=== PATIENT | female | born 1960 | race Caucasian/White ===

== ENCOUNTER → 2018-03-15 16:14 | Outpatient (CLI) | payer OTHER, SELFPAY ==
--- NOTE | 2018-03-15 16:17 | BI_ITS ---
MAMMOGRAPHY - BILATERAL SCREENING REASON FOR EXAM: Female, 57 years old. Routine annual screening examination. PERTINENT HISTORY: Sister with breast cancer. TECHNIQUE: Digital bilateral breast doyle (3D mammographic acquisition) in the CC and MLO projections. 2-D mediolateral oblique (MLO) and craniocaudad (CC) views of both breasts were obtained. CAD: Full Field Digital Mammography with Computer Added Detection was performed. COMPARISON: Comparison is made with prior examination of February 23, 2017 and February 20, 2016. FINDINGS: Breast Composition: There are scattered areas of fibroglandular density. There are no dominant masses or suspicious calcifications. Stable 8.5 mm well-defined nodule in the upper lateral aspect of the right breast. This most likely represents a small lymph node. No other significant abnormalities are identified. There has been no significant change since the prior study. BI/SCREENING MAMM (CAD), BILAT IMPRESSION: Stable bilateral screening mammogram. Yearly follow-up mammogram recommended. (A) ASSESSMENT CATEGORY: BIRADS Category 2: Benign. A letter regarding these results will be sent to the patient by the facility within 30 days. Approximately 10% of breast cancers are not detected by mammography. A normal mammogram should not delay biopsy of a clinically suspicious abnormality. [id number] Electronically Signed: Silver Huitron MD at 9:29 EST Tel [phone], Service support ,
== END ==
PROVIDERS: Family Provider Nurse Practitioner Family; PCP Nurse Practitioner Family; Referring Provider Nurse Practitioner Family; Visit Provider Nurse Practitioner Family
DX: Z12.31 Encounter for screening mammogram for malignant neoplasm of breast (principal)
CPT/HCPCS: 77063; 77067

== ENCOUNTER → 2019-03-16 15:12 | Outpatient (CLI) | payer OTHER, SELFPAY ==
--- NOTE | 2019-03-16 15:14 | BI_ITS ---
MAMMOGRAPHY - BILATERAL SCREENING REASON FOR EXAM: Female, 58 years old. Routine annual screening examination. PERTINENT HISTORY: Sister with breast cancer. TECHNIQUE: Digital bilateral breast sue (3D mammographic acquisition) in the CC and MLO projections. 2-D mediolateral oblique (MLO) and craniocaudad (CC) views of both breasts were obtained. CAD: Full Field Digital Mammography with Computer Added Detection was performed. COMPARISON: Comparison is made with prior study dated March 15, 2018 and February 23, 2017. FINDINGS: Breast Composition: There are scattered areas of fibroglandular density. There are no dominant masses or suspicious calcifications. Stable 8 mm well-defined nodule in the upper lateral aspect of the right breast this as the appearance of a benign lymph node. No other significant abnormalities are identified. There has been no significant change since the prior study. BI/SCREEN MAMM (CAD) W/SUE BILAT IMPRESSION: Stable bilateral screening mammogram. Yearly follow-up mammogram recommended. (A) ASSESSMENT CATEGORY: BIRADS Category 2: Benign. A letter regarding these results will be sent to the patient by the facility within 30 days. Approximately 10% of breast cancers are not detected by mammography. A normal mammogram should not delay biopsy of a clinically suspicious abnormality. [id number] Electronically Signed: Silver Huitron, at 9:26 EST , Service support ,
--- NOTE | 2019-03-16 15:28 | BD_ITS ---
STUDY: DUAL ENERGY X-RAY ABSORPTIOMETRY / DXA REASON FOR EXAM: Female, 58 years old. Early menopause. No loss of height. TECHNIQUE: Bone Mineral Density (BMD) measurements of lumbar spine and bilateral hips were obtained. COMPARISON: Comparison is made with prior study dated February 23, 2017. FINDINGS: Lumbar Spine (L1-L4): g/cm2 (0.947) / T-score (-1.8) / Z-score (-0.8) Findings are suggestive of osteopenia with a moderate fracture risk. Left Femur Total: g/cm2 (0.816) / T-score (-1.5) / Z-score (-0.8) Left Femoral Neck: g/cm2 (0.778) / T-score (-1.9) / Z-score (-0.8) Right Femur Total: g/cm2 (0.812) / T-score (-1.6) / Z-score (-0.8) Right Femoral Neck: g/cm2 (0.724) / T-score (-2.3) / Z-score (-1.2) The T-Scores on the most recent prior examination were: Lumbar Spine (L1-L4): There has been worsening of bone density since the previous examination. Left Femur Total: which represents a worsening of 5.7%. Right Femur Total: which represents an improvement of 0.1%. BD/Dexa Bone Density Study IMPRESSION: The patient is considered osteopenic as outlined below according to World Kole Organization (WHO) criteria with a high fracture risk. There has been worsening of bone density since the previous examination. Reference Information: The T-score is the number of standard deviations above or below the standard which is normal for young adults at their peak bone mineral density. The World Health Organization (WHO) interprets the T-scores as follows: Above -1 Normal bone density Between -1 and -2.5 Osteopenia Equal to / or below -2.5 Osteoporosis As a practical clinical guideline, osteopenia may be graded as follows: Mild -1 through -1.5 Moderate -1.6 through -2.0 Severe -2.1 through -2.4 The Z-score is the number of standard deviations above or below age-matched controls. A Z-score of less than -1.5 would be considered abnormal. References: 1. NIH Osteoporosis and Related Bone Diseases http://www.osteo.org 2. International Society for Clinical Densitometry http://www.iscd.org 3. National Osteoporosis Foundation http://www.nof.org Electronically Signed: Silver Huitron, at 15:37 EST , Service support ,
== END ==
PROVIDERS: Family Provider Nurse Practitioner Family; PCP Nurse Practitioner Family; Referring Provider Nurse Practitioner Family; Visit Provider Nurse Practitioner Family
DX: Z78.0 Asymptomatic menopausal state (principal); Z12.31 Encounter for screening mammogram for malignant neoplasm of breast; Z80.3 Family history of malignant neoplasm of breast
CPT/HCPCS: 77063; 77067; 77080

== ENCOUNTER → 2020-06-12 14:29 | Outpatient (CLI) | payer OTHER, SELFPAY ==
[2020-06-12 15:35] LABS: EXAGEN MAILED SPECIMEN
[2020-06-12 17:56] LABS: Absolute Lymphocyte Count 2.33 X10^3/uL (0.83-4.51); Absolute Neutrophil Count 5.2 X10^3/uL (2.0-7.7); Basophil# 0.06 X10^3/uL; Basophil% 0.7 % (0-1); Eosinophil# 0.16 X10^3/uL; Eosinophils% 1.9 % (0-5); Hematocrit 36.5 % (37-47); Hemoglobin 12.2 g/dL (12.0-15.0); Lymphocyte # 2.33 X10^3/ul (4.0); Lymphocyte % 27.2 % (19-41); Mean Corp Hgb Conc 33.4 g/dL (32-36); Mean Corpuscular Hgb 29.8 pg (27.0-32.0); Mean Corpuscular Volume 89.2 fL (81-99); Mean Platelet Vol. 9.2 fl (6.2-12.0); Monocyte# 0.83 X10^3/uL; Monocyte% 9.7 % (0-10); NRBC Flagged by Analyzer 0 % (0-5); Neutrophil # 5.16 X10^3/uL (2.7-7.7); Neutrophil % 60.3 % (47-70); Platelet Count 324 K/mm3 (150-450); RBC Distribution Width CV 12.3 % (11.6-14.6); RBC Distribution Width SD 40.2 fl (35.1-43.9); Red Blood Count 4.09 M/mm3 (4.2-5.4); White Blood Count 8.6 K/mm3 (4.4-11.0)
[2020-06-12 18:13] LABS: Prothrombin Time (Protime)PT. 12.4 SECONDS (11.7-14.9)
[2020-06-12 18:14] LABS: Partial Thromboplast Time 30.5 Seconds (24.1-36.2)
[2020-06-12 18:21] LABS: ALB/GLOB Ratio 1.1 RATIO (0.9-2.4); AST(SGOT) 17 U/L (15-37); Alanine Aminotransfer ALT/SGPT 31 U/L (13-56); Alkaline Phosphatase 75 U/L (45-117); Anion Gap 8 (5-15); BUN 13 mg/dL (7-18); Calcium,Total 9.2 mg/dL (8.5-10.1); Chloride 106 mmol/L (98-107); Creatinine, Serum 0.62 mg/dL (0.55-1.02); EST Glomerular Filtration Rate 105 mL/min (>60); Est Glom Filt Rate - Afr Amer 127 mL/min (>60); Globulin 3.8 g/dL (2.2-4.2); Glucose 89 mg/dL (74-106); Potassium 3.4 mmol/L (3.5-5.1); Protein, Total 7.8 g/dL (6.4-8.2); Sodium Level 141 mmol/L (136-145)
[2020-06-13 10:11] LABS: Hepatitis B Surface Antibody Non-Reactive; Hepatitis B Surface Antigen Non-Reactive (Nonreactive); Hepatitis C Antibody Non-Reactive (Nonreactive)
[2020-06-15 05:07] LABS: Dilute Prothrombin Time (dPT) 39.6 sec (0.0-55.0); Dilute Russell Viper Venom 41.3 sec (0.0-47.0); Hexagonal Phase Phospholipid 1 sec (0-11); PTT-LA 44.8 sec (0.0-51.9); Thrombin Time 17.2 sec (0.0-23.0)
[2020-06-15 08:59] LABS: Interpretation Comment: (.)
[2020-06-15 14:36] LABS: Thrombin Time 15.8 sec (0.0-23.0)
== END ==
PROVIDERS: PCP Nurse Practitioner Family; Referring Provider Internal Medicine Rheumatology; Visit Provider Internal Medicine Rheumatology
DX: M06.4 Inflammatory polyarthropathy (principal); R76.8 Other specified abnormal immunological findings in serum; M50.30 Other cervical disc degeneration, unspecified cervical region; M21.41 Flat foot [pes planus] (acquired), right foot; K21.9 Gastro-esophageal reflux disease without esophagitis; I49.8 Other specified cardiac arrhythmias; I11.9 Hypertensive heart disease without heart failure; F32.9 Major depressive disorder, single episode, unspecified; E78.5 Hyperlipidemia, unspecified; H40.9 Unspecified glaucoma; R51.9 Headache, unspecified
CPT/HCPCS: 36415; 80053; 85025; 85598; 85610; 85670; 85730; 86706; 86803; 87340

== ENCOUNTER → 2020-07-08 15:55 | Outpatient (CLI) | payer OTHER, SELFPAY ==
[2020-06-26 16:10] VITALS: BMI 33.4
[2020-07-08 17:03] LABS: EXAGEN MAILED SPECIMEN
== END ==
PROVIDERS: PCP Nurse Practitioner Family; Referring Provider Internal Medicine Rheumatology; Visit Provider Internal Medicine Rheumatology
DX: M06.4 Inflammatory polyarthropathy (principal); R76.8 Other specified abnormal immunological findings in serum; M50.30 Other cervical disc degeneration, unspecified cervical region; M21.41 Flat foot [pes planus] (acquired), right foot; K21.9 Gastro-esophageal reflux disease without esophagitis; I49.8 Other specified cardiac arrhythmias; I10 Essential (primary) hypertension; I51.9 Heart disease, unspecified; F32.9 Major depressive disorder, single episode, unspecified; E78.5 Hyperlipidemia, unspecified; H40.9 Unspecified glaucoma; R51.9 Headache, unspecified

== ENCOUNTER → 2020-08-21 16:01 | Outpatient (CLI) | payer OTHER, SELFPAY ==
[2020-06-26 16:10] VITALS: BMI 33.4
--- NOTE | 2020-08-21 16:03 | BI_ITS ---
MAMMOGRAPHY - BILATERAL SCREENING REASON FOR EXAM: Female, 59 years old. Routine annual screening examination. PERTINENT HISTORY: Sister with breast cancer. TECHNIQUE: Digital bilateral breast sue (3D mammographic acquisition) in the CC and MLO projections. 2-D mediolateral oblique (MLO) and craniocaudad (CC) views of both breasts were obtained. CAD: Full Field Digital Mammography with Computer Added Detection was performed. COMPARISON: Comparison is made with prior examination dated 03/16/2019 and 03/15/2018. FINDINGS: Breast Composition: There are scattered areas of fibroglandular density. There are no dominant masses or suspicious calcifications. Stable 8 mm well-defined nodule in the upper lateral aspect of the right breast. This is suggestive of a small benign-appearing lymph node. No other significant abnormalities are identified. There has been no significant change since the prior study. BI/SCRN MAMM (CAD)W/SUE BILAT IMPRESSION: Stable bilateral screening mammogram. Yearly follow-up mammogram recommended. (A) ASSESSMENT CATEGORY: BIRADS Category 2: Benign. A letter regarding these results will be sent to the patient by the facility within 30 days. Approximately 10% of breast cancers are not detected by mammography. A normal mammogram should not delay biopsy of a clinically suspicious abnormality. [id number] Electronically Signed: Silver Huitron MD at 8:09 EDT , Service support ,
== END ==
PROVIDERS: PCP Nurse Practitioner Family; Referring Provider Nurse Practitioner Family; Visit Provider Nurse Practitioner Family
DX: Z12.31 Encounter for screening mammogram for malignant neoplasm of breast (principal); Z80.3 Family history of malignant neoplasm of breast
CPT/HCPCS: 77063; 77067

== ENCOUNTER → 2020-10-17 16:08 | Outpatient (CLI) | payer OTHER, SELFPAY ==
[2020-06-26 16:10] VITALS: BMI 33.4
[2020-10-17 18:02] LABS: Absolute Lymphocyte Count 2.52 X10^3/uL (0.83-4.51); Absolute Neutrophil Count 3.6 X10^3/uL (2.0-7.7); Basophil# 0.05 X10^3/uL; Basophil% 0.7 % (0-1); Eosinophil# 0.19 X10^3/uL; Eosinophils% 2.7 % (0-5); Hematocrit 36.4 % (37-47); Hemoglobin 12.2 g/dL (12.0-15.0); Lymphocyte # 2.52 X10^3/ul (0.83-4.51); Lymphocyte % 35.2 % (19-41); Mean Corp Hgb Conc 33.5 g/dL (32-36); Mean Corpuscular Hgb 29.8 pg (27.0-32.0); Monocyte# 0.72 X10^3/uL; Monocyte% 10.1 % (0-10); NRBC Flagged by Analyzer 0 % (0-5); Neutrophil # 3.64 X10^3/uL (2.7-7.7); Neutrophil % 50.9 % (47-70); Platelet Count 299 K/mm3 (150-450); RBC Distribution Width CV 12.4 % (11.6-14.6); RBC Distribution Width SD 40.3 fl (35.1-43.9); Red Blood Count 4.09 M/mm3 (4.2-5.4); White Blood Count 7.2 K/mm3 (4.4-11.0)
[2020-10-17 18:06] LABS: ALB/GLOB Ratio 1.2 RATIO (0.9-2.4); AST(SGOT) 22 U/L (15-37); Alanine Aminotransfer ALT/SGPT 36 U/L (13-56); Albumin, Serum 4.1 g/dL (3.2-5.0); Alkaline Phosphatase 66 U/L (45-117); Anion Gap 7 (5-15); BUN 14 mg/dL (7-18); BUN/Creat Ratio 22.3 RATIO (10-20); Calcium,Total 9.2 mg/dL (8.5-10.1); Chloride 107 mmol/L (98-107); Creatinine, Serum 0.63 mg/dL (0.55-1.02); EST Glomerular Filtration Rate 103 mL/min (>60); Est Glom Filt Rate - Afr Amer 125 mL/min (>60); Globulin 3.5 g/dL (2.2-4.2); Glucose 85 mg/dL (74-106); Potassium 3.5 mmol/L (3.5-5.1); Protein, Total 7.6 g/dL (6.4-8.2); Sodium Level 141 mmol/L (136-145)
== END ==
PROVIDERS: PCP Nurse Practitioner Family; Referring Provider Internal Medicine Rheumatology; Visit Provider Internal Medicine Rheumatology
DX: M06.4 Inflammatory polyarthropathy (principal); R76.8 Other specified abnormal immunological findings in serum; M50.30 Other cervical disc degeneration, unspecified cervical region; M21.41 Flat foot [pes planus] (acquired), right foot; K21.9 Gastro-esophageal reflux disease without esophagitis; I49.8 Other specified cardiac arrhythmias; I11.9 Hypertensive heart disease without heart failure; F32.9 Major depressive disorder, single episode, unspecified; E78.5 Hyperlipidemia, unspecified; H40.9 Unspecified glaucoma; R51.9 Headache, unspecified
CPT/HCPCS: 36415; 80053; 85025

== ENCOUNTER → 2021-01-14 15:46 | Outpatient (CLI) | payer OTHER, SELFPAY ==
[2021-01-14 18:07] LABS: Absolute Lymphocyte Count 2.83 X10^3/uL (0.83-4.51); Absolute Neutrophil Count 5.9 X10^3/uL (2.0-7.7); Basophil# 0.07 X10^3/uL; Basophil% 0.7 % (0-1); Eosinophil# 0.05 X10^3/uL; Eosinophils% 0.5 % (0-5); Hematocrit 38.4 % (37-47); Hemoglobin 13.2 g/dL (12.0-15.0); Lymphocyte # 2.83 X10^3/ul (0.83-4.51); Mean Corp Hgb Conc 34.4 g/dL (32-36); Mean Corpuscular Hgb 30.8 pg (27.0-32.0); Mean Corpuscular Volume 89.5 fL (81-99); Mean Platelet Vol. 8.9 fl (6.2-12.0); Monocyte# 0.91 X10^3/uL; Monocyte% 9.3 % (0-10); NRBC Flagged by Analyzer 0 % (0-5); Neutrophil # 5.87 X10^3/uL (2.7-7.7); Neutrophil % 60.2 % (47-70); Platelet Count 359 K/mm3 (150-450); RBC Distribution Width CV 12.2 % (11.6-14.6); RBC Distribution Width SD 39.6 fl (35.1-43.9); Red Blood Count 4.29 M/mm3 (4.2-5.4); White Blood Count 9.8 K/mm3 (4.4-11.0)
[2021-01-14 18:25] LABS: ALB/GLOB Ratio 1.1 RATIO (0.9-2.4); AST(SGOT) 17 U/L (15-37); Alanine Aminotransfer ALT/SGPT 38 U/L (13-56); Albumin, Serum 4.1 g/dL (3.2-5.0); Alkaline Phosphatase 63 U/L (45-117); Anion Gap 6 (5-15); BUN 13 mg/dL (7-18); BUN/Creat Ratio 21.6 RATIO (10-20); Calcium,Total 9.2 mg/dL (8.5-10.1); Chloride 105 mmol/L (98-107); EST Glomerular Filtration Rate 108 mL/min (>60); Est Glom Filt Rate - Afr Amer 131 mL/min (>60); Globulin 3.7 g/dL (2.2-4.2); Glucose 112 mg/dL (74-106); Potassium 3.5 mmol/L (3.5-5.1); Protein, Total 7.8 g/dL (6.4-8.2); Sodium Level 139 mmol/L (136-145)
== END ==
PROVIDERS: PCP Nurse Practitioner Family; Referring Provider Internal Medicine Rheumatology; Visit Provider Internal Medicine Rheumatology
DX: M06.4 Inflammatory polyarthropathy (principal); M50.30 Other cervical disc degeneration, unspecified cervical region; M21.41 Flat foot [pes planus] (acquired), right foot; K21.9 Gastro-esophageal reflux disease without esophagitis; R76.8 Other specified abnormal immunological findings in serum; Z79.899 Other long term (current) drug therapy
CPT/HCPCS: 36415; 80053; 85025

== ENCOUNTER → 2021-04-01 15:48 | Outpatient (CLI) | payer OTHER, SELFPAY ==
[2021-04-01 17:57] LABS: Absolute Lymphocyte Count 2.59 X10^3/uL (0.83-4.51); Absolute Neutrophil Count 3.9 X10^3/uL (2.0-7.7); Basophil# 0.06 X10^3/uL; Basophil% 0.8 % (0-1); Eosinophil# 0.11 X10^3/uL; Eosinophils% 1.5 % (0-5); Hematocrit 37.4 % (37-47); Hemoglobin 12.7 g/dL (12.0-15.0); Lymphocyte # 2.59 X10^3/ul (0.83-4.51); Lymphocyte % 35.3 % (19-41); Mean Corpuscular Hgb 30.7 pg (27.0-32.0); Mean Corpuscular Volume 90.3 fL (81-99); Mean Platelet Vol. 8.7 fl (6.2-12.0); Monocyte# 0.62 X10^3/uL; Monocyte% 8.5 % (0-10); NRBC Flagged by Analyzer 0 % (0-5); Neutrophil # 3.93 X10^3/uL (2.7-7.7); Neutrophil % 53.6 % (47-70); Platelet Count 293 K/mm3 (150-450); RBC Distribution Width CV 12.7 % (11.6-14.6); RBC Distribution Width SD 41.5 fl (35.1-43.9); Red Blood Count 4.14 M/mm3 (4.2-5.4); White Blood Count 7.3 K/mm3 (4.4-11.0)
[2021-04-01 18:31] LABS: ALB/GLOB Ratio 1.2 RATIO (0.9-2.4); AST(SGOT) 18 U/L (15-37); Alanine Aminotransfer ALT/SGPT 46 U/L (13-56); Alkaline Phosphatase 51 U/L (45-117); Anion Gap 9 (5-15); BUN 13 mg/dL (7-18); BUN/Creat Ratio 19.8 RATIO (10-20); Calcium,Total 8.9 mg/dL (8.5-10.1); Chloride 107 mmol/L (98-107); Creatinine, Serum 0.66 mg/dL (0.55-1.02); EST Glomerular Filtration Rate 98 mL/min (>60); Est Glom Filt Rate - Afr Amer 118 mL/min (>60); Globulin 3.3 g/dL (2.2-4.2); Glucose 83 mg/dL (74-106); Potassium 3.7 mmol/L (3.5-5.1); Protein, Total 7.3 g/dL (6.4-8.2); Sodium Level 141 mmol/L (136-145)
== END ==
PROVIDERS: PCP Nurse Practitioner Family; Referring Provider Internal Medicine Rheumatology; Visit Provider Internal Medicine Rheumatology
DX: M06.4 Inflammatory polyarthropathy (principal); R76.8 Other specified abnormal immunological findings in serum; Z79.899 Other long term (current) drug therapy; M50.30 Other cervical disc degeneration, unspecified cervical region; M21.41 Flat foot [pes planus] (acquired), right foot; K21.9 Gastro-esophageal reflux disease without esophagitis; I49.8 Other specified cardiac arrhythmias; I10 Essential (primary) hypertension; I51.9 Heart disease, unspecified; F32.9 Major depressive disorder, single episode, unspecified; E78.5 Hyperlipidemia, unspecified; H40.9 Unspecified glaucoma; R51.9 Headache, unspecified
CPT/HCPCS: 36415; 80053; 85025

== ENCOUNTER → 2021-09-30 | Outpatient (CLI) | payer OTHER, SELFPAY ==
[2021-09-30 17:48] LABS: Absolute Lymphocyte Count 2.83 X10^3/uL (0.83-4.51); Absolute Neutrophil Count 3.2 X10^3/uL (2.0-7.7); Basophil# 0.08 X10^3/uL; Basophil% 1.2 % (0-1); Eosinophil# 0.17 X10^3/uL; Eosinophils% 2.5 % (0-5); Hematocrit 35.4 % (37-47); Hemoglobin 12.4 g/dL (12.0-15.0); Lymphocyte # 2.83 X10^3/ul (0.83-4.51); Lymphocyte % 41.1 % (19-41); Mean Corpuscular Hgb 31.1 pg (27.0-32.0); Mean Corpuscular Volume 88.7 fL (81-99); Mean Platelet Vol. 8.9 fl (6.2-12.0); Monocyte# 0.62 X10^3/uL; NRBC Flagged by Analyzer 0 % (0-5); Neutrophil # 3.17 X10^3/uL (2.7-7.7); Neutrophil % 46.1 % (47-70); POSITIVE MORPHOLOGY YES; Platelet Count 300 K/mm3 (150-450); RBC Distribution Width SD 39.3 fl (35.1-43.9); Red Blood Count 3.99 M/mm3 (4.2-5.4); White Blood Count 6.9 K/mm3 (4.4-11.0)
[2021-09-30 17:55] LABS: Differential Indicated SCAN CRITERIA MET
[2021-09-30 18:00] LABS: ALB/GLOB Ratio 1.2 RATIO (0.9-2.4); AST(SGOT) 22 U/L (15-37); Alanine Aminotransfer ALT/SGPT 48 U/L (13-56); Alkaline Phosphatase 45 U/L (45-117); Anion Gap 9 (5-15); BUN 17 mg/dL (7-18); BUN/Creat Ratio 22.6 RATIO (10-20); Calcium,Total 9.4 mg/dL (8.5-10.1); Chloride 102 mmol/L (98-107); Creatinine, Serum 0.75 mg/dL (0.55-1.02); EST Glomerular Filtration Rate 83 mL/min (>60); Est Glom Filt Rate - Afr Amer 101 mL/min (>60); Globulin 3.3 g/dL (2.2-4.2); Glucose 92 mg/dL (74-106); Potassium 3.3 mmol/L (3.5-5.1); Protein, Total 7.3 g/dL (6.4-8.2); Sodium Level 137 mmol/L (136-145)
[2021-09-30 18:24] LABS: Differential Comment SCANNED
== END | disposition home or self-care (01) ==
LOC: MTLAB 15:52
PROVIDERS: PCP Nurse Practitioner Family; Referring Provider Internal Medicine Rheumatology; Visit Provider Internal Medicine Rheumatology
DX: M06.4 Inflammatory polyarthropathy (principal); R76.0 Raised antibody titer; M50.30 Other cervical disc degeneration, unspecified cervical region; M21.41 Flat foot [pes planus] (acquired), right foot; M21.42 Flat foot [pes planus] (acquired), left foot; K21.9 Gastro-esophageal reflux disease without esophagitis; I49.8 Other specified cardiac arrhythmias; I10 Essential (primary) hypertension; Z79.899 Other long term (current) drug therapy
CPT/HCPCS: 36415; 80053; 85025

== ENCOUNTER → 2021-11-04 | Outpatient (CLI) | payer OTHER, SELFPAY ==
--- NOTE | 2021-11-04 15:49 | BI_ITS ---
MAMMOGRAPHY - BILATERAL SCREENING REASON FOR EXAM: Female, 60 years old. Routine annual screening examination. PERTINENT HISTORY: Sister with breast cancer. TECHNIQUE: Digital bilateral breast sue (3D mammographic acquisition) in the CC and MLO projections. 2-D mediolateral oblique (MLO) and craniocaudad (CC) views of both breasts were obtained. CAD: Full Field Digital Mammography with Computer Added Detection was performed. COMPARISON: Comparison is made with prior study dated 08/21/2020 and 03/16/2019. FINDINGS: Breast Composition: There are scattered areas of fibroglandular density. There are no dominant masses or suspicious calcifications. Stable 8 mm well-defined nodule with central fatty hilum in the deep upper lateral aspect of the right breast suggests a small lymph node. No other significant abnormalities are identified. There has been no significant change since the prior study. BI/SCRN MAMM (CAD)W/SUE BILAT IMPRESSION: Stable bilateral screening mammogram. Yearly follow-up mammogram recommended. (A) ASSESSMENT CATEGORY: BIRADS Category 2: Benign. A letter regarding these results will be sent to the patient by the facility within 30 days. Approximately 10% of breast cancers are not detected by mammography. A normal mammogram should not delay biopsy of a clinically suspicious abnormality. [id number] Electronically Signed: Silver Huitron MD at 8:29 EDT ,
== END | disposition home or self-care (01) ==
LOC: OPBI 15:48
PROVIDERS: PCP Nurse Practitioner Family; Visit Provider Nurse Practitioner Family
DX: Z12.31 Encounter for screening mammogram for malignant neoplasm of breast (principal); Z80.3 Family history of malignant neoplasm of breast
CPT/HCPCS: 77063; 77067

== ENCOUNTER → 2022-03-23 | Outpatient (CLI) | payer OTHER, SELFPAY ==
[2022-03-23 17:53] LABS: Absolute Lymphocyte Count 3.02 X10^3/uL (0.83-4.51); Basophil# 0.04 X10^3/uL; Basophil% 0.4 % (0-1); Eosinophil# 0.31 X10^3/uL; Eosinophils% 3.4 % (0-5); Hematocrit 38.4 % (37-47); Hemoglobin 13.3 g/dL (12.0-15.0); Lymphocyte # 3.02 X10^3/ul (0.83-4.51); Lymphocyte % 32.9 % (19-41); Mean Corp Hgb Conc 34.6 g/dL (32-36); Mean Corpuscular Hgb 31.1 pg (27.0-32.0); Mean Corpuscular Volume 89.7 fL (81-99); Mean Platelet Vol. 8.9 fl (6.2-12.0); Monocyte# 0.78 X10^3/uL; Monocyte% 8.5 % (0-10); NRBC Flagged by Analyzer 0 % (0-5); Neutrophil # 5.01 X10^3/uL (2.7-7.7); Neutrophil % 54.6 % (47-70); Platelet Count 280 K/mm3 (150-450); RBC Distribution Width CV 12.3 % (11.6-14.6); RBC Distribution Width SD 40.2 fl (35.1-43.9); Red Blood Count 4.28 M/mm3 (4.2-5.4); White Blood Count 9.2 K/mm3 (4.4-11.0)
[2022-03-23 18:04] LABS: ALB/GLOB Ratio 1.4 RATIO (0.9-2.4); AST(SGOT) 27 U/L (15-37); Alanine Aminotransfer ALT/SGPT 52 U/L (13-56); Alkaline Phosphatase 50 U/L (45-117); Anion Gap 8 (5-15); BUN 22 mg/dL (7-18); BUN/Creat Ratio 29.2 RATIO (10-20); Calcium,Total 9.1 mg/dL (8.5-10.1); Chloride 103 mmol/L (98-107); Creatinine, Serum 0.75 mg/dL (0.55-1.02); EST Glomerular Filtration Rate 83 mL/min (>60); Est Glom Filt Rate - Afr Amer 101 mL/min (>60); Globulin 2.8 g/dL (2.2-4.2); Glucose 88 mg/dL (74-106); Potassium 3.5 mmol/L (3.5-5.1); Protein, Total 6.8 g/dL (6.4-8.2); Sodium Level 139 mmol/L (136-145)
== END | disposition home or self-care (01) ==
PROVIDERS: PCP Nurse Practitioner Family; Referring Provider Internal Medicine Rheumatology; Visit Provider Internal Medicine Rheumatology
DX: M06.4 Inflammatory polyarthropathy (principal); I10 Essential (primary) hypertension; R76.8 Other specified abnormal immunological findings in serum; M50.30 Other cervical disc degeneration, unspecified cervical region; M21.41 Flat foot [pes planus] (acquired), right foot; K21.9 Gastro-esophageal reflux disease without esophagitis; F32.9 Major depressive disorder, single episode, unspecified; E78.5 Hyperlipidemia, unspecified; H40.9 Unspecified glaucoma; R51.9 Headache, unspecified; Z79.899 Other long term (current) drug therapy
CPT/HCPCS: 36415; 80053; 85025

== ENCOUNTER → 2022-07-30 | Outpatient (CLI) | payer OTHER, SELFPAY ==
--- NOTE | 2022-07-30 12:48 | CDU_ITS ---
Reason For Study: Lightheadedness Rt. Velocities/BP Lt. Velocities/BP Prox CCA 90/17.3 cm/sec. Prox CCA 91.6/17.9 cm/sec. Mid CCA 74.9/18.2 cm/sec. Mid CCA 71.8/19 cm/sec. Dist CCA 52.2/12.6 cm/sec. Dist CCA 67.4/16.8 cm/sec. Prox ICA 51.3/13.5 cm/sec. Prox ICA 63/16.8 cm/sec. Mid ICA 82.5/32.4 cm/sec. Mid ICA 109.7/37.2 cm/sec. Dist ICA 67.8/23.7 cm/sec. Dist ICA 98.8/33.5 cm/sec. Rt. ICA/CCA = 1.10. Lt. ICA/CCA = 1.53. Prox ECA 55.1/7.8 cm/sec. Prox ECA 76.2/8 cm/sec. Rt. Vert. 49.4/17.3 cm/sec. Lt. Vert. 53.2/12.6 cm/sec. Right Extracranial There is intimal thickening but no significant atherosclerotic plaque noted in the right common carotid artery. There is intimal thickening but no significant atherosclerotic plaque noted in the right internal carotid artery. There is intimal thickening but no significant atherosclerotic plaque noted in the right external carotid artery. Antegrade flow is noted in the right vertebral artery. Left Extracranial There is heterogeneous, smooth atherosclerotic plaque noted in the left common carotid artery. There is heterogeneous, irregular atherosclerotic plaque noted in the left internal carotid artery. There is intimal thickening but no significant atherosclerotic plaque noted in the left external carotid artery. Antegrade flow is noted in the left vertebral artery. Procedure Carotid Duplex [id number]. This is a Carotid Duplex examination using B-mode, color flow and specral Doppler. Exam performed in department. VL/Carotid Duplex Ultrasound Interpretation Summary Normal right extracranial internal carotid. Mild (<50%) stenosis left extracranial internal carotid. Patent and antegrade vertebrals bilaterally. Ordering Physician: Chris Morales Referring Physician: Ilan Chung Performed By: Nena Salas RVT
--- NOTE | 2022-07-30 13:25 | BD_ITS ---
STUDY: DUAL ENERGY X-RAY ABSORPTIOMETRY / DXA REASON FOR EXAM: Female, 61 years old. Z13.820 -- SCREENING TECHNIQUE: Bone Mineral Density (BMD) measurements of lumbar spine and bilateral hips were obtained. COMPARISON: Comparison is made with prior study March 16, 2019. FINDINGS: Lumbar Spine (L1-L4): g/cm2 (0.896) / T-score (-1.1) / Z-score (0.3) Findings are suggestive of osteopenia with a low fracture risk. Left Femur Total: g/cm2 (0.756) / T-score (-1.5) / Z-score (-0.5) Left Femoral Neck: g/cm2 (0.590) / T-score (-2.3) / Z-score (-1.0) Right Femur Total: g/cm2 (0.750) / T-score (-1.6) / Z-score (-0.6) Right Femoral Neck: g/cm2 (0.586) / T-score (-2.4) / Z-score (-1.1) The T-Scores on the most recent prior examination were: Lumbar Spine (L1-L4): There has been improvement of bone density since the previous examination. Left Femur Total: which represents an improvement of 0.1%. Right Femur Total: which represents a worsening of 0.1%. BD/Dexa Bone Density Study IMPRESSION: The patient is considered osteopenic as outlined below according to World Kole Organization (WHO) criteria with a high fracture risk. There has been improvement of bone density since the previous examination. Reference Information: The T-score is the number of standard deviations above or below the standard which is normal for young adults at their peak bone mineral density. The World Health Organization (WHO) interprets the T-scores as follows: Above -1 Normal bone density Between -1 and -2.5 Osteopenia Equal to / or below -2.5 Osteoporosis As a practical clinical guideline, osteopenia may be graded as follows: Mild -1 through -1.5 Moderate -1.6 through -2.0 Severe -2.1 through -2.4 The Z-score is the number of standard deviations above or below age-matched controls. A Z-score of less than -1.5 would be considered abnormal. References: 1. NIH Osteoporosis and Related Bone Diseases www osteo.org 2. International Society for Clinical Densitometry www iscd.org 3. National Osteoporosis Foundation www nof.org Electronically Signed: Silver Huitron MD at 12:59 EDT ,
== END | disposition home or self-care (01) ==
LOC: CVS 12:46
PROVIDERS: PCP Nurse Practitioner Family; Referring Provider Nurse Practitioner Primary Care; Visit Provider Nurse Practitioner Primary Care
DX: I65.22 Occlusion and stenosis of left carotid artery (principal); R42 Dizziness and giddiness; Z13.820 Encounter for screening for osteoporosis; Z78.0 Asymptomatic menopausal state; Z82.49 Family history of ischemic heart disease and other diseases of the circulatory system
CPT/HCPCS: 77080; 93880

== ENCOUNTER → 2022-09-17 | Outpatient (CLI) | payer OTHER, SELFPAY ==
[2022-09-17 17:43] LABS: Basophil# 0.05 X10^3/uL; Basophil% 0.8 % (0-1); Eosinophil# 0.13 X10^3/uL; Eosinophils% 2.2 % (0-5); Hematocrit 35.8 % (37-47); Hemoglobin 12.6 g/dL (12.0-15.0); Lymphocyte % 36.5 % (19-41); Mean Corp Hgb Conc 35.2 g/dL (32-36); Mean Corpuscular Hgb 31.3 pg (27.0-32.0); Mean Corpuscular Volume 88.8 fL (81-99); Mean Platelet Vol. 9.1 fl (6.2-12.0); Monocyte# 0.68 X10^3/uL; Monocyte% 11.3 % (0-10); NRBC Flagged by Analyzer 0 % (0-5); Neutrophil # 2.95 X10^3/uL (2.7-7.7); Platelet Count 286 K/mm3 (150-450); RBC Distribution Width SD 38.6 fl (35.1-43.9); Red Blood Count 4.03 M/mm3 (4.2-5.4)
[2022-09-17 18:25] LABS: ALB/GLOB Ratio 1.2 RATIO (0.9-2.4); AST(SGOT) 30 U/L (15-37); Alanine Aminotransfer ALT/SGPT 65 U/L (13-56); Alkaline Phosphatase 42 U/L (45-117); Anion Gap 7 (5-15); BUN 20 mg/dL (7-18); BUN/Creat Ratio 27.4 RATIO (10-20); Calcium,Total 8.9 mg/dL (8.5-10.1); Chloride 98 mmol/L (98-107); Creatinine, Serum 0.73 mg/dL (0.55-1.02); EST Glomerular Filtration Rate 86 mL/min (>60); Est Glom Filt Rate - Afr Amer 104 mL/min (>60); Globulin 3.2 g/dL (2.2-4.2); Glucose 90 mg/dL (74-106); Potassium 3.6 mmol/L (3.5-5.1); Protein, Total 7.2 g/dL (6.4-8.2); Sodium Level 133 mmol/L (136-145)
== END | disposition home or self-care (01) ==
LOC: MTLAB 16:04
PROVIDERS: PCP Nurse Practitioner Family; Referring Provider Internal Medicine Rheumatology; Visit Provider Internal Medicine Rheumatology
DX: M06.4 Inflammatory polyarthropathy (principal); Z79.899 Other long term (current) drug therapy; R76.8 Other specified abnormal immunological findings in serum
CPT/HCPCS: 36415; 80053; 85025

== ENCOUNTER → 2022-10-12 | Outpatient (CLI) | payer OTHER, SELFPAY ==
--- NOTE | 2022-10-12 07:22 | US_ITS ---
EXAM: US ABDOMEN LIMITED, RIGHT UPPER QUADRANT CLINICAL INDICATION: ELEVEVATED LIVER ENZYMES TECHNIQUE: Real-time ultrasound of the right upper quadrant with image documentation. COMPARISON: No relevant prior studies available. FINDINGS: LIVER: Unremarkable. 13.6 cm in length. There is normal echotexture. No focal hepatic lesion. No intrahepatic biliary ductal dilation. Patent main portal vein, normal direction of flow. Patent visualized hepatic veins. GALLBLADDER: Unremarkable. No shadowing gallstone. No gallbladder wall thickening is demonstrated. No pericholecystic fluid. Negative sonographic Mcmahon''s sign. COMMON BILE DUCT: Unremarkable as visualized. The proximal common bile duct is within normal limits for the patient''s age. 3.3 mm at the gus. PANCREAS: Unremarkable as visualized. Distal body and tail are not demonstrated. No focal abnormality is demonstrated in the pancreas. No pancreatic ductal dilatation. RIGHT KIDNEY: Unremarkable. 11.2 cm x 5.2 cm x 6 cm. There is no hydronephrosis. No shadowing calculus. No focal lesion or perinephric collection is demonstrated. US/Liver IMPRESSION: Normal right upper quadrant ultrasound. Incompletely visualized pancreas. Electronically Signed: Asha Roberts MD at 7:03 EDT ,
== END | disposition home or self-care (01) ==
LOC: US 07:20
PROVIDERS: PCP Nurse Practitioner Family; Referring Provider Internal Medicine Rheumatology; Visit Provider Internal Medicine Rheumatology
DX: R76.8 Other specified abnormal immunological findings in serum (principal); M06.4 Inflammatory polyarthropathy; Z79.899 Other long term (current) drug therapy
CPT/HCPCS: 76705

== ENCOUNTER → 2022-10-24 | Outpatient (CLI) | payer OTHER, SELFPAY ==
[2022-10-24 08:00] LABS: Hemoglobin 13.6 g/dL (12.0-15.0); Mean Corp Hgb Conc 34.9 g/dL (32-36); Mean Corpuscular Hgb 31.5 pg (27.0-32.0); Mean Corpuscular Volume 90.3 fL (81-99); Mean Platelet Vol. 8.9 fl (6.2-12.0); Platelet Count 281 K/mm3 (150-450); RBC Distribution Width CV 12.1 % (11.6-14.6); RBC Distribution Width SD 39.7 fl (35.1-43.9); Red Blood Count 4.32 M/mm3 (4.2-5.4); White Blood Count 5.5 K/mm3 (4.4-11.0)
[2022-10-24 08:06] LABS: ALB/GLOB Ratio 1.2 RATIO (0.9-2.4); AST(SGOT) 30 U/L (15-37); Alanine Aminotransfer ALT/SGPT 66 U/L (13-56); Albumin, Serum 4.2 g/dL (3.2-5.0); Alkaline Phosphatase 49 U/L (45-117); Anion Gap 6 (5-15); BUN 20 mg/dL (7-18); BUN/Creat Ratio 24.7 RATIO (10-20); Calcium,Total 9.2 mg/dL (8.5-10.1); Chloride 102 mmol/L (98-107); Cholesterol 126 mg/dL (200); Creatinine, Serum 0.81 mg/dL (0.55-1.02); EST Glomerular Filtration Rate 76 mL/min (>60); Est Glom Filt Rate - Afr Amer 93 mL/min (>60); Globulin 3.5 g/dL (2.2-4.2); Glucose 97 mg/dL (74-106); High Density Lipoprotein 56 mg/dL; Potassium 3.8 mmol/L (3.5-5.1); Protein, Total 7.7 g/dL (6.4-8.2); Sodium Level 135 mmol/L (136-145); Triglycerides 76 mg/dL; Very Low Density Lipoprotein 15 mg/dL (5-40)
[2022-10-26 09:24] LABS: Vitamin D,25 Hydroxy 113.1 ng/mL
== END | disposition home or self-care (01) ==
LOC: LAB 07:08
PROVIDERS: PCP Nurse Practitioner Family; Referring Provider Nurse Practitioner Family; Visit Provider Nurse Practitioner Family
DX: I10 Essential (primary) hypertension (principal); E55.9 Vitamin D deficiency, unspecified; E78.5 Hyperlipidemia, unspecified; K21.9 Gastro-esophageal reflux disease without esophagitis; F32.A Depression, unspecified; R73.01 Impaired fasting glucose
CPT/HCPCS: 36415; 80053; 80061; 82306; 85027

== ENCOUNTER → 2022-12-10 | Outpatient (CLI) | payer OTHER, SELFPAY ==
--- NOTE | 2022-12-10 16:05 | BI_ITS ---
MAMMOGRAPHY - BILATERAL SCREENING REASON FOR EXAM: Female, 62 years old. Routine annual screening examination. PERTINENT HISTORY: Sister with breast cancer. TECHNIQUE: Digital bilateral breast sue (3D mammographic acquisition) in the CC and MLO projections. 2-D mediolateral oblique (MLO) and craniocaudad (CC) views of both breasts were obtained. CAD: Full Field Digital Mammography with Computer Added Detection was performed. COMPARISON: Comparison is made with prior study dated November 04, 2021 and August 21, 2020. FINDINGS: Breast Composition: There are scattered areas of fibroglandular density. There are no dominant masses or suspicious calcifications. Stable 8 mm well-defined nodule with central fatty hilum in the upper lateral aspect of the right breast. This is suggestive of a small lymph node. No other significant abnormalities are identified. There has been no significant change since the prior study. BI/SCRN MAMM (CAD)W/SUE BILAT IMPRESSION: Stable bilateral screening mammogram. Yearly follow-up mammogram recommended. (A) ASSESSMENT CATEGORY: BIRADS Category 2: Benign. A letter regarding these results will be sent to the patient by the facility within 30 days. Approximately 10% of breast cancers are not detected by mammography. A normal mammogram should not delay biopsy of a clinically suspicious abnormality. [id number] Electronically Signed: Silver Huitron MD at 10:01 EDT ,
== END | disposition home or self-care (01) ==
PROVIDERS: PCP Nurse Practitioner Family; Referring Provider Nurse Practitioner Family; Visit Provider Nurse Practitioner Family
DX: Z12.31 Encounter for screening mammogram for malignant neoplasm of breast (principal); Z80.3 Family history of malignant neoplasm of breast
CPT/HCPCS: 77063; 77067

== ENCOUNTER → 2022-12-22 | Outpatient (CLI) | payer OTHER, SELFPAY ==
[2022-12-22 17:34] LABS: Absolute Lymphocyte Count 2.18 X10^3/uL (0.83-4.51); Absolute Neutrophil Count 3.1 X10^3/uL (2.0-7.7); Basophil# 0.06 X10^3/uL; Eosinophil# 0.13 X10^3/uL; Eosinophils% 2.1 % (0-5); Hematocrit 36.3 % (37-47); Hemoglobin 12.4 g/dL (12.0-15.0); Lymphocyte # 2.18 X10^3/ul (0.83-4.51); Lymphocyte % 35.8 % (19-41); Mean Corp Hgb Conc 34.2 g/dL (32-36); Mean Corpuscular Hgb 30.9 pg (27.0-32.0); Mean Corpuscular Volume 90.5 fL (81-99); Monocyte# 0.59 X10^3/uL; Monocyte% 9.7 % (0-10); NRBC Flagged by Analyzer 0 % (0-5); Neutrophil # 3.12 X10^3/uL (2.7-7.7); Neutrophil % 51.2 % (47-70); Platelet Count 274 K/mm3 (150-450); RBC Distribution Width CV 12.2 % (11.6-14.6); RBC Distribution Width SD 40.4 fl (35.1-43.9); Red Blood Count 4.01 M/mm3 (4.2-5.4); White Blood Count 6.1 K/mm3 (4.4-11.0)
[2022-12-22 17:49] LABS: ALB/GLOB Ratio 1.3 RATIO (0.9-2.4); AST(SGOT) 23 U/L (15-37); Alanine Aminotransfer ALT/SGPT 54 U/L (13-56); Albumin, Serum 3.9 g/dL (3.2-5.0); Alkaline Phosphatase 45 U/L (45-117); Anion Gap 6 (5-15); BUN 22 mg/dL (7-18); Calcium,Total 8.8 mg/dL (8.5-10.1); Chloride 102 mmol/L (98-107); Creatinine, Serum 0.67 mg/dL (0.55-1.02); EST Glomerular Filtration Rate 96 mL/min (>60); Est Glom Filt Rate - Afr Amer 116 mL/min (>60); Globulin 2.9 g/dL (2.2-4.2); Glucose 95 mg/dL (74-106); Potassium 3.5 mmol/L (3.5-5.1); Protein, Total 6.8 g/dL (6.4-8.2); Sodium Level 136 mmol/L (136-145)
== END | disposition home or self-care (01) ==
LOC: MTLAB 15:47
PROVIDERS: PCP Nurse Practitioner Family; Referring Provider Internal Medicine Rheumatology; Visit Provider Internal Medicine Rheumatology
DX: M06.4 Inflammatory polyarthropathy (principal); R76.8 Other specified abnormal immunological findings in serum; Z79.899 Other long term (current) drug therapy
CPT/HCPCS: 36415; 80053; 85025

== ENCOUNTER → 2023-05-01 | Outpatient (CLI) | payer OTHER, SELFPAY ==
--- OUTSIDE RECORDS SUMMARY | 2023-05-01 07:12 | XMS RPT_ITS | CCD ---
Author Name Unknown Address [address] [place] [address] Organization [facility] Care Team Providers Care Hand Alterations Tailor Name Role Phone AISHWARYA Lopez CNP, ZACHERY Garay [facility] Attending ZACHERY Thompson APRN, CNP Primary Care U navailable AISHWARYA YUAN - TANIA, ZACHERY Garay Attending U litoailklaus NEFF APRN - TANIA, ZACHERY Garay Primary Care U navailable AISHWARYARED YUAN - TANIA, ZACHERY Garay Attending U navailable AISHWARYA YUAN - TANIA, ZACHERY Garay Primary Care U navailable Medications Current Medications Medication Drug Class(es) Dates Sig (Normalized) Sig (Original) ascorbic acid 500 mg oral tablet (2 sources) Vitamin C Start: 09-13-2020 take 1 mg by mouth once daily Vitamin C 500 mg oral tablet mg = tab(s), Oral, qDay, 0 Refill(s) Start Date: 09/13/20 Status: Ordered 24 hr desvenlafaxine 100 mg extended release oral tablet (5 sources) Serotonin and Norepinephrine Reuptake Inhibitor Start: 04-28-2022 desvenlafaxine (as base) 100 mg oral tablet, extended release Dose : 100 mg = 1 tab(s), Oral, qDay, # 90 tab(s), 1 Refill(s), Pharmacy: [facility] ([place]), 152, cm, 04/28/22 16:14:00 EST, Height, kg, 04/28/22 16:14:00 EST, Dosing Weight Start Date: 04/28/22 Status: Ordered Completed/Discontinued Medications Medication Drug Class(es) Dates Sig (Normalized) Sig (Original) loratadine 10 mg oral tablet (5 sources) Start: 10-20-2021 End: 04-18-2022 Claritin 10 mg oral tablet Dose : 10 mg = 1 tab(s), Oral, qDay, # 90 tab(s), 1 Refill(s), Pharmacy: [facility] ([place]), 152, cm, 10/20/21 16:10:00 EDT, Height, kg, 10/20/21 16:10:00 EDT, Dosing Weight Start Date: 10/20/21 Stop Date: 04/18/22 Status: Ordered Problems Problem Classification Problem Date Documented Da te Episodic/Chronic Congestive heart failure; nonhypertensive (5 sources) Diastolic dysfunction 05-31-2020 Chronic Diabetes mellitus without complication (5 sources) Impaired fasting glycemia 01-20-2019 Episodic Disorders of lipid metabolism (5 sources) Hyperlipidemia 01-20-2019 Chronic Esophageal disorders (5 sources) Gastroesophageal reflux disease 03-07-2020 Chronic Essential hypertension (5 sources) Hypertensive disorder 01-20-2019 Chronic Headache; including migraine (5 sources) Migraine without aura 01-20-2019 Chronic Heart valve disorders (5 sources) Heart murmur 05-31-2020 Episodic Results Test Name Value Interpretation Reference Range Facil ity Encounters Encounter Date Encounter Type Care Provider Facility Start: 05-15-2022 End: 05-20-2022 ambulatory MEAGAN SOTO APRN-INBOUND SALES ADVISOR Facility:[facility] Start: 05-15-2022 End: 05-19-2022 Outreach Lab MEAGAN SOTO APRN-INBOUND SALES ADVISOR [facility] Start: 04-24-2022 End: 04-25-2022 ambulatory ZACHERY NEFF WIRE TRANSFER CLERK - INBOUND SALES ADVISOR Facility:[facility] Start: 04-24-2022 End: 04-24-2022 Patient encounter procedure ZACHERY NEFF APRN - INBOUND SALES ADVISOR [facility] Start: 10-11-2021 End: 10-12-2021 ambulatory ZACHERY NEFF WIRE TRANSFER CLERK - INBOUND SALES ADVISOR Facility:[facility] Start: 10-11-2021 End: 10-11-2021 Patient encounter procedure ZACHERY NFEF WIRE TRANSFER CLERK - INBOUND SALES ADVISOR [facility] Start: 04-12-2021 End: 04-12-2021 Patient encounter procedure ZACHERY NEFF WIRE TRANSFER CLERK - INBOUND SALES ADVISOR [facility] Start: 02-03-2021 End: 02-03-2021 Patient encounter procedure ZACHERY NEFF WIRE TRANSFER CLERK - INBOUND SALES ADVISOR [facility] Procedures Date Procedure Procedure Detail Performing Clinician Jaw region structure (body structure) ZACHERY NEFF WIRE TRANSFER CLERK - INBOUND SALES ADVISOR Payers Date Payer Category Payer Unknown [id number] 1960 Unknown [id number] 1960 Unknown [id number] 1960 Unknown [id number] Social History Date Type Detail Facility Tobacco Tobacco Use: E c ig. Type: Electronic Cigarettes. [facility] Sex Assigned At Female [facility] Tobacco smoking status No Smoking Status Entered [facility] Evaluation + Plan note LaboratoryRadiology Note Date & Type Note Facility Evaluation + Plan note Future Appointments Appointment Date:04/21/2021 04:00:00 PM Scheduled Provider:ZACHERY NEFF APRN, CNP Location:[facility] Appointment Type:PC OV Follow Up Future Scheduled TestsComplete Blood Count 11/28/20Lipid Profile 11/28/20Vitamin D Level 11/28/20Complete Metabolic Panel 11/28/20XR Shoulder Minimum 2 Views Left 01/31/21 [facility] Evaluation + Plan note LaboratoryRadiology Note Date & Type Note Facility Evaluation + Plan note Future Appointments Appointment Date:10/20/2021 04:00:00 PM Scheduled Provider:ZACHERY NEFF APRN - INBOUND SALES ADVISOR Location:[facility] Appointment Type:PC OV Follow Up Future Scheduled TestsThyroid Stimulating Hormone 10/20/21A1C Hemoglobin 10/20/21Complete Blood Count 10/20/21Lipid Profile 10/20/21Vitamin D Level 10/20/21Complete Metabolic Panel 10/20/21XR Shoulder Minimum 2 Views Left 01/31/21 [facility] Evaluation + Plan note LaboratoryRadiology Note Date & Type Note Facility Evaluation + Plan note Future Appointments Appointment Date:03/17/2021 04:00:00 PM Scheduled Provider:ZACHERY NEFF WIRE TRANSFER CLERK - INBOUND SALES ADVISOR Location:[facility] Appointment Type:PC OV Follow Up Future Scheduled TestsComplete Blood Count 11/28/20Complete Blood Count 03/16/21Lipid Profile 11/28/20Lipid Profile 03/16/21Vitamin D Level 11/28/20Vitamin D Level 03/16/21Complete Metabolic Panel 11/28/20Complete Metabolic Panel 03/16/21XR Shoulder Minimum 2 Views Left 01/31/21 [facility] Evaluation + Plan note Laboratory Note Date & Type Note Facility Evaluation + Plan note Future Appointments Appointment Date:04/28/2022 04:00:00 PM Scheduled Provider:ZACHERY NEFF WIRE TRANSFER CLERK - INBOUND SALES ADVISOR Location:[facility] Appointment Type:PC OV Follow Up Future Scheduled TestsThyroid Stimulating Hormone 10/20/21A1C Hemoglobin 10/20/21Complete Blood Count 10/20/21Lipid Profile 10/20/21Microalbumin Level Urine 04/21/22Vitamin D Level 10/20/21Complete Metabolic Panel 10/20/21 [facility] Evaluation + Plan note LaboratoryRadiology Note Date & Type Note Facility Evaluation + Plan note Future Appointments Appointment Date:11/02/2022 04:00:00 PM Scheduled Provider:ZACHERY NEFF APRN, CNP Location:[facility] Appointment Type:PC OV Follow Up Future Scheduled TestsPathology Forester Aide Request 05/15/22Thyroid Stimulating Hormone 10/20/21A1C Hemoglobin 10/20/21Complete Blood Count 10/20/21Complete Blood Count 10/26/22Lipid Profile 10/20/21Lipid Profile 10/26/22Microalbumin Level Urine 04/21/22Microalbumin Level Urine 10/26/22Vitamin D Level 10/20/21Vitamin D Level 10/26/22Complete Metabolic Panel 10/20/21Complete Metabolic Panel 10/26/22BD Bone Density DEXA Axial Skeleton 05/15/22 [facility] Hospital course Narrative Note Date & Type Note Facility Hospital course Narrative No data available for this section [facility] Hospital Discharge instructions Note Date & Type Note Facility Hospital Discharge instructions No data available for this section [facility] Progress note Note Date & Type Note Facility Progress note No data available for this section [facility] Summary Purpose Family History No Family History Records Found Advance Directives No Advanced Directives Records Found Additional Source Comments Care Team (unrecognized sect ion and content) Personnel Name: ZACHERY NEFF APRN, CNP Address: [address] [place] [address] Care Team (unrecognized sect ion and content) Care Team Personnel Name: ZACHERY NEFF APRN, CNP Position: P4 Advanced Practice Nurse Member Role: Primary Care Physician Address: Address: [address] [place] [address] Care Team Related Persons Name: TEDDY ANDERSEN Care Team Personnel Name: ZACHERY NEFF APRN, CNP Position: P4 Advanced Practice Nurse Member Role: Primary Care Physician Address: Address: [address] [place] [address] Care Team Related Persons Name: TEDDY ANDERSEN INFORMATION SOURCE (unrecogn ized section and content) FOR RECORDS PERTAINING TO PATIENTS WHO ARE OR HAVE BEEN ENROLLED IN A CHEMICAL DEPENDENCY/SUBSTANCEABUSE PROGRAM, SOME INFORMATION MAY BE OMITTED. This clinical summary was aggregated from multiple sources. Caution should be exercised in using it in the provision of clinical care. This summary normalizes information from multiple sources, and as a consequence, information in this document may materially change the coding, format and clinical context of patient data. In addition, data may be omitted in some cases. CLINICAL DECISIONS SHOULD BE BASED ON THE PRIMARY CLINICAL RECORDS. [facility] [employer] [facility]. provides no warranty or guarantee of the accuracy or completeness of information in this document.
[2023-05-01 08:48] LABS: Hemoglobin A1c 5.1 % (3.8-5.6)
[2023-05-01 08:55] LABS: ALB/GLOB Ratio 1.3 RATIO (0.9-2.4); AST(SGOT) 22 U/L (15-37); Alanine Aminotransfer ALT/SGPT 39 U/L (13-56); Albumin, Serum 3.9 g/dL (3.2-5.0); Alkaline Phosphatase 49 U/L (45-117); Anion Gap 6 (5-15); BUN 17 mg/dL (7-18); BUN/Creat Ratio 24.6 RATIO (10-20); Calcium,Total 9.1 mg/dL (8.5-10.1); Chloride 105 mmol/L (98-107); Cholesterol 166 mg/dL (200); Creatinine, Serum 0.69 mg/dL (0.55-1.02); EST Glomerular Filtration Rate 92 mL/min (>60); Est Glom Filt Rate - Afr Amer 111 mL/min (>60); Globulin 3.1 g/dL (2.2-4.2); Glucose 84 mg/dL (74-106); High Density Lipoprotein 66 mg/dL; Potassium 3.6 mmol/L (3.5-5.1); Sodium Level 139 mmol/L (136-145); Triglycerides 55 mg/dL; Very Low Density Lipoprotein 11 mg/dL (5-40)
[2023-05-01 10:18] LABS: Microalbumin,Random Urine 6.8 mg/L (NO RANGE EST.); Microalbumin:Creatinine Ratio 7.4 mg/g CRE (<30 mg/g CRE)
[2023-05-03 09:33] LABS: Vitamin D,25 Hydroxy 95.8 ng/mL
== END | disposition home or self-care (01) ==
LOC: LAB 07:10
PROVIDERS: PCP Nurse Practitioner Family; Referring Provider Nurse Practitioner Family; Visit Provider Nurse Practitioner Family
DX: I10 Essential (primary) hypertension (principal); E78.5 Hyperlipidemia, unspecified; E55.9 Vitamin D deficiency, unspecified; R73.01 Impaired fasting glucose
CPT/HCPCS: 36415; 80053; 80061; 82043; 82306; 82570; 83036

== ENCOUNTER → 2023-06-18 | Outpatient (CLI) | payer OTHER, SELFPAY ==
[2023-06-18 17:56] LABS: Absolute Lymphocyte Count 2.42 X10^3/uL (0.83-4.51); Absolute Neutrophil Count 2.3 X10^3/uL (2.0-7.7); Basophil# 0.05 X10^3/uL; Basophil% 0.9 % (0-1); Eosinophil# 0.14 X10^3/uL; Eosinophils% 2.6 % (0-5); Hematocrit 37.4 % (37-47); Hemoglobin 12.3 g/dL (12.0-15.0); Lymphocyte # 2.42 X10^3/ul (0.83-4.51); Lymphocyte % 44.2 % (19-41); Mean Corp Hgb Conc 32.9 g/dL (32-36); Mean Corpuscular Hgb 30.4 pg (27.0-32.0); Mean Corpuscular Volume 92.6 fL (81-99); Mean Platelet Vol. 8.9 fl (6.2-12.0); Monocyte# 0.56 X10^3/uL; Monocyte% 10.2 % (0-10); NRBC Flagged by Analyzer 0 % (0-5); Neutrophil % 41.9 % (47-70); Platelet Count 274 K/mm3 (150-450); RBC Distribution Width CV 12.5 % (11.6-14.6); RBC Distribution Width SD 42.7 fl (35.1-43.9); Red Blood Count 4.04 M/mm3 (4.2-5.4); White Blood Count 5.5 K/mm3 (4.4-11.0)
[2023-06-18 18:05] LABS: ALB/GLOB Ratio 1.3 RATIO (0.9-2.4); AST(SGOT) 21 U/L (15-37); Alanine Aminotransfer ALT/SGPT 43 U/L (13-56); Albumin, Serum 3.9 g/dL (3.2-5.0); Alkaline Phosphatase 47 U/L (45-117); Anion Gap 5 (5-15); BUN 21 mg/dL (7-18); BUN/Creat Ratio 33.7 RATIO (10-20); Calcium,Total 8.7 mg/dL (8.5-10.1); Chloride 106 mmol/L (98-107); Creatinine, Serum 0.62 mg/dL (0.55-1.02); EST Glomerular Filtration Rate 103 mL/min (>60); Est Glom Filt Rate - Afr Amer 125 mL/min (>60); Glucose 81 mg/dL (74-106); Potassium 3.6 mmol/L (3.5-5.1); Protein, Total 6.9 g/dL (6.4-8.2); Sodium Level 138 mmol/L (136-145)
--- OUTSIDE RECORDS SUMMARY | 2023-06-18 18:40 | XMS RPT_ITS | CCD ---
Author Name Unknown Address [address] [facility] [address] [place] [address] Organization [facility] Care Team Providers Care Dragline Mechanic Name Role Phone AISHWARYA Lopez CNP, ZACHERY Garay Primary Care Phys ician CHARLES YUAN-MEAGAN MARIN Attending Marisa NEFF APRN - TANIA, ZACHERY Garay Primary Care U navailable AISHWARYA GUILLENN - TANIA, ZACHERY Garay Attending U navailable AISHWARYA YUAN - TANIA, ZACHERY Garay Primary Care U navailable AISHWARYARED GUILLENN - FASHION MERCHANDISER, ZACHERY Garay Attending U navailable AISHWARYARED GUILLENN - FASHION MERCHANDISER, ZACHERY Garay Primary Care U navailable Medications [...] qDay, # 90 tab(s), 1 Refill(s), Pharmacy: [facility] ([place]), 152, cm, 04/28/22 16:14:00 EST, Height, kg, 04/28/22 16:14:00 EST, Dosing Weight Start Date: 04/28/22 Status: Ordered Completed/Discontinued Medications Medication Drug Class(es) Dates Sig (Normalized) Sig (Original) loratadine 10 mg oral tablet (5 sources) Start: 10-20-2021 End: 04-18-2022 Claritin 10 mg oral tablet Dose : 10 mg = 1 tab(s), Oral, qDay, # 90 tab(s), 1 Refill(s), Pharmacy: [facility] ([place]), 152, cm, 10/20/21 16:10:00 EDT, Height, kg, [...] Start: 05-15-2022 End: 05-20-2022 ambulatory MEAGAN SOTO AGRICULTURAL ECONOMICS TEACHER-FASHION MERCHANDISER Facility:[facility] Start: 05-15-2022 End: 05-19-2022 Outreach Lab MEAGAN SOTO APRN-FASHION MERCHANDISER [facility] Start: 04-24-2022 End: 04-25-2022 ambulatory ZACHERY NEFF AGRICULTURAL ECONOMICS TEACHER - FASHION MERCHANDISER Facility:[facility] Start: 04-24-2022 End: 04-24-2022 Patient encounter procedure ZACHERY NEFF APRN - FASHION MERCHANDISER [facility] Start: 10-11-2021 End: 10-12-2021 ambulatory ZACHERY NEFF AGRICULTURAL ECONOMICS TEACHER - FASHION MERCHANDISER Facility:[facility] Start: 10-11-2021 End: 06-18-2022 Patient encounter procedure ZACHERY NEFF APRN - FASHION MERCHANDISER [facility] Start: 04-12-2021 End: 04-12-2021 Patient encounter procedure ZACHERY NEFF AGRICULTURAL ECONOMICS TEACHER - FASHION MERCHANDISER [facility] Start: 02-03-2021 End: 02-03-2021 Patient encounter procedure ZACHERY NEFF AGRICULTURAL ECONOMICS TEACHER - FASHION MERCHANDISER [facility] Procedures Date Procedure Procedure Detail Performing Clinician Jaw region structure (body structure) ZACHERY NEFF AGRICULTURAL ECONOMICS TEACHER - FASHION MERCHANDISER Payers Date Payer Category Payer Unknown [id number] 1960 Unknown [id number] 1960 Unknown [id number] 1960 Unknown [id number] Social History Date Type Detail Facility Tobacco Tobacco Use: E c ig. Type: Electronic Cigarettes. [facility] Sex Assigned At Female [facility] Tobacco smoking status No Smoking Status Entered [facility] Evaluation + Plan note LaboratoryRadiology Note Date & Type Note Facility Evaluation + Plan note Future Appointments Appointment Date:04/21/2021 04:00:00 PM Scheduled Provider:ZACHERY NEFF APRN - TANIA Location:[facility] Appointment Type: OV Follow Up Future Scheduled TestsComplete Blood Count 11/28/20Lipid Profile 11/28/20Vitamin D Level 11/28/20Complete Metabolic Panel 11/28/20XR Shoulder Minimum 2 Views Left 01/31/21 [facility] Evaluation + Plan note LaboratoryRadiology Note Date & Type Note Facility Evaluation + Plan note Future Appointments Appointment Date:10/20/2021 04:00:00 PM Scheduled Provider:ZACHERY NEFF APRN, CNP Location:[facility] Appointment Type:PC OV Follow Up Future Scheduled TestsThyroid Stimulating Hormone 10/20/21A1C Hemoglobin 10/20/21Complete Blood Count 10/20/21Lipid Profile 10/20/21Vitamin D Level 10/20/21Complete Metabolic Panel 10/20/21XR Shoulder Minimum 2 Views Left 01/31/21 [facility] Evaluation + Plan note LaboratoryRadiology Note Date & Type Note Facility Evaluation + Plan note Future Appointments Appointment Date:03/17/2021 04:00:00 PM Scheduled Provider:ZACHERY NEFF APRN - TANIA Location:[facility] Appointment Type:PC OV Follow Up Future Scheduled TestsComplete Blood Count 11/28/20Complete Blood Count 03/16/21Lipid Profile 11/28/20Lipid Profile 03/16/21Vitamin D Level 11/28/20Vitamin D Level 03/16/21Complete Metabolic Panel 11/28/20Complete Metabolic Panel 03/16/21XR Shoulder Minimum 2 Views Left 01/31/21 [facility] Evaluation + Plan note Laboratory Note Date & Type Note Facility Evaluation + Plan note Future Appointments Appointment Date:04/28/2022 04:00:00 PM Scheduled Provider:ZACHERY NEFF APRN - TANIA Location:[facility] Appointment Type:PC OV Follow Up Future Scheduled TestsThyroid Stimulating Hormone 10/20/21A1C Hemoglobin 10/20/21Complete Blood Count 10/20/21Lipid Profile 10/20/21Microalbumin Level Urine 04/21/22Vitamin D Level 10/20/21Complete Metabolic Panel 10/20/21 [facility] Evaluation + Plan note LaboratoryRadiology Note Date & Type Note Facility Evaluation + Plan note Future Appointments Appointment Date:11/02/2022 04:00:00 PM Scheduled Provider:ZACHERY NEFF APRN, CNP Location:[facility] Appointment Type:PC OV Follow Up Future Scheduled TestsPathology Center Director Lead Teacher Request 05/15/22Thyroid Stimulating Hormone 10/20/21A1C Hemoglobin 10/20/21Complete Blood Count 10/20/21Complete Blood Count 10/26/22Lipid Profile 10/20/21Lipid Profile 10/26/22Microalbumin Level Urine 04/21/22Microalbumin Level Urine 10/26/22Vitamin D Level 10/20/21Vitamin D Level 10/26/22Complete Metabolic Panel 10/20/21Complete Metabolic Panel 10/26/22BD Bone Density DEXA Axial Skeleton 05/15/22 [facility] Hospital course Narrative Note Date & Type Note Facility Hospital course Narrative No data available for this section [facility] Hospital Discharge instructions Note Date & Type Note Facility Hospital Discharge instructions No data available for this section [facility] Progress note Note Date & Type Note Facility Progress note No data available for this section [facility] Summary Purpose Family History No Family History Records Found Advance Directives No Advanced Directives Records Found Additional Source Comments Care Team (unrecognized sect ion and content) Personnel Name: ZACHERY NEFF APRN - FASHION MERCHANDISER Address: [address] [place] [address] Care Team (unrecognized sect ion and content) Care Team Personnel Name: ZACHERY NEFF APRN FASHION MERCHANDISER Position: P4 Advanced Practice Nurse Member Role: Primary Care Physician Address: Address: [address] [place] [address] Care Team Related Persons Name: TEDDY ANDERSEN Care Team Personnel Name: ZACHERY NEFF APRN FASHION MERCHANDISER Position: P4 Advanced Practice Nurse Member Role: Primary Care Physician Address: Address: [address] [place] [address] Care Team Related Persons Name: TEDDY ANDERSEN [...] BE BASED ON THE PRIMARY CLINICAL RECORDS. [facility] [employer] [facility]. provides no warranty or guarantee of the accuracy or completeness of information in this document.
== END | disposition home or self-care (01) ==
LOC: MTLAB 15:47
PROVIDERS: PCP Nurse Practitioner Family; Referring Provider Internal Medicine Rheumatology; Visit Provider Internal Medicine Rheumatology
DX: M06.4 Inflammatory polyarthropathy (principal); R76.8 Other specified abnormal immunological findings in serum; Z79.899 Other long term (current) drug therapy
CPT/HCPCS: 36415; 80053; 85025

== ENCOUNTER → 2023-08-30 | Outpatient (CLI) | payer OTHER, SELFPAY ==
--- NOTE | 2023-08-30 14:51 | ECHOCS_ITS ---
Reason For Study: HTN, LVF Procedure This was a 2D Doppler, Color Flow transthoracic echocardiogram. Contrast injection was performed. Exam performed in department. Left Ventricle Normal LV size. Left ventricular systolic function is normal. The estimated ejection fraction is 65 %. Stage 1 diastolic dysfunction. No regional wall motion abnormalities noted. Right Ventricle Normal RV size. Normal systolic function. Atria Normal left atrium. Normal right atrium. Bubble contrast study negative for right to left interatrial shunt. Mitral Valve There is mild to moderate mitral annular calcification. Tricuspid Valve Normal tricuspid valve. Mild (1+) tricuspid valve insufficiency. Pulmonary artery systolic pressure is 28 mmHg. Aortic Valve Trisinus/trileaflet aortic valve. Mild focal aortic valve calcification. Pulmonic Valve Normal pulmonic valve. Great Vessels Normal aortic root. The pulmonary artery is normal size. Normal inferior vena cava. Pericardium/Pleural No pericardial effusion. Medication 22 gauge I.V. with prn adaptor inserted into right arm. Diluted definity 2.5ml given slow IV push to enhance endocardial definition. Performed a rapid injection of agitated mix of 9 cc saline and 1cc air to assess for atrial septal defect. MMode/2D Measurements & Calculations LVIDd: 4.6 cm IVSd: 0.83 cm Ao root diam: 2.5 cm LVIDs: 3.3 cm LVPWd: 0.85 cm LA dimension: 3.7 cm RVDd: 2.7 cm FS: 27.1 % LAV(MOD-bp): 42.2 ml LVAd ap4: 27.4 cm2 SV(MOD-sp4): 53.0 ml LAV(MOD-bp) Indexed: 28.1 ml/m2 LVLd ap4: 7.4 cm LAV(MOD-sp2): 47.6 ml EDV(MOD-sp4): 83.2 ml LAV(MOD-sp4): 37.3 ml EDV(sp4-el): 86.3 ml LVAs ap4: 14.2 cm2 LVLs ap4: 5.8 cm ESV(MOD-sp4): 30.2 ml ESV(sp4-el): 29.3 ml EF(MOD-sp4): 63.7 % EF(sp4-el): 66.0 % SV(sp4-el): 57.0 ml LA A4 area: 15.2 cm2 RA A4 area: 12.1 cm2 TAPSE: 2.0 cm Time Measurements MV dec time: 0.20 sec Doppler Measurements & Calculations MV E max torres: 78.9 cm/sec Lat Peak E' Torres: 8.9 cm/sec Med Peak E' Torres: 7.6 cm/sec MV A max torres: 88.7 cm/sec E/E' lat: 8.9 E/E' med: 10.3 MV E/A: 0.89 MV V2 max: 100.0 cm/sec MV P1/2t max torres: 92.8 cm/sec Ao V2 max: 157.8 cm/sec MV max P.0 mmHg MV P1/2t: 68.3 msec Ao max P.0 mmHg MV V2 mean: 51.8 cm/sec Ao V2 mean: 104.0 cm/sec MV mean P.3 mmHg MV dec slope: 397.9 cm/sec2 Ao mean P.0 mmHg MV V2 VTI: 29.7 cm MVA(P1/2t): 3.2 cm2 Ao V2 VTI: 33.3 cm AV (velocity ratio): 0.75 LV V1 max: 107.2 cm/sec PA V2 max: 89.6 cm/sec TR max torres: 246.4 cm/sec LV V1 max P.6 mmHg TR max P.3 mmHg LV V1 mean P.5 mmHg LV V1 mean: 74.2 cm/sec LV V1 VTI: 24.9 cm ECHO/Echo Complete W/ Contrast Interpretation Summary Normal LV size. Left ventricular systolic function is normal. The estimated ejection fraction is 65 %. Stage 1 diastolic dysfunction. There is mild to moderate mitral annular calcification. Contrast injection was performed. Ordering Physician: Chris Morales Referring Physician: Chris Morales Performed By: Geronimo Liang RCS
== END | disposition home or self-care (01) ==
LOC: CVS 14:50
PROVIDERS: PCP Nurse Practitioner Family; Referring Provider Nurse Practitioner Family; Visit Provider Nurse Practitioner Family
DX: I11.0 Hypertensive heart disease with heart failure (principal); I50.1 Left ventricular failure, unspecified
CPT/HCPCS: 93306; Q9957; A4216; C8929

== ENCOUNTER → 2023-11-20 | Outpatient (CLI) | payer OTHER, SELFPAY ==
[2023-11-20 07:53] LABS: Hematocrit 42.2 % (37-47); Mean Corp Hgb Conc 33.2 g/dL (32-36); Mean Corpuscular Hgb 30.4 pg (27.0-32.0); Mean Corpuscular Volume 91.7 fL (81-99); Mean Platelet Vol. 8.4 fl (6.2-12.0); Platelet Count 256 K/mm3 (150-450); RBC Distribution Width CV 12.2 % (11.6-14.6); RBC Distribution Width SD 41.1 fl (35.1-43.9); White Blood Count 4.9 K/mm3 (4.4-11.0)
[2023-11-20 08:03] LABS: ALB/GLOB Ratio 1.2 RATIO (0.9-2.4); AST(SGOT) 21 U/L (15-37); Alanine Aminotransfer ALT/SGPT 36 U/L (13-56); Alkaline Phosphatase 51 U/L (45-117); Anion Gap 3 (5-15); BUN 20 mg/dL (7-18); BUN/Creat Ratio 33.6 RATIO (10-20); Calcium,Total 8.8 mg/dL (8.5-10.1); Chloride 105 mmol/L (98-107); Cholesterol 158 mg/dL (200); EST Glomerular Filtration Rate 109 mL/min (>60); Est Glom Filt Rate - Afr Amer 132 mL/min (>60); Globulin 3.4 g/dL (2.2-4.2); Glucose 100 mg/dL (74-106); High Density Lipoprotein 69 mg/dL; Potassium 4.1 mmol/L (3.5-5.1); Protein, Total 7.4 g/dL (6.4-8.2); Sodium Level 138 mmol/L (136-145); Triglycerides 56 mg/dL; Very Low Density Lipoprotein 11 mg/dL (5-40)
[2023-11-20 10:25] LABS: Microalbumin,Random Urine 6.3 mg/L (NO RANGE EST.); Microalbumin:Creatinine Ratio 7.9 mg/g CRE (<30 mg/g CRE)
[2023-11-22 14:16] LABS: Vitamin D,25 Hydroxy 73.8 ng/mL
== END | disposition home or self-care (01) ==
LOC: LAB 07:04
PROVIDERS: PCP Nurse Practitioner Family; Referring Provider Nurse Practitioner Family; Visit Provider Nurse Practitioner Family
DX: I10 Essential (primary) hypertension (principal); E78.5 Hyperlipidemia, unspecified; R73.01 Impaired fasting glucose; E55.9 Vitamin D deficiency, unspecified; R63.8 Other symptoms and signs concerning food and fluid intake
CPT/HCPCS: 36415; 80053; 80061; 82043; 82306; 82570; 83036; 85027

== ENCOUNTER → 2023-12-08 | Outpatient (CLI) | payer OTHER, SELFPAY ==
[2023-12-08 17:40] LABS: Absolute Neutrophil Count 2.7 X10^3/uL (2.0-7.7); Basophil# 0.06 X10^3/uL; Eosinophil# 0.14 X10^3/uL; Eosinophils% 2.3 % (0-5); Hematocrit 38.4 % (37-47); Hemoglobin 12.9 g/dL (12.0-15.0); Lymphocyte % 41.1 % (19-41); Mean Corp Hgb Conc 33.6 g/dL (32-36); Mean Corpuscular Hgb 30.9 pg (27.0-32.0); Mean Corpuscular Volume 91.9 fL (81-99); Mean Platelet Vol. 8.6 fl (6.2-12.0); Monocyte# 0.63 X10^3/uL; Monocyte% 10.4 % (0-10); NRBC Flagged by Analyzer 0 % (0-5); Neutrophil # 2.74 X10^3/uL (2.7-7.7); Platelet Count 264 K/mm3 (150-450); RBC Distribution Width SD 40.7 fl (35.1-43.9); Red Blood Count 4.18 M/mm3 (4.2-5.4); White Blood Count 6.1 K/mm3 (4.4-11.0)
== END | disposition home or self-care (01) ==
LOC: MTLAB 15:48
PROVIDERS: PCP Nurse Practitioner Family; Referring Provider Internal Medicine Rheumatology; Visit Provider Internal Medicine Rheumatology
DX: M06.4 Inflammatory polyarthropathy (principal); R76.8 Other specified abnormal immunological findings in serum; Z79.899 Other long term (current) drug therapy; M50.30 Other cervical disc degeneration, unspecified cervical region; M48.02 Spinal stenosis, cervical region; K21.9 Gastro-esophageal reflux disease without esophagitis; I49.8 Other specified cardiac arrhythmias; I10 Essential (primary) hypertension; F32.9 Major depressive disorder, single episode, unspecified; E78.5 Hyperlipidemia, unspecified; H40.9 Unspecified glaucoma
CPT/HCPCS: 36415; 85025

== ENCOUNTER → 2023-12-14 | Outpatient (CLI) | payer OTHER, SELFPAY ==
--- NOTE | 2023-12-14 15:44 | BI_ITS ---
MAMMOGRAPHY - BILATERAL SCREENING REASON FOR EXAM: Female, 63 years old. Routine annual screening examination. PERTINENT HISTORY: Sister with breast cancer. TECHNIQUE: Digital bilateral breast sue (3D mammographic acquisition) in the CC and MLO projections. 2-D mediolateral oblique (MLO) and craniocaudad (CC) views of both breasts were obtained. CAD: Full Field Digital Mammography with Computer Added Detection was performed. COMPARISON: Comparison is made with prior study December 10, 2022 and November 04, 2021. FINDINGS: Breast Composition: There are scattered areas of fibroglandular density. There are no dominant masses or suspicious calcifications. Stable 8 mm well-defined nodule with a central fatty hilum in the upper lateral aspect of the right breast. This is suggestive of a small lymph node. No other significant abnormalities are identified. There has been no significant change since the prior study. BI/SCRN MAMM (CAD)W/SUE BILAT IMPRESSION: Stable bilateral screening mammogram. Yearly follow-up mammogram recommended. (A) ASSESSMENT CATEGORY: BIRADS Category 2: Benign. A letter regarding these results will be sent to the patient by the facility within 30 days. Approximately 10% of breast cancers are not detected by mammography. A normal mammogram should not delay biopsy of a clinically suspicious abnormality. [id number] Electronically Signed: Silver Huitron MD at 7:45 EDT ,
== END | disposition home or self-care (01) ==
LOC: OPBI 15:43
PROVIDERS: PCP Nurse Practitioner Family; Referring Provider Nurse Practitioner Family; Visit Provider Nurse Practitioner Family
DX: Z12.31 Encounter for screening mammogram for malignant neoplasm of breast (principal); Z80.3 Family history of malignant neoplasm of breast
CPT/HCPCS: 77063; 77067

== ENCOUNTER → 2024-05-27 | Outpatient (CLI) | payer OTHER, SELFPAY ==
[2024-05-27 08:23] LABS: ALB/GLOB Ratio 1.2 RATIO (0.9-2.4); AST(SGOT) 22 U/L (15-37); Alanine Aminotransfer ALT/SGPT 51 U/L (13-56); Albumin, Serum 3.8 g/dL (3.2-5.0); Alkaline Phosphatase 50 U/L (45-117); Anion Gap 5 (5-15); BUN 19 mg/dL (7-18); BUN/Creat Ratio 33.4 RATIO (10-20); Calcium,Total 8.4 mg/dL (8.5-10.1); Chloride 107 mmol/L (98-107); Cholesterol 137 mg/dL (200); Creatinine, Serum 0.57 mg/dL (0.55-1.02); EST Glomerular Filtration Rate 114 mL/min (>60); Est Glom Filt Rate - Afr Amer 138 mL/min (>60); Globulin 3.2 g/dL (2.2-4.2); Glucose 109 mg/dL (74-106); High Density Lipoprotein 64 mg/dL; Potassium 3.8 mmol/L (3.5-5.1); Sodium Level 139 mmol/L (136-145); Triglycerides 71 mg/dL; Very Low Density Lipoprotein 14 mg/dL (5-40)
[2024-05-27 08:32] LABS: Microalbumin,Random Urine 9.2 mg/L (NO RANGE EST.); Microalbumin:Creatinine Ratio 10.7 mg/g CRE (<30 mg/g CRE)
[2024-05-27 10:37] LABS: Vitamin D,25 Hydroxy 67.3 ng/mL
[2024-05-29 15:50] LABS: Hemoglobin A1c 4.1 % (3.8-5.6)
== END | disposition home or self-care (01) ==
PROVIDERS: PCP Nurse Practitioner Family; Referring Provider Nurse Practitioner Family; Visit Provider Nurse Practitioner Family
DX: I10 Essential (primary) hypertension (principal); E55.9 Vitamin D deficiency, unspecified; R73.01 Impaired fasting glucose; E78.5 Hyperlipidemia, unspecified
CPT/HCPCS: 36415; 80053; 80061; 82043; 82306; 82570; 83036

== ENCOUNTER → 2024-06-02 | Outpatient (CLI) | payer OTHER, SELFPAY ==
[2024-06-02 12:32] LABS: Absolute Lymphocyte Count 1.64 X10^3/uL (0.83-4.51); Absolute Neutrophil Count 6.5 X10^3/uL (2.0-7.7); Basophil# 0.06 X10^3/uL; Basophil% 0.7 % (0-1); Eosinophil# 0.07 X10^3/uL; Eosinophils% 0.8 % (0-5); Hematocrit 41.2 % (37-47); Hemoglobin 13.7 g/dL (12.0-15.0); Lymphocyte # 1.64 X10^3/ul (0.83-4.51); Lymphocyte % 18.5 % (19-41); Mean Corp Hgb Conc 33.3 g/dL (32-36); Mean Corpuscular Hgb 31.5 pg (27.0-32.0); Mean Corpuscular Volume 94.7 fL (81-99); Mean Platelet Vol. 8.8 fl (6.2-12.0); Monocyte# 0.56 X10^3/uL; Monocyte% 6.3 % (0-10); NRBC Flagged by Analyzer 0 % (0-5); Neutrophil % 73.4 % (47-70); Platelet Count 306 K/mm3 (150-450); RBC Distribution Width CV 12.4 % (11.6-14.6); RBC Distribution Width SD 43.2 fl (35.1-43.9); Red Blood Count 4.35 M/mm3 (4.2-5.4); White Blood Count 8.9 K/mm3 (4.4-11.0)
[2024-06-02 12:52] LABS: ALB/GLOB Ratio 1.4 RATIO (0.9-2.4); AST(SGOT) 20 U/L (15-37); Alanine Aminotransfer ALT/SGPT 41 U/L (13-56); Albumin, Serum 4.3 g/dL (3.2-5.0); Alkaline Phosphatase 54 U/L (45-117); Anion Gap 5 (5-15); BUN 17 mg/dL (7-18); BUN/Creat Ratio 29.1 RATIO (10-20); Calcium,Total 9.2 mg/dL (8.5-10.1); Chloride 104 mmol/L (98-107); Creatinine, Serum 0.58 mg/dL (0.55-1.02); EST Glomerular Filtration Rate 111 mL/min (>60); Est Glom Filt Rate - Afr Amer 134 mL/min (>60); Globulin 3.1 g/dL (2.2-4.2); Glucose 100 mg/dL (74-106); Potassium 4.1 mmol/L (3.5-5.1); Protein, Total 7.4 g/dL (6.4-8.2); Sodium Level 139 mmol/L (136-145)
== END | disposition home or self-care (01) ==
LOC: MTLAB 09:50
PROVIDERS: PCP Nurse Practitioner Family; Referring Provider Internal Medicine Rheumatology; Visit Provider Internal Medicine Rheumatology
DX: M06.4 Inflammatory polyarthropathy (principal); R76.8 Other specified abnormal immunological findings in serum; Z79.899 Other long term (current) drug therapy
CPT/HCPCS: 36415; 80053; 85025

== ENCOUNTER → 2024-06-17 | Outpatient (CLI) | payer OTHER, SELFPAY ==
--- NOTE | 2024-06-17 07:31 | MRI_ITS ---
PROCEDURE: SPINE CERVICAL (ROUTINE) REASON FOR EXAM: Pain TECHNIQUE: Cervical spine MRI without intravenous gadolinium-based contrast. COMPARISON: None. FINDINGS: Vertebrae: Cervical vertebral body heights are preserved. Bone marrow signal is unremarkable. Alignment: Normal. No spondylolisthesis. Spinal Cord: Cervical spinal cord is of normal size and signal intensities. No cervical spinal cord lesions are identified. C2-3: Unremarkable C3-4: Unremarkable C4-5: Moderate broad-based posterior disc-osteophyte complex indents the thecal sac. Mild central canal stenosis and mild left neural foraminal stenosis. C5-6: Severe broad-based posterior disc-osteophyte complex indents the thecal sac. Moderate central canal stenosis. Moderate left and mild right neural foraminal stenosis. C6-7: Moderate broad-based posterior disc-osteophyte complex indents the thecal sac. Mild significant central canal stenosis. Moderate left neural foraminal stenosis. C7-T1: Unremarkable MRI/Spine Cervical (Routine) IMPRESSION: Multilevel degenerative changes most severe at the C5/6 level in the cervical s pine. Reading Location: [facility]
== END | disposition home or self-care (01) ==
PROVIDERS: PCP Nurse Practitioner Family; Referring Provider Student in an Organized Health Care Education/Training Program; Visit Provider Student in an Organized Health Care Education/Training Program
DX: G95.9 Disease of spinal cord, unspecified (principal); M54.12 Radiculopathy, cervical region
CPT/HCPCS: 72141

== ENCOUNTER 2024-07-21 13:30 | Outpatient (RCR) | payer OTHER, SELFPAY ==
--- NOTE | 2024-06-15 16:48 | HP.PTEVAL_ITS ---
Patient's Visit Information Visit Information Visit Information: ANALY MAYO is a 63 year old F referred to Physical Therapy by YAAKOV Mcdaniels with a diagnosis of cervical radiculopathy. Date of Evaluation: 06/15/24 Physical Therapist: Aron Reyes, AYOT, OCS, CSCS Visit Plan Frequency: 2x /Week Duration: 4-6 Weeks Plan: 2x/week for 4-6 for 1. 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 use thoracic and cervical ext mobs to help with motion and manual traction, ICT if needed. MH to neck and STM to R UT appropriate.Progress to cervical and postural strength to HEP when improved and focus on posture and ergonomics with work. IE HEP cervical ret ext 10x every 2 hours and posture, monitor symptoms. Subjective Subjective: R shoulder blade pain starting a few weeks ago insidiously and mild but worst over the days and down R arm. it was intermittent worse but spasms. Better with lying down. Movement of body made it worse. N and tingling started this week in R pinky finger. L sided problems 3 yrs ago but not recently. Sleep is now OK, was hard for two weeks. Slowly improving pain now but numbness started two days aog. Numbness comes and goes. 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 Feels weak in R hand and dexterity off in R hand to tie shoes. MRI in two days and then back to [facility]. Not scheduled yet with Dr. Ram. Overall is 70% better over last two weeks Missed 3 days of pain early May due to this. Work makes it worse. Looks in microscope. No regular exercises. No neck exercises Basic ADLs are OK. Hobbies: computer and TV, now is comfortable. Pain R arm: Pain Intensity (Out of 10): 1 Pain Intensity Range: 0 and 8 Comment: am worse. 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 reflexes 2/3 bi and tri - alar ligament test, - VAT sensation dermatomes WNL B UE today. strength outside of hand intrinsics are 4/5 without other myotomal prob lems. scapular and UE AROM is WFL neck AROM is ext 48 adn pain R thoracic, rotation adn SB are symmetrical, flexion is good and painfree. Tender R UT to palpation and c/s paraspinals. + R c/s compression. repeated protrusion worse numbness, Produces numbness distal arm and pinky finger, weaker evp [employer] multimedia sales at 28# R repeated retraction: achiness in scap, B numbness, NE weakness, ROM slightly better. repeated ret ext : PDM centrally, Better numbness, 80 ext better ROM. Balance/Special Test Scores Oswestry Neck Score: 8 Goals Goal 1:: Full crvical AROM, 39# evp global multimedia sales strength R and no arm symptoms Goal Time Frame: 4-6 Weeks Goal 2:: Pt feel 90% better overall adn pain in scap only and 1/10 at worst Goal Time Frame: 4-6 Weeks Goal 3:: push button for car remote without weakness and tie shoe without awkward feeling Goal Time Frame: 4-6 Weeks Goal 4:: I appropriate HEP and posture/ergonomics to limit future problem Goal Time Frame: 4-6 Weeks Goal 5:: neck oswestry score of 4 or better Goal Time Frame: 4-6 Weeks Rehabilitation Potential Physical Therapy Diagnosis: weakness, limited ROM and pain in R UE with paraesthesia limiting comfortable function at home presenting like a disc derangement. Rehabilitation Potential: Fair Anticipated Interventions Patient/Client Instruction: Educate patient on: Condition and Plan of Care For the Purpose of:: To decrease pain, To increase ROM, To improve nutrient delivery to tissue, To improve muscle performance and motor function, To increase tolerance to activity/condition/position and To improve ability of physical actions for home/community/work/leisure Therapeutic Exercise to Include: Strength training, Postural training, Flexibilty training, Passive ROM and Active ROM For the Purpose of:: To decrease pain, To increase ROM, To improve nutrient delivery to tissue, To improve muscle performance and motor function, To improve ability to perform ADL's and To increase flexibility/ROM Manual Therapy Techniques to Include: Mobilization, Passive ROM and Soft tissue mobilization For the Purpose of:: To decrease pain, To increase ROM, To improve nutrient delivery to tissue, To improve muscle performance and motor function, To increase tolerance to activity/condition/position and To improve ability of physical actions for home/community/work/leisure Thermo therapy (hot pack): Yes Intermittent cervical traction: Yes For the Purpose of:: To decrease pain, To improve nutrient delivery to tissue, To improve muscle performance and motor function and To improve health of tissue Text: Thank you for the opportunity to evaluate your patient. For Medicare and Medicare HMO plans, please review the plan of care and approve it. It will need to be FAXED BACK to us at [phone] for Medicare purposes. For Medicare only, by signing this I certify the plan of care. Please let me know if there are questions or concerns regarding this plan of care. Physician Signature: Date:
--- NOTE | 2024-07-21 13:50 | HP.PTDCSUM ---
Discharge Summary D/C summary: It has been my pleasure to treat ANALY MAYO referred by YAAKOV Mcdaniels, with the diagnosis of cervical radiculopathy for a total of 8 visit(s). Discharge Date: 07/21/24 Please see the following information for a summary of their discharge status. Subjective Subjective: No numbness or tingling in over a week. Been doing exercises faithfully at home. No pain. doctor wanted to do surgery after seeing MRI but not now since she is improved. Movement is good. Life is pretty normal. Sleeping well. Injections possible in mid July. Work is close to normal. and feeling better working with small parts. Pain R arm: Pain Intensity (Out of 10): 0 FONTENOT: Pain Intensity (Out of 10): 4 Overall Improvement % Improvement: 100 Objective Objective/Function: 75 R rotation adn 72 L rotation, 80 ext. 42# R state comptroller strength and 60# L. UE strength otherwise 4/5 without pain. Goals Goal 1:: Full crvical AROM, 39# state comptroller strength R and no arm symptoms Goal Progress: Goal Met Goal 2:: Pt feel 90% better overall adn pain in scap only and 1/10 at worst Goal Progress: Goal Met Goal 3:: push button for car remote without weakness and tie shoe without awkward feeling Goal Progress: Goal Met Goal 4:: I appropriate HEP and posture/ergonomics to limit future problem Goal Progress: Goal Met Goal 5:: neck oswestry score of 4 or better Goal Progress: Goal Met Plan Plan: d/c to HEP D/C Information Discharge Comments: To continue via HEP. d/c sentence: If there are questions or concerns regarding this patient's physical therapy, please feel free to call me at [phone]. Thank you for the referral of this patient. Sincerely, Aron Reyes, DPT, OCS, CSCS Balance/Gait/Functional tests Balance/Special Test Scores Oswestry Neck Score: 4 Improvement % Improvement: 100
== END 2024-07-21 14:14 | disposition short-term general hospital (02) ==
LOC: PT 13:30
PROVIDERS: PCP Nurse Practitioner Family; Referring Provider Student in an Organized Health Care Education/Training Program; Visit Provider Student in an Organized Health Care Education/Training Program
DX: G95.9 Disease of spinal cord, unspecified (principal); M54.12 Radiculopathy, cervical region
CPT/HCPCS: 97110; 97140; 97161; 97164

== ENCOUNTER → 2024-09-07 | Outpatient (CLI) | payer OTHER, SELFPAY ==
[2024-09-07 18:15] LABS: Anion Gap 14 (5-15); BUN 21 mg/dL (4-19); BUN/Creat Ratio 33.5 RATIO (10-20); Calcium,Total 9.2 mg/dL (7.6-11.0); Carbon Dioxide 25.3 mmol/L (21.0-32.0); Chloride 95 mmol/L (98-108); Creatinine, Serum 0.63 mg/dL (0.70-1.20); EST Glomerular Filtration Rate 100 (>60); Glucose 112 mg/dL (70-99); Potassium 3.1 mmol/L (3.3-5.1); Sodium Level 135 mmol/L (133-145)
== END | disposition home or self-care (01) ==
LOC: MTLAB 15:50
PROVIDERS: PCP Nurse Practitioner Family; Referring Provider Nurse Practitioner Gerontology; Visit Provider Nurse Practitioner Gerontology
DX: I10 Essential (primary) hypertension (principal)
CPT/HCPCS: 36415; 80048

== ENCOUNTER → 2024-09-21 | Outpatient (CLI) | payer OTHER, SELFPAY ==
[2024-09-21 18:01] LABS: Anion Gap 14 (5-15); BUN 25 mg/dL (4-19); BUN/Creat Ratio 39.3 RATIO (10-20); Calcium,Total 9.3 mg/dL (7.6-11.0); Carbon Dioxide 22.4 mmol/L (21.0-32.0); Chloride 101 mmol/L (98-108); Creatinine, Serum 0.62 mg/dL (0.70-1.20); EST Glomerular Filtration Rate 100 (>60); Glucose 81 mg/dL (70-99); Potassium 3.8 mmol/L (3.3-5.1); Sodium Level 137 mmol/L (133-145)
== END | disposition home or self-care (01) ==
LOC: MTLAB 16:27
PROVIDERS: PCP Nurse Practitioner Family; Referring Provider Nurse Practitioner Gerontology; Visit Provider Nurse Practitioner Gerontology
DX: I10 Essential (primary) hypertension (principal)
CPT/HCPCS: 36415; 80048

== ENCOUNTER → 2024-11-17 | Outpatient (CLI) | payer OTHER, SELFPAY ==
--- OUTSIDE RECORDS SUMMARY | 2024-11-17 07:06 | XMS RPT_ITS | CCD ---
Author Organization [facility] Care Team Providers Care Neonatal Icu Coordinator Name Role Phone SHELDNO VESSEL SLAG WORKER - VENETIAN BLIND MECHANIC, ZACHERY Garay Primary Care Phys ician Sheldon BROADBAND TECHNICIAN, BROADBAND TECHNICIAN-Abelino Talbert Primary Care Pr ovider Sheldon BROADBAND TECHNICIAN, BROADBAND TECHNICIAN-Abelino Talbert Referring Provi alba Dr. Kenneth Ayala Attending Provider CHARLES YUAN-TANIA, MEAGAN Attending Unavai labdelmis SHELDON VESSEL SLAG WORKER - VENETIAN BLIND MECHANIC, ZACHERY Garay Primary Care U navailable SHELDON VESSEL SLAG WORKER - VENETIAN BLIND MECHANIC, ZACHERY Garay Attending U navailable SHELDON VESSEL SLAG WORKER - VENETIAN BLIND MECHANIC, ZACHERY D Primary Care U navailable SHELDON VESSEL SLAG WORKER - VENETIAN BLIND MECHANIC, ZACHERY Garay Attending U navailable SHELDON VESSEL SLAG WORKER - VENETIAN BLIND MECHANIC, ZACHERY D Primary Care U navailable Sheldon BROADBAND TECHNICIAN, BROADBAND TECHNICIAN-Abelino Talbert Primary Care Pr ovider Sheldon BROADBAND TECHNICIAN, BROADBAND TECHNICIAN-Abelino Talbert Referring Provi alba Andrew BROADBAND TECHNICIAN, BROADBAND TECHNICIAN-Abelino Carrion Attending Provider Dr. Aron Burr Attending Provider Charles GRECO, BROADBAND TECHNICIAN-Abelino Lucas Referring Provider [phone] Sheldon BROADBAND TECHNICIAN, BROADBAND TECHNICIAN-Abelino Talbert Primary Care Pr ovider Sheldon BROADBAND TECHNICIAN, BROADBAND TECHNICIAN-Abelino Talbert Referring Provi alba Andrew BROADBAND TECHNICIAN, FANNIE-Abelino Carrion Attending Provider Dr. Kenneth Ayala Attending Provider Sheldon GRECO-CZachery Primary Care Provi alba Izard BROADBAND TECHNICIAN-C, Zachery Talbert Attending Provider Sheldon BROADBAND TECHNICIAN-C, Zachery Talbert Referring Provider Marian Pacheco Attending Provider Jamie NAPIER, Dr. Cooper Attending Provider [phone] Leslee NAPIRE, Dr. Mena Attending Provider Leslee NAPIER, Dr. Mena Referring Provider Marian Pacheco Referring Provider Wesley BROADBAND TECHNICIAN-C, Brittany Attending Provider [phone] Wesley BROADBAND TECHNICIAN-C, Brittany Referring Provider Izard BROADBAND TECHNICIAN-C, Zachery Talbert Primary Care Provi alba Sheldon BROADBAND TECHNICIAN-C, Zachery Talbert Referring Provider Kenneth Ayala Attending Unavailable Sheldon BROADBAND TECHNICIAN, Zachery Talbert Primary Care Unav ailable Izard BROADBAND TECHNICIAN, Zachery Talbert Primary Care Unav ailable Izard BROADBAND TECHNICIAN, Zachery Talbert Attending Unav ailable Sheldon BROADBAND TECHNICIAN, Zachery Talbert Referring Unav ailable Izard BROADBAND TECHNICIAN, Zachery Talbert Primary Care Unav ailable Sheldon BROADBAND TECHNICIAN, Zachery Talbert Attending Unav ailable Sheldon BROADBAND TECHNICIAN, Zachery Talbert Referring Unav ailable Izard BROADBAND TECHNICIAN, Zachery Talbert Primary Care Unav ailable Trina Camilo Attending Unavailable Trina Camilo Referring Unavailable Izard BROADBAND TECHNICIAN, Zachery Talbert Primary Care Unav ailable Izard BROADBAND TECHNICIAN, Zachery Talbert Attending Unav ailable Izard BROADBAND TECHNICIAN, Zachery Talbert Referring Unav ailable Izard BROADBAND TECHNICIAN, Zachery Talbert Primary Care Unav ailable Marian Mariee Attending Unavailable Izard BROADBAND TECHNICIAN, Zachery Talbert Referring Unav ailable Izard BROADBAND TECHNICIAN, Zachery Talbert Primary Care Unav ailable Brittany Olson Referring Unavailable Brittany Olson Attending Unavailable Izard BROADBAND TECHNICIAN, Zachery Talbert Primary Care Unav ailable Brittany Olson Attending Unavailable Izard BROADBAND TECHNICIAN, Zachery Talbert Referring Unav ailable Sheldon BROADBAND TECHNICIAN, Zachery Talbert Primary Care Unav ailable Trina Camilo Attending Unavailable Trina Camilo Referring Unavailable Sheldon BROADBAND TECHNICIAN, Zachery Talbert Primary [facility] Unav ailable Marian Mariee Attending Unavailable Marian Mariee Referring Unavailable Sheldon BROADBAND TECHNICIAN, Zachery Talbert Primary Care Unav ailable Brittany Olson Attending Unavailable Brittany Olson Referring Unavailable Sheldon BROADBAND TECHNICIAN, Zachery Talbert [facility] Care Unav ailable Jaylene, Marian Attending Unavailable Marian Mariee Referring Unavailable Sheldon BROADBAND TECHNICIAN, Zachery Talbert Primary Care Unav ailable Marian Mariee Attending Unavailable Sheldon BROADBAND TECHNICIAN, Zachery Talbert Referring Unav ailable Medications Current Medications Medication Drug Class(es) Dates Sig (Normalized) Sig (Original) ascorbic acid 500 mg oral tablet (2 sources) Vitamin C Start: 09-13-2020 take 1 mg by mouth once daily Vitamin C 500 mg oral tablet mg = tab(s), Oral, qDay, 0 Refill(s) Start Date: 09/13/20 Status: Ordered 24 hr desvenlafaxine 100 mg extended release oral tablet (7 sources) Serotonin and Norepinephrine Reuptake Inhibitor Start: 08-29-2024 take 1 tablet by mouth once daily Desvenlafaxine 100 mg tablet extended release 24 hr Active 100 mg PO daily August 29, 2024 12:00am Start: 04-28-2022 desvenlafaxine (as base) 100 mg oral tablet, extended release Dose : 100 mg = 1 tab(s), Oral, qDay, # 90 tab(s), 1 Refill(s), Pharmacy: [facility] ([place]), 152, cm, 04/28/22 16:14:00 EST, Height, kg, 04/28/22 16:14:00 EST, Dosing Weight Start Date: 04/28/22 Status: Ordered Start: 04-02-2022 desvenlafaxine (as base) 100 mg oral tablet, extended release Dose : 100 mg = 1 tab(s), Oral, qDay, # 90 tab(s), 1 Refill(s), Pharmacy: [facility] ([place]), 152, cm, 10/20/21 16:10:00 EDT, Height, kg, 10/20/21 16:10:00 EDT, Dosing Weight Start Date: 04/02/22 Status: Ordered Start: 05-12-2021 desvenlafaxine (as base) 100 mg oral tablet, extended release Dose : 100 mg = 1 tab(s), Oral, qDay, # 90 tab(s), 2 Refill(s), Pharmacy: [facility] ([place]), 152, cm, 04/21/21 15:53:00 EST, Height, kg, 04/21/21 15:53:00 EST, Dosing Weight Start Date: 05/12/21 Status: Ordered Start: 10-08-2020 desvenlafaxine (as base) 100 mg oral tablet, extended release Dose : 100 mg = 1 tab(s), Oral, qDay, # 90 tab(s), 2 Refill(s), Pharmacy: [facility]/pharmacy #[id number], 152.4, cm, 09/13/20 15:31:00 EDT, Height, kg, 09/13/20 15:31:00 EDT, Dosing Weight Start Date: 10/08/20 Status: Ordered ergocalciferol 1.25 mg oral capsule (5 sources) Provitamin D2 Compound Start: 04-30-2022 End: 10-27-2022 ergocalciferol 50,000 intl units (1.25 mg) oral capsule Dose : 50,000 International_Unit = 1 cap(s), Oral, every other week, # 7 cap(s), 1 Refill(s), Vitamin D deficiency, 152, cm, 04/28/22 16:14:00 EST, Height, kg, 04/28/22 16:14:00 EST, Dosing Weight Start Date: 04/30/22 Stop Date: 10/27/22 Status: Ordered Start: 05-12-2021 End: 04-26-2022 ergocalciferol 50,000 intl u nits (1.25 mg) oral capsule Dose : 50,000 International_Unit = 1 cap(s), Oral, every other week, # 7 cap(s), 1 Refill(s), Pharmacy: [id number], Vitamin D deficiency, 152, cm, 10/20/21 16:10:00 EDT, Height, kg, 10/20/21 16:10:00 EDT, Dosing Weight Start Date: 10/28/21 Stop Date: 04/26/22 Status: Ordered Start: 09-13-2020 End: 06-10-2021 ergocalciferol 50,000 intl u nits (1.25 mg) oral capsule Dose : 50,000 International_Unit = 1 cap(s), Oral, every other week, # 7 cap(s), 2 Refill(s), Pharmacy: [facility]/pharmacy #[id number], Vitamin D deficiency, 152.4, cm, 09/13/20 15:31:00 EDT, Height, kg, 09/13/20 15:31:00 EDT, Dosing Weight Start Date: 09/13/20 Stop Date: 06/10/21 Status: Ordered ergocalciferol (vitamin D2) 50,000 unit tablet (18 sources) Start: 07-29-2023 take 1 tablet by mouth every month ergocalciferol (vitamin D2) 50,000 unit tablet Active 46959 UNIT PO EVERY MONTH July 29, 2023 4:00pm Start: 07-02-2022 End: 07-29-2023 take 1 tablet by mouth every other week ergocalciferol (vitamin D2) 50,000 unit tablet Discontinued UNIT PO July 02, 2022 4:57pm July 29, 2023 4:03pm every other week Start: 07-02-2022 take 1 tablet by martha th every other week ergocalciferol (vitamin D2) 50,000 unit tablet Active UNIT PO July 02, 2022 3:57pm every other week Start: 07-02-2022 take 1 tablet by martha th every other week ergocalciferol (vitamin D2) 50,000 unit tablet Active UNIT PO July 02, 2022 4:57pm every other week Start: 06-25-2020 ergocalciferol (vitamin D2) 50,000 unit tablet Active UNIT PO June 25, 2020 10:58pm Start: 06-25-2020 End: 07-02-2022 ergocalciferol (vitamin D2) 50,000 unit tablet Discontinued UNIT PO June 25, 2020 12:00am July 02, 2022 3:58pm Start: 06-25-2020 End: 07-02-2022 ergocalciferol (vitamin D2) 50,000 unit tablet Discontinued UNIT PO June 25, 2020 1:00am July 02, 2022 4:58pm Start: 06-25-2020 ergocalciferol (vitamin D2) 50,000 unit tablet Active UNIT PO June 25, 2020 12:00am Start: 06-25-2020 ergocalciferol (vitamin D2) 50,000 unit tablet Active UNIT PO June 25, 2020 1:00am Ergocalciferol (Vitamin D2) 50,000 unit tablet (9 sources) Start: 07-29-2023 Ergocalciferol (Vitamin D2) 50,000 unit tablet Active 69146 U PO EVERY MONTH July 29, 2023 4:00pm Start: 07-02-2022 End: 07-29-2023 Ergocalciferol (Vitamin D2) 50,000 unit tablet Discontinued U PO July 02, 2022 4:57pm July 29, 2023 4:03pm every other week Start: 06-25-2020 End: 07-02-2022 Ergocalciferol (Vitamin D2) 50,000 unit tablet Discontinued U PO June 25, 2020 1:00am July 02, 2022 4:58pm fluticasone propionate 0.05 mg/actuat metered dose nasal spray (14 sources) Corticosteroid Start: 05-12-2021 take 2 spray(s) nasal route once fluticasone 50 mcg/inh NASAL spray See Instructions, USE 2 (TWO) SPRAYS DAILY PER NOSTRIL, # 48 mL, 2 Refill(s), Pharmacy: [facility] ([place]), 152, cm, 04/21/21 15:53:00 EST, Height, kg, 04/21/21 15:53:00 EST, Dosing Weight Start Date: 05/12/21 Status: Ordered Start: 06-25-2020 End: 07-02-2022 Fluticasone Propionate 50 mc g/actuation spray,suspension Discontinued 2 NMA INTRANASAL DAILY June 25, 2020 1:00am July 02, 2022 4:56pm Start: 06-25-2020 End: 07-02-2022 Fluticasone Propionate Disco ntinued 2 SPRAY INTRANASAL DAILY June 25, 2020 1:00am July 02, 2022 4:56pm fluticasone 50 mcg/inh NASAL spray (2 sources) Start: 06-03-2020 take 2 spray(s) nasal route once fluticasone 50 mcg/inh NASAL spray See Instructions, USE 2 (TWO) SPRAYS DAILY PER NOSTRIL, # 48 mL, 2 Refill(s), Pharmacy: [facility]/pharmacy #[id number], 152.4, cm, 05/31/20 15:22:00 EST, Height, kg, 05/31/20 15:22:00 EST, Dosing Weight Start Date: 06/03/20 Status: Ordered Hydroxychloroquine (19 sources) Antimalarial, Antirheumatic Agent Start: 07-29-2023 take 1 tablet by mouth once daily Hydroxychloroquine 300 mg tablet Active 300 mg PO DAILY July 29, 2023 4:02pm Start: 07-29-2023 take 300 mg by mouth once daily Hydroxychloroquine Active 300 MG PO DAILY July 29, 2023 4:02pm Start: 07-02-2022 End: 07-29-2023 take 1 tablet by mouth twice daily Hydroxychloroquine 300 mg tablet Discontinued 300 mg PO TWICE A DAY July 02, 2022 1:00am July 29, 2023 4:03pm Start: 07-02-2022 End: 07-29-2023 take 300 mg by mouth twice daily Hydroxychloroquine Discontinued 300 MG PO TWICE A DAY July 02, 2022 1:00am July 29, 2023 4:03pm Start: 07-02-2022 take 300 mg by mouth twice daily Hydroxychloroquine Active 300 MG PO TWICE A DAY July 02, 2022 12:00am Start: 07-02-2022 take 300 mg by mouth twice daily Hydroxychloroquine Active 300 MG PO TWICE A DAY July 02, 2022 1:00am Start: 09-13-2020 hydroxychloroq uine 200 mg oral tablet Dose : 300 mg = 1.5 tab(s), Oral, qDay, 0 Refill(s) Start Date: 09/13/20 Status: Ordered latanoprost 0.05 mg/ml ophthalmic solution (18 sources) Prostaglandin Analog Start: 06-25-[address] 0.005 % drops Active 1 NMA OPHTHALMIC EVERY EVENING June 25, 2020 1:00am Start: 01-23-2019 take 1 dose into the eye(s) once daily at bedtime latanoprost 0.005% ophthalmic solution Dose = 1 drop(s), Eyes, both, qHS, # 2.5 mL, 0 Refill(s) Start Date: 01/23/19 Status: Ordered Start: 01-23-2019 take 1 dose into the eye(s) once daily at bedtime latanoprost 0.005% ophthalmic solution Dose = 1 drop(s), Eyes, both, qHS, # 2.5 mL, 0 Refill(s) Start Date: 01/23/19 Status: Ordered loratadine 10 mg oral tablet (18 sources) Start: 06-25-2020 End: 04-18-2022 take 1 tablet by mouth once daily Loratadine (Claritin) 10 mg tablet Active 10 mg PO DAILY June 25, 2020 1:00am Multivitamin preparation (15 sources) Start: 06-25-2020 take 1 tablet by mouth once daily Multivitamin Active 1 TABLET PO DAILY June 25, 2020 11:00pm Start: 06-25-2020 take 1 tablet by martha th once daily Multivitamin Active 1 TABLET PO DAILY June 25, 2020 12:00am Start: 06-25-2020 take 1 tablet by martha th once daily Multivitamin Active 1 TABLET PO DAILY June 25, 2020 1:00am Start: 03-07-2020 take 1 tablet by martha th once daily Multivitamin Dose = 1 tab(s), Oral, Daily, 0 Refill(s) Start Date: 03/07/20 Status: Ordered Multivitamin tablet (3 sources) Start: 06-25-2020 Multivitamin tablet Active 1 {tbl} PO DAILY June 25, 2020 1:00am naproxen 250 mg oral tablet (5 sources) Nonsteroidal Anti-inflammatory Drug Start: 01-20-2021 take 1 mg by mouth twice daily naproxen 250 mg oral tablet mg = tab(s), Oral, BID, 0 Refill(s) Start Date: 01/20/21 Status: Ordered omeprazole 40 mg delayed release oral capsule (18 sources) Proton Pump Inhibitor Start: 06-25-2020 End: 10-25-2022 take 1 capsule by mouth once daily Omeprazole 40 mg capsule,delayed release(DR/EC) Active 40 mg PO DAILY June 25, 2020 1:00am Probiotic (5 sources) Start: 09-13-2020 Probiotic 0 Refill(s) Start Date: 09/13/20 Status: Ordered psyllium 400 mg oral capsule (3 sources) Start: 08-29-2024 Psyllium Husk (Metamucil) 0.4 gram capsule Active 0.4 g PO ONCE as needed August 29, 2024 12:00am Start: 04-28-2022 Metamucil Oral , 0 Refill(s) Start Date: 04/28/22 Status: Ordered rosuvastatin calcium 10 mg oral tablet (4 sources) HMG-CoA Reductase Inhibitor Start: 07-29-2023 take 1 tablet by mouth once daily Rosuvastatin 10 mg tablet Active 10 mg PO DAILY July 29, 2023 12:00am spironolactone 25 mg oral tablet (2 sources) Aldosterone Antagonist Start: 09-08-2024 Spironolactone 25 mg tablet Active 12.5 mg PO daily September 08, 2024 12:00am tiZANidine 6 mg oral capsule (16 sources) Central alpha-2 Adrenergic Agonist Start: 06-02-2024 take 1 capsule by mouth three times daily as needed Tizanidine 6 mg capsule Active 6 mg PO THREE TIMES A DAY as needed June 02, 2024 1:00am Start: 07-01-2021 End: 07-29-2023 take 1 tablet by mouth twice daily as needed Tizanidine 4 mg tablet Discontinued 4 mg PO TWICE A DAY as needed July 01, 2021 1:00am July 29, 2023 4:02pm traMADol hydrochloride 50 mg oral tablet (14 sources) Opioid Agonist Start: 07-02-2022 take 1 tablet by mouth twice daily as needed Tramadol 50 mg tablet Active 50 mg PO TWICE A DAY as needed July 02, 2022 1:00am Start: 04-28-2022 traMADol 50 mg oral tablet Dose : 50 mg = 1 tab(s), Oral, q12h, PRN for pain, # 12 tab(s), 0 Refill(s), 78.5 Start Date: 04/28/22 Status: Ordered Start: 01-17-2021 traMADol 50 mg oral tablet Dose : 50 mg = 1 tab(s), Oral, q6h, PRN for pain, # 12 tab(s), 0 Refill(s), 77 Start Date: 01/17/21 Status: Ordered Vitamin C 500 mg oral tablet (3 sources) Start: 09-13-2020 take 1 mg by mouth once daily Vitamin C 500 mg oral tablet mg = tab(s), Oral, qDay, 0 Refill(s) Start Date: 09/13/20 Status: Ordered Zinc (18 sources) Start: 06-25-2020 take 50 mg by mouth once daily Zinc Active 50 MG PO DAILY June 25, 2020 11:01pm Start: 06-25-2020 End: 07-29-2023 take 1 tablet by mouth once daily Zinc 50 mg tablet Discontinued 50 mg PO DAILY June 25, 2020 1:00am July 29, 2023 4:01pm Start: 06-25-2020 End: 07-29-2023 take 50 mg by mouth once daily Zinc Discontinued 50 MG PO DAILY June 25, 2020 1:00am July 29, 2023 4:01pm Start: 06-25-2020 take 50 mg by mouth once daily Zinc Active 50 MG PO DAILY June 25, 2020 12:00am Start: 06-25-2020 take 50 mg by mouth once daily Zinc Active 50 MG PO DAILY June 25, 2020 1:00am Start: 04-15-2020 take 1 mg by mouth once daily Zinc mg =, Oral, qDay, 0 Refill(s) Start Date: 04/15/20 Status: Ordered Completed/Discontinued Medications Medication Drug Class(es) Dates Sig (Normalized) Sig (Original) 24 hr diclofenac sodium 100 mg extended release oral tablet (3 sources) Nonsteroidal Anti-inflammatory Drug Start: 06-02-2024 End: 06-29-2024 take 1 tablet by mouth once daily Diclofenac Sodium 100 mg tablet extended release 24 hr Discontinued 100 mg PO daily June 02, 2024 1:00am June 29, 2024 4:23pm DULoxetine 60 mg delayed release oral capsule (13 sources) Serotonin and Norepinephrine Reuptake Inhibitor Start: 06-25-2020 End: 06-02-2024 take 1 capsule by mouth once daily Duloxetine 60 mg capsule,delayed release(DR/EC) Discontinued 60 mg PO DAILY June 25, 2020 1:00am June 02, 2024 9:12am ferrous gluconate 240 mg oral tablet (18 sources) Start: 06-25-2020 End: 07-29-2023 take 1 tablet by mouth once daily Ferrous Gluconate 240 mg (27 mg iron) tablet Discontinued 240 mg PO DAILY June 25, 2020 1:00am July 29, 2023 4:00pm Start: 05-08-2020 take 1 tablet by martha th every other day ferrous gluconate 240 mg (27 mg elemental iron) oral tablet mg = tab(s), Oral, Every other day, 0 Refill(s) Start Date: 05/08/20 Status: Ordered hydroCHLOROthiazide 25 mg oral tablet (20 sources) Thiazide Diuretic Start: 08-29-2024 End: 09-08-2024 take 1 tablet by mouth once daily Hydrochlorothiazide 25 mg tablet Discontinued 25 mg PO DAILY August 29, 2024 12:00am September 08, 2024 11:28am Start: 07-01-2021 End: 07-02-2022 Hydrochlorothiazide 12.5 mg capsule Discontinued NMA PO July 01, 2021 1:00am July 02, 2022 5:11pm Start: 05-12-2021 End: 07-29-2023 take 1 capsule by mouth once daily Hydrochlorothiazide 12.5 mg capsule Discontinued 12.5 mg PO DAILY July 02, 2022 5:11pm July 29, 2023 4:01pm ibuprofen 600 mg oral tablet (20 sources) Nonsteroidal Anti-inflammatory Drug Start: 03-07-2020 End: 06-30-2022 take 1 tablet by mouth every twelve hours as needed Ibuprofen 600 mg tablet Discontinued 600 mg PO Q12H as needed July 01, 2021 5:12pm July 01, 2021 5:18pm meloxicam 15 mg oral tablet (13 sources) Nonsteroidal Anti-inflammatory Drug Start: 07-01-2021 End: 07-02-2022 take 1 tablet by mouth once daily Meloxicam 15 mg tablet Discontinued 15 mg PO DAILY July 01, 2021 1:00am July 02, 2022 4:57pm 24 hr metoprolol succinate 50 mg extended release oral tablet (20 sources) beta-Adrenergic Candi Start: 09-13-2020 metoprolol succinate 50 mg oral TABLET extended release Dose : 50 mg = 1 tab(s), Oral, qDay, Do not crush or chew (controlled release), # 30 tab(s), 0 Refill(s) Start Date: 09/13/20 Status: Ordered Start: 06-26-2020 End: 04-07-2024 take 1 tablet by mouth once daily Metoprolol Succinate (Toprol Xl) 50 mg tablet extended release 24 hr Discontinued 50 mg PO DAILY 90 May 31, 2023 10:21am April 07, 2024 12:00pm Tiotropium-Olodaterol (13 sources) Anticholinergic, beta2-Adrenergic Agonist Start: 06-25-2020 End: 07-01-2021 Tiotropium-Olodaterol (Stiolto Respimat) 2.5-2.5 mcg/actuation mist Discontinued 2 PUFF INHALATION Q24H June 25, 2020 11:01pm July 01, 2021 5:13pm Start: 06-25-2020 End: 07-01-2021 Tiotropium-Olodaterol (Stiol to Respimat) 2.5-2.5 mcg/actuation mist Discontinued 2 NMA INHALATION Q24H June 25, 2020 1:00am July 01, 2021 5:13pm Start: 06-25-2020 End: 07-01-2021 Tiotropium-Olodaterol (Stiol to Respimat) 2.5-2.5 mcg/actuation mist Discontinued 2 PUFF INHALATION Q24H June 25, 2020 12:00am July 01, 2021 4:13pm Start: 06-25-2020 End: 07-01-2021 Tiotropium-Olodaterol (Stiol to Respimat) 2.5-2.5 mcg/actuation mist Discontinued 2 PUFF INHALATION Q24H June 25, 2020 1:00am July 01, 2021 5:13pm ramipril 2.5 mg oral capsule (13 sources) Angiotensin Converting Enzyme Inhibitor Start: 06-25-2020 End: 06-26-2020 take 1 capsule by mouth once daily Ramipril 2.5 mg capsule Discontinued 2.5 mg PO DAILY June 25, 2020 1:00am June 26, 2020 5:30pm simvastatin 80 mg oral tablet (17 sources) HMG-CoA Reductase Inhibitor Start: 06-25-2020 End: 07-29-2023 take 1 tablet by mouth at bedtime Simvastatin 80 mg tablet Discontinued 80 mg PO AT BEDTIME June 25, 2020 1:00am July 29, 2023 4:01pm Triamcinolone Acetonide 55 mcg/actuation aerosol (3 sources) Start: 06-25-2020 End: 06-26-2020 Triamcinolone Acetonide 55 mcg/actuation aerosol Discontinued ug INTRANASAL June 25, 2020 1:00am June 26, 2020 5:13pm triamcinolone acetonide 55 mcg/actuation nasal spray,aerosol (10 sources) Start: 06-25-2020 End: 06-26-2020 triamcinolone acetonide 55 mcg/actuation nasal spray,aerosol Discontinued MCG INTRANASAL June 25, 2020 10:56pm June 26, 2020 5:13pm Start: 06-25-2020 End: 06-26-2020 triamcinolone acetonide 55 m cg/actuation nasal spray,aerosol Discontinued MCG INTRANASAL June 25, 2020 12:00am June 26, 2020 4:13pm Start: 06-25-2020 End: 06-26-2020 triamcinolone acetonide 55 m cg/actuation nasal spray,aerosol Discontinued MCG INTRANASAL June 25, 2020 1:00am June 26, 2020 5:13pm Problems Active Problems Problem Classification Problem Date Documented Da te Episodic/Chronic Cardiac dysrhythmias (19 sources) Postural orthostatic tachycardia syndrome ; Translations: [Other specified cardiac arrhythmias] Chronic Cardiac dysrhythmias (13 sources) Intermittent palpitations; Translations: [Palpitations] 06-25-2020 Episodic Conditions associated with dizziness or vertigo (13 sources) Lightheadedness; Translations: [Dizziness and giddiness] 07-02-2022 Episodic Congestive heart failure; nonhypertensive (5 sources) Diastolic dysfunction 05-31-2020 Chronic Diabetes mellitus without complication (5 sources) Impaired fasting glycemia 01-20-2019 Episodic Disorders of lipid metabolism (18 sources) Hyperlipidemia; Translations: [Hyperlipidemia, unspecified] 01-20-2019 Chronic Esophageal disorders (5 sources) Gastroesophageal reflux disease 03-07-2020 Chronic Essential hypertension (20 sources) Hypertensive disorder; Translations: [Essential hypertension] Onset: 01-20-2019 Chronic Headache; including migraine (5 sources) Migraine without aura 01-20-2019 Chronic Heart valve disorders (5 sources) Heart murmur 05-31-2020 Episodic Comment on above: 2/6 holosystolic mur mur previously identified Immunizations and screening for infectious disease (5 sources) Anti-nuclear factor positive 05-30-2020 Episodic Mood disorders (5 sources) Depressive disorder 09-13-2020 Chronic Nutritional deficiencies (5 sources) Vitamin D deficiency 01-20-2019 Chronic Other acquired deformities (3 sources) Spondylolisthesis; Translations: [Spondylolisthesis, cervical region] 06-02-2024 Episodic Other bone disease and musculoskeletal deformities (5 sources) Osteopenia 01-20-2019 Episodic Other circulatory disease (5 sources) Postural orthostatic tachycardia syndrome 05-17-2020 Episodic Other gastrointestinal disorders (5 sources) Chronic constipation 01-20-2019 Episodic Other nervous system disorders (6 sources) Cervical myelopathy; Translations: [Disease of spinal cord, unspecified] 06-02-2024 Chronic Other nervous system disorders (1 source) Disease of spinal cord, unspecified; Translations: [Disease of spinal cord, unspecified] Onset: Chronic Other nutritional; endocrine; and metabolic disorders (13 sources) Obesity; Translations: [Obesity, unspecified] 07-01-2021 Chronic Other upper respiratory disease (5 sources) Seasonal allergy 05-31-2020 Chronic Residual codes; unclassified (5 sources) Increased body mass index 08-25-2019 Episodic Residual codes; unclassified (5 sources) Postmenopausal state 01-23-2019 Episodic Rheumatoid arthritis and related disease (1 source) Inflammatory polyarthropathy; Translations: [Inflammatory polyarthropathy] Onset: Chronic Screening and history of mental health and substance abuse codes (2 sources) Tobacco use and exposure - finding 10-20-2021 Chronic Spondylosis; intervertebral disc disorders; other back problems (9 sources) Degeneration of cervical intervertebral disc; Translations: [Other cervical disc degeneration, unspecified cervical region] 06-02-2024 Chronic Unclassified (5 sources) History of SARS-CoV-2 05-30-2020 Unclassified (12 sources) Patient encounter status 01-23-2019 Unclassified (6 sources) G95.9 - Disease of spinal cord, unspecified,M54.12 - Radiculopathy, cervical region Past or Other Problems Problem Classification Problem Date Documented Da te Episodic/Chronic Other screening for suspected conditions (not mental disorders or infectious disease) (3 sources) Encounter for screening for malignant neoplasm of cervix; Translations: [Encounter for screening mammogram for malignant neoplasm of breast] Onset: 05-15-2022 Episodic Spondylosis; intervertebral disc disorders; other back problems (10 sources) Chronic neck pain; Translations: [Spinal stenosis in cervical region] Onset: 06-02-2024 01-23-2019 Episodic Viral infection (13 sources) COVID-19; Translations: [Severe acute respiratory syndrome coronavirus 2 (SARS-CoV-2) detected] Onset: 04-10-2020 07-01-2021 Episodic Results Test Name Value Interpretation Reference Range Facility Anion gap in Serum or Plasma Ordered By: Brittany Olson on 09-21-2024 Anion gap [Moles/Vol] 14 mmol/L 09-07 [facility] BUN/creatinine ratioOrdered By: Brittany Olson on 09-21-2024 Urea nitrogen/Creatinine [Mass ratio] 39.3 mg/mg High 02-12 [facility] Basic Metabolic Profile (BMP )on 09-21-2024 BUN/CRE 39.3 RATIO High 02-12 [facility] Comment on above: Performed By: #### L 500.2500 ####[facility] [address] [facility] [address] Calcium [Mass/Vol] 9.3 mg/dL Normal 7.6-11.0 [facility] Comment on above: Performed By: #### L 500.2500 ####[facility] [address] [facility] [address] Chloride [Moles/Vol] 101 mmol/L Normal 98-108 [facility] Comment on above: Performed By: #### L 500.2500 ####[facility] [address] [place], [address] CO2 [Moles/Vol] 22.4 mmol/L Normal 21.0-32.0 [facility] Comment on above: Performed By: #### L 500.2500 ####[facility] [address] [place], [address] Creatinine [Mass/Vol] 0.62 mg/dL Low 0.70-1.20 [facility] Comment on above: Performed By: #### L 500.2500 ####[facility] [address] [place], [address] GAP 14 Normal 5-15 [facility] Comment on above: Performed By: #### L 500.2500 ####[facility] [address] [place], [address] GFR/1.73 sq M.predicted among non-blacks MDRD (S/P/Bld) [Vol rate/Area] 100 mL/min/{1.73_m2} Normal >60 [facility] Comment on above: Result Comment: mL/m in/1.73m2 CKD-EPI Creatinine Equation (2020) Performed By: #### L 500.2500 ####[facility] [address] [place], [address] Glucose [Mass/Vol] 81 mg/dL Normal 70-99 [facility] Comment on above: Performed By: #### L 500.2500 ####[facility] [address] [place], [address] Potassium [Moles/Vol] 3.8 mmol/L Normal 3.3-5.1 [facility] Comment on above: Performed By: #### L 500.2500 ####[facility] [address] [place], [address] Sodium [Moles/Vol] 137 mmol/L Normal 133-145 [facility] Comment on above: Performed By: #### L 500.2500 ####[facility] [address] [place], [address] Urea nitrogen [Mass/Vol] 25 mg/dL High 4-19 [facility] Comment on above: Performed By: #### L 500.2500 ####[facility] [address] [place], [address] Carbon dioxide, total [Moles /volume] in Central venous bloodOrdered By: Brittany Olson on 09-21-2024 CO2 [Moles/Vol] 22.4 mmol/L 21.0-32.0 [facility] Chloride assayOrdered By: Johann Olson on 09-21-2024 Chloride [Moles/Vol] 101 mmol/L 98-108 [facility] Glomerular filtration rate ( GFR) estimation/1.73 sq m using serum, plasma, or whole bOrdered By: Brittany Olson on 09-21-2024 GFR/1.73 sq M.predicted among non-blacks MDRD (S/P/Bld) [Vol rate/Area] 100 mL/min/{1.73_m2} >60 [facility] Comment on above: mL/min/1.73m2 CKD-EP I Creatinine Equation (2020) Potassium measurement (mass/ volume)Ordered By: Brittany Olson on 09-21-2024 Potassium (Unsp spec) [Mass/Vol] 3.8 mmol/L 3.3-5.1 [facility] Serum creatinine measurement (mass/volume)Ordered By: Brittany Olson on 09-21-2024 Creatinine [Mass/Vol] 0.62 mg/dL Low 0.70-1.20 [facility] Serum glucose measurement (m ass/volume)Ordered By: Brittany Olson on 09-21-2024 Glucose [Mass/Vol] 81 mg/dL 70-99 [facility] Serum or plasma calcium david urement (mass/volume)Ordered By: Brittany Olson on 09-21-2024 Calcium [Mass/Vol] 9.3 mg/dL 7.6-11.0 [facility] Serum or plasma urea nitroge n measurement (mass/volume)Ordered By: Brittany Olson on 09-21-2024 Urea nitrogen [Mass/Vol] 25 mg/dL High 4-19 [facility] Sodium levelOrdered By: Benita Olson on 09-21-2024 Sodium [Moles/Vol] 137 mmol/L 133-145 [facility] Anion gap in Serum or Plasma Ordered By: Brittany Olson on 09-07-2024 Anion gap [Moles/Vol] 14 mmol/L 5-15 [facility] BUN/creatinine ratioOrdered By: Brittany Olson on 09-07-2024 Urea nitrogen/Creatinine [Mass ratio] 33.5 mg/mg High 10-20 [facility] Basic Metabolic Profile (BMP )on 09-07-2024 BUN/CRE 33.5 RATIO High 10-20 [facility] Comment on above: Performed By: #### L 500.2500 #### [facility] [address] [place], [address] Calcium [Mass/Vol] 9.2 mg/dL Normal 7.6-11.0 [facility] Comment on above: Performed By: #### L 500.2500 #### [facility] [address] [place], [address] Chloride [Moles/Vol] 95 mmol/L Low 98-108 [facility] Comment on above: Performed By: #### L 500.2500 #### [facility] [address] [place], [address] CO2 [Moles/Vol] 25.3 mmol/L Normal 21.0-32.0 [facility] Comment on above: Performed By: #### L 500.2500 #### [facility] [address] [place], [address] Creatinine [Mass/Vol] 0.63 mg/dL Low 0.70-1.20 [facility] Comment on above: Performed By: #### L 500.2500 #### [facility] [address] [place], [address] GAP 14 Normal 5-15 [facility] Comment on above: Performed By: #### L 500.2500 #### [facility] [address] [place], [address] GFR/1.73 sq M.predicted among non-blacks MDRD (S/P/Bld) [Vol rate/Area] 100 mL/min/{1.73_m2} Normal >60 [facility] Comment on above: Result Comment: mL/m in/1.73m2 CKD-EPI Creatinine Equation (2020) Performed By: #### L 500.2500 #### [facility] [address] [place], [address] Glucose [Mass/Vol] 112 mg/dL High 70-99 [facility] Comment on above: Performed By: #### L 500.2500 #### [facility] [address] [place], [address] Potassium [Moles/Vol] 3.1 mmol/L Low 3.3-5.1 [facility] Comment on above: Performed By: #### L 500.2500 #### [facility] [address] [place], [address] Sodium [Moles/Vol] 135 mmol/L Normal 133-145 [facility] Comment on above: Performed By: #### L 500.2500 #### [facility] [address] [place], [address] Urea nitrogen [Mass/Vol] 21 mg/dL High 4-19 [facility] Comment on above: Performed By: #### L 500.2500 #### [facility] [address] [place], [address] Carbon dioxide, total [Moles /volume] in Central venous bloodOrdered By: Brittany Olson on 09-07-2024 CO2 [Moles/Vol] 25.3 mmol/L 21.0-32.0 [facility] Chloride assayOrdered By: Johann Olson on 09-07-2024 Chloride [Moles/Vol] 95 mmol/L Low 98-108 [facility] Glomerular filtration rate ( GFR) estimation/1.73 sq m using serum, plasma, or whole bOrdered By: Brittany Olson on 09-07-2024 GFR/1.73 sq M.predicted among non-blacks MDRD (S/P/Bld) [Vol rate/Area] 100 mL/min/{1.73_m2} >60 [facility] Comment on above: mL/min/1.73m2 CKD-EP I Creatinine Equation (2020) Potassium measurement (mass/ volume)Ordered By: Brittany Olson on 09-07-2024 Potassium (Unsp spec) [Mass/Vol] 3.1 mmol/L Low 3.3-5.1 [facility] Serum creatinine measurement (mass/volume)Ordered By: Brittany Olson on 09-07-2024 Creatinine [Mass/Vol] 0.63 mg/dL Low 0.70-1.20 [facility] Serum glucose measurement (m ass/volume)Ordered By: Brittany Olson on 09-07-2024 Glucose [Mass/Vol] 112 mg/dL High 70-99 [facility] Serum or plasma calcium david urement (mass/volume)Ordered By: Brittany Olson on 09-07-2024 Calcium [Mass/Vol] 9.2 mg/dL 7.6-11.0 [facility] Serum or plasma urea nitroge n measurement (mass/volume)Ordered By: Brittany Olson on 09-07-2024 Urea nitrogen [Mass/Vol] 21 mg/dL High 4-19 [facility] Sodium levelOrdered By: Benita Olson on 09-07-2024 Sodium [Moles/Vol] 135 mmol/L 133-145 [facility] Cardiology Visit Reporton Cardiology Visit Report [facility] [address] [facility] [address] [place] [address] OFFICE VISIT Date of Service: 08/29/24 MR#: [id number] Acct: [id number] Name: ANALY MAYO Rep #: [id number] : 1960 Provider: FAMILIA Murrell rts Age/Sex: 63/F Location: [facility] Status: Signed HPI HPI History of Present Illness Details: This is a 63-year-old lady who presents today for a cardiovascular follow-up visit. She has a history of hypertension, palpitations, gastroesophageal reflux disease as well as a diagnosis of postural tachycardia syndrome. She apparently had been doing well until March of 2021 when she developed COVID. She has had periods of fatigue as well as lightheadedness particularly when standing for prolonged periods or when standing up quickly from a seated position. As part of her work-up she underwent an echocardiogram which demonstrated an ejection fraction of 65 to 70% with concentric ventricular hypertrophy and hyperdynamic gradient with Valsalva. She has been on medication which she has been taking. She has also had a history of hyperlipidemia. From a cardiac standpoint, the patient is doing well. She denies any palpitations, chest pain, pressure or heaviness. She denies SOB, Orthopnea, and PND. She does not have bleeding issues; no blood in urine, stool, or nosebleeds. She denies any decrease in energy level, myalgias, or claudication. She does not have edema, or sudden weight gain. She denies lightheadedness, dizziness, syncopal or near syncopal episodes, and headaches. She states that her blood pressures have been elevated at home averaging 140-150/80-90's. 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 Is patient in pain?: No Allergies No Known Allergies Allergy (Unverified 08/29/24 16:04) Medications ???Medication ???Instructions ???Recorded ???Confirmed ???Type latanoprost 0.005 % eye drops 1 drp ophthalmic (eye) QPM 1 08/29/24 History loratadine 10 mg tablet (Claritin) 10 mg PO DAILY 06/25/20 08/29/24 History multivitamin 1 tab PO DAILY 06/25/20 08/29/24 H istory omeprazole 40 mg capsule,delayed 40 mg PO DAILY 06/25/20 08/29/24 H istory release tramadol 50 mg tablet 50 mg PO BID PRN 07/02/22 08/29/24 History ergocalciferol (vitamin D2) 50,000 50,000 unit PO QMONTH 07/29/23 0 08/29/24 History unit tablet hydroxychloroquine 300 mg tablet 300 mg PO DAILY 07/29/23 08/29/24 History rosuvastatin 10 mg tablet 10 mg PO DAILY 07/29/23 08/29/24 H istory metoprolol succinate 50 mg 50 mg PO DAILY #90 tabs 04/07/24 0 08/29/24 Rx tablet,extended release 24 hr (Toprol XL) tizanidine 6 mg capsule 6 mg PO TID PRN 06/02/24 08/29/24 History desvenlafaxine 100 mg 100 mg PO QDAY 08/29/24 08/29/24 H istory tablet,extended release 24 hr hydrochlorothiazide 25 mg tablet 25 mg PO DAILY #30 tabs 08/29/24 0 08/29/24 Rx psyllium husk 0.4 gram capsule 0.4 g PO ONCE PRN 08/29/24 5 History (Metamucil) Ejection fraction %: 65 Have you fallen in the past year?: No PFSH Medical History Arthritis Cervical spinal stenosis Glaucoma Headache Hyperlipidemia Essential (primary) hypertension GERD (gastroesophageal reflux disease) Obesity POTS (postural orthostatic tachycardia syndrome) COVID-19 virus detected (04/10/20) Surgical History History of mandibular surgery Family History Mother Diabetes Heart disease Hypertension Kidney disease CAD (coronary artery disease), Onset Age: 72 CABG Father Alcohol abuse Uncle Myocardial infarction, Onset Age: 42 maternal Social History Smoking Status: Former smoker Electronic Cigarette Use: with nicotine how long ago did patient quit smoking: Quit smoking cigarettes 12 years ago. Still vapes alcohol intake: never substance use type: does not use well-balanced diet: other details: [employer] diet plan caffeine: Yes Type: coffee Number of servings: 3 ROS Const Const: Negative for fatigue, weakness, headache(s) or frequent falls Eyes Eyes: Negative for blurry vision ENT ENT: Negative for headache(s), dizziness or Nosebleed/epistaxis Cardio Chest Pain: No Palpitations: No Edema: None Muscle aches with walking: None Resp Respiratory: Negative for SOB with activity, SOB at rest or SOB orthopnea SOB lying (more content not included)... Normal [facility] PT D/C Summary (1)on 025 PT D/C Summary (1) [facility] [address] [place] [address] / REHABILITATION SERVICES DISCHARGE SUMMARY MR#: [id number] Acct: [id number] Name: ANALY MAYO Rep #: [id number] : 1960 63 From: Aron Reyes DPT, OCS, CSCS Referring Dr.: YAAKOV Mcdaniels Status: REG RCR Insurance: [facility] SELF PAY INSURANCE Discharge Summary D/C summary: It has been my pleasure to treat ANALY MAYO referred by YAAKOV Mcdaniels, with the diagnosis of cervical radiculopathy for a total of 8 visit(s). Discharge Date: 07/21/24 Please see the following information for a summary of their discharge status. Subjective Subjective: No numbness or tingling in over a week. Been doing exercises faithfully at home. No pain. doctor wanted to do surgery after seeing MRI but not now since she is improved. Movement is good. Life is pretty normal. Sleeping well. Injections possible in mid July. Work is close to normal. and feeling better working with small parts. Pain R arm: Pain Intensity (Out of 10): 0 FONTENOT: Pain Intensity (Out of 10): 4 Overall Improvement % Improvement: 100 Objective Objective/Function: 75 R rotation adn 72 L rotation, 80 ext. 42# R deicer inspector pneumatic strength and 60# L. UE strength otherwise 4/5 without pain. Goals Goal 1:: Full crvical AROM, 39# deicer inspector pneumatic strength R and no arm symptoms Goal Progress: Goal Met Goal 2:: Pt feel 90% better overall adn pain in scap only and 1/10 at worst Goal Progress: Goal Met Goal 3:: push button for car remote without weakness and tie shoe without awkward feeling Goal Progress: Goal Met Goal 4:: I appropriate HEP and posture/ergonomics to limit future problem Goal Progress: Goal Met Goal 5:: neck oswestry score of 4 or better Goal Progress: Goal Met Plan Plan: d/c to HEP D/C Information Discharge Comments: To continue via HEP. d/c sentence: If there are questions or concerns regarding this patient's physical therapy, please feel free to call me at [phone]. Thank you for the referral of this patient. Sincerely, Aron Reyes, DPT, OCS, CSCS Balance/Gait/Functi onal tests Balance/Special Test Scores Oswestry Neck Score: 4 Improvement % Improvement: 100 07/21/24 1350 CC: FAMILIA Chung; YAAKOV Mcdaniels EBG Signed Normal [facility] Orthopedic Visit Reporton Orthopedic Visit Report [facility] [address] [place] [address] [address] [place] [address] OFFICE VISIT Date of Service: 06/29/24 MR#: [id number] Acct: [id number] Name: ANALY MAYO Rep #: [id number] : 1960 Provider: YAAKOV Mcdaniels Age/Sex: 63/F Location: [facility] Status: Signed Intake Vital Signs 06/02/24 08:08 Height 5 ft 0.5 in Intake Visit Reasons: CERVICAL SPINE Allergies No Known Allergies Allergy (Unverified 06/29/24 15:22) Medications ???Medication ???Instructions ???Recorded ???Confirmed ???Type latanoprost 0.005 % eye drops 1 drp ophthalmic (eye) QPM 2 1 06/29/24 History loratadine 10 mg tablet (Claritin) 10 mg PO DAILY 06/25/20 06/29/24 History multivitamin 1 tab PO DAILY 06/25/20 06/29/24 H istory omeprazole 40 mg capsule,delayed 40 mg PO DAILY 06/25/20 06/29/24 H istory release tramadol 50 mg tablet 50 mg PO BID PRN 07/02/22 06/29/24 History ergocalciferol (vitamin D2) 50,000 50,000 unit PO QMONTH 07/29/23 0 06/29/24 History unit tablet hydroxychloroquine 300 mg tablet 300 mg PO DAILY 07/29/23 06/29/24 History rosuvastatin 10 mg tablet 10 mg PO DAILY 07/29/23 06/29/24 H istory metoprolol succinate 50 mg 50 mg PO DAILY #90 tabs 04/07/24 0 06/29/24 Rx tablet,extended release 24 hr (Toprol XL) tizanidine 6 mg capsule 6 mg PO TID PRN 06/02/24 06/29/24 History PFSH Medical History Arthritis Cervical spinal stenosis Glaucoma Headache Hyperlipidemia Essential (primary) hypertension GERD (gastroesophageal reflux disease) Obesity POTS (postural orthostatic tachycardia syndrome) COVID-19 virus detected (04/10/20) Surgical History History of mandibular surgery Family History Mother Diabetes Heart disease Hypertension Kidney disease CAD (coronary artery disease), Onset Age: 72 CABG Father Alcohol abuse Uncle Myocardial infarction, Onset Age: 42 maternal Social History Smoking Status: Former smoker Electronic Cigarette Use: with nicotine how long ago did patient quit smoking: Quit smoking cigarettes 12 years ago. Still vapes alcohol intake: never substance use type: does not use well-balanced diet: other details: [employer] diet plan caffeine: Yes Type: coffee Number of servings: 3 HPI CERVICAL SPINE Details: This documentation accurately reflects the service provided and the decisions made by me, YAAKOV Mcdaniels 06/29/24 1521. Part of today???s visit was documented by Courtney HERNANDEZ, acting as scribe. ANALY MAYO is a 63 year old F here today for MRI review of her cervical spine. She states that her pain has gotten better but she is still having the numbness. She is taking Ibuprofen for pain. Patient says that she feels like the dexterity in her right hand has also improved since the last time she was seen. Patient continues to deny any balance issues. She has been seeing physical therapy who has been working to increase strength and stretching which she thinks has been beneficial. Patient denies the pain that she was having the last time that she was here says that she will occasionally get some numbness in her right pinky and ring finger however this pain is not consistent and is something that she says she is able to live with. HPI from 06/02/24: ANALY MAYO is a 63 year old F here today for cervical spine issues. She advises she has been experiencing constant neck stiffness for 3 years. She was seen at [facility] for left shoulder pain where they did an MRI and CT of her neck and shoulder. She did do PT for her neck and shoulder 3 years ago when she had her pain. 3 years ago all of her symptoms were left- sided and extended from her left shoulder down to her elbow. She did not have any symptoms that extended beyond her elbow. Dr. li recommended a fusion but pt. denied and was sent her to Dr. Ram for a cervical injection. She states this has been effective for her left shoulder pain. She states she began to have right shoulder pain last and has worsened this past Wednesday. She states the pain in her right shoulder a constant deep dull ache that extends down the back of her arm to her elbow. She denies any symptoms that extend into her right hand or fingers. She states it comes in waves like spasms at times. She does have some occasional numbness, tingling and weakness in her right arm and hand. 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 Says that she has noticed some slight dexterity issues since her symptoms began and feel like her deicer inspector pneumatic s (more content not included)... Normal [facility] Spine Cervical (Routine)on 0 06-17-2024 Spine Cervical (Routine) [facility] [address] [place], [place] [address] Spine Cervical (Routine) MR#: [id number] Acct: [id number] Name: ANALY MAYO Rep #: [id number] : 1960 F 63 From: Dheeraj Howard MD PCP: Zachery Chung, [employer]BAND TECHNICIAN-C Status: REG CLI Study: Spine Cervical (Routine) Date of Exam: Exam# [id number] Ordering Dr: Marian Mariee PROCEDURE: SPINE CERVICAL (ROUTINE) REASON FOR EXAM: Pain TECHNIQUE: Cervical spine MRI without intravenous gadolinium-based contrast. COMPARISON: None. FINDINGS: Vertebrae: Cervical vertebral body heights are preserved. Bone marrow signal is unremarkable. Alignment: Normal. No spondylolisthesis. Spinal Cord: Cervical spinal cord is of normal size and signal intensities. No cervical spinal cord lesions are identified. C2-3: Unremarkable C3-4: Unremarkable C4-5: Moderate broad-based posterior disc-osteophyte complex indents the thecal sac. Mild central canal stenosis and mild left neural foraminal stenosis. C5-6: Severe broad-based posterior disc-osteophyte complex indents the thecal sac. Moderate central canal stenosis. Moderate left and mild right neural foraminal stenosis. C6-7: Moderate broad-based posterior disc-osteophyte complex indents the thecal sac. Mild significant central canal stenosis. Moderate left neural foraminal stenosis. C7-T1: Unremarkable MRI/Spine Cervical (Routine) IMPRESSION: Multilevel degenerative changes most severe at the C5/6 level in the cervical spine. Reading Location: [facility] CC: FAMILIA Chung; YAAKOV Mcdaniels Sales Account Specialist: Signed Normal [facility] Inital Evaluation (1) - PTon 06-15-2024 Inital Evaluation (1) - PT [facility] [address] [place] [address] [address] [place] [address] / REHABILITATION SERVICES INITIAL EVALUATION MR#: [id number] Acct: [id number] Name: ANALY MAYO Rep #: [id number] : 1960 63 From: Aron Reyes DPT, ASHWIN, BLAISE Referring Dr.: YAAKOV Mcdaniels Status: REG RCR Insurance: [facility] SELF PAY INSURANCE Patient's Visit Information Visit Information Visit Information: ANALY MAYO is a 63 year old F referred to Physical Therapy by YAAKOV Mcdaniels with a diagnosis of cervical radiculopathy. Date of Evaluation: 06/15/24 Physical Therapist: Aron Reyes DPT, ASHWIN, CSCS Visit Plan Frequency: 2x /Week Duration: 4-6 Weeks Plan: 2x/week for 4-6 for 1. check HEP c/s retraction ext and effects on deicer inspector pneumatic strength(goal 39# R), cervical extension (to 80) and arm symptoms(to be abolished). use thoracic and cervical ext mobs to help with motion and manual traction, ICT if needed. MH to neck and STM to R UT appropriate.Progres s to cervical and postural strength to HEP when improved and focus on posture and ergonomics with work. IE HEP cervical ret ext 10x every 2 hours and posture, monitor symptoms. Subjective Subjective: R shoulder blade pain starting a few weeks ago insidiously and mild but worst over the days and down R arm. it was intermittent worse but spasms. Better with lying down. Movement of body made it worse. N and tingling started this week in R pinky finger. L sided problems 3 yrs ago but not recently. Sleep is now OK, was hard for two weeks. Slowly improving pain now but numbness started two days aog. Numbness comes and goes. 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 Feels weak in R hand and dexterity off in R hand to tie shoes. MRI in two days and then back to [place]. Not scheduled yet with Dr. Ram. Overall is 70% better over last two weeks Missed 3 days of pain early May due to this. Work makes it worse. Looks in microscope. No regular exercises. No neck exercises Basic ADLs are OK. Hobbies: computer and TV, now is comfortable. Pain R arm: Pain Intensity (Out of 10): 1 Pain Intensity Range: 0 and 8 Comment: am worse. Objective Objective: 52# L and 30# R deicer inspector pneumatic, weakness noted in hand intrinsics R. reflexes 2/3 bi and tri - alar ligament test, - VAT sensation dermatomes WNL B UE today. strength outside of hand intrinsics are 4/5 without other myotomal prob lems. scapular and UE AROM is WFL neck AROM is ext 48 adn pain R thoracic, rotation adn SB are symmetrical, flexion is good and painfree. Tender R UT to palpation and c/s paraspinals. + R c/s compression. repeated protrusion worse numbness, Produces numbness distal arm and pinky finger, weaker deicer inspector pneumatic at 28# R repeated retraction: achiness in scap, B numbness, NE weakness, ROM slightly better. repeated ret ext : PDM centrally, Better numbness, 80 ext better ROM. Balance/Special Test Scores Oswestry Neck Score: 8 Goals Goal 1:: Full crvical AROM, 39# deicer inspector pneumatic strength R and no arm symptoms Goal Time Frame: 4-6 Weeks Goal 2:: Pt feel 90% better overall adn pain in scap only and 1/10 at worst Goal Time Frame: 4-6 Weeks Goal 3:: push button for car remote without weakness and tie shoe without awkward feeling Goal Time Frame: 4-6 Weeks Goal 4:: I appropriate HEP and posture/ergonomics to limit future problem Goal Time Frame: 4-6 Weeks Goal 5:: neck oswestry score of 4 or better Goal Time Frame: 4-6 Weeks Rehabilitation Potential Physical Therapy Diagnosis: weakness, limited ROM and pain in R UE with paraesthesia limiting comfortable function at home presenting like a disc derangement. Rehabilitation Potential: Fair Anticipated Interventions Patient/Client Instruction: Educate patient on: Condition and Plan of Care For the Purpose of:: To decrease pain, To increase ROM, To improve nutrient delivery to tissue, To improve muscle performance and motor function, To increase tolerance to activity/condition/ position and To improve ability of physical actions for home/community/work /leisure Therapeutic Exercise to Include: Strength training, Postural training, Flexibilty training, Passive ROM and Active ROM For the Purpose of:: To decrease pain, To increase ROM, To improve nutrient delivery to tissue, To improve muscle performance and motor function, To improve ability to perform ADL's and To increase flexibility/ROM Manual Therapy Techniques to Include: Mobilization, Passive ROM and Soft tissue mobilization For the Purpose of:: To decrease pain, To increase ROM, To improve nutrient delivery to tissue, To improve muscle performance and motor function, To increase tolerance to activity/condition/ position and To improve ability of physical actions for home/community/work /leisure Thermo therapy (hot pack): Yes Intermittent cervical traction: (more content not included)... Normal [facility] Absolute lymphocyte countOrd ered By: Trina Camilo on 06-02-2024 Lymphocytes Auto (Unsp spec) [#/Vol] 1.64 10*3/uL 0.83-4.51 [facility] Absolute neutrophil countOrd ered By: Trina Camilo on 06-02-2024 Neutrophils (Bld) [#/Vol] 6.5 10*3/uL 2.0-7.7 [facility] Albumin to globulin ratioOrd ered By: Trinabasim Camilo on 06-02-2024 Albumin/Globulin [Mass ratio] 1.4 {ratio} 0.9-2.4 [facility] Automated lymphocyte count a s percentage of total leukocytesOrdered By: Trina Camilo on 06-02-2024 Lymphocytes/100 WBC Auto (Unsp spec) 18.5 % Low 19-41 [facility] Basophil percentageOrdered B y: Trina Camilo on 06-02-2024 Basophils/100 WBC (Bld) 0.7 % 0-1 [facility] Bilirubin, totalOrdered By: Trinabasim Camilo on 06-02-2024 Bilirubin [Mass/Vol] 0.30 mg/dL 0.20-1.00 [facility] Comment on above: For patients on eltr ombopag therapy, use of [place] TBIL is not recommended. Blood urea nitrogen (BUN)/cr eatinine ratioOrdered By: Trina Camilo on 06-02-2024 Urea nitrogen/Creatinine [Mass ratio] 29.1 mg/mg High 10-20 [facility] CBC W/Diff, Automatedon 02- Absolute Lymph 1.64 X10 3/uL Normal 0.83-4.51 [facility] Comment on above: Performed By: #### L 100.0100, L500.4050 ####[facility] [address] [place], [address] Absolute Neut 6.5 X10 3/uL Normal 2.0-7.7 [facility] Comment on above: Performed By: #### L 100.0100, L500.4050 ####[facility] [address] [place], [address] Basophils/100 WBC (Bld) 0.7 % Normal 0-1 [facility] Comment on above: Performed By: #### L 100.0100, L500.4050 ####[facility] [address] [place], [address] Eosinophils/100 WBC (Bld) 0.8 % Normal 0-5 [facility] Comment on above: Performed By: #### L 100.0100, L500.4050 ####[facility] [address] [place], [address] Erythrocyte distribution width (RBC) [Ratio] 12.4 % Normal 11.6-14.6 [facility] Comment on above: Performed By: #### L 100.0100, L500.4050 ####[facility] [address] [place], [address] Hematocrit (Bld) [Volume fraction] 41.2 % Normal 37-47 [facility] Comment on above: Performed By: #### L 100.0100, L500.4050 ####[facility] [address] [place], [address] Hemoglobin (Bld) [Mass/Vol] 13.7 g/dL Normal 12.0-15.0 [facility] Comment on above: Performed By: #### L 100.0100, L500.4050 ####[facility] [address] [place], [address] IG% 0.300 Normal 0.0-0.9 [facility] Comment on above: Result Comment: IG% - Immature Granulocytes (promyelocytes, myelocytes and metamyelocytes) > 1% indicates that a LEFT SHIFT is Present. Performed By: #### L 100.0100, L500.4050 ####[facility] [address] [place], [address] Lymphocytes/100 WBC (Bld) 18.5 % Low 19-41 [facility] Comment on above: Performed By: #### L 100.0100, L500.4050 ####[facility] [address] [place], [address] MCH (RBC) [Entitic mass] 31.5 pg Normal 27.0-32.0 [facility] Comment on above: Performed By: #### L 100.0100, L500.4050 ####[facility] [address] [place], [address] MCHC (RBC) [Mass/Vol] 33.3 g/dL Normal 32-36 [facility] Comment on above: Performed By: #### L 100.0100, L500.4050 ####[facility] [address] [place], [address] MCV (RBC) [Entitic vol] 94.7 fL Normal 81-99 [facility] Comment on above: Performed By: #### L 100.0100, L500.4050 ####[facility] [address] [place], [address] Monocytes/100 WBC (Bld) 6.3 % Normal 0-10 [facility] Comment on above: Performed By: #### L 100.0100, L500.4050 ####[facility] [address] [place], [address] Neutrophils/100 WBC (Bld) 73.4 % High 47-70 [facility] Comment on above: Performed By: #### L 100.0100, L500.4050 ####[facility] [address] [place], [address] Nucleated RBC (Bld) [#/Vol] 0 10*3/uL Normal 0-5 [facility] Comment on above: Performed By: #### L 100.0100, L500.4050 ####[facility] [address] [place], [address] Platelet mean volume (Bld) [Entitic vol] 8.8 fL Normal 6.2-12.0 [facility] Comment on above: Performed By: #### L 100.0100, L500.4050 ####[facility] [address] [place], [address] Platelets (Bld) [#/Vol] 306 10*3/uL Normal 150-450 [facility] Comment on above: Performed By: #### L 100.0100, L500.4050 ####[facility] [address] [place], [address] RBC (Bld) [#/Vol] 4.35 10*6/uL Normal 4.2-5.4 [facility] Comment on above: Performed By: #### L 100.0100, L500.4050 ####[facility] [address] [place], [address] RDW SD 43.2 fl Normal 35.1-43.9 [facility] Comment on above: Performed By: #### L 100.0100, L500.4050 ####[facility] [address] [place], [address] WBC (Bld) [#/Vol] 8.9 10*3/uL Normal 4.4-11.0 [facility] Comment on above: Performed By: #### L 100.0100, L500.4050 ####[facility] [address] [place], [address] Carbon dioxide measurementOr dered By: Trina Camilo on 06-02-2024 CO2 [Moles/Vol] 30.0 mmol/L 21.0-32.0 [facility] Cerv Spine 4 or 5 Viewson Cerv Spine 4 or 5 Views [facility] Imaging Services [address] [place] [address] Cerv Spine 4 or 5 Views MR#: [id number] Acct: [id number] Name: ANALY MAYO Rep #: [id number] : 1960 F 63 From: Kai Cedillo MD PCP: Zachery Chung, [employer] TECHNICIAN-C Status: DEP AMB Study: Cerv Spine 4 or 5 Views Date of Exam: 06/02/24 Exam# [id number] Ordering Dr: Marian Mariee EXAM: XR Cervical Spine Flexion/Extension Only, 2 or 3 Views CLINICAL INDICATION: TECHNIQUE: Lateral flexion/extension views of the cervical spine. COMPARISON: No relevant prior studies available. FINDINGS: VERTEBRAE: Degenerative facet arthropathy throughout the cervical spine. Normal alignment. No acute fracture. DISC SPACES: Degenerative disc disease throughout the cervical spine. SOFT TISSUES: Unremarkable. RAD/Cerv Spine 4 or 5 Views IMPRESSION: 1. No acute fracture. 2. Degenerative changes of the cervical spine as described. Reading Location: [facility] CC: FAMILIA Chung; YAAKOV Mcdaniels Sales Account Specialist: Signed Normal [facility] Chloride measurementOrdered By: Trina Camilo on 06-02-2024 Chloride [Moles/Vol] 104 mmol/L 98-107 [facility] Comprehensive Metabolic Prof ilon 06-02-2024 Albumin [Mass/Vol] 4.3 g/dL Normal 3.2-5.0 [facility] Comment on above: Performed By: #### L 100.0100, L500.4050 ####[facility] [address] [place], [address] Albumin/Globulin [Mass ratio] 1.4 {ratio} Normal 0.9-2.4 [facility] Comment on above: Performed By: #### L 100.0100, L500.4050 ####[facility] [address] [place] [place], [address] ALK P 54 U/L Normal 45-117 [facility] Comment on above: Performed By: #### L 100.0100, L500.4050 ####[facility] [address] [place], [address] ALT [Catalytic activity/Vol] 41 U/L Normal 13-56 [facility] Comment on above: Performed By: #### L 100.0100, L500.4050 ####[facility] [address] [place], [address] AST [Catalytic activity/Vol] 20 U/L Normal 15-37 [facility] Comment on above: Performed By: #### L 100.0100, L500.4050 ####[facility] [address] [place], [address] Bilirubin [Mass/Vol] 0.30 mg/dL Normal 0.20-1.00 [facility] Comment on above: Result Comment: For patients on eltrombopag therapy, use of [place] TBIL is not recommended. Performed By: #### L 100.0100, L500.4050 ####[facility] [address] [place], [address] BUN/CRE 29.1 RATIO High 10-20 [facility] Comment on above: Performed By: #### L 100.0100, L500.4050 ####[facility] [address] [place], [address] CA,Total 9.2 mg/dL Normal 8.5-10.1 [facility] Comment on above: Performed By: #### L 100.0100, L500.4050 ####[facility] [address] [place], [address] Chloride [Moles/Vol] 104 mmol/L Normal 98-107 [facility] Comment on above: Performed By: #### L 100.0100, L500.4050 ####[facility] [address] [place], [address] CO2 [Moles/Vol] 30.0 mmol/L Normal 21.0-32.0 [facility] Comment on above: Performed By: #### L 100.0100, L500.4050 ####[facility] [address] [place], [address] Creatinine [Mass/Vol] 0.58 mg/dL Normal 0.55-1.02 [facility] Comment on above: Result Comment: The validity of the calculated GFR GFRAA in patients over 70 years has not been determined. Clinical correlation is essential. Performed By: #### L 100.0100, L500.4050 ####[facility] [address] [place], [address] EST GFR - AA 134 mL/min Normal >60 [facility] Comment on above: Result Comment: Afri can Austrian GFR Calc Performed By: #### L 100.0100, L500.4050 ####[facility] [address] [place], [address] GAP 5 Normal 5-15 [facility] Comment on above: Performed By: #### L 100.0100, L500.4050 ####[facility] [address] [place], [address] GFR/1.73 sq M.predicted among non-blacks MDRD (S/P/Bld) [Vol rate/Area] 111 mL/min/{1.73_m2} Normal >60 [facility] Comment on above: Result Comment: Non- GFR Calc Performed By: #### L 100.0100, L500.4050 ####[facility] [address] [place], [address] Globulin (S) [Mass/Vol] 3.1 g/dL Normal 2.2-4.2 [facility] Comment on above: Performed By: #### L 100.0100, L500.4050 ####[facility] [address] [place], [address] Glucose [Mass/Vol] 100 mg/dL Normal 74-106 [facility] Comment on above: Result Comment: Fast ing Glucose result from 100 to 125 mg/dL suggests IMPAIRED HOMEOSTASIS per A.D.A. criteria. Performed By: #### L 100.0100, L500.4050 ####[facility] [address] [place], [address] Potassium [Moles/Vol] 4.1 mmol/L Normal 3.5-5.1 [facility] Comment on above: Performed By: #### L 100.0100, L500.4050 ####[facility] [address] [place], [address] Sodium [Moles/Vol] 139 mmol/L Normal 136-145 [facility] Comment on above: Performed By: #### L 100.0100, L500.4050 ####[facility] [address] [place], [address] T PROT 7.4 g/dL Normal 6.4-8.2 [facility] Comment on above: Performed By: #### L 100.0100, L500.4050 ####[facility] [address] [place], [address] Urea nitrogen [Mass/Vol] 17 mg/dL Normal 7-18 [facility] Comment on above: Performed By: #### L 100.0100, L500.4050 ####[facility] [address] [place], [address] Eosinophil percentageOrdered By: Trina Camilo on 06-02-2024 Eosinophils/100 WBC (Bld) 0.8 % 0-5 [facility] Erythrocyte distribution wid th ratioOrdered By: Trina Camilo on 06-02-2024 Erythrocyte distribution width (RBC) [Ratio] 12.4 % 11.6-14.6 [facility] Erythrocyte distribution wid th standard deviationOrdered By: Trina Camilo on 06-02-2024 Erythrocyte distribution width (RBC) [Entitic vol] 43.2 fL 35.1-43.9 [facility] Erythrocyte distribution width (RBC) [Ratio] 43.2 fl 35.1-43.9 [facility] Estimated glomerular filtrat ion rate (GFR) AmericanOrdered By: Trina Camilo on 06-02-2024 Estimated GFR (MDRD) Amer 134 mL/min >60 [facility] Comment on above: GFR Calc Glomerular filtration rate ( GFR) estimationOrdered By: Trina Camilo on 06-02-2024 Estimated GFR (MDRD) Non-Af Amer 111 mL/min >60 [facility] Comment on above: Non- GFR Calc GFR/1.73 sq M.predicted among non-blacks MDRD (S/P/Bld) [Vol rate/Area] 111 mL/min/{1.73_m2} >60 [facility] Comment on above: Non- GFR Calc Glucose measurementOrdered B y: Trina Camilo on 06-02-2024 Glucose [Mass/Vol] 100 mg/dL 74-106 [facility] Comment on above: Fasting Glucose resu lt from 100 to 125 mg/dL suggests IMPAIRED HOMEOSTASIS per A.D.A. criteria. Hematocrit Auto (Bld) [Volum e fraction]Ordered By: Trina Camilo on 06-02-2024 Hematocrit (Bld) [Volume fraction] 41.2 % 37-47 [facility] Hemoglobin measurementOrdere d By: Trina Camilo on 06-02-2024 Hemoglobin (Bld) [Mass/Vol] 13.7 g/dL 12.0-15.0 [facility] Immature granulocytes/100 WB C Auto (Bld)Ordered By: Trina Camilo on 06-02-2024 Immature granulocytes/100 WBC (Bld) 0.300 % 0.0-0.9 [facility] Comment on above: IG% - Immature Granu locytes (promyelocytes, myelocytes and metamyelocytes) > 1% indicates that a LEFT SHIFT is Present. Laboratory - Chemistry and C hemistry - challengeOrdered By: Trina Camilo on 06-02-2024 AST [Catalytic activity/Vol] 20 U/L 15-37 [facility] Lymphocytes Auto (Unsp spec) [#/Vol]Ordered By: Trina Camilo on 06-02-2024 Lymphocytes (Bld) [#/Vol] 1.64 10*3/uL 0.83-4.5 1 [facility] Lymphocytes/100 WBC Auto (Un sp spec)Ordered By: Trina Camilo on 06-02-2024 Lymphocytes/100 WBC (Bld) 18.5 % Low 19-41 [facility] MCV (mean corpuscular volume ) determinationOrdered By: Trina Camilo on 06-02-2024 MCV (RBC) [Entitic vol] 94.7 fL 81-99 [facility] Mean corpuscular hemoglobin (MCH) determinationOrdered By: Trina Camilo on 06-02-2024 MCH (RBC) [Entitic mass] 31.5 pg 27.0-32.0 [facility] Mean corpuscular hemoglobin concentration (MCHC) determinationOrdered By: Trinabasim Camilo on 06-02-2024 MCHC (RBC) [Mass/Vol] 33.3 g/dL 32-36 [facility] Mean platelet volume determi nationOrdered By: Trina Camilo on 06-02-2024 Platelet mean volume (Bld) [Entitic vol] 8.8 fL 6.2-12.0 [facility] Monocyte percentageOrdered B y: Trina Camilo on 06-02-2024 Monocytes/100 WBC (Bld) 6.3 % 0-10 [facility] Neutrophil percentageOrdered By: [facility] Leslee on 06-02-2024 Neutrophils/100 WBC (Bld) 73.4 % High 47-70 [facility] Nucleated red blood cell per centageOrdered By: Trinabasim Camilo on 06-02-2024 Nucleated RBC/100 WBC (Bld) [Ratio] 0 % 0-5 [facility] Orthopedic Visit Reporton Orthopedic Visit Report [facility] [address] [place] [address] OFFICE VISIT Date of Service: 06/02/24 MR#: [id number] Acct: [id number] Name: TEENASHANNONANALYKATALINA SWAIN Rep #: [id number] : 1960 Provider: YAAKOV Mcdaniels Age/Sex: 63/F Location: [facility] Status: Signed Intake Vital Signs 07/29/23 15:54 06/02/24 08:08 Height 5 ft 0.5 in 5 ft 0.5 in Weight: 129 lb BMI 24.7 Intake Visit Reasons: CERVICAL SPINE Is patient in pain?: Yes (right shoulder pain) Pain scale (1-10): 4 Allergies No Known Allergies Allergy (Unverified 06/02/24 08:12) Medications ???Medication ???Instructions ???Recorded ???Confirmed ???Type latanoprost 0.005 % eye drops 1 drp ophthalmic (eye) QPM 06/25/2 1 06/02/24 History loratadine 10 mg tablet (Claritin) 10 mg PO DAILY 06/25/20 06/02/24 History multivitamin 1 tab PO DAILY 06/25/20 06/02/24 H istory omeprazole 40 mg capsule,delayed 40 mg PO DAILY 06/25/20 06/02/24 H istory release tramadol 50 mg tablet 50 mg PO BID PRN 07/02/22 06/02/24 History ergocalciferol (vitamin D2) 50,000 50,000 unit PO QMONTH 07/29/23 0 06/02/24 History unit tablet hydroxychloroquine 300 mg tablet 300 mg PO DAILY 07/29/23 06/02/24 History rosuvastatin 10 mg tablet 10 mg PO DAILY 07/29/23 06/02/24 H istory metoprolol succinate 50 mg 50 mg PO DAILY #90 tabs 04/07/24 0 06/02/24 Rx tablet,extended release 24 hr (Toprol XL) diclofenac sodium 100 mg 100 mg PO QDAY 06/02/24 06/02/24 H istory tablet,extended release 24 hr tizanidine 6 mg capsule 6 mg PO TID PRN 06/02/24 06/02/24 History PFSH Medical History Arthritis Cervical spinal stenosis Glaucoma Headache Hyperlipidemia Essential (primary) hypertension GERD (gastroesophageal reflux disease) Obesity POTS (postural orthostatic tachycardia syndrome) COVID-19 virus detected (04/10/20) Surgical History History of mandibular surgery Family History Mother Diabetes Heart disease Hypertension Kidney disease CAD (coronary artery disease), Onset Age: 72 CABG Father Alcohol abuse Uncle Myocardial infarction, Onset Age: 42 maternal Social History Smoking Status: Former smoker Electronic Cigarette Use: with nicotine how long ago did patient quit smoking: Quit smoking cigarettes 12 years ago. Still vapes alcohol intake: never substance use type: does not use well-balanced diet: other details: [employer] diet plan caffeine: Yes Type: coffee Number of servings: 3 HPI CERVICAL SPINE Chief Complaint: cervical spine Details: This documentation accurately reflects the service provided and the decisions made by me, YAAKOV Mcdaniels 06/02/24 0808. Part of today???s visit was documented by [ ], acting as scribe. ANALY MAYO is a 63 year old F here today for cervical spine issues. She advises she has been experiencing constant neck stiffness for 3 years. She was seen at [facility] for left shoulder pain where they did an MRI and CT of her neck and shoulder. She did do PT for her neck and shoulder 3 years ago when she had her pain. 3 years ago all of her symptoms were left-sided and extended from her left shoulder down to her elbow. She did not have any symptoms that extended beyond her elbow. Dr. li recommended a fusion but pt. denied and was sent her to Dr. Ram for a cervical injection. She states this has been effective for her left shoulder pain. She states she began to have right shoulder pain last and has worsened this past Wednesday. She states the pain in her right shoulder a constant deep dull ache that extends down the back of her arm to her elbow. She denies any symptoms that extend into her right hand or fingers. She states it comes in waves like spasms at times. She does have some occasional numbness, tingling and weakness in her right arm and hand. 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 She denies any balance changes. She is left-hand dominant. She has not had any recent imaging. She treats pain with ice, heat, Ibuprofen, Tylenol. She was seen by her PCP yesterday who prescribed Tizanidine and Diclofenac. Ortho Exam General General: Yes no acute distress Neurologic: Yes alert and Yes oriented x3 Spine SPINE TESTING CERVICAL THORACIC LUMBAR Musculoskeletal Strength 0=absent - 5=normal Details: Neurological exam of the upper extremities sh (more content not included)... Normal [facility] Platelet countOrdered By: Yaakov Camilo on 06-02-2024 Platelets (Bld) [#/Vol] 306 10*3/uL 150-450 [facility] Potassium measurementOrdered By: Trina Camilo on 06-02-2024 Potassium [Moles/Vol] 4.1 mmol/L 3.5-5.1 [facility] RBC Auto (Bld) [#/Vol]Ordere d By: Trina Camilo on 06-02-2024 RBC (Bld) [#/Vol] 4.35 10*6/uL 4.2-5.4 [facility] Serum anion gap measurementO rdered By: Trina Camilo on 06-02-2024 Anion gap [Moles/Vol] 5 mmol/L 5-15 [facility] Serum globulin measurementOr dered By: Trina Camilo on 06-02-2024 Globulin (S) [Mass/Vol] 3.1 g/dL 2.2-4.2 [facility] Serum or plasma alanine avila otransferase (ALT) measurementOrdered By: Trina Camilo on 06-02-2024 ALT [Catalytic activity/Vol] 41 U/L 13-56 [facility] Serum or plasma albumin david urement (mass/volume)Ordered By: Trina Camilo on 06-02-2024 Albumin [Mass/Vol] 4.3 g/dL 3.2-5.0 [facility] Serum or plasma alkaline dmitry sphatase measurementOrdered By: Trina Camilo on 06-02-2024 ALP [Catalytic activity/Vol] 54 U/L 45-117 [facility] [place] Serum or plasma calcium david urement (mass/volume)Ordered By: Trina Camilo on 06-02-2024 Calcium [Mass/Vol] 9.2 mg/dL 8.5-10.1 [facility] Serum or plasma creatinine m easurement (mass/volume)Ordered By: Trina Camilo on 06-02-2024 Creatinine [Mass/Vol] 0.58 mg/dL 0.55-1.02 [facility] Comment on above: The validity of the calculated GFR & GFRAA in patients over 70 years has not been determined. Clinical correlation is essential. Serum or plasma urea nitroge n measurement (mass/volume)Ordered By: Trina Camilo on 06-02-2024 Urea nitrogen [Mass/Vol] 17 mg/dL 7-18 [facility] [place] Sodium levelOrdered By: Ayla Camilo on 06-02-2024 Sodium [Moles/Vol] 139 mmol/L 136-145 [facility] Total proteinOrdered By: Emily Camilo on 06-02-2024 Protein [Mass/Vol] 7.4 g/dL 6.4-8.2 [facility] White blood cell (WBC) count Ordered By: Trina Camilo on 06-02-2024 WBC (Bld) [#/Vol] 8.9 10*3/uL 4.4-11.0 [facility] Hemoglobin A1con 05-29-2024 HbA1c (Bld) [Mass fraction] 4.1 % Normal 3.8-5.6 [facility] [place] Comment on above: Result Comment: Norm al < 5.7 % Prediabetic 5.7 - 6.4 % Diabetic >or= 6.5 % Please note range changes. Performed By: #### L 500.4050, L501.9985, L502.0250, L500.4100, L506.1000 ####[facility] [place] [address] [place], [place], [id number] DOrdered By: Lauren Chung on 05-27-2024 Vitamin D 25-Hydroxy 67.3 ng/mL [facility] Comment on above: Vitamin D 25(OH) Sta tus Range Deficiency <20 ng/mL (50nmol/L) Insufficiency 20 - 30 ng/mL (50 - 75 nmol/L) Sufficiency 30 - 100 ng/mL (75 - 250 nmol/L) Toxicity >100 ng/mL (>250 nmol/L) Albumin to globulin ratioOrd ered By: Zachery Chung on 05-27-2024 Albumin/Globulin [Mass ratio] 1.2 {ratio} 0.9-2.4 [facility] [place] Bilirubin, totalOrdered By: Zachery Chung on 05-27-2024 Bilirubin [Mass/Vol] 0.20 mg/dL 0.20-1.00 [facility] Comment on above: For patients on eltr ombopag therapy, use of Dimension [place] TBIL is not recommended. Blood urea nitrogen (BUN)/cr eatinine ratioOrdered By: Zachery Chung on 05-27-2024 Urea nitrogen/Creatinine [Mass ratio] 33.4 mg/mg High 10-20 [facility] [place] Carbon dioxide measurementOr dered By: Zachery Chung on 05-27-2024 CO2 [Moles/Vol] 27.0 mmol/L 21.0-32.0 [facility] [place] Chloride measurementOrdered By: Zachery Chung on 05-27-2024 Chloride [Moles/Vol] 107 mmol/L 98-107 [facility] Comprehensive Metabolic Prof ilon 05-27-2024 Albumin [Mass/Vol] 3.8 g/dL Normal 3.2-5.0 [facility] Comment on above: Performed By: #### L 500.4050, L501.9985, L502.0250, L500.4100, L506.1000 ####[facility] [place] [address] [place], [address] Albumin/Globulin [Mass ratio] 1.2 {ratio} Normal 0.9-2.4 [facility] [place] Comment on above: Performed By: #### L 500.4050, L501.9985, L502.0250, L500.4100, L506.1000 ####[facility] [place] [address] [place], [address] ALK P 50 U/L Normal 45-117 [facility] [place] Comment on above: Performed By: #### L 500.4050, L501.9985, L502.0250, L500.4100, L506.1000 ####[facility] [place] [address] [place], [address] ALT [Catalytic activity/Vol] 51 U/L Normal 13-56 [facility] [place] Comment on above: Performed By: #### L 500.4050, L501.9985, L502.0250, L500.4100, L506.1000 ####[facility] [place] [address] [place], [address] AST [Catalytic activity/Vol] 22 U/L Normal 15-37 [facility] [place] Comment on above: Performed By: #### L 500.4050, L501.9985, L502.0250, L500.4100, L506.1000 ####[facility] [place] [address] [place], [address] Bilirubin [Mass/Vol] 0.20 mg/dL Normal 0.20-1.00 [facility] Comment on above: Result Comment: For patients on eltrombopag therapy, use of [place] TBIL is not recommended. Performed By: #### L 500.4050, L501.9985, L502.0250, L500.4100, L506.1000 ####[facility] [place] [address] [place], [address] BUN/CRE 33.4 RATIO High 10-20 [facility] [place] Comment on above: Performed By: #### L 500.4050, L501.9985, L502.0250, L500.4100, L506.1000 ####[facility] [place] [address] [place], [address] CA,Total 8.4 mg/dL Low 8.5-10.1 [facility] [place] Comment on above: Performed By: #### L 500.4050, L501.9985, L502.0250, L500.4100, L506.1000 ####[facility] [place] [address] [place], [address] Chloride [Moles/Vol] 107 mmol/L Normal 98-107 [facility] Comment on above: Performed By: #### L 500.4050, L501.9985, L502.0250, L500.4100, L506.1000 ####[facility] [place] [address] [place], [address] CO2 [Moles/Vol] 27.0 mmol/L Normal 21.0-32.0 [facility] [place] Comment on above: Performed By: #### L 500.4050, L501.9985, L502.0250, L500.4100, L506.1000 ####[facility] [place] [address] [place], [address] Creatinine [Mass/Vol] 0.57 mg/dL Normal 0.55-1.02 [facility] Comment on above: Result Comment: The validity of the calculated GFR GFRAA in patients over 70 years has not been determined. Clinical correlation is essential. Performed By: #### L 500.4050, L501.9985, L502.0250, L500.4100, L506.1000 ####[facility] [place] [address] [place], [address] EST GFR - AA 138 mL/min Normal >60 [facility] [place] Comment on above: Result Comment: Afri can [place] GFR Calc Performed By: #### L 500.4050, L501.9985, L502.0250, L500.4100, L506.1000 ####[facility] [place] [address] [place], [address] GAP 5 Normal 5-15 [facility] [place] Comment on above: Performed By: #### L 500.4050, L501.9985, L502.0250, L500.4100, L506.1000 ####[facility] [place] [address] [place], [address] GFR/1.73 sq M.predicted among non-blacks MDRD (S/P/Bld) [Vol rate/Area] 114 mL/min/{1.73_m2} Normal >60 [facility] [place] Comment on above: Result Comment: Non- GFR Calc Performed By: #### L 500.4050, L501.9985, L502.0250, L500.4100, L506.1000 ####[facility] [place] [address] [place], [address] Globulin (S) [Mass/Vol] 3.2 g/dL Normal 2.2-4.2 [facility] Comment on above: Performed By: #### L 500.4050, L501.9985, L502.0250, L500.4100, L506.1000 ####[facility] [place] [address] [place], [address] Glucose [Mass/Vol] 109 mg/dL High 74-106 [facility] Comment on above: Result Comment: Fast ing Glucose result from 100 to 125 mg/dL suggests IMPAIRED HOMEOSTASIS per A.D.A. criteria. Performed By: #### L 500.4050, L501.9985, L502.0250, L500.4100, L506.1000 ####[facility] [place] [address] [place], [address] Potassium [Moles/Vol] 3.8 mmol/L Normal 3.5-5.1 [facility] Comment on above: Performed By: #### L 500.4050, L501.9985, L502.0250, L500.4100, L506.1000 ####[facility] [place] [address] [place], [address] Sodium [Moles/Vol] 139 mmol/L Normal 136-145 [facility] Comment on above: Performed By: #### L 500.4050, L501.9985, L502.0250, L500.4100, L506.1000 ####[facility] [place] [address] [place], [address] T PROT 7.0 g/dL Normal 6.4-8.2 [facility] [place] Comment on above: Performed By: #### L 500.4050, L501.9985, L502.0250, L500.4100, L506.1000 ####[facility] [place] [address] [place], [address] Urea nitrogen [Mass/Vol] 19 mg/dL High 7-18 [facility] [place] Comment on above: Performed By: #### L 500.4050, L501.9985, L502.0250, L500.4100, L506.1000 ####[facility] [place] [address] [place], [address] Estimated glomerular filtrat ion rate (GFR) AmericanOrdered By: Zachery Chung on 05-27-2024 Estimated GFR (MDRD) Amer 138 mL/min >60 [facility] [place] Comment on above: GFR Calc Glomerular filtration rate ( GFR) estimationOrdered By: Zachery Chung on 05-27-2024 Estimated GFR (MDRD) Non-Af Amer 114 mL/min >60 [facility] [place] Comment on above: Non- GFR Calc GFR/1.73 sq M.predicted among non-blacks MDRD (S/P/Bld) [Vol rate/Area] 114 mL/min/{1.73_m2} >60 [facility] [place] Comment on above: Non- GFR Calc Glucose measurementOrdered B y: Zachery Chung on 05-27-2024 Glucose [Mass/Vol] 109 mg/dL High 74-106 [facility] Comment on above: Fasting Glucose resu lt from 100 to 125 mg/dL suggests IMPAIRED HOMEOSTASIS per A.D.A. criteria. Hemoglobin A1c percentageOrd ered By: Zachery Chung on 05-27-2024 HbA1c (Bld) [Mass fraction] 4.1 % 3.8-5.6 [facility] [place] Comment on above: Normal < 5.7 % Predi abetic 5.7 - 6.4 % Diabetic >or= 6.5 % Please note range changes. High density lipoprotein (HD L) measurementOrdered By: Zachery Chung on 05-27-2024 Cholesterol in HDL [Mass/Vol] 64 mg/dL >40 [facility] [place] Comment on above: The drugs N-Acetylcy steine and Metamizole may falsely depress this assay. Reference Range HDL <40 mg/dL Low HDL Cholesterol HDL >or= 60 mg/dL High HDL Cholesterol Laboratory - Chemistry and C hemistry - challengeOrdered By: Zachery Chung on 05-27-2024 AST [Catalytic activity/Vol] 22 U/L 15-37 [facility] [place] Lipid Profileon 05-27-2024 Cholesterol [Mass/Vol] 137 mg/dL Normal 200 [facility] Comment on above: Result Comment: <200 mg/dL Desirable 200-240 mg/dL Borderline >240 mg/dL High Risk Performed By: #### L 500.4050, L501.9985, L502.0250, L500.4100, L506.1000 ####[facility] [place] [address] [place], [address] Cholesterol in HDL [Mass/Vol] 64 mg/dL Normal [facility] [place] Comment on above: Result Comment: The drugs N-Acetylcysteine and Metamizole may falsely depress this assay. Reference Range HDL <40 mg/dL Low HDL Cholesterol HDL >or= 60 mg/dL High HDL Cholesterol Performed By: #### L 500.4050, L501.9985, L502.0250, L500.4100, L506.1000 ####[facility] [place] [address] [place] [place], [address] Cholesterol in LDL [Mass/Vol] 59 mg/dL Normal 0-130 [facility] [place] Comment on above: Performed By: #### L 500.4050, L501.9985, L502.0250, L500.4100, L506.1000 ####[facility] [place] [address] [place], [address] Cholesterol in VLDL [Mass/Vol] 14 mg/dL Normal 5-40 [facility] [place] Comment on above: Performed By: #### L 500.4050, L501.9985, L502.0250, L500.4100, L506.1000 ####[facility] [place] [address] [place], [address] Triglyceride [Mass/Vol] 71 mg/dL Normal [facility] Comment on above: Result Comment: The drugs N-Acetylcysteine and Metamizole may falsely depress this assay. Serum Triglycerides Reference Interval Normal <150 mg/dL Borderline high 150 - 199 mg/dL High 200 - 499 mg/dL Very High > or = 500 mg/dL Performed By: #### L 500.4050, L501.9985, L502.0250, L500.4100, L506.1000 ####[facility] [place] [address] [place], [address] Low density lipoprotein (LDL ) cholesterol measurementOrdered By: Zachery Chung on 05-27-2024 Cholesterol in LDL [Mass/Vol] 59 mg/dL 0-130 [facility] [place] Microalb:Creat Ratio,Random URon 05-27-2024 Creatinine [Mass/Vol] 86.00 mg/dL Normal NO RAN GE EST. [facility] [place] Comment on above: Performed By: #### L 500.4050, L501.9985, L502.0250, L500.4100, L506.1000 ####[facility] [place] [address] [place], [address] MALB:CRE 10.7 mg/g CRE Normal <30 mg/g CRE [facility] [place] Comment on above: Performed By: #### L 500.4050, L501.9985, L502.0250, L500.4100, L506.1000 ####[facility] [place] [address] [place], [address] MICROALBUMIN,UR 9.2 mg/L Normal NO RANGE EST. [facility] [place] Comment on above: Performed By: #### L 500.4050, L501.9985, L502.0250, L500.4100, L506.1000 ####[facility] [place] [address] [place], [address] Potassium measurementOrdered By: Zachery Chung on 05-27-2024 Potassium [Moles/Vol] 3.8 mmol/L 3.5-5.1 [facility] Random urine microalbumin me asurementOrdered By: Zachery Chung on 05-27-2024 Urine Random Microalbumin 9.2 mg/L NO RANGE EST. [facility] [place] Serum anion gap measurementO rdered By: Zachery Chung on 05-27-2024 Anion gap [Moles/Vol] 5 mmol/L 5-15 [facility] Serum globulin measurementOr dered By: Zachery Chung on 05-27-2024 Globulin (S) [Mass/Vol] 3.2 g/dL 2.2-4.2 [facility] Serum or plasma alanine avila otransferase (ALT) measurementOrdered By: Zachery Chung on 05-27-2024 ALT [Catalytic activity/Vol] 51 U/L 13-56 [facility] [place] Serum or plasma albumin david urement (mass/volume)Ordered By: Zachery Chung on 05-27-2024 Albumin [Mass/Vol] 3.8 g/dL 3.2-5.0 [facility] Serum or plasma alkaline dmitry sphatase measurementOrdered By: Zachery Chung on 05-27-2024 ALP [Catalytic activity/Vol] 50 U/L 45-117 [facility] [place] Serum or plasma calcium david urement (mass/volume)Ordered By: Zachery Chung on 05-27-2024 Calcium [Mass/Vol] 8.4 mg/dL Low 8.5-10.1 [facility] Serum or plasma cholesterol measurement (mass/volume)Ordered By: Zachery Chung on 05-27-2024 Cholesterol [Mass/Vol] 137 mg/dL <200 [facility] Comment on above: <200 mg/dL Desirable 200-240 mg/dL Borderline >240 mg/dL High Risk Serum or plasma creatinine m easurement (mass/volume)Ordered By: Zachery Chung on 05-27-2024 Creatinine [Mass/Vol] 0.57 mg/dL 0.55-1.02 [facility] Comment on above: The validity of the calculated GFR & GFRAA in patients over 70 years has not been determined. Clinical correlation is essential. Serum or plasma urea nitroge n measurement (mass/volume)Ordered By: Zachery Chung on 05-27-2024 Urea nitrogen [Mass/Vol] 19 mg/dL High 7-18 [facility] [place] Sodium levelOrdered By: Galileo Chung on 05-27-2024 Sodium [Moles/Vol] 139 mmol/L 136-145 [facility] Total proteinOrdered By: Madhu Chung on 05-27-2024 Protein [Mass/Vol] 7.0 g/dL 6.4-8.2 [facility] Triglycerides measurementOrd ered By: Zachery Chung on 05-27-2024 Triglyceride [Mass/Vol] 71 mg/dL <199 [facility] Comment on above: The drugs N-Acetylcy steine and Metamizole may falsely depress this assay.Serum Triglycerides Reference Interval Normal <150 mg/dL Borderline high 150 - 199 mg/dL High 200 - 499 mg/dL Very High > or = 500 mg/dL Urine albumin/creatinine rat io for detection of microalbuminuriaOrdered By: Zachery Chung on 05-27-2024 Urine Microalbumin/Creatinine Ratio 10.7 mg/g CRE <30 [facility] [place] Urine creatinine measurement (mass/volume)Ordered By: Zachery Chung on 05-27-2024 Creatinine (U) [Mass/Vol] 86.00 mg/dL NO RANGE EST. [facility] [place] Very low density lipoprotein (VLDL) cholesterol measurementOrdered By: Zachery Chung on 05-27-2024 Very low density lipoprotein (VLDL) cholesterol measurement 14 mg/dL 5-40 [facility] [place] VLDL Cholesterol 14 mg/dL 5-40 [facility] [place] Vitamin D,25 Hydroxyon 05-27 Vitamin D 25-OH 67.3 ng/mL Normal [facility] [place] Comment on above: Result Comment: [place] min D 25(OH) Status Range Deficiency <20 ng/mL (50nmol/L) Insufficiency 20 - 30 ng/mL (50 - 75 nmol/L) Sufficiency 30 - 100 ng/mL (75 - 250 nmol/L) Toxicity >100 ng/mL (>250 nmol/L) Performed By: #### L 500.4050, L501.9985, L502.0250, L500.4100, L506.1000 ####[facility] [place] [address] [place], [address] SCRN MAMM (CAD)W/SUE BILATo n 12-14-2023 SCRN MAMM (CAD)W/SUE BILAT [facility] Imaging Services [address] [place] [address] SCRN MAMM (CAD)W/SUE BILAT MR#: [id number] Acct: [id number] Name: ANALY MAYO Rep #: [id number] : 1960 F 63 From: Silver scott MD PCP: FAMILIA Walker Status: [facility] Study: SCRN MAMM (CAD)W/SUE BILAT Date of Exam: 11/25 Exam# [id number] Ordering Dr: Zachery Chung NP [employer] TECHNICIAN-C -[id number] MAMMOGRAPHY - BILATERAL SCREENING REASON FOR EXAM: Female, 63 years old. Routine annual screening examination. PERTINENT HISTORY: Sister with breast cancer. TECHNIQUE: Digital bilateral breast sue (3D mammographic acquisition) in the CC and MLO projections. 2-D mediolateral oblique (MLO) and craniocaudad (CC) views of both breasts were obtained. CAD: Full Field Digital Mammography with Computer Added Detection was performed. COMPARISON: Comparison is made with prior study December 10, 2022 and November 04, 2021. FINDINGS: Breast Composition: There are scattered areas of fibroglandular density. There are no dominant masses or suspicious calcifications. Stable 8 mm well-defined nodule with a central fatty hilum in the upper lateral aspect of the right breast. This is suggestive of a small lymph node. No other significant abnormalities are identified. There has been no significant change since the prior study. BI/SCRN MAMM (CAD)W/SUE BILAT IMPRESSION: Stable bilateral screening mammogram. Yearly follow-up mammogram recommended. (A) ASSESSMENT CATEGORY: BIRADS Category 2: Benign. A letter regarding these results will be sent to the patient by the facility within 30 days. Approximately 10% of breast cancers are not detected by mammography. A normal mammogram should not delay biopsy of a clinically suspicious abnormality. [id number] Electronically Signed: Silver Huitron MD at 7:45 EDT , CC: FAMILIA Chung Sales Account Specialist: Signed Normal [facility] [place] CBC W/Diff, Automatedon 11-24 Absolute Lymph 2.50 X10 3/uL Normal 0.83-4.51 [facility] [place] Comment on above: Performed By: #### L 100.0100 ####[facility] [place] [address] [place], [address] Absolute Neut 2.7 X10 3/uL Normal 2.0-7.7 [facility] [place] Comment on above: Performed By: #### L 100.0100 ####[facility] [place] [address] [place], [address] Basophils/100 WBC (Bld) 1.0 % Normal 0-1 [facility] Comment on above: Performed By: #### L 100.0100 ####[facility] [place] [address] [place], [address] Eosinophils/100 WBC (Bld) 2.3 % Normal 0-5 [facility] [place] Comment on above: Performed By: #### L 100.0100 ####[facility] [place] [address] [place], [address] Erythrocyte distribution width (RBC) [Ratio] 12.0 % Normal 11.6-14.6 [facility] [place] Comment on above: Performed By: #### L 100.0100 ####[facility] [place] [address] [place], [address] Hematocrit (Bld) [Volume fraction] 38.4 % Normal 37-47 [facility] [place] Comment on above: Performed By: #### L 100.0100 ####[facility] [place] [address] [place], [address] Hemoglobin (Bld) [Mass/Vol] 12.9 g/dL Normal 12.0-15.0 [facility] [place] Comment on above: Performed By: #### L 100.0100 ####[facility] [place] [address] [place], [address] IG% 0.200 Normal 0.0-0.9 [facility] [place] Comment on above: Result Comment: IG% - Immature Granulocytes (promyelocytes, myelocytes and metamyelocytes) > 1% indicates that a LEFT SHIFT is Present. Performed By: #### L 100.0100 ####[facility] [place] [address] [place], [address] Lymphocytes/100 WBC (Bld) 41.1 % High 19-41 [facility] [place] Comment on above: Performed By: #### L 100.0100 ####[facility] [place] [address] [place], [address] MCH (RBC) [Entitic mass] 30.9 pg Normal 27.0-32.0 [facility] [place] Comment on above: Performed By: #### L 100.0100 ####[facility] [place] [address] [place], [address] MCHC (RBC) [Mass/Vol] 33.6 g/dL Normal 32-36 [facility] Comment on above: Performed By: #### L 100.0100 ####[facility] [place] [address] [place], [address] MCV (RBC) [Entitic vol] 91.9 fL Normal 81-99 [facility] Comment on above: Performed By: #### L 100.0100 ####[facility] [place] [address] [place], [address] Monocytes/100 WBC (Bld) 10.4 % High 0-10 [facility] Comment on above: Performed By: #### L 100.0100 ####[facility] [place] [address] [place], [address] Neutrophils/100 WBC (Bld) 45.0 % Low 47-70 [facility] [place] Comment on above: Performed By: #### L 100.0100 ####[facility] [place] [address] [place], [address] Nucleated RBC (Bld) [#/Vol] 0 10*3/uL Normal 0-5 [facility] [place] Comment on above: Performed By: #### L 100.0100 ####[facility] [place] [address] [place], [address] Platelet mean volume (Bld) [Entitic vol] 8.6 fL Normal 6.2-12.0 [facility] [place] Comment on above: Performed By: #### L 100.0100 ####[facility] [place] [address] [place], [address] Platelets (Bld) [#/Vol] 264 10*3/uL Normal 150-450 [facility] [place] Comment on above: Performed By: #### L 100.0100 ####[facility] [place] [address] [place], [address] RBC (Bld) [#/Vol] 4.18 10*6/uL Low 4.2-5.4 [facility] Comment on above: Performed By: #### L 100.0100 ####[facility] [place] [address] [place], [address] RDW SD 40.7 fl Normal 35.1-43.9 [facility] [place] Comment on above: Performed By: #### L 100.0100 ####[facility] [place] [address] [place], [address] WBC (Bld) [#/Vol] 6.1 10*3/uL Normal 4.4-11.0 [facility] Comment on above: Performed By: #### L 100.0100 ####[facility] [place] [address] [place], [address] Vitamin D,25 Hydroxyon 11-21 Vitamin D 25-OH 73.8 ng/mL Normal [facility] [place] Comment on above: Result Comment: [place] min D 25(OH) Status Range Deficiency <20 ng/mL (50nmol/L) Insufficiency 20 - 30 ng/mL (50 - 75 nmol/L) Sufficiency 30 - 100 ng/mL (75 - 250 nmol/L) Toxicity >100 ng/mL (>250 nmol/L) Performed By: #### L 501.9985, L502.0250, L500.4050, L506.1000, L100.0500, L500.4100 #### [facility] [place] [address] [place], [address] CBC-Complete Blood Cnt No Di ffon 11-20-2023 Erythrocyte distribution width (RBC) [Ratio] 12.2 % Normal 11.6-14.6 [facility] [place] Comment on above: Performed By: #### L 501.9985, L502.0250, L500.4050, L506.1000, L100.0500, L500.4100 #### [facility] [place] [address] [place], [address] Hematocrit (Bld) [Volume fraction] 42.2 % Normal 37-47 [facility] [place] Comment on above: Performed By: #### L 501.9985, L502.0250, L500.4050, L506.1000, L100.0500, L500.4100 #### [facility] [place] [address] [place], [address] Hemoglobin (Bld) [Mass/Vol] 14.0 g/dL Normal 12.0-15.0 [facility] [place] Comment on above: Performed By: #### L 501.9985, L502.0250, L500.4050, L506.1000, L100.0500, L500.4100 #### [facility] [place] [address] [place], [address] MCH (RBC) [Entitic mass] 30.4 pg Normal 27.0-32.0 [facility] [place] Comment on above: Performed By: #### L 501.9985, L502.0250, L500.4050, L506.1000, L100.0500, L500.4100 #### [facility] [place] [address] [place], [address] MCHC (RBC) [Mass/Vol] 33.2 g/dL Normal 32-36 [facility] Comment on above: Performed By: #### L 501.9985, L502.0250, L500.4050, L506.1000, L100.0500, L500.4100 #### [facility] [place] [address] [place], [address] MCV (RBC) [Entitic vol] 91.7 fL Normal 81-99 [facility] Comment on above: Performed By: #### L 501.9985, L502.0250, L500.4050, L506.1000, L100.0500, L500.4100 #### [facility] [place] [address] [place], [address] Platelet mean volume (Bld) [Entitic vol] 8.4 fL Normal 6.2-12.0 [facility] Comment on above: Performed By: #### L [id number], [id number], L500.4050, L506.1000, L100.0500, L500.4100 #### [facility] [address] [place], [address] Platelets (Bld) [#/Vol] 256 10*3/uL Normal 150-450 [facility] Comment on above: Performed By: #### L [id number], [id number], L500.4050, L506.1000, L100.0500, L500.4100 #### [facility] [address] [place], [address] RBC (Bld) [#/Vol] 4.60 10*6/uL Normal 4.2-5.4 [facility] Comment on above: Performed By: #### L [id number], [id number], L500.4050, L506.1000, L100.0500, L500.4100 #### [facility] [address] [place], [address] RDW SD 41.1 fl Normal 35.1-43.9 [facility] Comment on above: Performed By: #### L [id number], [id number], L500.4050, L506.1000, L100.0500, L500.4100 #### [facility] [address] [place], [address] WBC (Bld) [#/Vol] 4.9 10*3/uL Normal 4.4-11.0 [facility] Comment on above: Performed By: #### L [id number], [id number], L500.4050, L506.1000, L100.0500, L500.4100 #### [facility] [address] [place], [address] Comprehensive Metabolic Prof [facility] [place] 11-20-2023 Albumin [Mass/Vol] 4.0 g/dL Normal 3.2-5.0 [facility] Comment on above: Performed By: #### L [id number], [id number], L500.4050, L506.1000, L100.0500, L500.4100 #### [facility] [address] [place], [address] Albumin/Globulin [Mass ratio] 1.2 {ratio} Normal 0.9-2.4 [facility] Comment on above: Performed By: #### L [id number], [id number], L500.4050, L506.1000, L100.0500, L500.4100 #### [facility] [address] [place], [address] ALK P 51 U/L Normal 45-117 [facility] Comment on above: Performed By: #### L [id number], [id number], L500.4050, L506.1000, L100.0500, L500.4100 #### [facility] [address] [place], [address] ALT [Catalytic activity/Vol] 36 U/L Normal 13-56 [facility] Comment on above: Performed By: #### L [id number], [id number], L500.4050, L506.1000, L100.0500, L500.4100 #### [facility] [address] [place], [address] AST [Catalytic activity/Vol] 21 U/L Normal 15-37 [facility] Comment on above: Performed By: #### L [id number], [id number], L500.4050, L506.1000, L100.0500, L500.4100 #### [facility] [address] [place], [address] Bilirubin [Mass/Vol] 0.40 mg/dL Normal 0.20-1.00 [facility] Comment on above: Result Comment: For patients on eltrombopag therapy, use of Dimension [place] TBIL is not recommended. Performed By: #### L [id number], [id number], L500.4050, L506.1000, L100.0500, L500.4100 #### [facility] [address] [place], [address] BUN/CRE 33.6 RATIO High 10-20 [facility] Comment on above: Performed By: #### L [id number], [id number], L500.4050, L506.1000, L100.0500, L500.4100 #### [facility] [address] [place], [address] CA,Total 8.8 mg/dL Normal 8.5-10.1 [facility] Comment on above: Performed By: #### L [id number], [id number], L500.4050, L506.1000, L100.0500, L500.4100 #### [facility] [address] [place], [address] Chloride [Moles/Vol] 105 mmol/L Normal 98-107 [facility] Comment on above: Performed By: #### L [id number], [id number], L500.4050, L506.1000, L100.0500, L500.4100 #### [facility] [address] [place], [address] CO2 [Moles/Vol] 30.0 mmol/L Normal 21.0-32.0 [facility] Comment on above: Performed By: #### L [id number], L502.0250, L500.4050, L506.1000, L100.0500, L500.4100 #### [facility] [address] [place], [address] Creatinine [Mass/Vol] 0.60 mg/dL Normal 0.55-1.02 [facility] Comment on above: Result Comment: The validity of the calculated GFR GFRAA in patients over 70 years has not been determined. Clinical correlation is essential. Performed By: #### L [id number], L502.0250, L500.4050, L506.1000, L100.0500, L500.4100 #### [facility] [address] [place], [address] EST GFR - AA 132 mL/min Normal >60 [facility] Comment on above: Result Comment: Afri can [place] GFR Calc Performed By: #### L [id number], L502.0250, L500.4050, L506.1000, L100.0500, L500.4100 #### [facility] [address] [place], [address] GAP 3 Low 5-15 [facility] Comment on above: Performed By: #### L [id number], L502.0250, L500.4050, L506.1000, L100.0500, L500.4100 #### [facility] [address] [place], [address] GFR/1.73 sq M.predicted among non-blacks MDRD (S/P/Bld) [Vol rate/Area] 109 mL/min/{1.73_m2} Normal >60 [facility] Comment on above: Result Comment: Non- GFR Calc Performed By: #### L [id number], L502.0250, L500.4050, L506.1000, L100.0500, L500.4100 #### [facility] [address] [place], [address] Globulin (S) [Mass/Vol] 3.4 g/dL Normal 2.2-4.2 [facility] Comment on above: Performed By: #### L [id number], L502.0250, L500.4050, L506.1000, L100.0500, L500.4100 #### [facility] [address] [place], [address] Glucose [Mass/Vol] 100 mg/dL Normal 74-106 [facility] Comment on above: Result Comment: Fast ing Glucose result from 100 to 125 mg/dL suggests IMPAIRED HOMEOSTASIS per A.D.A. criteria. Performed By: #### L [id number], L502.0250, L500.4050, L506.1000, L100.0500, L500.4100 #### [facility] [address] [place], [address] Potassium [Moles/Vol] 4.1 mmol/L Normal 3.5-5.1 [facility] Comment on above: Performed By: #### L [id number], L502.0250, L500.4050, L506.1000, L100.0500, L500.4100 #### [facility] [address] [place], [address] Sodium [Moles/Vol] 138 mmol/L Normal 136-145 [facility] Comment on above: Performed By: #### L [id number], L502.0250, L500.4050, L506.1000, L100.0500, L500.4100 #### [facility] [address] [place], [address] T PROT 7.4 g/dL Normal 6.4-8.2 [facility] Comment on above: Performed By: #### L [id number], L502.0250, L500.4050, L506.1000, L100.0500, L500.4100 #### [facility] [address] [place], [address] Urea nitrogen [Mass/Vol] 20 mg/dL High 7-18 [facility] Comment on above: Performed By: #### L [id number], L502.0250, L500.4050, L506.1000, L100.0500, L500.4100 #### [facility] [address] [place], [address] Hemoglobin A1con 11-20-2023 HbA1c (Bld) [Mass fraction] 5.0 % Normal 3.8-5.6 [facility] Comment on above: Result Comment: Norm al < 5.7 % Prediabetic 5.7 - 6.4 % Diabetic >or= 6.5 % Please note range changes. Performed By: #### L [id number], L502.0250, L500.4050, L506.1000, L100.0500, L500.4100 #### [facility] [address] [place], [place], [id number] Lipid Profileon 11-20-2023 Cholesterol [Mass/Vol] 158 mg/dL Normal 200 [facility] Comment on above: Result Comment: <200 mg/dL Desirable 200-240 mg/dL Borderline >240 mg/dL High Risk Performed By: #### L [id number], L502.0250, L500.4050, L506.1000, L100.0500, L500.4100 #### [facility] [address] [place], [place], [address] Cholesterol in HDL [Mass/Vol] 69 mg/dL Normal [facility] Comment on above: Result Comment: The drugs N-Acetylcysteine and Metamizole may falsely depress this assay. Reference Range HDL <40 mg/dL Low HDL Cholesterol HDL >or= 60 mg/dL High HDL Cholesterol Performed By: #### L [id number], L502.0250, L500.4050, L506.1000, L100.0500, L500.4100 #### [facility] [address] [place], [address] Cholesterol in LDL [Mass/Vol] 78 mg/dL Normal 0-130 [facility] Comment on above: Performed By: #### L [id number], L502.0250, L500.4050, L506.1000, L100.0500, L500.4100 #### [facility] [address] [place], [address] Cholesterol in VLDL [Mass/Vol] 11 mg/dL Normal 5-40 [facility] Comment on above: Performed By: #### L [id number], L502.0250, L500.4050, L506.1000, L100.0500, L500.4100 #### [facility] [address] [place], [address] Triglyceride [Mass/Vol] 56 mg/dL Normal [facility] Comment on above: Result Comment: The drugs N-Acetylcysteine and Metamizole may falsely depress this assay. Serum Triglycerides Reference Interval Normal <150 mg/dL Borderline high 150 - 199 mg/dL High 200 - 499 mg/dL Very High > or = 500 mg/dL Performed By: #### L [id number], L502.0250, L500.4050, L506.1000, L100.0500, L500.4100 #### [facility] [address] [place], [address] Microalb:Creat Ratio,Random URon 11-20-2023 Creatinine [Mass/Vol] 78.90 mg/dL Normal NO RAN GE EST. [facility] Comment on above: Performed By: #### L [id number], L502.0250, L500.4050, L506.1000, L100.0500, L500.4100 #### [facility] [address] [place], [address] MALB:CRE 7.9 mg/g CRE Normal <30 mg/g CRE [facility] Comment on above: Performed By: #### L [id number], L502.0250, L500.4050, L506.1000, L100.0500, L500.4100 #### [facility] [address] [place], [address] MICROALBUMIN,UR 6.3 mg/L Normal NO RANGE EST. [facility] Comment on above: Performed By: #### L [id number], L502.0250, L500.4050, L506.1000, L100.0500, L500.4100 #### [facility] [address] [place], [address] Absolute lymphocyte countOrd ered By: Trina Camilo on 06-18-2023 Lymphocytes Auto (Unsp spec) [#/Vol] 2.42 10*3/uL 0.83-4.51 [facility] Automated lymphocyte count a s percentage of total leukocytesOrdered By: Trinabasim Camilo on 06-18-2023 Lymphocytes/100 WBC Auto (Unsp spec) 44.2 % 19-41 [facility] Basophil percentageOrdered B y: Trina Camilo on 06-18-2023 Basophils/100 WBC (Bld) 0.9 % 0-1 [facility] Bilirubin [Mass/Vol] 0.40 mg/dL 0.20-1.00 [facility] Comment on above: For patients on eltr ombopag therapy, use of Dimension [place] TBIL is not recommended. Chloride [Moles/Vol] 106 mmol/L 98-107 [facility] Eosinophils/100 WBC (Bld) 2.6 % 0-5 [facility] Glucose [Mass/Vol] 81 mg/dL 74-106 [facility] Hemoglobin (Bld) [Mass/Vol] 12.3 g/dL 12.0-15.0 [facility] Monocytes/100 WBC (Bld) 10.2 % 0-10 [facility] Neutrophils (Bld) [#/Vol] 2.3 10*3/uL 2.0-7.7 [facility] Neutrophils/100 WBC (Bld) 41.9 % 47-70 [facility] Potassium [Moles/Vol] 3.6 mmol/L 3.5-5.1 [facility] Protein [Mass/Vol] 6.9 g/dL 6.4-8.2 [facility] Sodium [Moles/Vol] 138 mmol/L 136-145 [facility] WBC (Bld) [#/Vol] 5.5 10*3/uL 4.4-11.0 [facility] Determination of erythrocyte mean corpuscular volume (MCV)Ordered By: Trina Camilo on 06-18-2023 MCV (RBC) [Entitic vol] 92.6 fL 81-99 [facility] Erythrocyte distribution wid th ratioOrdered By: Trina Camilo on 06-18-2023 Erythrocyte distribution width (RBC) [Ratio] 12.5 % 11.6-14.6 [facility] Erythrocyte distribution wid th standard deviationOrdered By: Trina Camilo on 06-18-2023 Erythrocyte distribution width (RBC) [Entitic vol] 42.7 fL 35.1-43.9 [facility] Hematocrit Auto (Bld) [Volum e fraction]Ordered By: Trina Camilo on 06-18-2023 Hematocrit (Bld) [Volume fraction] 37.4 % 37-47 [facility] Immature granulocytes/100 WB C Auto (Bld)Ordered By: Trina Camilo on 06-18-2023 Immature granulocytes/100 WBC (Bld) 0.200 % 0.0-0.9 [facility] Comment on above: IG% - Immature Granu locytes (promyelocytes, myelocytes and metamyelocytes) > 1% indicates that a LEFT SHIFT is Present. Laboratory - Chemistry and C hemistry - challengeOrdered By: Trina Camilo on 06-18-2023 Albumin/Globulin [Mass ratio] 1.3 {ratio} 0.9-2.4 [facility] ALP [Catalytic activity/Vol] 47 U/L 45-117 [facility] ALT [Catalytic activity/Vol] 43 U/L 13-56 [facility] CO2 [Moles/Vol] 27.0 mmol/L 21.0-32.0 [facility] Globulin (S) [Mass/Vol] 3.0 g/dL 2.2-4.2 [facility] Urea nitrogen/Creatinine [Mass ratio] 33.7 mg/mg 10-20 [facility] - Hematology and Cell countsOrdered By: Trina Camilo on 06-18-2023 MCH (RBC) [Entitic mass] 30.4 pg 27.0-32.0 [facility] MCHC (RBC) [Mass/Vol] 32.9 g/dL 32-36 [facility] Nucleated RBC/100 WBC (Bld) [Ratio] 0 % 0-5 [facility] Platelet mean volume (Bld) [Entitic vol] 8.9 fL 6.2-12.0 [facility] Platelets (Bld) [#/Vol] 274 10*3/uL 150-450 [facility] No Panel InformationOrdered By: Trina Camilo on 06-18-2023 Estimated GFR (MDRD) Amer 125 mL/min >60 [facility] Comment on above: GFR Calc Estimated GFR (MDRD) Non-Af Amer 103 mL/min >60 [facility] Comment on above: Non- GFR Calc RBC Auto (Bld) [#/Vol]Ordere d By: Trina Camilo on 06-18-2023 RBC (Bld) [#/Vol] 4.04 10*6/uL 4.2-5.4 [facility] Serum or plasma calcium david urement (mass/volume)Ordered By: Trina Camilo on 06-18-2023 Calcium [Mass/Vol] 8.7 mg/dL 8.5-10.1 [facility] Serum or plasma creatinine m easurement (mass/volume)Ordered By: Trina Camilo on 06-18-2023 Creatinine [Mass/Vol] 0.62 mg/dL 0.55-1.02 [facility] Comment on above: The validity of the calculated GFR & GFRAA in patients over 70 years has not been determined. Clinical correlation is essential. Serum or plasma urea nitroge n measurement (mass/volume)Ordered By: Trina Camilo on 06-18-2023 Urea nitrogen [Mass/Vol] 21 mg/dL 7-18 [facility] Thin prep Papanicolaou smear with manual screeningOrdered By: Trina Camilo on 06-18-2023 Thin prep Papanicolaou smear with manual screening 3.9 g/dL 3.2-5.0 [facility] Thin prep Papanicolaou smear with manual screening 21 U/L 15-37 [facility] Thin prep Papanicolaou smear with manual screening 5 5-15 [facility] Basophil percentageOrdered B y: Zachery Chung on 05-01-2023 Bilirubin [Mass/Vol] 0.50 mg/dL 0.20-1.00 [facility] Comment on above: For patients on eltr ombopag therapy, use of [place] TBIL is not recommended. Chloride [Moles/Vol] 105 mmol/L 98-107 [facility] Cholesterol [Mass/Vol] 166 mg/dL <200 [facility] Comment on above: <200 mg/dL Desirable 200-240 mg/dL Borderline >240 mg/dL High Risk Glucose [Mass/Vol] 84 mg/dL 74-106 [facility] Potassium [Moles/Vol] 3.6 mmol/L 3.5-5.1 [facility] Protein [Mass/Vol] 7.0 g/dL 6.4-8.2 [facility] Sodium [Moles/Vol] 139 mmol/L 136-145 [facility] Triglyceride [Mass/Vol] 55 mg/dL <199 [facility] Comment on above: The drugs N-Acetylcy steine and Metamizole may falsely depress this assay.Serum Triglycerides Reference Interval Normal <150 mg/dL Borderline high 150 - 199 mg/dL High 200 - 499 mg/dL Very High > or = 500 mg/dL Laboratory - Chemistry and C hemistry - challengeOrdered By: Zachery Chung on 05-01-2023 ALP [Catalytic activity/Vol] 49 U/L 45-117 [facility] ALT [Catalytic activity/Vol] 39 U/L 13-56 [facility] CO2 [Moles/Vol] 28.0 mmol/L 21.0-32.0 [facility] Globulin (S) [Mass/Vol] 3.1 g/dL 2.2-4.2 [facility] Urea nitrogen/Creatinine [Mass ratio] 24.6 mg/mg 10-20 [facility] No Panel InformationOrdered By: Zachery Chung on 05-01-2023 Estimated GFR (MDRD) Amer 111 mL/min >60 [facility] Comment on above: GFR Calc Estimated GFR (MDRD) Non-Af Amer 92 mL/min >60 [facility] Comment on above: Non- GFR Calc Urine Microalbumin/Creatinine Ratio 7.4 mg/g CRE <30 [facility] Vitamin D 25-Hydroxy 95.8 ng/mL [facility] Comment on above: Vitamin D 25(OH) Sta tus Range Deficiency <20 ng/mL (50nmol/L) Insufficiency 20 - 30 ng/mL (50 - 75 nmol/L) Sufficiency 30 - 100 ng/mL (75 - 250 nmol/L) Toxicity >100 ng/mL (>250 nmol/L) Serum or plasma albumin david urement (mass/volume)Ordered By: Zachery Chung on 05-01-2023 Albumin [Mass/Vol] 3.9 g/dL 3.2-5.0 [facility] Serum or plasma albumin/glob ulin mass ratioOrdered By: Zachery Chung on 05-01-2023 Albumin/Globulin [Mass ratio] 1.3 {ratio} 0.9-2.4 [facility] Serum or plasma calcium david urement (mass/volume)Ordered By: Zachery Chung on 05-01-2023 Calcium [Mass/Vol] 9.1 mg/dL 8.5-10.1 [facility] Serum or plasma cholesterol in HDL measurement (mass/volume)Ordered By: Zachery Chung on 05-01-2023 Cholesterol in HDL [Mass/Vol] 66 mg/dL >40 [facility] Comment on above: The drugs N-Acetylcy steine and Metamizole may falsely depress this assay. Reference Range HDL <40 mg/dL Low HDL Cholesterol HDL >or= 60 mg/dL High HDL Cholesterol Serum or plasma cholesterol in VLDL measurement (mass/volume)Ordered By: Zachery Chung on 05-01-2023 Cholesterol in VLDL [Mass/Vol] 11 mg/dL 5-40 [facility] Serum or plasma creatinine m easurement (mass/volume)Ordered By: Zachery Chung on 05-01-2023 Creatinine [Mass/Vol] 0.69 mg/dL 0.55-1.02 [facility] Comment on above: The validity of the calculated GFR & GFRAA in patients over 70 years has not been determined. Clinical correlation is essential. Serum or plasma low density lipoprotein (LDL) cholesterol measurement (mass/volume)Ordered By: Zachery Chung on 05-01-2023 Cholesterol in LDL [Mass/Vol] 89 mg/dL 0-130 [facility] Serum or plasma urea nitroge n measurement (mass/volume)Ordered By: Zachery Chung on 05-01-2023 Urea nitrogen [Mass/Vol] 17 mg/dL 7-18 [facility] Thin prep Papanicolaou smear with manual screeningOrdered By: Zachery Chung on 05-01-2023 Thin prep Papanicolaou smear with manual screening 22 U/L 15-37 [facility] Thin prep Papanicolaou smear with manual screening 6 5-15 [facility] Thin prep Papanicolaou smear with manual screening 6.8 mg/L NO RANGE EST. [facility] Urine creatinine measurement (mass/volume)Ordered By: Zachery Chung on 05-01-2023 Creatinine (U) [Mass/Vol] 92.00 mg/dL NO RANGE EST. [facility] Whole blood hemoglobin A1c/t otal hemoglobin ratio (mass fraction)Ordered By: Zachery Chung on 05-01-2023 HbA1c (Bld) [Mass fraction] 5.1 % 3.8-5.6 [facility] Comment on above: Normal < 5.7 % Predi abetic 5.7 - 6.4 % Diabetic >or= 6.5 % Please note range changes. Absolute lymphocyte countOrd ered By: Trina Camilo on 12-22-2022 Lymphocytes Auto (Unsp spec) [#/Vol] 2.18 10*3/uL 0.83-4.51 [facility] Basophil percentageOrdered B y: Trina Camilo on 12-22-2022 Basophils/100 WBC (Bld) 1.0 % 0-1 [facility] Bilirubin [Mass/Vol] 0.40 mg/dL 0.20-1.00 [facility] Comment on above: For patients on eltr ombopag therapy, use of Dimension [place] TBIL is not recommended. Chloride [Moles/Vol] 102 mmol/L 98-107 [facility] Eosinophils/100 WBC (Bld) 2.1 % 0-5 [facility] Glucose [Mass/Vol] 95 mg/dL 74-106 [facility] Neutrophils (Bld) [#/Vol] 3.1 10*3/uL 2.0-7.7 [facility] Neutrophils/100 WBC (Bld) 51.2 % 47-70 [facility] Potassium [Moles/Vol] 3.5 mmol/L 3.5-5.1 [facility] Protein [Mass/Vol] 6.8 g/dL 6.4-8.2 [facility] Sodium [Moles/Vol] 136 mmol/L 136-145 [facility] WBC (Bld) [#/Vol] 6.1 10*3/uL 4.4-11.0 [facility] Blood erythrocytes count (nu mber/volume)Ordered By: Trina Camilo on 12-22-2022 RBC (Bld) [#/Vol] 4.01 10*6/uL 4.2-5.4 [facility] Blood hemoglobin measurement (mass/volume)Ordered By: Trina Camilo on 12-22-2022 Hemoglobin (Bld) [Mass/Vol] 12.4 g/dL 12.0-15.0 [facility] Blood lymphocytes/100 leukoc ytesOrdered By: Trina Camilo on 12-22-2022 Lymphocytes/100 WBC (Bld) 35.8 % 19-41 [facility] Blood monocytes/100 leukocyt esOrdered By: Trina Camilo on 12-22-2022 Monocytes/100 WBC (Bld) 9.7 % 0-10 [facility] Blood platelet mean volumeOr dered By: Trina Camilo on 12-22-2022 Platelet mean volume (Bld) [Entitic vol] 9.0 fL 6.2-12.0 [facility] Determination of erythrocyte mean corpuscular volume (MCV)Ordered By: Trina Camilo on 12-22-2022 MCV (RBC) [Entitic vol] 90.5 fL 81-99 [facility] Hematocrit Auto (Bld) [Volum e fraction]Ordered By: Trina Camilo on 12-22-2022 Hematocrit (Bld) [Volume fraction] 36.3 % 37-47 [facility] Laboratory - Chemistry and C hemistry - challengeOrdered By: Trina Camilo on 12-22-2022 ALP [Catalytic activity/Vol] 45 U/L 45-117 [facility] ALT [Catalytic activity/Vol] 54 U/L 13-56 [facility] CO2 [Moles/Vol] 28.0 mmol/L 21.0-32.0 [facility] Globulin (S) [Mass/Vol] 2.9 g/dL 2.2-4.2 [facility] Urea nitrogen/Creatinine [Mass ratio] 33.0 mg/mg 10-20 [facility] - Hematology and Cell countsOrdered By: Trina Camilo on 12-22-2022 Erythrocyte distribution width (RBC) [Entitic vol] 40.4 fL 35.1-43.9 [facility] Erythrocyte distribution width (RBC) [Ratio] 12.2 % 11.6-14.6 [facility] Immature granulocytes/100 WBC (Bld) 0.200 % 0.0-0.9 [facility] Comment on above: IG% - Immature Granu locytes (promyelocytes, myelocytes and metamyelocytes) > 1% indicates that a LEFT SHIFT is Present. MCH (RBC) [Entitic mass] 30.9 pg 27.0-32.0 [facility] Nucleated RBC/100 WBC (Bld) [Ratio] 0 % 0-5 [facility] MCHC Auto (RBC) [Mass/Vol]Or dered By: Trina Camilo on 12-22-2022 MCHC (RBC) [Mass/Vol] 34.2 g/dL 32-36 [facility] No Panel InformationOrdered By: Trina Camilo on 12-22-2022 Estimated GFR (MDRD) Amer 116 mL/min >60 [facility] Comment on above: GFR Calc Estimated GFR (MDRD) Non-Af Amer 96 mL/min >60 [facility] Comment on above: Non- GFR Calc Platelets bldOrdered By: Emily Camilo on 12-22-2022 Platelets (Bld) [#/Vol] 274 10*3/uL 150-450 [facility] Serum or plasma albumin david urement (mass/volume)Ordered By: Trina Camilo on 12-22-2022 Albumin [Mass/Vol] 3.9 g/dL 3.2-5.0 [facility] Serum or plasma albumin/glob ulin mass ratioOrdered By: Trina Camilo on 12-22-2022 Albumin/Globulin [Mass ratio] 1.3 {ratio} 0.9-2.4 [facility] Serum or plasma calcium david urement (mass/volume)Ordered By: Trina Camilo on 12-22-2022 Calcium [Mass/Vol] 8.8 mg/dL 8.5-10.1 [facility] Serum or plasma creatinine m easurement (mass/volume)Ordered By: Trina Camilo on 12-22-2022 Creatinine [Mass/Vol] 0.67 mg/dL 0.55-1.02 [facility] Comment on above: The validity of the calculated GFR & GFRAA in patients over 70 years has not been determined. Clinical correlation is essential. Serum or plasma urea nitroge n measurement (mass/volume)Ordered By: Trina Camilo on 12-22-2022 Urea nitrogen [Mass/Vol] 22 mg/dL 7-18 [facility] Thin prep Papanicolaou smear with manual screeningOrdered By: Trina Camilo on 12-22-2022 Thin prep Papanicolaou smear with manual screening 23 U/L 15-37 [facility] Thin prep Papanicolaou smear with manual screening 6 5-15 [facility] Basophil percentageOrdered B y: Zachery Sheldon on 10-24-2022 Bilirubin [Mass/Vol] 0.40 mg/dL 0.20-1.00 [facility] Comment on above: For patients on eltr ombopag therapy, use of [place] TBIL is not recommended. Chloride [Moles/Vol] 102 mmol/L 98-107 [facility] Cholesterol [Mass/Vol] 126 mg/dL <200 [facility] Comment on above: <200 mg/dL Desirable 200-240 mg/dL Borderline >240 mg/dL High Risk Glucose [Mass/Vol] 97 mg/dL 74-106 [facility] Potassium [Moles/Vol] 3.8 mmol/L 3.5-5.1 [facility] Protein [Mass/Vol] 7.7 g/dL 6.4-8.2 [facility] Sodium [Moles/Vol] 135 mmol/L 136-145 [facility] Triglyceride [Mass/Vol] 76 mg/dL <199 [facility] Comment on above: The drugs N-Acetylcy steine and Metamizole may falsely depress this assay.Serum Triglycerides Reference Interval Normal <150 mg/dL Borderline high 150 - 199 mg/dL High 200 - 499 mg/dL Very High > or = 500 mg/dL WBC (Bld) [#/Vol] 5.5 10*3/uL 4.4-11.0 [facility] Blood erythrocytes count (nu mber/volume)Ordered By: Zachery Chung on 10-24-2022 RBC (Bld) [#/Vol] 4.32 10*6/uL 4.2-5.4 [facility] Blood hemoglobin measurement (mass/volume)Ordered By: Zachery Chung on 10-24-2022 Hemoglobin (Bld) [Mass/Vol] 13.6 g/dL 12.0-15.0 [facility] Blood platelet mean volumeOr dered By: Zachery Chung on 10-24-2022 Platelet mean volume (Bld) [Entitic vol] 8.9 fL 6.2-12.0 [facility] Determination of erythrocyte mean corpuscular volume (MCV)Ordered By: Zachery Chung on 10-24-2022 MCV (RBC) [Entitic vol] 90.3 fL 81-99 [facility] Hematocrit Auto (Bld) [Volum e fraction]Ordered By: Zachery Chung on 10-24-2022 Hematocrit (Bld) [Volume fraction] 39.0 % 37-47 [facility] Laboratory - Chemistry and C hemistry - challengeOrdered By: Zachery Chung on 10-24-2022 ALP [Catalytic activity/Vol] 49 U/L 45-117 [facility] ALT [Catalytic activity/Vol] 66 U/L 13-56 [facility] CO2 [Moles/Vol] 27.0 mmol/L 21.0-32.0 [facility] Globulin (S) [Mass/Vol] 3.5 g/dL 2.2-4.2 [facility] Urea nitrogen/Creatinine [Mass ratio] 24.7 mg/mg 10-20 [facility] Laboratory - Hematology and Cell countsOrdered By: Zachery Chung on 10-24-2022 Erythrocyte distribution width (RBC) [Entitic vol] 39.7 fL 35.1-43.9 [facility] Erythrocyte distribution width (RBC) [Ratio] 12.1 % 11.6-14.6 [facility] MCH (RBC) [Entitic mass] 31.5 pg 27.0-32.0 [facility] MCHC Auto (RBC) [Mass/Vol]Or dered By: Zachery Chung on 10-24-2022 MCHC (RBC) [Mass/Vol] 34.9 g/dL 32-36 [facility] No Panel InformationOrdered By: Zachery Chung on 10-24-2022 Estimated GFR (MDRD) Amer 93 mL/min >60 [facility] Comment on above: GFR Calc Estimated GFR (MDRD) Non-Af Amer 76 mL/min >60 [facility] Comment on above: Non- GFR Calc Vitamin D 25-Hydroxy 113.1 ng/mL [facility] Comment on above: Vitamin D 25(OH) Sta tus Range Deficiency <20 ng/mL (50nmol/L) Insufficiency 20 - 30 ng/mL (50 - 75 nmol/L) Sufficiency 30 - 100 ng/mL (75 - 250 nmol/L) Toxicity >100 ng/mL (>250 nmol/L)Evidence suggests that patients undergoing fluorescein dye angiography can retain small amounts of fluorescein in the body for up to 48 to 72 hours post-treatment. In the cases of patients with renal insufficiency, retention could be much longer. Samples containing fluorescein can produce falsely elevated values when tested with the [employer] Centaur Vitamin D assay. With fluorescein interference, observed Vitamin D values can be as high as >150 ng/mL (>375 nmol/L). Samples should be resubmitted post fluorescein clearance to ensure there is no interference with Vitamin D test results. Platelets bldOrdered By: Madhu Chung on 10-24-2022 Platelets (Bld) [#/Vol] 281 10*3/uL 150-450 [facility] Serum or plasma albumin david urement (mass/volume)Ordered By: Zachery Chung on 10-24-2022 Albumin [Mass/Vol] 4.2 g/dL 3.2-5.0 [facility] Serum or plasma albumin/glob ulin mass ratioOrdered By: Zachery Chung on 10-24-2022 Albumin/Globulin [Mass ratio] 1.2 {ratio} 0.9-2.4 [facility] Serum or plasma calcium david urement (mass/volume)Ordered By: Zachery Chung on 10-24-2022 Calcium [Mass/Vol] 9.2 mg/dL 8.5-10.1 [facility] Serum or plasma cholesterol in HDL measurement (mass/volume)Ordered By: Zachery Chung on 10-24-2022 Cholesterol in HDL [Mass/Vol] 56 mg/dL >40 [facility] Comment on above: The drugs N-Acetylcy steine and Metamizole may falsely depress this assay. Reference Range HDL <40 mg/dL Low HDL Cholesterol HDL >or= 60 mg/dL High HDL Cholesterol Serum or plasma cholesterol in VLDL measurement (mass/volume)Ordered By: Zachery Chung on 10-24-2022 Cholesterol in VLDL [Mass/Vol] 15 mg/dL 5-40 [facility] Serum or plasma creatinine m easurement (mass/volume)Ordered By: Zachery Chung on 10-24-2022 Creatinine [Mass/Vol] 0.81 mg/dL 0.55-1.02 [facility] Comment on above: The validity of the calculated GFR & GFRAA in patients over 70 years has not been determined. Clinical correlation is essential. Serum or plasma low density lipoprotein (LDL) cholesterol measurement (mass/volume)Ordered By: Zachery Cuhng on 10-24-2022 Cholesterol in LDL [Mass/Vol] 55 mg/dL 0-130 [facility] Serum or plasma urea nitroge n measurement (mass/volume)Ordered By: Zachery Chung on 10-24-2022 Urea nitrogen [Mass/Vol] 20 mg/dL 7-18 [facility] Thin prep Papanicolaou smear with manual screeningOrdered By: Zachery Chung on 10-24-2022 Thin prep Papanicolaou smear with manual screening 30 U/L 15-37 [facility] Thin prep Papanicolaou smear with manual screening 6 5-15 [facility] Absolute lymphocyte countOrd ered By: Dr. Camilo on 09-17-2022 Lymphocytes Auto (Unsp spec) [#/Vol] 2.20 10*3/uL 0.83-4.51 [facility] Basophil percentageOrdered B y: Dr. Camilo on 09-17-2022 Basophils/100 WBC (Bld) 0.8 % 0-1 [facility] Bilirubin [Mass/Vol] 0.40 mg/dL 0.20-1.00 [facility] Comment on above: For patients on eltr ombopag therapy, use of [place] TBIL is not recommended. Chloride [Moles/Vol] 98 mmol/L 98-107 [facility] Eosinophils/100 WBC (Bld) 2.2 % 0-5 [facility] Glucose [Mass/Vol] 90 mg/dL 74-106 [facility] Neutrophils (Bld) [#/Vol] 3.0 10*3/uL 2.0-7.7 [facility] Neutrophils/100 WBC (Bld) 49.0 % 47-70 [facility] Potassium [Moles/Vol] 3.6 mmol/L 3.5-5.1 [facility] Protein [Mass/Vol] 7.2 g/dL 6.4-8.2 [facility] Sodium [Moles/Vol] 133 mmol/L 136-145 [facility] WBC (Bld) [#/Vol] 6.0 10*3/uL 4.4-11.0 [facility] Blood erythrocytes count (nu mber/volume)Ordered By: Dr. Camilo on 09-17-2022 RBC (Bld) [#/Vol] 4.03 10*6/uL 4.2-5.4 [facility] Blood hemoglobin measurement (mass/volume)Ordered By: Dr. Camilo on 09-17-2022 Hemoglobin (Bld) [Mass/Vol] 12.6 g/dL 12.0-15.0 [facility] Blood lymphocytes/100 leukoc ytesOrdered By: Dr. Camilo on 09-17-2022 Lymphocytes/100 WBC (Bld) 36.5 % 19-41 [facility] Blood monocytes/100 leukocyt esOrdered By: Dr. Camilo on 09-17-2022 Monocytes/100 WBC (Bld) 11.3 % 0-10 [facility] Blood platelet mean volumeOr dered By: Dr. Camilo on 09-17-2022 Platelet mean volume (Bld) [Entitic vol] 9.1 fL 6.2-12.0 [facility] Determination of erythrocyte mean corpuscular volume (MCV)Ordered By: Dr. Camilo on 09-17-2022 MCV (RBC) [Entitic vol] 88.8 fL 81-99 [facility] Hematocrit Auto (Bld) [Volum e fraction]Ordered By: Dr. Camilo on 09-17-2022 Hematocrit (Bld) [Volume fraction] 35.8 % 37-47 [facility] Laboratory - Chemistry and C hemistry - challengeOrdered By: Dr. Camilo on 09-17-2022 ALP [Catalytic activity/Vol] 42 U/L 45-117 [facility] ALT [Catalytic activity/Vol] 65 U/L 13-56 [facility] CO2 [Moles/Vol] 28.0 mmol/L 21.0-32.0 [facility] Globulin (S) [Mass/Vol] 3.2 g/dL 2.2-4.2 [facility] Urea nitrogen/Creatinine [Mass ratio] 27.4 mg/mg 10-20 [facility] Laboratory - Hematology and Cell countsOrdered By: Dr. Camilo on 09-17-2022 Erythrocyte distribution width (RBC) [Entitic vol] 38.6 fL 35.1-43.9 [facility] Erythrocyte distribution width (RBC) [Ratio] 12.0 % 11.6-14.6 [facility] Immature granulocytes/100 WBC (Bld) 0.200 % 0.0-0.9 [facility] Comment on above: IG% - Immature Granu locytes (promyelocytes, myelocytes and metamyelocytes) > 1% indicates that a LEFT SHIFT is Present. MCH (RBC) [Entitic mass] 31.3 pg 27.0-32.0 [facility] Nucleated RBC/100 WBC (Bld) [Ratio] 0 % 0-5 [facility] MCHC Auto (RBC) [Mass/Vol]Or dered By: Dr. Camilo on 09-17-2022 MCHC (RBC) [Mass/Vol] 35.2 g/dL 32-36 [facility] No Panel InformationOrdered By: Dr. Camilo on 09-17-2022 Estimated GFR (MDRD) Amer 104 mL/min >60 [facility] Comment on above: GFR Calc Estimated GFR (MDRD) Non-Af Amer 86 mL/min >60 [facility] Comment on above: Non- GFR Calc Platelets bldOrdered By: Dr. Camilo on 09-17-2022 Platelets (Bld) [#/Vol] 286 10*3/uL 150-450 [facility] Serum or plasma albumin david urement (mass/volume)Ordered By: Dr. Camilo on 09-17-2022 Albumin [Mass/Vol] 4.0 g/dL 3.2-5.0 [facility] Serum or plasma albumin/glob ulin mass ratioOrdered By: Dr. Camilo on 09-17-2022 Albumin/Globulin [Mass ratio] 1.2 {ratio} 0.9-2.4 [facility] Serum or plasma calcium david urement (mass/volume)Ordered By: Dr. Camilo on 09-17-2022 Calcium [Mass/Vol] 8.9 mg/dL 8.5-10.1 [facility] Serum or plasma creatinine m easurement (mass/volume)Ordered By: Dr. Camilo on 09-17-2022 Creatinine [Mass/Vol] 0.73 mg/dL 0.55-1.02 [facility] Comment on above: The validity of the calculated GFR & GFRAA in patients over 70 years has not been determined. Clinical correlation is essential. Serum or plasma urea nitroge n measurement (mass/volume)Ordered By: Dr. Camilo on 09-17-2022 Urea nitrogen [Mass/Vol] 20 mg/dL 7-18 [facility] Thin prep Papanicolaou smear with manual screeningOrdered By: Dr. Camilo on 09-17-2022 Thin prep Papanicolaou smear with manual screening 30 U/L 15-37 [facility] Thin prep Papanicolaou smear with manual screening 7 5-15 [facility] Meter Inspector Cytology Reporton 2022 Meter Inspector Cytology Report . Pathology Reports Accession: Collected Date/Time: Received Date/Time: Pathologist: [id number] 05/15/2022 09:23 EST 05/15/2022 18:00 EST Meter Inspector Cytology Report SPECIMEN: Specimen Description: Liquid Prep w/ HPV Specimen: Cervical Screening or Diagnostic: Screening RELEVANT HISTORY: LMP: age 39 [id number] SPECIMEN ADEQUACY: SATISFACTORY FOR EVALUATION Endocervical/Transf ormational zone component presence can not be determined due to marked atrophy INTERPRETATION/RESU LTS: NEGATIVE FOR INTRAEPITHELIAL LESION OR MALIGNANCY HIGH RISK HPV TESTING: Event Code Result HPV Interp See Interp HPVN HPV Interp Text: High Risk HPV Typing: NEGATIVE HPV types 16, 18, 31, 33, 35, 39, 45, 51, 52, 56, 58, 59, 66 and 68 DNA were undetectable or below the pre-set threshold. The aldo High-Risk HPV DNA Test is not intended for use as a screening device for Pap normal women under age 30 and is not intended to substitute for regular Pap screening. The aldo High-Risk HPV DNA Test is designed to augment existing methods for the detection of cervical disease and should be used in conjunction with clinical information derived from other diagnostic and screening tests, physical examinations and full medical history in accordance with appropriate patient management procedures. NOTE: A negative result does not preclude the presence of HPV infection because results depend on adequate specimen collection, absence of inhibitors and sufficient DNA to be detected. As of: 05/26/22 13:14 EST COMMENT: This Pap Test was successfully processed and evaluated with the assistance of the [employer] Test Imaging System. Pathology Reports Accession: Collected Date/Time: Received Date/Time: Pathologist: [id number] 05/15/2022 09:23 EST 05/15/2022 18:00 EST Electronically Signed by Pathology report verified by [facility] Screened by: DW Electronically signed by Rosario Ackerman Sign-Out Date: 05/26/2022 13:15 Performing Lab: [facility], [address] [place] [address] Pathology Dept Disclaimer The Pap test is a screening test for cervical cancer. As evidenced by published data, it is subject to both inherent false negative and false positive results. Your patient's results should be interpreted in context with pertinent clinical history including gynecological examination. Normal [facility] ([place]) HPVon 05-26-2022 HPV Interp Normal See Interp HPVN [facility] ([place]) Comment on above: Order Comment: Order placed by AP_HPV_ORDER rule from [id number] Result Comment: High Risk HPV Typing: NEGATIVE HPV types 16, 18, 31, 33, 35, 39, 45, 51, 52, 56, 58, 59, 66 and 68 DNA were undetectable or below the pre-set threshold. The aldo High-Risk HPV DNA Test is not intended for use as a screening device for Pap normal women under age 30 and is not intended to substitute for regular Pap screening. The aldo High-Risk HPV DNA Test is designed to augment existing methods for the detection of cervical disease and should be used in conjunction with clinical information derived from other diagnostic and screening tests, physical examinations and full medical history in accordance with appropriate patient management procedures. NOTE: A negative result does not preclude the presence of HPV infection because results depend on adequate specimen collection, absence of inhibitors and sufficient DNA to be detected. See Inter HPVN Performed By: #### GLENN ESTRADA, LIPID, CMP #### [place] [id number] HPV Source Cervix Normal [facility] ([place]) Comment on above: Order Comment: Order placed by AP_HPV_ORDER rule from [id number] Performed By: #### Verito AMES VIDEBBIE, LIPID, CMP #### [place] [id number] .Auto Diffon 04-24-2022 Basophil, Absolute 0.1 10 3/mcL Normal 0.0-0.2 [facility] ([place]) Comment on above: Performed By: #### Verito AMES, CMP, VIDH, LIPID #### [place] [address] Basophils/100 WBC (Bld) 1.5 % Normal 0.0-2.5 A [facility] ([place]) Comment on above: Performed By: #### Verito AMES, CMP, VIDH, LIPID #### [place] [address] Eosinophil, Absolute 0.2 10 3/mcL Normal 0.0-0.4 [facility] ([place]) Comment on above: Performed By: #### Verito AMES, CMP, VIDH, LIPID #### [address] [address] Eosinophils/100 WBC (Bld) 5.2 % Normal 0.0-7.0 [facility] ([place]) Comment on above: Performed By: #### G FR, CMP, VIDH, LIPID #### [address] [address] Lymphocyte, Absolute 1.8 10 3/mcL Normal 0.8-3.9 [facility] ([place]) Comment on above: Performed By: #### G FR, CMP, VIDH, LIPID #### [address] [address] Lymphocytes/100 WBC (Bld) 37.5 % Normal 10.0-50.0 [facility] ([place]) Comment on above: Performed By: #### G FR, CMP, VIDH, LIPID #### [address] [address] Monocyte, Absolute 0.5 10 3/mcL Normal 0.2-1.0 [facility] ([place]) Comment on above: Performed By: #### G FR, CMP, VIDH, LIPID #### [address] [address] Monocytes/100 WBC (Bld) 10.2 % Normal 1.7-13.0 [facility] ([place]) Comment on above: Performed By: #### G FR, CMP, VIDH, LIPID #### [address] [address] Neutrophils/100 WBC (Bld) 45.6 % Normal 37.0-80.0 [facility] ([place]) Comment on above: Performed By: #### G FR, CMP, VIDH, LIPID #### [address] [address] .GFRon 04-24-2022 GFR 102 ml/min/1.73sqm Normal [facility] ([place]) Comment on above: Result Comment: GFR Population mean for , Non- Americans Ages 20-29 = 116 mL/min/1.73 sq.m. Ages 30-39 = 107 mL/min/1.73 sq.m. Ages 40-49 = 99 mL/min/1.73 sq.m. Ages 50-59 = 93 mL/min/1.73 sq.m. Ages 60-69 = 85 mL/min/1.73 sq.m. Ages 70+ = 75 mL/min/1.73 sq.m. Chronic Kidney Disease: Less than 60 mL/min/1.73 square meters End Stage Renal Disease: Less than 15 mL/min/1.73 square meters Performed By: #### G FR, VIDH, LIPID, CMP #### [address] [address] GFR Non- 84 ml/min/1.73sqm Normal [facility] ([place]) Comment on above: Result Comment: GFR Population mean for , Non- Americans Ages 20-29 = 116 mL/min/1.73 sq.m. Ages 30-39 = 107 mL/min/1.73 sq.m. Ages 40-49 = 99 mL/min/1.73 sq.m. Ages 50-59 = 93 mL/min/1.73 sq.m. Ages 60-69 = 85 mL/min/1.73 sq.m. Ages 70+ = 75 mL/min/1.73 sq.m. Chronic Kidney Disease: Less than 60 mL/min/1.73 square meters End Stage Renal Disease: Less than 15 mL/min/1.73 square meters Performed By: #### G FR, VIDH, LIPID, CMP #### [address] [address] .NEUABSon 04-24-2022 Neutrophil, Absolute 2.2 10 3/mcL Low 2.9-6.2 [facility] ([place]) Comment on above: Performed By: #### G FR, VIDH, LIPID, CMP #### [address] [address] CBCon 04-24-2022 Erythrocyte distribution width (RBC) [Ratio] 13.0 % Normal 11.5-14.5 [facility] ([place]) Comment on above: Performed By: #### Verito FR, CMP, VIDH, LIPID #### [address] [address] Hematocrit (Bld) [Volume fraction] 37.4 % Normal 37.0-47.0 [facility] ([place]) Comment on above: Performed By: #### G FR, CMP, VIDH, LIPID #### [address] [address] Hgb 12.9 G/dL Normal 12.0-16.0 [facility] ([place]) Comment on above: Performed By: #### G FR, CMP, VIDH, LIPID #### [address] [address] MCH (RBC) [Entitic mass] 30.8 pg Normal 27.0-31.2 [facility] ([place]) Comment on above: Performed By: #### G FR, CMP, VIDH, LIPID #### [place] [address] MCHC 34.6 G/dL Normal 33.0-37.0 [facility] ([place] Comment on above: Performed By: #### G FR, CMP, VIDH, LIPID #### [address] [address] MCV (RBC) [Entitic vol] 88.9 fL Normal 80.0-94.0 A [facility] ([place]) Comment on above: Performed By: #### G FR, CMP, VIDH, LIPID #### [address] [address] Platelet 286 10 3/mcL Normal 130-400 [facility] ([place]) Comment on above: Performed By: #### G FR, CMP, VIDH, LIPID #### [address] [address] Platelet mean volume (Bld) [Entitic vol] 6.5 fL Low 7.4-10.4 [facility] ([place]) Comment on above: Performed By: #### G FR, CMP, VIDH, LIPID #### [place] [id number] RBC 4.20 10 6/mcL Normal 4.20-5.40 [facility] ([place]) Comment on above: Performed By: #### G FR, CMP, VIDH, LIPID #### [address] [address] WBC 4.7 10 3/mcL Normal 4.6-10.8 [facility] ([place] Comment on above: Performed By: #### G FR, CMP, VIDH, LIPID #### [address] [address] CMPon 04-24-2022 Albumin Level 4.0 G/dL Normal 3.4-4.8 [facility] ([place] Comment on above: Performed By: #### G FR, VIDH, LIPID, CMP #### [address] [address] Albumin/Globulin [Mass ratio] 1.4 {ratio} Normal 1.1-2.5 [facility] ([place]) Comment on above: Performed By: #### Verito FR, VIDH, LIPID, CMP #### [address] [address] ALP [Catalytic activity/Vol] 54 U/L Normal 40-135 [facility] ([place]) Comment on above: Performed By: #### G FR, VIDH, LIPID, CMP #### [address] [address] ALT [Catalytic activity/Vol] 60 U/L High 14-59 [facility] ([place] Comment on above: Performed By: #### G FR, VIDH, LIPID, CMP #### [address] [address] AST [Catalytic activity/Vol] 23 U/L Normal 10-40 [facility] ([place] Comment on above: Performed By: #### G FR, VIDH, LIPID, CMP #### [address] [address] Bili Total 0.4 mg/dL Normal 0.2-1.0 [facility] ([place]) Comment on above: Result Comment: Use of this assay is not recommended for patients undergoing treatment with eltrombopag due to the potential for falsely elevated results. Performed By: #### G FR, VIDH, LIPID, CMP #### [address] [address] BUN/Creatinine Ratio 20 ratio Normal 7-27 [facility] ([place]) Comment on above: Performed By: #### G FR, VIDH, LIPID, CMP #### [address] [address] Calcium [Mass/Vol] 9.0 mg/dL Normal 8.4-10.2 [facility] ([place]) Comment on above: Performed By: #### G FR, VIDH, LIPID, CMP #### [place] [phone] Chloride [Moles/Vol] 103 mmol/L Normal 98-107 [facility] ([place]) Comment on above: Performed By: #### G FR, VIDH, LIPID, CMP #### [place] [phone] CO2 [Moles/Vol] 31 mmol/L Normal 23-31 [facility] ([place] Comment on above: Performed By: #### G FR, VIDH, LIPID, CMP #### [place] [phone] Creatinine [Mass/Vol] 0.71 mg/dL Normal 0.55-1.02 [facility] ([place]) Comment on above: Performed By: #### G FR, VIDH, LIPID, CMP #### [address] [address] Electrolyte Balance 9.0 mEq/L Normal 4.0-15.0 [facility] ([place]) Comment on above: Performed By: #### G FR, VIDH, LIPID, CMP #### [address] [address] Globulin 2.9 G/dL Normal [facility] ([place] Comment on above: Performed By: #### G FR, VIDH, LIPID, CMP #### [place] [phone] Glucose [Mass/Vol] 100 mg/dL Normal 80-115 [facility] ([place]) Comment on above: Performed By: #### G FR, VIDH, LIPID, CMP #### [address] [address] Potassium [Moles/Vol] 3.8 mmol/L Normal 3.5-5.1 [facility] ([place] Comment on above: Performed By: #### G FR, VIDH, LIPID, CMP #### [address] [address] Sodium [Moles/Vol] 143 mmol/L Normal 136-145 [facility] ([place]) Comment on above: Performed By: #### Verito FR, VIDH, LIPID, CMP #### [address] [address] Total Protein 6.9 G/dL Normal 6.4-8.2 [facility] ([place]) Comment on above: Performed By: #### Verito FR, VIDEBBIE, LIPID, CMP #### [address] [address] Urea nitrogen [Mass/Vol] 14 mg/dL Normal 7-18 [facility] ([place] Comment on above: Performed By: #### Verito FR, VIDH, LIPID, CMP #### [address] [address] LABORATORYOrdered By: SYSTEM SYSTEM on 04-24-2022 Albumin BCP dye [Mass/Vol] 4.0 G/dL Inval id Interpretation Code 3.4 - 4.8 G/dL AO ADM SS Albumin/Globulin [Mass ratio] 1.4 {ratio} Invalid Interpretation Code 1.1 - 2.5 ratio AO ADM SS ALP [Catalytic activity/Vol] 54 U/L Invalid Interpretation Code 40 - 135 U/L AO ADM SS ALT With P-5'-P [Catalytic activity/Vol] 60 U/L Invalid Interpretation Code 14 - 59 U/L AO ADM SS AST With P-5'-P [Catalytic activity/Vol] 23 U/L Invalid Interpretation Code 10 - 40 U/L AO ADM SS Bilirubin [Mass/Vol] 0.4 mg/dL Invalid Interpretation Code 0.2 - 1.0 mg/dL AO ADM SS Calcium [Mass/Vol] 9.0 mg/dL Invalid Interpretation Code 8.4 - 10.2 mg/dL AO ADM SS Chloride [Moles/Vol] 103 mmol/L Invalid Interpretation Code 98 - 107 mmol/L AO ADM SS CO2 [Moles/Vol] 31 mmol/L Invalid Interpretation Code 23 - 31 mmol/L AO ADM SS Creatinine [Mass/Vol] 0.71 mg/dL Invalid Interpretation Code 0.55 - 1.02 mg/dL AO ADM SS Electrolyte Balance 9.0 mEq/L Invalid Interpretation Code 4.0 - 15.0 mEq/L AO ADM SS GFR 102 ml/min/1.73sqm Invalid Interpretation Code AO Chemistry S GFR Non- 84 ml/min/1.73sqm Inval id Interpretation Code AO Chemistry S Globulin 2.9 G/dL Invalid Interpretation Code AO ADM SS Glucose [Mass/Vol] 100 mg/dL Invalid Interpretation Code 80 - 115 mg/dL AO ADM SS Potassium [Moles/Vol] 3.8 mmol/L Invalid Interpretation Code 3.5 - 5.1 mmol/L AO ADM SS Protein [Mass/Vol] 6.9 G/dL Invalid Interpretation Code 6.4 - 8.2 G/dL AO ADM SS Sodium [Moles/Vol] 143 mmol/L Invalid Interpretation Code 136 - 145 mmol/L AO ADM SS Urea nitrogen [Mass/Vol] 14 mg/dL Invalid Interpretation Code 7 - 18 mg/dL AO ADM SS Urea nitrogen/Creatinine [Mass ratio] 20 ratio Invalid Interpretation Code 7 - 27 ratio AO ADM SS Vit. D 25-Hydroxy 42.3 ng/mL Invalid Interpretation Code AO ADM SS LABORATORYOrdered By: Pam Bull on 04-24-2022 Basophil, Absolute 0.1 103/mcL Invalid Interpretation Code 0.0 - 0.2 10^3/mcL AO Workflow SS Basophils/100 WBC (Bld) 1.5 % Invalid Interpretation Code 0.0 - 2.5 % AO Workflow SS Cholesterol [Mass/Vol] 151 mg/dL Invalid Interpretation Code 0 - 200 mg/dL AO ADM SS Cholesterol in HDL [Mass/Vol] 62 mg/dL Invalid Interpretation Code 40 - 60 mg/dL AO ADM SS Cholesterol in LDL [Mass/Vol] 76 mg/dL Invalid Interpretation Code 0 - 130 mg/dL AO ADM SS Eosinophil, Absolute 0.2 103/mcL Invalid Interpretation Code 0.0 - 0.4 10^3/mcL AO Workflow SS Eosinophils/100 WBC (Bld) 5.2 % Invali d Interpretation Code 0.0 - 7.0 % AO Workflow SS Erythrocyte distribution width (RBC) [Ratio] 13.0 % Invalid Interpretation Code 11.5 - 14.5 % AO Workflow SS Hematocrit (Bld) [Volume fraction] 37.4 % Invalid Interpretation Code 37.0 - 47.0 % AO Workflow SS Hemoglobin (Bld) [Mass/Vol] 12.9 G/dL Invalid Interpretation Code 12.0 - 16.0 G/dL AO Workflow SS Lymphocyte, Absolute 1.8 103/mcL Invalid Interpretation Code 0.8 - 3.9 10^3/mcL AO Workflow SS Lymphocytes/100 WBC (Bld) 37.5 % Invali d Interpretation Code 10.0 - 50.0 % AO Workflow SS MCH (RBC) [Entitic mass] 30.8 pg Invalid Interpretation Code 27.0 - 31.2 pg AO Workflow SS MCHC 34.6 G/dL Invalid Interpretation Code 33.0 - 37.0 G/dL AO Workflow SS MCV (RBC) [Entitic vol] 88.9 fL Invalid Interpretation Code 80.0 - 94.0 fL AO Workflow SS Monocyte, Absolute 0.5 103/mcL Invalid Interpretation Code 0.2 - 1.0 10^3/mcL AO Workflow SS Monocytes/100 WBC (Bld) 10.2 % Invalid Interpretation Code 1.7 - 13.0 % AO Workflow SS Neutrophil, Absolute 2.2 103/mcL Invalid Interpretation Code 2.9 - 6.2 10^3/mcL AO Workflow SS Neutrophils/100 WBC (Bld) 45.6 % Invali d Interpretation Code 37.0 - 80.0 % AO Workflow SS Platelet mean volume (Bld) [Entitic vol] 6.5 fL Invalid Interpretation Code 7.4 - 10.4 fL AO Workflow SS Platelets (Bld) [#/Vol] 286 103/mcL Invalid Interpretation Code 130 - 400 10^3/mcL AO Workflow SS RBC (Bld) [#/Vol] 4.20 106/mcL Invalid Interpretation Code 4.20 - 5.40 10^6/mcL AO Workflow SS Triglyceride [Mass/Vol] 64 mg/dL Invalid Interpretation Code 0 - 150 mg/dL AO ADM SS WBC (Bld) [#/Vol] 4.7 103/mcL Invalid Interpretation Code 4.6 - 10.8 10^3/mcL AO Workflow SS LIPIDon 04-24-2022 Cholesterol [Mass/Vol] 151 mg/dL Normal 0-200 [facility] ([place]) Comment on above: Result Comment: Chol esterol Reference Interval: Less than 200 Desirable 200-239 Borderline high risk 240 and above High risk Performed By: #### G FR, VIDH, LIPID, CMP #### [address] [address] Cholesterol in HDL [Mass/Vol] 62 mg/dL High 40-60 [facility] ([place]) Comment on above: Performed By: #### G FR, VIDH, LIPID, CMP #### [address] [address] Cholesterol in LDL [Mass/Vol] 76 mg/dL Normal 0-130 [facility] ([place]) Comment on above: Performed By: #### G FR, VIDH, LIPID, CMP #### [address] [address] Triglyceride [Mass/Vol] 64 mg/dL Normal 0-150 A [facility] ([place]) Comment on above: Result Comment: Trig lyceride Reference Interval: Less than 150 Normal 150-199 Borderline high risk 200-499 High risk 500 or higher Very high risk Performed By: #### G FR, VIDH, LIPID, CMP #### [address] [address] VIDHon 04-24-2022 Vit. D 25-Hydroxy 42.3 ng/mL Normal [facility] ([place]) Comment on above: Result Comment: Inte rpretive Values Based on Total 25(OH) Vitamin D: Deficient <20 ng/mL Insufficient 20 - <30 ng/mL Sufficient 30-100 ng/mL Performed By: #### G FR, VIDH, LIPID, CMP #### [address] [address] Absolute lymphocyte counton 03-23-2022 Lymphocytes Auto (Unsp spec) [#/Vol] 3.02 10*3/uL 0.83-4.51 [facility] Work Phone: Basophil percentageon 2021 Basophils/100 WBC (Bld) 0.4 % 0-1 [facility] Work Phone: Bilirubin [Mass/Vol] 0.30 mg/dL 0.20-1.00 [facility] Work Phone: Comment on above: For patients on eltr ombopag therapy, use of [place] TBIL is not recommended. Chloride [Moles/Vol] 103 mmol/L 98-107 [facility] Work Phone: Eosinophils/100 WBC (Bld) 3.4 % 0-5 [facility] Work Phone: Glucose [Mass/Vol] 88 mg/dL 74-106 [facility] Work Phone: Neutrophils (Bld) [#/Vol] 5.0 10*3/uL 2.0-7.7 [facility] Work Phone: Neutrophils/100 WBC (Bld) 54.6 % 47-70 [facility] Work Phone: Potassium [Moles/Vol] 3.5 mmol/L 3.5-5.1 [facility] Work Phone: Protein [Mass/Vol] 6.8 g/dL 6.4-8.2 [facility] Work Phone: Sodium [Moles/Vol] 139 mmol/L 136-145 [facility] Work Phone: WBC (Bld) [#/Vol] 9.2 10*3/uL 4.4-11.0 [facility] Work Phone: Blood erythrocytes count (nu mber/volume)on 03-23-2022 RBC (Bld) [#/Vol] 4.28 10*6/uL 4.2-5.4 [facility] Work Phone: Blood hemoglobin measurement (mass/volume)on 03-23-2022 Hemoglobin (Bld) [Mass/Vol] 13.3 g/dL 12.0-15.0 [facility] Work Phone: Blood lymphocytes/100 leukoc yteson 03-23-2022 Lymphocytes/100 WBC (Bld) 32.9 % 19-41 [facility] Work Phone: Blood monocytes/100 leukocyt eson 03-23-2022 Monocytes/100 WBC (Bld) 8.5 % 0-10 [facility] Work Phone: Blood platelet mean volumeon 03-23-2022 Platelet mean volume (Bld) [Entitic vol] 8.9 fL 6.2-12.0 [facility] Work Phone: Determination of erythrocyte mean corpuscular volume (MCV)on 03-23-2022 MCV (RBC) [Entitic vol] 89.7 fL 81-99 [facility] Work Phone: Hematocrit Auto (Bld) [Volum e fraction]on 03-23-2022 Hematocrit (Bld) [Volume fraction] 38.4 % 37-47 [facility] Work Phone: Laboratory - Chemistry and C hemistry - challengeon 03-23-2022 ALP [Catalytic activity/Vol] 50 U/L 45-117 [facility] Work Phone: ALT [Catalytic activity/Vol] 52 U/L 13-56 [facility] Work Phone: [phone] CO2 [Moles/Vol] 28.0 mmol/L 21.0-32.0 [facility] Work Phone: Globulin (S) [Mass/Vol] 2.8 g/dL 2.2-4.2 [facility] Work Phone: [phone] Urea nitrogen/Creatinine [Mass ratio] 29.2 mg/mg 10-20 [facility] Work Phone: Laboratory - Hematology and Cell countson 03-23-2022 Erythrocyte distribution width (RBC) [Entitic vol] 40.2 fL 35.1-43.9 [facility]: Erythrocyte distribution width (RBC) [Ratio] 12.3 % 11.6-14.6 [facility] Work Phone: Immature granulocytes/100 WBC (Bld) 0.200 % 0.0-0.9 [facility] Work Phone: [phone] Comment on above: IG% - Immature Granu locytes (promyelocytes, myelocytes and metamyelocytes) > 1% indicates that a LEFT SHIFT is Present. MCH (RBC) [Entitic mass] 31.1 pg 27.0-32.0 [facility] Work Phone: Nucleated RBC/100 WBC (Bld) [Ratio] 0 % 0-5 [facility] Work Phone: [phone] MCHC Auto (RBC) [Mass/Vol]on 03-23-2022 MCHC (RBC) [Mass/Vol] 34.6 g/dL 32-36 [facility] Work Phone: No Panel Informationon 03-23 Estimated GFR (MDRD) Amer 101 mL/min >60 [facility] Work Phone: Comment on above: GFR Calc Estimated GFR (MDRD) Non-Af Amer 83 mL/min >60 [facility] Work Phone: Comment on above: Non- GFR Calc Platelets bldon 03-23-2022 Platelets (Bld) [#/Vol] 280 10*3/uL 150-450 [facility] Work Phone: [phone] Serum or plasma albumin david urement (mass/volume)on 03-23-2022 Albumin [Mass/Vol] 4.0 g/dL 3.2-5.0 [facility] Work Phone: [phone] Serum or plasma albumin/glob ulin mass ratioon 03-23-2022 Albumin/Globulin [Mass ratio] 1.4 {ratio} 0.9-2.4 [facility] Work Phone: [phone] Serum or plasma calcium david urement (mass/volume)on 03-23-2022 Calcium [Mass/Vol] 9.1 mg/dL 8.5-10.1 [facility] Work Phone: Serum or plasma creatinine m easurement (mass/volume)on 03-23-2022 Creatinine [Mass/Vol] 0.75 mg/dL 0.55-1.02 [facility] Work Phone: Comment on above: The validity of the calculated GFR & GFRAA in patients over 70 years has not been determined. Clinical correlation is essential. Serum or plasma urea nitroge n measurement (mass/volume)on 03-23-2022 Urea nitrogen [Mass/Vol] 22 mg/dL 7-18 [facility] Work Phone: Thin prep Papanicolaou smear with manual screeningon 03-23-2022 Thin prep Papanicolaou smear with manual screening 27 U/L 15-37 [facility] Work Phone: Thin prep Papanicolaou smear with manual screening 8 5-15 [facility] Work Phone: .Auto Diffon 10-11-2021 Basophil, Absolute 0.0 10 3/mcL Normal 0.0-0.2 [facility] ([place]) Comment on above: Performed By: #### G FR, VIDH, LIPID, CMP #### [address] [address] Basophils/100 WBC (Bld) 1.0 % Normal 0.0-2.5 A [facility] ([place]) Comment on above: Performed By: #### G FR, VIDH, LIPID, CMP #### [address] [address] Eosinophil, Absolute 0.2 10 3/mcL Normal 0.0-0.4 [facility] ([place]) Comment on above: Performed By: #### G FR, VIDH, LIPID, CMP #### [address] [address] Eosinophils/100 WBC (Bld) 3.5 % Normal 0.0-7.0 [facility] ([place]) Comment on above: Performed By: #### G FR, VIDH, LIPID, CMP #### [address] [address] Lymphocyte, Absolute 1.6 10 3/mcL Normal 0.8-3.9 [facility] ([place]) Comment on above: Performed By: #### G FR, VIDH, LIPID, CMP #### [address] [address] Lymphocytes/100 WBC (Bld) 34.2 % Normal 10.0-50.0 [facility] ([place]) Comment on above: Performed By: #### G FR, VIDH, LIPID, CMP #### [address] [address] Monocyte, Absolute 0.5 10 3/mcL Normal 0.2-1.0 [facility] ([place]) Comment on above: Performed By: #### G FR, VIDH, LIPID, CMP #### [address] [address] Monocytes/100 WBC (Bld) 10.4 % Normal 1.7-13.0 [facility] ([place]) Comment on above: Performed By: #### G FR, VIDH, LIPID, CMP #### [address] [address] Neutrophils/100 WBC (Bld) 50.9 % Normal 37.0-80.0 [facility] ([place]) Comment on above: Performed By: #### G FR, VIDH, LIPID, CMP #### [address] [address] .GFRon 10-11-2021 GFR 89 ml/min/1.73sqm Normal [facility] ([place]) Comment on above: Result Comment: GFR Population mean for , Non- Americans Ages 20-29 = 116 mL/min/1.73 sq.m. Ages 30-39 = 107 mL/min/1.73 sq.m. Ages 40-49 = 99 mL/min/1.73 sq.m. Ages 50-59 = 93 mL/min/1.73 sq.m. Ages 60-69 = 85 mL/min/1.73 sq.m. Ages 70+ = 75 mL/min/1.73 sq.m. Chronic Kidney Disease: Less than 60 mL/min/1.73 square meters End Stage Renal Disease: Less than 15 mL/min/1.73 square meters Performed By: #### G FR, VIDH, LIPID, CMP #### [address] [address] GFR Non- 73 ml/min/1.73sqm Normal [facility] ([place]) Comment on above: Result Comment: GFR Population mean for , Non- Americans Ages 20-29 = 116 mL/min/1.73 sq.m. Ages 30-39 = 107 mL/min/1.73 sq.m. Ages 40-49 = 99 mL/min/1.73 sq.m. Ages 50-59 = 93 mL/min/1.73 sq.m. Ages 60-69 = 85 mL/min/1.73 sq.m. Ages 70+ = 75 mL/min/1.73 sq.m. Chronic Kidney Disease: Less than 60 mL/min/1.73 square meters End Stage Renal Disease: Less than 15 mL/min/1.73 square meters Performed By: #### G FR, VIDH, LIPID, CMP #### [address] [address] .MDWon 10-11-2021 Monocyte Distribution Width Not performed Normal 0.00-20.00 [facility] ([place]) Comment on above: Result Comment: MDW testing performed only on adult ER patients between the ages of 18-89 years. Performed By: #### G FR, VIDH, LIPID, CMP #### [address] [address] .NEUABSon 10-11-2021 Neutrophil, Absolute 2.4 10 3/mcL Low 2.9-6.2 [facility] ([place]) Comment on above: Performed By: #### G FR, VIDH, LIPID, CMP #### [address] [address] CBCon 10-11-2021 Erythrocyte distribution width (RBC) [Ratio] 13.0 % Normal 11.5-14.5 [facility] ([place]) Comment on above: Performed By: #### G FR, VIDH, LIPID, CMP #### [address] [address] Hematocrit (Bld) [Volume fraction] 36.4 % Low 37.0-47.0 [facility] ([place]) Comment on above: Performed By: #### G FR, VIDH, LIPID, CMP #### [address] [address] Hgb 12.7 G/dL Normal 12.0-16.0 [facility] ([place]) Comment on above: Performed By: #### G FR, VIDH, LIPID, CMP #### [address] [address] MCH (RBC) [Entitic mass] 31.0 pg Normal 27.0-31.2 [facility] ([place]) Comment on above: Performed By: #### G FR, VIDH, LIPID, CMP #### [place] [address] MCHC 35.0 G/dL Normal 33.0-37.0 [facility] ([place]) Comment on above: Performed By: #### G FR, VIDH, LIPID, CMP #### [address] [address] MCV (RBC) [Entitic vol] 88.8 fL Normal 80.0-94.0 A [facility] ([place] Comment on above: Performed By: #### G FR, VIDH, LIPID, CMP #### [address] [address] Platelet 268 10 3/mcL Normal 130-400 [facility] ([place]) Comment on above: Performed By: #### G FR, VIDH, LIPID, CMP #### [address] [address] Platelet mean volume (Bld) [Entitic vol] 6.7 fL Low 7.4-10.4 [facility] ([place]) Comment on above: Performed By: #### G FR, VIDH, LIPID, CMP #### [place] [id number] RBC 4.10 10 6/mcL Low 4.20-5.40 [facility] ([place]) Comment on above: Performed By: #### G FR, VIDH, LIPID, CMP #### [address] [address] WBC 4.7 10 3/mcL Normal 4.6-10.8 [facility] ([place]) Comment on above: Performed By: #### Verito FR, VIDH, LIPID, CMP #### [address] [address] CMPon 10-11-2021 Albumin Level 4.2 G/dL Normal 3.5-5.0 [facility] ([place]) Comment on above: Performed By: #### Verito FR, VIDH, LIPID, CMP #### [address] [address] Albumin/Globulin [Mass ratio] 1.6 {ratio} Normal 1.1-2.5 [facility] ([place]) Comment on above: Performed By: #### Verito FR, VIDH, LIPID, CMP #### [address] [address] ALP [Catalytic activity/Vol] 46 U/L Normal 40-135 [facility] ([place]) Comment on above: Performed By: #### Verito FR, VIDH, LIPID, CMP #### [address] [address] ALT [Catalytic activity/Vol] 54 U/L Normal 14-59 [facility] ([place]) Comment on above: Performed By: #### G FR, VIDH, LIPID, CMP #### [address] [address] AST [Catalytic activity/Vol] 25 U/L Normal 10-40 [facility] ([place]) Comment on above: Performed By: #### G FR, VIDH, LIPID, CMP #### [address] [address] Bili Total 0.3 mg/dL Normal 0.2-1.0 [facility] ([place]) Comment on above: Result Comment: Use of this assay is not recommended for patients undergoing treatment with eltrombopag due to the potential for falsely elevated results. Performed By: #### G FR, VIDH, LIPID, CMP #### [address] [address] BUN/Creatinine Ratio 15 ratio Normal 7-27 [facility] ([place]) Comment on above: Performed By: #### G FR, VIDH, LIPID, CMP #### [place] [phone] Calcium [Mass/Vol] 8.8 mg/dL Normal 8.4-10.2 [facility] ([place]) Comment on above: Performed By: #### G FR, VIDH, LIPID, CMP #### [place] [phone] Chloride [Moles/Vol] 105 mmol/L Normal 98-107 [facility] ([place]) Comment on above: Performed By: #### Verito FR, VIDH, LIPID, CMP #### [place] [phone] CO2 [Moles/Vol] 30 mmol/L High 22-29 [facility] ([place]) Comment on above: Performed By: #### Verito FR, VIDH, LIPID, CMP #### [address] [address] Creatinine [Mass/Vol] 0.80 mg/dL Normal 0.55-1.02 [facility] ([place]) Comment on above: Performed By: #### G FR, VIDH, LIPID, CMP #### [address] [address] Electrolyte Balance 9.0 mEq/L Normal 4.0-15.0 [facility] ([place]) Comment on above: Performed By: #### G FR, VIDH, LIPID, CMP #### [address] [address] Globulin 2.6 G/dL Normal [facility] ([place]) Comment on above: Performed By: #### G FR, VIDH, LIPID, CMP #### [address] [address] Glucose [Mass/Vol] 107 mg/dL High 70-105 [facility] ([place]) Comment on above: Performed By: #### G FR, VIDH, LIPID, CMP #### [address] [address] Potassium [Moles/Vol] 3.7 mmol/L Normal 3.5-5.1 [facility] ([place]) Comment on above: Performed By: #### G FR, VIDH, LIPID, CMP #### [address] [address] Sodium [Moles/Vol] 144 mmol/L Normal 136-145 [facility] ([place]) Comment on above: Performed By: #### G FR, VIDH, LIPID, CMP #### [address] [address] Total Protein 6.8 G/dL Normal 6.4-8.2 [facility] ([place]) Comment on above: Performed By: #### G FR, VIDH, LIPID, CMP #### [address] [address] Urea nitrogen [Mass/Vol] 12 mg/dL Normal 7-18 [facility] ([place]) Comment on above: Performed By: #### G FR, VIDH, LIPID, CMP #### [address] [address] LABORATORYOrdered By: Timmy Yu on 10-11-2021 Albumin BCP dye [Mass/Vol] 4.2 G/dL Inval id Interpretation Code 3.5 - 5.0 G/dL AO ADM SS Albumin/Globulin [Mass ratio] 1.6 {ratio} Invalid Interpretation Code 1.1 - 2.5 ratio AO ADM SS ALP [Catalytic activity/Vol] 46 U/L Invalid Interpretation Code 40 - 135 U/L AO ADM SS ALT With P-5'-P [Catalytic activity/Vol] 54 U/L Invalid Interpretation Code 14 - 59 U/L AO ADM SS AST With P-5'-P [Catalytic activity/Vol] 25 U/L Invalid Interpretation Code 10 - 40 U/L AO ADM SS Basophil, Absolute 0.0 103/mcL Invalid Interpretation Code 0.0 - 0.2 10^3/mcL AO Workflow SS Basophils/100 WBC (Bld) 1.0 % Invalid Interpretation Code 0.0 - 2.5 % AO Workflow SS Bilirubin [Mass/Vol] 0.3 mg/dL Invalid Interpretation Code 0.2 - 1.0 mg/dL AO ADM SS Calcium [Mass/Vol] 8.8 mg/dL Invalid Interpretation Code 8.4 - 10.2 mg/dL AO ADM SS Chloride [Moles/Vol] 105 mmol/L Invalid Interpretation Code 98 - 107 mmol/L AO ADM SS Cholesterol [Mass/Vol] 147 mg/dL Invalid Interpretation Code 0 - 200 mg/dL AO ADM SS Cholesterol in HDL [Mass/Vol] 55 mg/dL Invalid Interpretation Code 40 - 60 mg/dL AO ADM SS Cholesterol in LDL [Mass/Vol] 76 mg/dL Invalid Interpretation Code 0 - 130 mg/dL AO ADM SS CO2 [Moles/Vol] 30 mmol/L Invalid Interpretation Code 22 - 29 mmol/L AO ADM SS Creatinine [Mass/Vol] 0.80 mg/dL Invalid Interpretation Code 0.55 - 1.02 mg/dL AO ADM SS Electrolyte Balance 9.0 mEq/L Invalid Interpretation Code 4.0 - 15.0 mEq/L AO ADM SS Eosinophil, Absolute 0.2 103/mcL Invalid Interpretation Code 0.0 - 0.4 10^3/mcL AO Workflow SS Eosinophils/100 WBC (Bld) 3.5 % Invali d Interpretation Code 0.0 - 7.0 % AO Workflow SS Erythrocyte distribution width (RBC) [Ratio] 13.0 % Invalid Interpretation Code 11.5 - 14.5 % AO Workflow SS Globulin 2.6 G/dL Invalid Interpretation Code AO ADM SS Glucose [Mass/Vol] 107 mg/dL Invalid Interpretation Code 70 - 105 mg/dL AO ADM SS Hematocrit (Bld) [Volume fraction] 36.4 % Invalid Interpretation Code 37.0 - 47.0 % AO Workflow SS Hemoglobin (Bld) [Mass/Vol] 12.7 G/dL Invalid Interpretation Code 12.0 - 16.0 G/dL AO Workflow SS Lymphocyte, Absolute 1.6 103/mcL Invalid Interpretation Code 0.8 - 3.9 10^3/mcL AO Workflow SS Lymphocytes/100 WBC (Bld) 34.2 % Invali d Interpretation Code 10.0 - 50.0 % AO Workflow SS MCH (RBC) [Entitic mass] 31.0 pg Invalid Interpretation Code 27.0 - 31.2 pg AO Workflow SS MCHC 35.0 G/dL Invalid Interpretation Code 33.0 - 37.0 G/dL AO Workflow SS MCV (RBC) [Entitic vol] 88.8 fL Invalid Interpretation Code 80.0 - 94.0 fL AO Workflow SS Monocyte, Absolute 0.5 103/mcL Invalid Interpretation Code 0.2 - 1.0 10^3/mcL AO Workflow SS Monocytes/100 WBC (Bld) 10.4 % Invalid Interpretation Code 1.7 - 13.0 % AO Workflow SS Neutrophil, Absolute 2.4 103/mcL Invalid Interpretation Code 2.9 - 6.2 10^3/mcL AO Workflow SS Neutrophils/100 WBC (Bld) 50.9 % Invali d Interpretation Code 37.0 - 80.0 % AO Workflow SS Platelet mean volume (Bld) [Entitic vol] 6.7 fL Invalid Interpretation Code 7.4 - 10.4 fL AO Workflow SS Platelets (Bld) [#/Vol] 268 103/mcL Invalid Interpretation Code 130 - 400 10^3/mcL AO Workflow SS Potassium [Moles/Vol] 3.7 mmol/L Invalid Interpretation Code 3.5 - 5.1 mmol/L AO ADM SS Protein [Mass/Vol] 6.8 G/dL Invalid Interpretation Code 6.4 - 8.2 G/dL AO ADM SS RBC (Bld) [#/Vol] 4.10 106/mcL Invalid Interpretation Code 4.20 - 5.40 10^6/mcL AO Workflow SS Sodium [Moles/Vol] 144 mmol/L Invalid Interpretation Code 136 - 145 mmol/L AO ADM SS Triglyceride [Mass/Vol] 81 mg/dL Invalid Interpretation Code 0 - 150 mg/dL AO ADM SS Urea nitrogen [Mass/Vol] 12 mg/dL Invalid Interpretation Code 7 - 18 mg/dL AO ADM SS Urea nitrogen/Creatinine [Mass ratio] 15 ratio Invalid Interpretation Code 7 - 27 ratio AO ADM SS Vit. D 25-Hydroxy 42.3 ng/mL Invalid Interpretation Code AO ADM SS WBC 4.7 103/mcL Invalid Interpretation Code 4.6 - 10.8 10^3/mcL AO Workflow SS LABORATORYOrdered By: SYSTEM SYSTEM on 10-11-2021 GFR 89 ml/min/1.73sqm Invalid Interpretation Code AO Chemistry S GFR Non- 73 ml/min/1.73sqm Inval id Interpretation Code AO Chemistry S Monocyte distribution width Auto (Bld) [Entitic vol] Not Performed 1 *NA* (10/11/21 7:37 AM) Invalid Interpretation Code 0.00 - 20.00 AO Hematology S Comment on above: Result Comment: MDW testing performed only on adult ER patients between the ages of 18-89 years. LIPIDon 10-11-2021 Cholesterol [Mass/Vol] 147 mg/dL Normal 0-200 [facility] ([place] Comment on above: Result Comment: Chol esterol Reference Interval: Less than 200 Desirable 200-239 Borderline high risk 240 and above High risk Performed By: #### G FR, VIDH, LIPID, CMP #### [address] [address] Cholesterol in HDL [Mass/Vol] 55 mg/dL Normal 40-60 [facility] ([place]) Comment on above: Performed By: #### G FR, VIDH, LIPID, CMP #### [address] [address] Cholesterol in LDL [Mass/Vol] 76 mg/dL Normal 0-130 [facility] ([place]) Comment on above: Performed By: #### G FR, VIDH, LIPID, CMP #### [address] [address] Triglyceride [Mass/Vol] 81 mg/dL Normal 0-150 A [facility] ([place]) Comment on above: Result Comment: Trig lyceride Reference Interval: Less than 150 Normal 150-199 Borderline high risk 200-499 High risk 500 or higher Very high risk Performed By: #### G FR, VIDH, LIPID, CMP #### [address] [address] VIDHon 10-11-2021 Vit. D 25-Hydroxy 42.3 ng/mL Normal [facility] ([place]) Comment on above: Result Comment: Inte rpretive Values Based on Total 25(OH) Vitamin D: Deficient <20 ng/mL Insufficient 20 - <30 ng/mL Sufficient 30-100 ng/mL Performed By: #### G FR, VIDH, LIPID, CMP #### [place] [id number] [place], [place] [address] Absolute lymphocyte counton 09-30-2021 Lymphocytes Auto (Unsp spec) [#/Vol] 2.83 10*3/uL 0.83-4.51 [facility] Work Phone: Basophil percentageon 2021 Basophils/100 WBC (Bld) 1.2 % 0-1 [facility] Work Phone: Bilirubin [Mass/Vol] 0.30 mg/dL 0.20-1.00 [facility] Work Phone: Comment on above: For patients on eltr ombopag therapy, use of [place] TBIL is not recommended. Chloride [Moles/Vol] 102 mmol/L 98-107 [facility] Work Phone: Eosinophils/100 WBC (Bld) 2.5 % 0-5 [facility] Work Phone: Glucose [Mass/Vol] 92 mg/dL 74-106 [facility] Work Phone: Neutrophils (Bld) [#/Vol] 3.2 10*3/uL 2.0-7.7 [facility] Work Phone: Neutrophils/100 WBC (Bld) 46.1 % 47-70 [facility] Work Phone: Potassium [Moles/Vol] 3.3 mmol/L 3.5-5.1 [facility] Work Phone: Protein [Mass/Vol] 7.3 g/dL 6.4-8.2 [facility] Work Phone: Sodium [Moles/Vol] 137 mmol/L 136-145 [facility] Work Phone: WBC (Bld) [#/Vol] 6.9 10*3/uL 4.4-11.0 [facility] Work Phone: Blood erythrocytes count (nu mber/volume)on 09-30-2021 RBC (Bld) [#/Vol] 3.99 10*6/uL 4.2-5.4 [facility] Work Phone: Blood hemoglobin measurement (mass/volume)on 09-30-2021 Hemoglobin (Bld) [Mass/Vol] 12.4 g/dL 12.0-15.0 [facility] Work Phone: [phone] Blood lymphocytes/100 leukoc yteson 09-30-2021 Lymphocytes/100 WBC (Bld) 41.1 % 19-41 [facility] Work Phone: Blood manual differential co mment interpretation (narrative result)on 09-30-2021 Manual differential comment Salo (Bld) [Interp] SCANNED [facility] Work Phone: Blood monocytes/100 leukocyt eson 09-30-2021 Monocytes/100 WBC (Bld) 9.0 % 0-10 [facility] Work Phone: Blood platelet mean volumeon 09-30-2021 Platelet mean volume (Bld) [Entitic vol] 8.9 fL 6.2-12.0 [facility] Work Phone: Determination of erythrocyte mean corpuscular volume (MCV)on 09-30-2021 MCV (RBC) [Entitic vol] 88.7 fL 81-99 [facility] Work Phone: Hematocrit Auto (Bld) [Volum e fraction]on 09-30-2021 Hematocrit (Bld) [Volume fraction] 35.4 % 37-47 [facility] Work Phone: [phone] Laboratory - Chemistry and C hemistry - challengeon 09-30-2021 ALP [Catalytic activity/Vol] 45 U/L 45-117 [facility] Work Phone: ALT [Catalytic activity/Vol] 48 U/L 13-56 [facility] Work Phone: [phone] CO2 [Moles/Vol] 26.0 mmol/L 21.0-32.0 [facility] Work Phone: Globulin (S) [Mass/Vol] 3.3 g/dL 2.2-4.2 [facility] Work Phone: [phone] Urea nitrogen/Creatinine [Mass ratio] 22.6 mg/mg 10-20 [facility] Work Phone: [phone] Laboratory - Hematology and Cell countson 09-30-2021 Erythrocyte distribution width (RBC) [Entitic vol] 39.3 fL 35.1-43.9 [facility] Work Phone: [phone] Erythrocyte distribution width (RBC) [Ratio] 12.0 % 11.6-14.6 [facility] Work Phone: [phone] Immature granulocytes/100 WBC (Bld) 0.100 % 0.0-0.9 [facility] Work Phone: [phone] Comment on above: IG% - Immature Granu locytes (promyelocytes, myelocytes and metamyelocytes) > 1% indicates that a LEFT SHIFT is Present. MCH (RBC) [Entitic mass] 31.1 pg 27.0-32.0 [facility] Work Phone: [phone] Nucleated RBC/100 WBC (Bld) [Ratio] 0 % 0-5 [facility] Work Phone: [phone] MCHC Auto (RBC) [Mass/Vol]on 09-30-2021 MCHC (RBC) [Mass/Vol] 35.0 g/dL 32-36 [facility] Work Phone: No Panel Informationon 09-30 Estimated GFR (MDRD) Amer 101 mL/min >60 [facility] Work Phone: [phone] Comment on above: GFR Calc Estimated GFR (MDRD) Non-Af Amer 83 mL/min >60 [facility] Work Phone: [phone] Comment on above: Non- GFR Calc Platelets bldon 09-30-2021 Platelets (Bld) [#/Vol] 300 10*3/uL 150-450 [facility] Work Phone: [phone] Serum or plasma albumin david urement (mass/volume)on 09-30-2021 Albumin [Mass/Vol] 4.0 g/dL 3.2-5.0 [facility] Work Phone: Serum or plasma albumin/glob ulin mass ratioon 09-30-2021 Albumin/Globulin [Mass ratio] 1.2 {ratio} 0.9-2.4 [facility] Work Phone: Serum or plasma calcium david urement (mass/volume)on 09-30-2021 Calcium [Mass/Vol] 9.4 mg/dL 8.5-10.1 [facility] Work Phone: Serum or plasma creatinine m easurement (mass/volume)on 09-30-2021 Creatinine [Mass/Vol] 0.75 mg/dL 0.55-1.02 [facility] Work Phone: Comment on above: The validity of the calculated GFR & GFRAA in patients over 70 years has not been determined. Clinical correlation is essential. Serum or plasma urea nitroge n measurement (mass/volume)on 09-30-2021 Urea nitrogen [Mass/Vol] 17 mg/dL 11-10 [facility] Work Phone: Thin prep Papanicolaou smear with manual screeningon 09-30-2021 Thin prep Papanicolaou smear with manual screening 22 U/L 15-37 [facility] Work Phone: Thin prep Papanicolaou smear with manual screening 9 5-15 [facility] Work Phone: LABORATORYOrdered By: Pamela Valencia on 04-12-2021 Albumin BCP dye [Mass/Vol] 4.0 G/dL Inval id Interpretation Code 3.5 - 5.0 G/dL AO ADM SS Albumin/Globulin [Mass ratio] 1.3 {ratio} Invalid Interpretation Code 1.1 - 2.5 ratio AO ADM SS ALP [Catalytic activity/Vol] 51 U/L Invalid Interpretation Code 40 - 135 U/L AO ADM SS AST With P-5'-P [Catalytic activity/Vol] 22 U/L Invalid Interpretation Code 10 - 40 U/L AO ADM SS Basophil, Absolute 0.10 103/mcL Invalid Interpretation Code 0.00 - 0.19 10^3/mcL AO Auto Heme SS Basophils/100 WBC (Bld) 1.0 % Invalid Interpretation Code 0.0 - 2.5 % AO Auto Heme SS Bilirubin [Mass/Vol] 0.3 mg/dL Invalid Interpretation Code 0.2 - 1.0 mg/dL AO ADM SS Calcium [Mass/Vol] 8.8 mg/dL Invalid Interpretation Code 8.4 - 10.2 mg/dL AO ADM SS Chloride [Moles/Vol] 103 mmol/L Invalid Interpretation Code 98 - 107 mmol/L AO ADM SS Cholesterol [Mass/Vol] 158 mg/dL Invalid Interpretation Code 0 - 200 mg/dL AO ADM SS Cholesterol in HDL [Mass/Vol] 68 mg/dL Invalid Interpretation Code 40 - 60 mg/dL AO ADM SS Cholesterol in LDL [Mass/Vol] 81 mg/dL Invalid Interpretation Code 0 - 130 mg/dL AO ADM SS CO2 [Moles/Vol] 27 mmol/L Invalid Interpretation Code 22 - 29 mmol/L AO ADM SS Creatinine [Mass/Vol] 0.63 mg/dL Invalid Interpretation Code 0.55 - 1.02 mg/dL AO ADM SS Electrolyte Balance 12.0 mEq/L Invalid Interpretation Code AO ADM SS Eosinophil, Absolute 0.10 103/mcL Invalid Interpretation Code 0.00 - 0.40 10^3/mcL AO Auto Heme SS Eosinophils/100 WBC (Bld) 1.6 % Invali d Interpretation Code 0.0 - 7.0 % AO Auto Heme SS Erythrocyte distribution width (RBC) [Ratio] 13.6 % Invalid Interpretation Code 11.5 - 14.5 % AO Auto Heme SS Globulin 3.0 G/dL Invalid Interpretation Code AO ADM SS Glucose [Mass/Vol] 101 mg/dL Invalid Interpretation Code 70 - 105 mg/dL AO ADM SS Hematocrit (Bld) [Volume fraction] 38.9 % Invalid Interpretation Code 37.0 - 47.0 % AO Auto Heme SS Hemoglobin (Bld) [Mass/Vol] 13.1 G/dL Invalid Interpretation Code 12.0 - 16.0 G/dL AO Auto Heme SS Lymphocyte, Absolute 2.10 103/mcL Invalid Interpretation Code 0.77 - 3.85 10^3/mcL AO Auto Heme SS Lymphocytes/100 WBC (Bld) 39.6 % Invali d Interpretation Code 10.0 - 50.0 % AO Auto Heme SS MCH (RBC) [Entitic mass] 30.3 pg Invalid Interpretation Code 27.0 - 31.2 pg AO Auto Heme SS MCHC (RBC) [Mass/Vol] 33.8 G/dL Invalid Interpretation Code 33.0 - 37.0 G/dL AO Auto Heme SS MCV (RBC) [Entitic vol] 89.6 fL Invalid Interpretation Code 80.0 - 94.0 fL AO Auto Heme SS Monocyte, Absolute 0.40 103/mcL Invalid Interpretation Code 0.15 - 1.00 10^3/mcL AO Auto Heme SS Monocytes/100 WBC (Bld) 7.7 % Invalid Interpretation Code 1.7 - 13.0 % AO Auto Heme SS Neutrophil, Absolute 2.60 103/mcL Invalid Interpretation Code 2.85 - 6.16 10^3/mcL AO Auto Heme SS Neutrophils/100 WBC (Bld) 50.1 % Invali d Interpretation Code 37.0 - 80.0 % AO Auto Heme SS Platelet mean volume (Bld) [Entitic vol] 6.6 fL Invalid Interpretation Code 7.4 - 10.4 fL AO Auto Heme SS Platelets (Bld) [#/Vol] 315 103/mcL Invalid Interpretation Code 130 - 400 10^3/mcL AO Auto Heme SS Potassium [Moles/Vol] 4.0 mmol/L Invalid Interpretation Code 3.5 - 5.1 mmol/L AO ADM SS Protein [Mass/Vol] 7.0 G/dL Invalid Interpretation Code 6.4 - 8.2 G/dL AO ADM SS RBC (Bld) [#/Vol] 4.34 106/mcL Invalid Interpretation Code 4.20 - 5.40 10^6/mcL AO Auto Heme SS Sodium [Moles/Vol] 142 mmol/L Invalid Interpretation Code 136 - 145 mmol/L AO ADM SS Triglyceride [Mass/Vol] 46 mg/dL Invalid Interpretation Code 0 - 150 mg/dL AO ADM SS Urea nitrogen [Mass/Vol] 11 mg/dL Invalid Interpretation Code 7 - 18 mg/dL AO ADM SS Urea nitrogen/Creatinine [Mass ratio] 17 ratio Invalid Interpretation Code 7 - 27 ratio AO ADM SS Vit. D 25-Hydroxy 43.9 ng/mL Invalid Interpretation Code AO ADM SS WBC (Bld) [#/Vol] 5.30 103/mcL Invalid Interpretation Code 4.60 - 10.80 10^3/mcL AO Auto Heme SS LABORATORYOrdered By: SYSTEM SYSTEM on 04-12-2021 ALT No additional P-5'-P [Catalytic activity/Vol] 35 U/L Invalid Interpretation Code 10 - 49 U/L AH ADM SS GFR 117 ml/min/1.73sqm Invalid Interpretation Code AO Chemistry S GFR Non- 97 ml/min/1.73sqm Inval id Interpretation Code AO Chemistry S Vital Signs Date Time Vital Sign Value Performing Clinician Viky eaton 08-29-2024 11:32-0400 Body height 153.67 cm Zachery Sheldon BROADBAND TECHNICIAN-C Work Phone: [facility] 08-29-2024 11:32-0400 Body mass index (BMI) [Ratio] 24 kg/m2 Zachery Nortonpkins BROADBAND TECHNICIAN-C Work Phone: [facility] 08-29-2024 11:32-0400 Body weight 56.69 kg Zachery Izard BROADBAND TECHNICIAN-C Work Phone: [facility] 08-29-2024 11:32-0400 Diastolic blood pressure 83 mm[Hg] Zachery Izard BROADBAND TECHNICIAN-C Work Phone: [facility] 08-29-2024 11:32-0400 Heart rate 74 /min Zachery Nortonpkins BROADBAND TECHNICIAN-C Work Phone: [facility] 08-29-2024 11:32-0400 Respiratory rate 18 /min Zachery Chung BROADBAND TECHNICIAN-C Work Phone: [facility] 08-29-2024 11:32-0400 SaO2% (BldA) [Mass fraction] 95 % Zachery Nortonpkins BROADBAND TECHNICIAN-C Work Phone: [facility] 08-29-2024 11:32-0400 Systolic blood pressure 151 mm[Hg] Zachery Izard BROADBAND TECHNICIAN-C Work Phone: [facility] 06-02-2024 08:08-0500 Body height 153.67 cm Zachery Nortonpkins BROADBAND TECHNICIAN-C Work Phone: [facility] 06-02-2024 08:08-0500 Body mass index (BMI) [Ratio] 24.7 kg/m2 Zachery Sheldon BROADBAND TECHNICIAN-C Work Phone: [facility] 06-02-2024 08:08-0500 Body weight 58.51 kg Zachery Chung BROADBAND TECHNICIAN-C Work Phone: [facility] 07-29-2023 15:54-0400 Body height 153.67 cm BROADBAND TECHNICIAN-C Zachery Chung BROADBAND TECHNICIAN Work Phone: [facility] 07-29-2023 15:54-0400 Body mass index (BMI) [Ratio] 23.6 kg/m2 BROADBAND TECHNICIAN-C Zachery Chung BROADBAND TECHNICIAN Work Phone: [facility] 07-29-2023 15:54-0400 Body weight 55.79 kg BROADBAND TECHNICIAN-C Zachery Chung BROADBAND TECHNICIAN Work Phone: [facility] 07-29-2023 15:54-0400 Diastolic blood pressure 77 mm[Hg] BROADBAND TECHNICIAN-C Zachery Chung BROADBAND TECHNICIAN Work Phone: [facility] 07-29-2023 15:54-0400 Heart rate 65 /min BROADBAND TECHNICIAN-C Zachery Chung BROADBAND TECHNICIAN Work Phone: [facility] 07-29-2023 15:54-0400 Respiratory rate 16 /min BROADBAND TECHNICIAN-C Zachery Chung BROADBAND TECHNICIAN Work Phone: [facility] 07-29-2023 15:54-0400 Systolic blood pressure 122 mm[Hg] BROADBAND TECHNICIAN-C Zachery Chung BROADBAND TECHNICIAN Work Phone: [facility] 07-02-2022 15:53-0500 Body height 153.67 cm BROADBAND TECHNICIAN-C Zachery Chung BROADBAND TECHNICIAN Work Phone: [facility] 07-02-2022 15:53-0500 Body mass index (BMI) [Ratio] 32.8 kg/m2 BROADBAND TECHNICIAN-C Zachery Chung BROADBAND TECHNICIAN Work Phone: [facility] 07-02-2022 15:53-0500 Body weight 77.56 kg BROADBAND TECHNICIAN-C Zachery Chung BROADBAND TECHNICIAN Work Phone: [facility] 07-02-2022 15:53-0500 Diastolic blood pressure 84 mm[Hg] BROADBAND TECHNICIAN-C Zachery Chung BROADBAND TECHNICIAN Work Phone: [facility] 07-02-2022 15:53-0500 Heart rate 70 /min BROADBAND TECHNICIAN-C Zachery Sheldon BROADBAND TECHNICIAN Work Phone: [facility] 07-02-2022 15:53-0500 Respiratory rate 18 /min BROADBAND TECHNICIAN-C Zachery Beaverkins BROADBAND TECHNICIAN Work Phone: [facility] 07-02-2022 15:53-0500 SaO2% (BldA) [Mass fraction] 98 % BROADBAND TECHNICIAN-C Zachery Chung BROADBAND TECHNICIAN Work Phone: [facility] 07-02-2022 15:53-0500 Systolic blood pressure 129 mm[Hg] BROADBAND TECHNICIAN-C Zachery Beaverkins BROADBAND TECHNICIAN Work Phone: [facility] 07-01-2021 11:43-0500 Body height 153.67 cm BROADBAND TECHNICIAN-C Zachery Chung BROADBAND TECHNICIAN Work Phone: [facility] Work Phone: 07-01-2021 11:43-0500 Body weight 78.92 kg BROADBAND TECHNICIAN-C Zachery Chung BROADBAND TECHNICIAN Work Phone: [facility] Work Phone: 07-01-2021 11:43-0500 Diastolic blood pressure 75 mm[Hg] BROADBAND TECHNICIAN-C Zachery Chung BROADBAND TECHNICIAN Work Phone: [facility] Work Phone: 07-01-2021 11:43-0500 Heart rate 68 /min BROADBAND TECHNICIAN-C Zachery Chung BROADBAND TECHNICIAN Work Phone: [facility] Work Phone: 07-01-2021 11:43-0500 Respiratory rate 16 /min BROADBAND TECHNICIAN-C Zachery Beaverkins BROADBAND TECHNICIAN Work Phone: [facility] Work Phone: 07-01-2021 11:43-0500 SaO2% (BldA) [Mass fraction] 96 % BROADBAND TECHNICIAN-C Zachery Izard BROADBAND TECHNICIAN Work Phone: [facility] Work Phone: 07-01-2021 11:43-0500 Systolic blood pressure 128 mm[Hg] BROADBAND TECHNICIAN-C Zachery Chung BROADBAND TECHNICIAN Work Phone: [facility] Work Phone: 06-26-2020 15:10-0500 Body mass index (BMI) [Ratio] 33.4 kg/m2 BROADBAND TECHNICIAN-C Zachery Chung BROADBAND TECHNICIAN Work Phone: [facility] Work Phone: Encounters Encounter Date Encounter Type Care Provider Facility Start: 09-21-2024 End: 09-21-2024 ambulatory Zachery Chung BROADBAND TECHNICIAN-C Work Phone: [facility] Work Phone: Start: 09-21-2024 End: 09-21-2024 Patient encounter procedure Brittany Olson BROADBAND TECHNICIAN-C -[facility] Work Phone: Start: 09-21-2024 End: 09-21-2024 ambulatory Zachery Chung BROADBAND TECHNICIAN Facility:[facility] Start: 09-07-2024 End: 09-07-2024 ambulatory Zachery Chung BROADBAND TECHNICIAN-C Work Phone: [facility] Work Phone: Start: 09-07-2024 End: 09-07-2024 Patient encounter procedure Brittany Olson BROADBAND TECHNICIAN-C -[facility] Work Phone: Start: 09-07-2024 End: 09-07-2024 ambulatory Zachery Chung BROADBAND TECHNICIAN Facility:[facility] Start: 08-29-2024 End: 08-29-2024 Patient encounter procedure Brittany Olson BROADBAND TECHNICIAN-C -[place] [facility] Work Phone: Start: 08-29-2024 End: 08-29-2024 ambulatory Zachery Chung BROADBAND TECHNICIAN Facility:[facility] Start: 07-21-2024 End: 07-21-2024 ambulatory Zachery Chung BROADBAND TECHNICIAN-C Work Phone: [facility] Work Phone: Start: 07-21-2024 End: 07-21-2024 Discharged Recurring Marian NUNO -Physical Therapy Work Phone: Start: 06-29-2024 End: 06-29-2024 Patient encounter procedure Marian NUNO -[facility] Work Phone: Start: 06-29-2024 End: 06-29-2024 ambulatory Zachery Chung BROADBAND TECHNICIAN Facility:[facility] Start: 06-17-2024 End: 06-17-2024 Patient encounter procedure Marian NUNO -MRI - [facility] Work Phone: Start: 06-17-2024 End: 06-17-2024 ambulatory Zachery Chung BROADBAND TECHNICIAN Facility:[facility] Start: 06-02-2024 End: 06-02-[address] Trina Camilo MD -Laboratory, [place] Work Phone: Start: 06-02-2024 End: 06-02-2024 Patient encounter procedure Marian NUNO -[facility] Work Phone: Start: 06-02-2024 End: 06-02-2024 ambulatory Zachery Chung BROADBAND TECHNICIAN Facility:[facility] Start: 06-02-2024 End: 06-02-2024 ambulatory Zachery Chung BROADBAND TECHNICIAN Facility:[facility] Start: 05-27-2024 End: 05-27-2024 Patient encounter procedure Zachery Chung BROADBAND TECHNICIAN-C -Laboratory Work Phone: Start: 05-27-2024 End: 05-27-2024 ambulatory Zachery Chung BROADBAND TECHNICIAN Facility:[facility] Start: 12-14-2023 End: 12-14-2023 ambulatory Zachery Chung BROADBAND TECHNICIAN Facility:[facility] Start: 12-08-2023 End: 12-08-2023 ambulatory Zachery Chung BROADBAND TECHNICIAN Facility:[facility] Start: 11-20-2023 End: 11-20-2023 ambulatory Zachery Chung BROADBAND TECHNICIAN Facility:[facility] Start: 08-30-2023 Non-patient / Non-visit BROADBAND TECHNICIAN-C Lauren Chung BROADBAND TECHNICIAN Work Phone: [facility] Start: 08-30-2023 End: 08-30-2023 ambulatory BROADBAND TECHNICIAN-C Zachery Chung BROADBAND TECHNICIAN Work Phone: [facility] Work Phone: Start: 08-30-2023 End: 08-30-2023 Patient encounter procedure BROADBAND TECHNICIAN-C Zachrey Chung BROADBAND TECHNICIAN Work Phone: [facility]-Cardiovascular Services Work Phone: Start: 07-29-2023 End: 07-29-2023 Patient encounter procedure BROADBAND TECHNICIAN-C Zachery Chung BROADBAND TECHNICIAN Work Phone: [facility] Work Phone: Start: 06-18-2023 End: 06-18-2023 ambulatory [facility] Work Phone: Start: 06-18-2023 End: 06-18-2023 [facility] Start: 05-01-2023 End: 05-01-2023 ambulatory [facility] Work Phone: Start: 05-01-2023 End: 05-01-2023 Patient encounter procedure [facility]-Laboratory Work Phone: Start: 12-22-2022 End: 12-22-2022 ambulatory [facility] Work Phone: Start: 12-22-2022 End: 12-22-2022 Patient encounter procedure [facility]-Laboratory, [place] Work Phone: Start: 12-10-2022 End: 12-10-2022 ambulatory [facility] Work Phone: Start: 12-10-2022 End: 12-10-2022 Patient encounter procedure [facility]-Outpatient Breast Imaging Work Phone: Start: 10-24-2022 End: 10-24-2022 Patient encounter procedure [facility]-Laboratory Work Phone: Start: 10-12-2022 End: 10-12-2022 ambulatory BROADBAND TECHNICIAN-C Zachery Chung BROADBAND TECHNICIAN Work Phone: [facility] Work Phone: Start: 10-12-2022 End: 10-12-2022 Patient encounter procedure BROADBAND TECHNICIAN-C Zachery Chung BROADBAND TECHNICIAN Work Phone: [facility] Start: 09-17-2022 End: 09-17-2022 Patient encounter procedure BROADBAND TECHNICIAN-C Zachery Chung BROADBAND TECHNICIAN Work Phone: [facility]-Laboratory, [place] Start: 07-30-2022 Non-patient / Non-visit BROADBAND TECHNICIAN-C Lauren Chung BROADBAND TECHNICIAN Work Phone: [facility] Start: 07-30-2022 Non-patient / Non-visit BROADBAND TECHNICIAN-C Lauren Chung BROADBAND TECHNICIAN Work Phone: [facility] Start: 07-30-2022 End: 07-30-2022 ambulatory BROADBAND TECHNICIAN-C Zachery Chung BROADBAND TECHNICIAN Work Phone: [facility] Work Phone: Start: 07-30-2022 End: 07-30-2022 Patient encounter procedure BROADBAND TECHNICIAN-C Zachery Chung BROADBAND TECHNICIAN Work Phone: [facility]-Cardiovascular Services Start: 07-02-2022 End: 07-02-2022 Patient encounter procedure BROADBAND TECHNICIAN-C Zachery Chung BROADBAND TECHNICIAN Work Phone: [facility] Start: 05-15-2022 End: 05-20-2022 ambulatory MEAGAN SOTO VESSEL SLAG WORKER-[employer] BLIND MECHANIC Facility:[facility] Start: 05-15-2022 End: 05-19-2022 Outreach Lab MEAGAN SOTO VESSEL SLAG WORKER-VENETIAN BLIND MECHANIC [facility] Start: 04-24-2022 End: 04-25-2022 ambulatory ZACHERY CHUNG VESSEL SLAG WORKER - [employer]CH[employer] Facility:[facility] Start: 04-24-2022 End: 04-24-2022 Patient encounter procedure ZACHERY CHUNG VESSEL SLAG WORKER - [employer] [facility] Start: 03-23-2022 End: 03-23-2022 ambulatory [facility] Work Phone: Start: 03-23-2022 End: 03-23-2022 Patient encounter procedure [facility] Start: 11-04-2021 End: 11-04-2021 Patient encounter procedure [facility]-Outpatient Breast Imaging Start: 10-11-2021 End: 10-12-2021 ambulatory ZACHERY CHUNG VESSEL SLAG WORKER - [employer] MECHANIC Facility:[facility] Start: 10-11-2021 End: 10-11-2021 Patient encounter procedure ZACHERY CHUNG VESSEL SLAG WORKER - [employer] [facility] Start: 09-30-2021 End: 09-30-2021 Patient encounter procedure BROADBAND TECHNICIAN-Abelino Chung BROADBAND TECHNICIAN Work Phone: [facility] Start: 07-01-2021 End: 07-01-2021 Patient encounter procedure BROADBAND TECHNICIAN-Abelino Chung BROADBAND TECHNICIAN Work Phone: [facility] Start: 04-12-2021 End: 04-12-2021 Patient encounter procedure ZACHERY CHUNG VESSEL SLAG WORKER - [employer] [facility] Start: 02-03-2021 End: 02-03-2021 Patient encounter procedure ZACHERY CHUNG VESSEL SLAG WORKER - [employer]EN[employer] BLIND MECHANIC [facility] Procedures Date Procedure Procedure Detail Performing Clinician Start: 06-17-2024 MRI of cervical spine R claire Chung BROADBAND TECHNICIAN-C Work Phone: Start: 06-02-2024 Measurement of renal function Zachery Chung BROADBAND TECHNICIAN-C Work Phone: Comment on above: GFR Calc Start: 06-02-2024 X-ray of cervical spine Zachery Cuhng BROADBAND TECHNICIAN-C Work Phone: Start: 05-27-2024 Measurement of renal function Zachery Chung BROADBAND TECHNICIAN-C Work Phone: Comment on above: GFR Calc Start: 05-27-2024 Microalbuminuria measurement Zachery Chung BROADBAND TECHNICIAN-C Work Phone: Start: 05-27-2024 Urine microalbumin/creatinine ratio measurement Zachery Chung BROADBAND TECHNICIAN-C Work Phone: Start: 05-27-2024 Vitamin D, 25-hydrox y measurement Zachery Chung BROADBAND TECHNICIAN-C Work Phone: Comment on above: Vitamin D 25(OH) Sta tus Range Deficiency <20 ng/mL (50nmol/L) Insufficiency 20 - 30 ng/mL (50 - 75 nmol/L) Sufficiency 30 - 100 ng/mL (75 - 250 nmol/L) Toxicity >100 ng/mL (>250 nmol/L) Start: 12-10-2022 Screening mammography Start: 10-12-2022 Ultrasonography of abdomen BROADBAND TECHNICIAN-C Zachery Chung BROADBAND TECHNICIAN Work Phone: Start: 07-30-2022 Dual energy X-ray absorptiometry BROADBAND TECHNICIAN-C Zachery Chung BROADBAND TECHNICIAN Work Phone: Start: 11-04-2021 Screening mammography Jaw region structure (body structure) ZACHERY CHUNG VESSEL SLAG WORKER - [employer] MECHANIC Plan of Treatment Date Care Activity Detail Author Start: 06-02-2024 Patient referral [facility] Work Phone: Patient referral [facility] Work Phone: Payers Date Payer Category Payer Unknown [id number] 2023 [facility] [id number] 2021 Unknown [id number] 1960 Unknown [id number] 2.16.8 [id number] 1960 Unknown [id number] 2.16.8 [id number] 1960 Unknown [id number] 2.16.8 [id number] Unknown [id number] 2.16.8 [id number] Unknown [id number] 2.16.8 [id number] Unknown [id number] 2.16.8 [id number] Unknown [id number] 2.16.8 [id number] Unknown [id number] 2.16.8 [id number] Unknown [id number] 2.16.8 [id number] Unknown [id number] 2.16.8 [id number] Unknown [id number] 2.16.8 [id number] Unknown [id number] 2.16.8 [id number] Unknown [id number] 2.16.8 [id number] Unknown [id number] 2.16.8 [id number] Unknown [id number] 2.16.8 [id number] Unknown [id number] 2.16.8 [id number] Social History Date Type Detail Facility Tobacco Tobacco Use: E c ig. Type: Electronic Cigarettes. [facility] Start: 1960 Sex Assigned At Female A [facility] Start: 06-26-2020 End: 07-29-2023 Tobacco smoking status NHIS Unknown if ever smoked [facility] Tobacco smoking status No Smokin g Status Entered [facility] Start: 07-29-2023 Tobacco smoking stat us RIIS Ex-smoker (finding) [facility] Start: 07-21-2024 Sex Female (finding) [facility] Clinical Notes 06-02-2024 to 07-21-2024 Note Date & Type Note Facility 07-21-2024 Discharge summary [facility] 06-02-2024 Evaluation note Diagnosis Onset Date Resolution Cervical myelopathy with cervical radiculopathy acute June 02, 2024 7:54am Degenerative disc disease, cervical acute June 02 7:54am Spondylolisthesis of cervical region noneactive June 02 7:54am Degenerative disc disease, cervical acute June 29, 2024 3:20pm Cervical stenosis of spinal canal noneactive June 29, 2024 3:20pm [facility] Work Phone: [phone]) 830-352902-07-2025 Evaluation note* Diagnosis Onset Date Resolution Status Admit Date Cervical myelopathy with cervical radiculopathy acute June 02, 2024 7:54am Degenerative disc disease, cervical acute June 02 7:54am Spondylolisthesis of cervica l region noneactive June 02 7:54am Degenerative disc disease, cervical acute June 29, 2024 3:20pm Cervical stenosis of spinal canal noneactive June 29, 2024 3:20pm Essential (primary) hypertension chronic August 29, 2024 3: 18pm POTS (postural orthostatic tachycardia syndrome) chronic August 29, 2 025 3:18pm [facility] Work Phone: Dischar summary Author Aron Reyes [facility] Note Date/Time July 21, 2024 2:1 4pm [facility] [address] [place] [address] / REHABILITATION SERVICES DISCHARGE SUMMARY MR#: [id number] Acct: [id number] Name: ANALY MAYO Rep #: [id number] : 1960 63 From: Aron Reyes DPT, OCS, CSCS Referring Dr.: YAAKOV Mcdaniels Status: REG RCR Insurance: [facility] SELF PAY INSURANCE Discharge Summary D/C summary: It has been my pleasure to treat ANALY MAYO referred by YAAKOV Mcdaniels, with the diagnosis of cervical radiculopathy for a total of 8 visit(s). Discharge Date: 07/21/24 Please see the following information for a summary of their discharge status. Subjective Subjective: No numbness or tingling in over a week. Been doing exercises faithfully at home. No pain. doctor wanted to do surgery after seeing MRI but not now since she is improved. Movement is good. Life is pretty normal. Sleeping well. Injections possible in mid July. Work is close to normal. and feeling better working with small parts. Pain R arm: Pain Intensity (Out of 10): 0 FONTENOT: Pain Intensity (Out of 10): 4 Overall Improvement % Improvement: 100 Objective Objective/Function: 75 R rotation adn 72 L rotation, 80 ext. 42# R deicer inspector pneumatic strength and 60# L. UE strength otherwise 4/5 without pain. Goals Goal 1:: Full crvical AROM, 39# deicer inspector pneumatic strength R and no arm symptoms Goal Progress: Goal Met Goal 2:: Pt feel 90% better overall adn pain in scap only and 1/10 at worst Goal Progress: Goal Met Goal 3:: push button for car remote without weakness and tie shoe without awkward feeling Goal Progress: Goal Met Goal 4:: I appropriate HEP and posture/ergonomics to limit future problem Goal Progress: Goal Met Goal 5:: neck oswestry score of 4 or better Goal Progress: Goal Met Plan Plan: d/c to HEP D/C Information Discharge Comments: To continue via HEP. d/c sentence: If there are questions or concerns regarding this patient's physical therapy, please feel free to call me at [phone]. Thank you for the referral of thispatient. Sincerely, Aron Reyes, DPT, OCS, CSCS Balance/Gait/Functional tests Balance/Special Test Scores Oswestry Neck Score: 4 Improvement % Improvement: 100 <Electronically signed by Aron ROLLINST, OCS, CSCS> 07/21/24 1350 CC: BROADBAND TECHNICIANJustus Chung; YAAKOV Mcdaniels ~ EBG Signed [facility] Work Phone: Evaluation + Plan note Future Appointments Appointment Date:04/21/2021 04:00:00 PM Scheduled Provider:ZACHERY CHUNG APRN - VENETIAN BLIND MECHANIC Location:[facility] Appointment Type:PC OV Follow Up Future Scheduled Tests Laboratory* Complete Blood Count 11/28/20 * Lipid Profile 11/28/20 * Vitamin D Level 11/28/20 * Complete Metabolic Panel 11/28/20 Radiology* XR Shoulder Minimum 2 Views Left 01/31/21 [facility] Evaluation + Plan note Future Appointments Appointment Date:10/20/2021 04:00:00 PM Scheduled Provider:ZACHERY CHUNG APRN - VENETIAN BLIND MECHANIC Location:[facility] Appointment Type:PC OV Follow Up Future Scheduled Tests Laboratory* Thyroid Stimulating Hormone 10/20/21 * A1C Hemoglobin 10/20/21 * Complete Blood Count 10/20/21 * Lipid Profile 10/20/21 * Vitamin D Level 10/20/21 * Complete Metabolic Panel 10/20/21 Radiology* XR Shoulder Minimum 2 Views Left 01/31/21 [facility] Evaluation + Plan note Future Appointments Appointment Date:03/17/2021 04:00:00 PM Scheduled Provider:ZACHERY CHUNG APRN - VENETIAN BLIND MECHANIC Location:[facility] Appointment Type:PC OV Follow Up Future Scheduled Tests Laboratory* Complete Blood Count 11/28/20 * Complete Blood Count 03/16/21 * Lipid Profile 11/28/20 * Lipid Profile 03/16/21 * Vitamin D Level 11/28/20 * Vitamin D Level 03/16/21 * Complete Metabolic Panel 11/28/20 * Complete Metabolic Panel 03/16/21 Radiology* XR Shoulder Minimum 2 Views Left 01/31/21 [facility] Evaluation + Plan note Future Appointments Appointment Date:04/28/2022 04:00:00 PM Scheduled Provider:ZACHERY CHUNG APRN, CNP Location:[facility] Appointment Type:PC OV Follow Up Future Scheduled Tests Laboratory* Thyroid Stimulating Hormone 10/20/21 * A1C Hemoglobin 10/20/21 * Complete Blood Count 10/20/21 * Lipid Profile 10/20/21 * Microalbumin Level Urine 04/21/22 * Vitamin D Level 10/20/21 * Complete Metabolic Panel 10/20/21 [facility] Evaluation + Plan note Future Appointments Appointment Date:11/02/2022 04:00:00 PM Scheduled Provider:ZACHERY CHUNG APRN, CNP Location:[facility] Appointment Type: OV Follow Up Future Scheduled Tests Laboratory* Pathology Meter Inspector Request 05/15/22 * Thyroid Stimulating Hormone 10/20/21 * A1C Hemoglobin 10/20/21 * Complete Blood Count 10/20/21 * Complete Blood Count 10/26/22 * Lipid Profile 10/20/21 * Lipid Profile 10/26/22 * Microalbumin Level Urine 04/21/22 * Microalbumin Level Urine 10/26/22 * Vitamin D Level 10/20/21 * Vitamin D Level 10/26/22 * Complete Metabolic Panel 10/20/21 * Complete Metabolic Panel 10/26/22 Radiology* BD Bone Density DEXA Axial Skeleton 05/15/22 [facility] Evaluation note* Diagnosis Onset Date Resolution Status Essential (primary) hypertension chronic POTS (postural orthostatic tachycardia syndrome) chronic [facility] Work Phone: evaluation noteNo assessment information available [facility] Work Phone: Evaluation note* Diagnosis Onset Date Resolution Status Lightheadedness acute Essential (primary) hypertension chronic POTS (postural orthostatic tachycardia syndrome) [facility] Work Phone: Hospital course Narrative No data available for this section [facility] Hospital Discharge instructions No data available for this section [facility] Progress note No data available for this section [facility] Chief Complaint and Reason for Visit Chief Complaint 1 Y FU PAIN- COPY PCP Reason for Visit Essential (primary) hypertension POTS (postural orthostatic tachycardia syndrome) Chief Complaint PAIN- COPY PCP SCREENING Chief Complaint 1 Y FU LIGHT HEADEDNESS, OSTEO SCREENING Amb Documentation Reason for Visit Lightheadedness Essential (primary) hypertension POTS (postural orthostatic tachycardia syndrome) Chief Complaint 1 Y FU LIGHT HEADEDNESS, OSTEO SCREENING Amb Documentation PAIN- COPY PCP ELEVATED LIVER ENZYMES Reason for Visit Lightheadedness Essential (primary) hypertension POTS (postural orthostatic tachycardia syndrome) Chief Complaint PAIN- COPY PCP ELEVATED LIVER ENZYMES Hyperlipidemia, unspecified SCREENING Chief Complaint PAIN- COPY PCP ELEVATED LIVER ENZYMES Hyperlipidemia, unspecified SCREENING PAIN- COPY PCP Chief Complaint PAIN- COPY PCP Chief Complaint PAIN- COPY PCP 1 Y FU *needs 4pm Essential (primary) hypertension Reason for Visit Lightheadedness Essential (primary) hypertension POTS (postural orthostatic tachycardia syndrome) Chief Complaint Admit Date CERVICAL SPINE June 02, 2024 7 :54am xray room 8 June 02, 2024 8 :28am PAIN- COPY PCP June 02, 2024 9 :49am CERVICAL MYELOPATHY June 17, 2024 7:12am CERVICAL SPINE June 29, 2024 3:20 pm CERVICAL RX HERE July 21, 2024 1:3 0pm Reason for Visit Admit Date Cervical myelopathy with cervical radicu lopathy June 02, 2024 7:54am Degenerative disc disease, cervical Febr uary 2024 7:54am Spondylolisthesis of cervical region Feb ruary 2024 7:54am Degenerative disc disease, cervical [place] h 2024 3:20pm Cervical stenosis of spinal canal June 29, 2024 3:20pm Chief Complaint Admit Date CERVICAL SPINE June 02, 2024 7 :54am xray room 8 June 02, 2024 8 :28am PAIN- COPY PCP June 02, 2024 9 :49am CERVICAL MYELOPATHY June 17, 2024 7:12am CERVICAL SPINE June 29, 2024 3:20 pm CERVICAL RX HERE July 21, 2024 1:3 0pm 1 Y FU August 29, 2024 3:18pm E-ORDER September 07, 2024 3:50p m Reason for Visit Admit Date Cervical myelopathy with cervical radicu lopathy June 02, 2024 7:54am Degenerative disc disease, cervical Febr uary 2024 7:54am Spondylolisthesis of cervical region Feb ruary 2024 7:54am Degenerative disc disease, cervical [place] h 2024 3:20pm Cervical stenosis of spinal canal June 29, 2024 3:20pm Essential (primary) hypertension August 3:18pm POTS (postural orthostatic tachycardia s yndrome) August 29, 2024 3:18pm Chief Complaint Admit Date CERVICAL SPINE June 02, 2024 7 :54am xray room 8 June 02, 2024 8 :28am PAIN- COPY PCP June 02, 2024 9 :49am CERVICAL MYELOPATHY June 17, 2024 7:12am CERVICAL SPINE June 29, 2024 3:20 pm CERVICAL RX HERE July 21, 2024 1:3 0pm 1 Y FU August 29, 2024 3:18pm E-ORDER September 07, 2024 3:50p m E-ORDER September 21, 2024 4:26p m Family History No Family History Records Found Relationship Condition Age at Onset Recorded Date/T esther mother Diabetes mellitus Unknown Cardiac disease Unknown Hypertension Unknown Kidney disorder Unknown Coronary artery disease 72 father Alcohol abuse Unknown uncle Myocardial infarction 42 Summary Purpose Advance Directives No Advanced Directives Records FoundNo Advanced Directives Records Found Additional Source Comments Goals (unrecognized section and content) Goals may be documented in a n alternate section Care Team (unrecognized sect ion and content) Team Status: Active Member Role Status Dates Zachery Chung BROADBAND TECHNICIAN, BROADBAND TECHNICIAN-C Family Provider Activ e Zachery Chung BROADBAND TECHNICIAN, BROADBAND TECHNICIAN-C Primary Care Provider Active Team Status: Inactive Member Role Status Dates Zachery Chung BROADBAND TECHNICIAN, BROADBAND TECHNICIAN-C Primary Care Provider, Referring Provider Active Chris Morales BROADBAND TECHNICIAN, BROADBAND TECHNICIAN-C Attending Provider Active Team Status: Active Member Role Status Dates Zachery Cuhng BROADBAND TECHNICIAN, BROADBAND TECHNICIAN-C Primary Care Provider Active Dr. Aron Burr MD Attending Provider Active Team Status: Active Member Role Status Dates Zachery Chung BROADBAND TECHNICIAN, BROADBAND TECHNICIAN-C Primary Care Provider Active Chris Morales BROADBAND TECHNICIAN, BROADBAND TECHNICIAN-C Attending Provider Active Team Status: Inactive Member Role Status Dates Zachery Chung BROADBAND TECHNICIAN, BROADBAND TECHNICIAN-C Primary Care Provider Active Meagan Soto BROADBAND TECHNICIAN, BROADBAND TECHNICIAN-C Attending Provider, Referring Provider Active Chris Morales BROADBAND TECHNICIAN, BROADBAND TECHNICIAN-C Other Provider Active Team Status: Active Member Role Status Dates Zachery Chung BROADBAND TECHNICIAN, BROADBAND TECHNICIAN-C Primary Care Provider Active Dr. Aron Burr MD Attending Provider Active Meagan Soto BROADBAND TECHNICIAN, BROADBAND TECHNICIAN-C Referring Provider Active Team Status: Active Member Role Status Dates Zachery Chung BROADBAND TECHNICIAN, BROADBAND TECHNICIAN-C Primary Care Provider Active Dr. Trina Camilo MD Attending Provider, Referring Provider Active Team Status: Inactive Member Role Status Dates Zachery Chung BROADBAND TECHNICIAN, BROADBAND TECHNICIAN-C Primary Care Provider Active Dr. Trina Camilo MD Attending Provider, Referring Provider Active Team Status: Inactive Member Role Status Dates Zachery Chung BROADBAND TECHNICIAN, BROADBAND TECHNICIAN-C Primary Care Provider, Attending Provider, Referring Provider Active Team Status: Active Member Role Status Dates Zachery Chung BROADBAND TECHNICIAN, BROADBAND TECHNICIAN-C Primary Care Provider Active Dr. Kenneth Ayala MD Attending Provider Active Team Status: Inactive Member Role Status Dates Zachery Chung BROADBAND TECHNICIAN, BROADBAND TECHNICIAN-C Primary Care Provider Active Chris Morales BROADBAND TECHNICIAN, BROADBAND TECHNICIAN-C Attending Provider, Referring Pro vider Active Team Status: Active Member Role Status Dates Zachery Chung BROADBAND TECHNICIAN, BROADBAND TECHNICIAN-C Primary Care Provider Active Team Status: Inactive Member Role Status Dates aZchery Chung BROADBAND TECHNICIAN, BROADBAND TECHNICIAN-C Primary Care Provider Active Start: May End: May 27, 2024 Zachery Chung BROADBAND TECHNICIAN, BROADBAND TECHNICIAN-C Attending Provider Active Start: May 27, 2024 End: May 27, 2024 Zachery Chung BROADBAND TECHNICIAN, BROADBAND TECHNICIAN-C Referring Provider Active Start: May 27, 2024 End: May 27, 2024 Team Status: Inactive Member Role Status Dates Zachery Chung BROADBAND TECHNICIAN, BROADBAND TECHNICIAN-C Primary Care Provider Active Start: May End: June 02, 2024 Zachery Chung BROADBAND TECHNICIAN, BROADBAND TECHNICIAN-C Referring Provider Active Start: June 02, 2024 End: June 02, 2024 YAAKOV Mcdaniels Attending Provider Active Star t: June 02, 2024 End: June 02, 2024 Team Status: Inactive Member Role Status Dates Zachery Chung BROADBAND TECHNICIAN, BROADBAND TECHNICIAN-C Primary Care Provider Active Start: May End: June 02, 2024 Dr. Kenneth Ayala MD Attending Provider Active S tart: June 02, 2024 End: June 02, 2024 Team Status: Inactive Member Role Status Dates Zachery Chung BROADBAND TECHNICIAN, BROADBAND TECHNICIAN-C Primary Care Provider Active Start: May End: June 02, 2024 Dr. Trina Camilo MD Attending Provider Active Start: June 02, 2024 End: June 02, 2024 Dr. Trina Camilo MD Referring Provider Active Start: June 02, 2024 End: June 02, 2024 Team Status: Inactive Member Role Status Dates Zachery Chung BROADBAND TECHNICIAN, BROADBAND TECHNICIAN-C Primary Care Provider Active Start: June 172024 End: June 17, 2024 YAAKOV Mcdaniels Attending Provider Active Star t: June 17, 2024 End: June 17, 2024 YAAKOV Mcdaniels Referring Provider Active Star t: June 17, 2024 End: June 17, 2024 Team Status: Inactive Member Role Status Dates Zachery Chung BROADBAND TECHNICIAN, BROADBAND TECHNICIAN-C Primary Care Provider Active Start: June 29, 2024 End: June 29, 2024 Zachery Chung BROADBAND TECHNICIAN, BROADBAND TECHNICIAN-C Referring Provider Ac tive Start: June 29, 2024 End: June 29, 2024 YAAKOV Mcdaniels Attending Provider Active Star t: June 29, 2024 End: June 29, 2024 Team Status: Inactive Member Role Status Dates Zachery Chung BROADBAND TECHNICIAN, BROADBAND TECHNICIAN-C Primary Care Provider Active Start: July 21, 2024 End: July 21, 2024 YAAKOV Mcdaniels Attending Provider Active Star t: July 21, 2024 End: July 21, 2024 YAAKOV Mcdaniels Referring Provider Active Star t: July 21, 2024 End: July 21, 2024 Team Status: Inactive Member Role Status Dates Zachery Chung BROADBAND TECHNICIAN, BROADBAND TECHNICIAN-C Primary Care Provider Active Start: August 29, 2024 End: August 29, 2024 Zachery Chung BROADBAND TECHNICIAN, BROADBAND TECHNICIAN-C Referring Provider Ac tive Start: August 29, 2024 End: August 29, 2024 Brittany Olson BROADBAND TECHNICIAN, BROADBAND TECHNICIAN-C Attending Provider Active Start: August 29, 2024 End: August 29, 2024 Team Status: Inactive Member Role Status Dates Zachery Chung BROADBAND TECHNICIAN, BROADBAND TECHNICIAN-C Primary Care Provider Active Start: September 07, 2024 End: September 07, 2024 Brittany Olson BROADBAND TECHNICIAN, BROADBAND TECHNICIAN-C Attending Provider Active Start: September 07, 2024 End: September 07, 2024 Brittany Olson BROADBAND TECHNICIAN, BROADBAND TECHNICIAN-C Referring Provider Active Start: September 07, 2024 End: September 07, 2024 Team Status: Inactive Member Role Status Dates Zachery Chung BROADBAND TECHNICIAN, BROADBAND TECHNICIAN-C Primary Care Provider Active Start: September 21, 2024 End: September 21, 2024 Brittany Olson BROADBAND TECHNICIAN, BROADBAND TECHNICIAN-C Attending Provider Active Start: September 21, 2024 End: September 21, 2024 Brittany Olson BROADBAND TECHNICIAN, BROADBAND TECHNICIAN-C Referring Provider Active Start: September 21, 2024 End: September 21, 2024 Care Team (unrecognized sect ion and content) Care Team Personnel Name: ZACHERY CHUNG APRN - VENETIAN BLIND MECHANIC Position: P4 Advanced Practice Nurse Member Role: Primary Care Physician Address: Address: [address] [place] [address] Care Team Related Persons Name: TEDDY ANDERSEN Care Team Personnel Name: ZACHERY CHUNG VESSEL SLAG WORKER - VENETIAN BLIND MECHANIC Position: P4 Advanced Practice Nurse Member Role: Primary Care Physician Address: Address: [address] [place] [address] Care Team Related Persons Name: TEDDY ANDERSEN INFORMATION SOURCE (unrecogn ized section and content) DATE CREATED AUTHOR 06/22/2022 [facility] ([place]) DATE CREATED AUTHOR AUTHOR'Julio Cesar PLATA ATAMANDA 09/27/2024 [facility] FOR RECORDS PERTAINING TO PATIENTS WHO ARE [...] BE BASED ON THE PRIMARY CLINICAL RECORDS. [facility]. provides no warranty or guarantee of the accuracy or completeness of information in this document.
[2024-11-17 10:50] LABS: Creatinine, Urine (random) 86.80 mg/dL (28.00-217.00); Microalbumin,Random Urine < 12.0 mg/L (<20 mg/L)
[2024-11-17 10:54] LABS: AST(SGOT) 27 U/L (<=31); Alanine Aminotransfer ALT/SGPT 38 U/L (<=34); Albumin, Serum 4.5 g/dL (3.4-4.8); Alkaline Phosphatase 47 U/L (35-104); Anion Gap 12 (5-15); BUN 19 mg/dL (4-19); BUN/Creat Ratio 28.4 RATIO (10-20); Calcium,Total 9.4 mg/dL (7.6-11.0); Carbon Dioxide 24.4 mmol/L (21.0-32.0); Chloride 103 mmol/L (98-108); Cholesterol 159 mg/dL (<=200); Globulin 2.6 g/dL (2.2-4.2); Glucose 85 mg/dL (70-99); Low Density Lipoprotein Calc. 86 mg/dL; Potassium 4.2 mmol/L (3.3-5.1); Triglycerides 65 mg/dL; Very Low Density Lipoprotein 13 mg/dL (5-40); Vitamin D,25 Hydroxy 61.0 ng/mL (30-100); cholesterol:hdl ratio screen 2.65
== END | disposition home or self-care (01) ==
LOC: MTLAB 07:03
PROVIDERS: PCP Nurse Practitioner Family; Referring Provider Nurse Practitioner Family; Visit Provider Nurse Practitioner Family
DX: I10 Essential (primary) hypertension (principal); E78.5 Hyperlipidemia, unspecified; R73.01 Impaired fasting glucose; E55.9 Vitamin D deficiency, unspecified
CPT/HCPCS: 36415; 80053; 80061; 82043; 82306; 82570; 83036

== ENCOUNTER → 2024-11-27 | Outpatient (CLI) | payer OTHER, SELFPAY ==
[2024-11-27 17:43] LABS: Hematocrit 36.8 % (37-47); Hemoglobin 12.7 g/dL (12.0-15.0); Immature Granulocytes Count 0.010 X10^3/uL (0.0-0.0); Mean Corp Hgb Conc 34.5 g/dL (32-36); Mean Corpuscular Volume 92.2 fL (81-99); Mean Platelet Vol. 8.6 fl (6.2-12.0); NRBC Flagged by Analyzer 0 % (0-5); Platelet Count 260 K/mm3 (150-450); RBC Distribution Width CV 12.2 % (11.6-14.6); RBC Distribution Width SD 41.4 fl (35.1-43.9); Red Blood Count 3.99 M/mm3 (4.2-5.4); White Blood Count 6.4 K/mm3 (4.4-11.0)
[2024-11-27 18:04] LABS: AST(SGOT) 24 U/L (<=31); Alanine Aminotransfer ALT/SGPT 30 U/L (<=34); Albumin, Serum 4.6 g/dL (3.4-4.8); Alkaline Phosphatase 45 U/L (35-104); Anion Gap 12 (5-15); BUN 25 mg/dL (4-19); BUN/Creat Ratio 41.5 RATIO (10-20); Calcium,Total 9.3 mg/dL (7.6-11.0); Carbon Dioxide 23.3 mmol/L (21.0-32.0); Chloride 102 mmol/L (98-108); Globulin 2.3 g/dL (2.2-4.2); Glucose 89 mg/dL (70-99); Potassium 4.2 mmol/L (3.3-5.1)
== END | disposition home or self-care (01) ==
LOC: MTLAB 15:50
PROVIDERS: PCP Nurse Practitioner Family; Referring Provider Internal Medicine Rheumatology; Visit Provider Internal Medicine Rheumatology
DX: M06.4 Inflammatory polyarthropathy (principal); R76.8 Other specified abnormal immunological findings in serum; Z79.899 Other long term (current) drug therapy
CPT/HCPCS: 36415; 80053; 85025

== ENCOUNTER → 2024-12-22 | Outpatient (CLI) | payer OTHER, SELFPAY ==
--- NOTE | 2024-12-21 16:43 | BI_ITS ---
EXAM: SCRN MAMM (CAD)W/SUE BILAT DATE: 12/21/2024 CLINICAL HISTORY: F, Age 64 y/o , SCREENING Sister with breast cancer. TECHNIQUE: SCRN MAMM (CAD)W/SUE BILAT COMPARISON: Prior exam(s) dated December 14, 2023.. FINDINGS: TISSUE DENSITY: There are scattered areas of fibroglandular density. Bilateral Breast Mammographic Findings: No significant masses, calcifications or other abnormalities are identified. Stable 8 mm well-defined nodule with central fatty hilum in the upper-outer quadrant of the right breast suggestive of a small intramammary lymph node. No suspicious masses, areas of developing architectural distortion, or suspicious calcifications. There has been no significant interval change. BI/SCRN MAMM (CAD)W/SUE BILAT IMPRESSION: Stable bilateral screening mammogram. OVERALL FINAL ASSESSMENT BI-RADS 2: BENIGN RECOMMENDATION: Routine annual follow-up in 1 Year A letter with findings and recommendations will be mailed to the patient. Reading Location: [facility]
--- OUTSIDE RECORDS SUMMARY | 2024-12-22 07:01 | XMS RPT_ITS | CCD ---
Author Organization [facility] Inform ion Partnership [facility] Care Team Providers Care Barrel Tester And Drainer Name Role Phone [employer] - [employer] MAINTENANCE SUPERVISOR, ILAN Garay Primary Care Phys ician Sheldon WARP KNITTER, WARP KNITTER-Abelino Talbert Primary Care Pr ovider Sheldon WARP KNITTER, WARP KNITTER-C Ilan Talbert Referring Provi alba Dr. Kenneth Ayala Attending Provider [phone] CHARLES YUAN-TANIA, MEAGAN Attending Marisa springer [employer] - [employer]ILL[employer] MAINTENANCE SUPERVISOR, ILAN Garay Primary Care U navailable [employer] - [employer] MAINTENANCE SUPERVISOR, ILAN Garay Attending U navailable [employer] - [employer]ILL[employer] MAINTENANCE SUPERVISOR, ILAN D Primary Care U navailable [employer] - [employer]ILL[employer] MAINTENANCE SUPERVISOR, ILAN Garay Attending U navailable [employer] - [employer]ILL[employer] MAINTENANCE SUPERVISOR, ILAN D Primary Care U navailable Sheldon WARP KNITTER, WARP KNITTER-C Ilan Talbert Primary Care Pr ovider Sheldon WARP KNITTER, WARP KNITTER-Abelino Talbert Referring Provi alba Andrew WARP KNITTER, FANNIE-Abelino Carrion Attending Provider Dr. Aron Burr Attending Provider [phone] Charles GRECO NP-Abelino Lucas Referring Provider [phone] Sheldon WARP KNITTER, WARP KNITTER-Abelino Talbert Primary Care Pr ovider Sheldon WARP KNITTER, WARP KNITTER-Abelino Talbert Referring Provi alba Andrew WARP KNITTER, FANNIE-Abelino Carrion Attending Provider Dr. Kenneth Ayala Attending Provider Sheldon WARP KNITTER-C, Ilan Talbert Primary Care Provi alba Sheldon WARP KNITTER-C, Ilan Talbert Attending Provider Denver WARP KNITTER-C, Ilan Talbert Referring Provider Marian Pacheco Attending Provider [phone])[phone] Jamie NAPIER, Dr. Cooper Attending Provider Leslee NAPIER, Dr. Mena Attending Provider Leslee NAPIER, Dr. Mena Referring Provider Marian Pacheco Referring Provider [phone]([facility])[phone] Wesley WARP KNITTER-C, Brittany Attending Provider Olson WARP KNITTER-C, Brittany Referring Provider 1([facility])[phone] [place] WARP KNITTER-C, Ilan Talbert Primary Care Provi alba Sheldon WARP KNITTER-C, Ilan Talbert Referring Provider [place] WARP KNITTER-C, Ilan Talbert Primary Care Provi alba [place] WARP KNITTER-C, Ilan Talbert Referring Provider Sheldon WARP KNITTER-C, Ilan Talbert Attending Provider Leslee NAPIER, Dr. Mena Attending Provider Leslee NAPIER, Dr. Mena Referring Provider [place] WARP KNITTER, Ilan Talbert Primary Care Unav ailable Marian Mariee Attending Unavailable [place] WARP KNITTER, Ilan Talbert Referring Unav ailable [place] WARP KNITTER, Ilan Talbert Primary Care Unav ailable Trina Camilo Attending Unavailable Trina Camilo Referring Unavailable Sheldon WARP KNITTER, Ilan Talbert Primary Care Unav ailable [place] WARP KNITTER, Ilan Talbert Attending Unav ailable [place] WARP KNITTER, Ilan Talbert Referring Unav ailable [place] WARP KNITTER, Ilan Talbert Primary Care Unav ailable [place] WARP KNITTER, Ilan Talbert Attending Unav ailable [place] WARP KNITTER, Ilan Talbert Referring Unav ailable [place] WARP KNITTER, Ilan Talbert Primary Care Unav ailable [place] WARP KNITTER, Ilan Talbert Attending Unav ailable Sheldon WARP KNITTER, Ilan Talbert Referring Unav ailable Kenneth Ayala Attending Unavailable [place] WARP KNITTER, Ilan Talbert Primary Care Unav ailable Wesley WARP KNITTER, Brittany Referring Unavailable Sheldon WARP KNITTER, Ilan Talbert Primary Care Unav ailable Wesley WARP KNITTER, Brittany Attending Unavailable Sheldon WARP KNITTER, Ilan aTlbert Primary Care Unav ailable Marian Mariee Attending Unavailable [place] WARP KNITTER, Ilan Talbert Referring Unav ailable Wesley WARP KNITTER, Brittany Attending Unavailable Olson WARP KNITTER, Brittany Referring Unavailable [place] WARP KNITTER, Ilna Talbert Primary Care Unav ailable Sheldon WARP KNITTER, Ilan Talbert Primary Care Unav ailable Marian Mariee Attending Unavailable Marian Mariee Referring Unavailable [place] WARP KNITTER, Ilan Talbert Primary Care Unav ailable Trina Camilo Attending Unavailable Leslee, Trina Referring Unavailable [place] WARP KNITTER, Ilan Talbert Primary Care Unav ailable Marian Mariee Attending Unavailable Marian Mariee Referring Unavailable Wesley WARP KNITTER, Brittany Attending Unavailable Sheldon WARP KNITTER, Ilan Talbert Primary Care Unav ailable [place] WARP KNITTER, Ilan Talbert Referring Unav ailable Medications Current Medications Medication Drug Class(es) Dates Sig (Normalized) Sig (Original) ascorbic acid 500 mg oral tablet (2 sources) Vitamin C Start: 09-13-2020 take 1 mg by mouth once daily Vitamin C 500 mg oral tablet mg = tab(s), Oral, qDay, 0 Refill(s) Start Date: 09/13/20 Status: Ordered 24 hr desvenlafaxine 100 mg extended release oral tablet (9 sources) Serotonin and Norepinephrine Reuptake Inhibitor Start: 08-29-2024 take 1 tablet by mouth once daily Desvenlafaxine 100 mg tablet extended release 24 hr Active 100 mg PO daily August 29, 2024 12:00am Start: 04-28-2022 desvenlafaxine (as base) 100 mg oral tablet, extended release Dose : 100 mg = 1 tab(s), Oral, qDay, # 90 tab(s), 1 Refill(s), Pharmacy: [facility] ([place]), 152, cm, 04/28/22 16:14:00 EST, Height, kg, 04/28/22 16:14:00 EST, Dosing Weight Start Date: 04/28/22 Status: Ordered Start: 04-02-2022 desvenlafaxine (as base) 100 mg oral tablet, extended release Dose : 100 mg = 1 tab(s), Oral, qDay, # 90 tab(s), 1 Refill(s), Pharmacy: [facility]), 152, cm, 10/20/21 16:10:00 EDT, Height, kg, 10/20/21 16:10:00 EDT, Dosing Weight Start Date: 04/02/22 Status: Ordered Start: 05-12-2021 desvenlafaxine (as base) 100 mg oral tablet, extended release Dose : 100 mg = 1 tab(s), Oral, qDay, # 90 tab(s), 2 Refill(s), Pharmacy: [facility]), 152, cm, 04/21/21 15:53:00 EST, Height, kg, 04/21/21 15:53:00 EST, Dosing Weight Start Date: 05/12/21 Status: Ordered Start: 10-08-2020 desvenlafaxine (as base) 100 mg oral tablet, extended release Dose : 100 mg = 1 tab(s), Oral, qDay, # 90 tab(s), 2 Refill(s), Pharmacy: [facility]/pharmacy #[id number], 152.4, cm, 09/13/20 15:31:00 EDT, [...] # 7 cap(s), 1 Refill(s), Pharmacy: [facility] [address], Vitamin D deficiency, 152, cm, 10/20/21 16:10:00 EDT, Height, kg, 10/20/21 16:10:00 EDT, Dosing Weight Start Date: 10/28/21 Stop Date: 04/26/22 Status: Ordered Start: 09-13-2020 End: 06-10-2021 ergocalciferol 50,000 intl u nits (1.25 mg) oral capsule Dose : 50,000 International_Unit = 1 cap(s), Oral, every other week, # 7 cap(s), 2 Refill(s), Pharmacy: [facility]/pharmacy #[id number], Vitamin D deficiency, 152.4, cm, 09/13/20 15:31:00 EDT, Height, kg, 09/13/20 15:31:00 EDT, Dosing Weight Start Date: 09/13/20 Stop Date: 06/10/21 Status: Ordered ergocalciferol (vitamin D2) 50,000 unit tablet (18 sources) Start: 07-29-2023 take 1 tablet by mouth every month ergocalciferol (vitamin D2) 50,000 unit tablet Active 12171 UNIT PO EVERY MONTH July 29, 2023 [...] 1:00am Ergocalciferol (Vitamin D2) 50,000 unit tablet (15 sources) Start: 07-29-2023 Ergocalciferol (Vitamin D2) 50,000 unit tablet Active 38964 U PO EVERY MONTH July 29, 2023 4:00pm Start: 07-02-2022 End: 07-29-2023 Ergocalciferol (Vitamin D2) 50,000 unit tablet Discontinued U PO July 02, 2022 4:57pm July 29, 2023 4:03pm every other week Start: 06-25-2020 End: 07-02-2022 Ergocalciferol (Vitamin D2) 50,000 unit tablet Discontinued U PO June 25, 2020 1:00am July 02, 2022 4:58pm fluticasone propionate 0.05 mg/actuat metered dose nasal spray (16 sources) Corticosteroid Start: 05-12-2021 take 2 spray(s) nasal route once fluticasone 50 mcg/inh NASAL spray See Instructions, USE 2 (TWO) SPRAYS DAILY PER NOSTRIL, # 48 mL, 2 Refill(s), Pharmacy: [facility] ([place]), 152, cm, 04/21/21 15:53:00 EST, Height, kg, [...] NOSTRIL, # 48 mL, 2 Refill(s), Pharmacy: [facility]/pharmacy #[id number], 152.4, cm, 05/31/20 15:22:00 EST, Height, kg, 05/31/20 15:22:00 EST, Dosing Weight Start Date: 06/03/20 Status: Ordered Hydroxychloroquine (20 sources) Antimalarial, Antirheumatic Agent Start: 07-29-2023 take [...] Status: Ordered latanoprost 0.05 mg/ml ophthalmic solution (20 sources) Prostaglandin Analog Start: 06-25-[address] [...] Status: Ordered loratadine 10 mg oral tablet (20 sources) Start: 06-25-2020 End: 04-18-2022 take 1 [...] Start Date: 03/07/20 Status: Ordered Multivitamin tablet (5 sources) Start: 06-25-2020 Multivitamin tablet Active 1 {tbl} PO DAILY June 25, 2020 1:00am naproxen 250 mg oral tablet (5 sources) Nonsteroidal Anti-inflammatory Drug Start: 01-20-2021 take 1 mg by mouth twice daily naproxen 250 mg oral tablet mg = tab(s), Oral, BID, 0 Refill(s) Start Date: 01/20/21 Status: Ordered omeprazole 40 mg delayed release oral capsule (20 sources) Proton Pump Inhibitor Start: 06-25-2020 End: 10-25-2022 take 1 capsule by mouth once daily Omeprazole 40 mg capsule,delayed release(DR/EC) Active 40 mg PO DAILY June 25, 2020 1:00am Probiotic (5 sources) Start: 09-13-2020 Probiotic 0 Refill(s) Start Date: 09/13/20 Status: Ordered psyllium 400 mg oral capsule (5 sources) Start: 08-29-2024 Psyllium Husk (Metamucil) 0.4 gram capsule Active 0.4 g PO ONCE as needed August 29, 2024 12:00am Start: 04-28-2022 Metamucil Oral , 0 Refill(s) Start Date: 04/28/22 Status: Ordered rosuvastatin calcium 10 mg oral tablet (6 sources) HMG-CoA Reductase Inhibitor Start: 07-29-2023 take 1 tablet by mouth once daily Rosuvastatin 10 mg tablet Active 10 mg PO DAILY July 29, 2023 12:00am spironolactone 25 mg oral tablet (4 sources) Aldosterone Antagonist Start: 09-08-2024 Spironolactone 25 mg tablet Active 12.5 mg PO daily 10 03September 08, 2024 12:00am tiZANidine 6 mg oral capsule (20 sources) Central alpha-2 Adrenergic Agonist Start: 06-02-2024 [...] 4:02pm traMADol hydrochloride 50 mg oral tablet (16 sources) Opioid Agonist Start: 07-02-2022 take 1 [...] Refill(s) Start Date: 09/13/20 Status: Ordered Zinc (20 sources) Start: 06-25-2020 take 50 mg by [...] sodium 100 mg extended release oral tablet (5 sources) Nonsteroidal Anti-inflammatory Drug Start: 06-02-2024 End: 06-29-2024 take 1 tablet by mouth once daily Diclofenac Sodium 100 mg tablet extended release 24 hr Discontinued 100 mg PO daily June 02, 2024 1:00am June 29, 2024 4:23pm DULoxetine 60 mg delayed release oral capsule (15 sources) Serotonin and Norepinephrine Reuptake Inhibitor Start: 06-25-2020 End: 06-02-2024 take 1 capsule by mouth once daily Duloxetine 60 mg capsule,delayed release(DR/EC) Discontinued 60 mg PO DAILY June 25, 2020 1:00am June 02, 2024 9:12am ferrous gluconate 240 mg oral tablet (20 sources) Start: 06-25-2020 End: 07-29-2023 take 1 [...] mg tablet Discontinued 25 mg PO DAILY 25 03August 29, 2024 12:00am September 08, 2024 11:28am [...] 2021 5:18pm meloxicam 15 mg oral tablet (15 sources) Nonsteroidal Anti-inflammatory Drug Start: 07-01-2021 End: [...] 2023 10:21am April 07, 2024 12:00pm Tiotropium-Olodaterol (15 sources) Anticholinergic, beta2-Adrenergic Agonist Start: 06-25-2020 End: [...] 2021 5:13pm ramipril 2.5 mg oral capsule (15 sources) Angiotensin Converting Enzyme Inhibitor Start: 06-25-2020 End: 06-26-2020 take 1 capsule by mouth once daily Ramipril 2.5 mg capsule Discontinued 2.5 mg PO DAILY June 25, 2020 1:00am June 26, 2020 5:30pm simvastatin 80 mg oral tablet (19 sources) HMG-CoA Reductase Inhibitor Start: 06-25-2020 End: 07-29-2023 take 1 tablet by mouth at bedtime Simvastatin 80 mg tablet Discontinued 80 mg PO AT BEDTIME June 25, 2020 1:00am July 29, 2023 4:01pm Triamcinolone Acetonide 55 mcg/actuation aerosol (5 sources) Start: 06-25-2020 End: 06-26-2020 Triamcinolone Acetonide [...] Date Documented Da te Episodic/Chronic Cardiac dysrhythmias (20 sources) Postural orthostatic tachycardia syndrome ; Translations: [Other specified cardiac arrhythmias] Chronic Cardiac dysrhythmias (15 sources) Intermittent palpitations; Translations: [Palpitations] 06-25-2020 Episodic Conditions associated with dizziness or vertigo (15 sources) Lightheadedness; Translations: [Dizziness and giddiness] 07-02-2022 Episodic Congestive heart failure; nonhypertensive (5 sources) Diastolic dysfunction 05-31-2020 Chronic Diabetes mellitus without complication (5 sources) Impaired fasting glycemia 01-20-2019 Episodic Disorders of lipid metabolism (20 sources) Hyperlipidemia; Translations: [Hyperlipidemia, unspecified] 01-20-2019 Chronic Esophageal disorders (5 sources) Gastroesophageal reflux disease 03-07-2020 Chronic Essential hypertension (20 sources) Hypertensive disorder; Translations: [Essential hypertension] Onset: 5 01-20-2019 Chronic Headache; including migraine (5 sources) [...] constipation 01-20-2019 Episodic Other nervous system disorders (8 sources) Cervical myelopathy; Translations: [Disease of spinal cord, unspecified] 06-02-2024 Chronic Other nervous system disorders (1 source) Disease of spinal cord, unspecified; Translations: [Disease of spinal cord, unspecified] Onset: 5 Chronic Other nutritional; endocrine; and metabolic disorders (15 sources) Obesity; Translations: [Obesity, unspecified] 07-01-2021 Chronic Other screening for suspected conditions (not mental disorders or infectious disease) (3 sources) Encounter for screening for malignant neoplasm of cervix; Translations: [Encounter for screening mammogram for malignant neoplasm of breast] Onset: 3 Episodic Other upper respiratory disease (5 sources) Seasonal allergy 05-31-2020 Chronic Residual codes; unclassified (5 sources) Increased body mass index 08-25-2019 Episodic Residual codes; unclassified (5 sources) Postmenopausal state 01-23-2019 Episodic Rheumatoid arthritis and related disease (1 source) Inflammatory polyarthropathy; Translations: [Inflammatory polyarthropathy] Onset: 5 Chronic Screening and history of mental health and substance abuse codes (2 sources) Tobacco use and exposure - finding 10-20-2021 Chronic Spondylosis; intervertebral disc disorders; other back problems (11 sources) Degeneration of cervical intervertebral disc; Translations: [Other cervical disc degeneration, unspecified cervical region] 06-02-2024 Chronic Unclassified (5 sources) History of SARS-CoV-2 05-30-2020 Unclassified (12 sources) Patient encounter status 01-23-2019 Unclassified (6 sources) G95.9 - Disease of spinal cord, unspecified,M54.12 - Radiculopathy, cervical region Past or Other Problems Problem Classification Problem Date Documented Da te Episodic/Chronic Spondylosis; intervertebral disc disorders; other back problems (10 sources) Chronic neck pain; Translations: [Spinal stenosis in cervical region] Onset: 06-02-2024 01-23-2019 Episodic Viral infection (15 sources) COVID-19; Translations: [Severe acute respiratory syndrome coronavirus 2 (SARS-CoV-2) detected] Onset: 04-10-2020 07-01-2021 Episodic Results Test Name Value Interpretation Reference Range Facility Absolute lymphocyte countOrd ered By: Trina Camilo on 2024 Lymphocytes Auto (Unsp spec) [#/Vol] 2.50 10*3/uL 0.83-4.51 [facility] Absolute neutrophil countOrd ered By: Trina Camilo on 2024 Neutrophils (Bld) [#/Vol] 2.8 10*3/uL 2.0-7.7 [facility] Anion gap in Serum or Plasma Ordered By: Trina Camilo on 2024 Anion gap [Moles/Vol] 12 mmol/L 5-15 [facility] Automated lymphocyte count a s percentage of total leukocytesOrdered By: Trina Camilo on 2024 Lymphocytes/100 WBC Auto (Unsp spec) 39.4 % 19-41 [facility] BUN/creatinine ratioOrdered By: Trina Camilo on 2024 Urea nitrogen/Creatinine [Mass ratio] 41.5 mg/mg High 10-20 [facility] Basophil percentageOrdered B y: Trina Camilo on 2024 Basophils/100 WBC (Bld) 1.3 % High 0-1 [facility] Bilirubin, totalOrdered By: Trina Camilo on 2024 Bilirubin [Mass/Vol] 0.26 mg/dL 0.00-1.30 [facility] CBC W/Diff, Automatedon Absolute Lymph 2.50 X10 3/uL Normal 0.83-4.51 [facility] Comment on above: Performed By: #### L 500.4050, L100.0100 #### [facility] [address] [place], [address] Absolute Neut 2.8 X10 3/uL Normal 2.0-7.7 [facility] Comment on above: Performed By: #### L [id number], L100.0100 #### [facility] [address] [place], [address] Basophils/100 WBC (Bld) 1.3 % High 0-1 [facility] Comment on above: Performed By: #### L [id number], L100.0100 #### [facility] [address] [place], [address] Eosinophils/100 WBC (Bld) 5.8 % High 0-5 [facility] Comment on above: Performed By: #### L [id number], L100.0100 #### [facility] [address] [place], [address] Erythrocyte distribution width (RBC) [Ratio] 12.2 % Normal 11.6-14.6 [facility] Comment on above: Performed By: #### L 500.4050, L100.0100 #### [facility] [address] [place], [address] Hematocrit (Bld) [Volume fraction] 36.8 % Low 37-47 [facility] Comment on above: Performed By: #### L 500.4050, L100.0100 #### [facility] [address] [place], [address] Hemoglobin (Bld) [Mass/Vol] 12.7 g/dL Normal 12.0-15.0 [facility] Comment on above: Performed By: #### L 500.4050, L100.0100 #### [facility] [address] [place], [address] IG% 0.200 Normal 0.0-0.9 [facility] Comment on above: Result Comment: IG% - Immature Granulocytes (promyelocytes, myelocytes and metamyelocytes) > 1% indicates that a LEFT SHIFT is Present. Performed By: #### L 500.4050, L100.0100 #### [facility] [address] [place], [address] Lymphocytes/100 WBC (Bld) 39.4 % Normal 19-41 [facility] Comment on above: Performed By: #### L [id number], L100.0100 #### [facility] [address] [place], [address] MCH (RBC) [Entitic mass] 31.8 pg Normal 27.0-32.0 [facility] Comment on above: Performed By: #### L [id number], L100.0100 #### [facility] [address] [place], [address] MCHC (RBC) [Mass/Vol] 34.5 g/dL Normal 32-36 [facility] Comment on above: Performed By: #### L [id number], L100.0100 #### [facility] [address] [place], [address] MCV (RBC) [Entitic vol] 92.2 fL Normal 81-99 [facility] Comment on above: Performed By: #### L [id number], L100.0100 #### [facility] [address] [place], [address] Monocytes/100 WBC (Bld) 9.1 % Normal 0-10 [facility] Comment on above: Performed By: #### L [id number], L100.0100 #### [facility] [address] [place], [address] Neutrophils/100 WBC (Bld) 44.2 % Low 47-70 [facility] Comment on above: Performed By: #### L 500.4050, L100.0100 #### [facility] [address] [place], [address] Nucleated RBC (Bld) [#/Vol] 0 10*3/uL Normal 0-5 [facility] Comment on above: Performed By: #### L 500.4050, L100.0100 #### [facility] [address] [place], [address] Platelet mean volume (Bld) [Entitic vol] 8.6 fL Normal 6.2-12.0 [facility] Comment on above: Performed By: #### L 500.4050, L100.0100 #### [facility] [address] [place], [address] Platelets (Bld) [#/Vol] 260 10*3/uL Normal 150-450 [facility] Comment on above: Performed By: #### L 500.4050, L100.0100 #### [facility] [address] [place], [address] RBC (Bld) [#/Vol] 3.99 10*6/uL Low 4.2-5.4 [facility] Comment on above: Performed By: #### L [id number], L100.0100 #### [facility] [address] [place], [address] RDW SD 41.4 fl Normal 35.1-43.9 [facility] Comment on above: Performed By: #### L 500.4050, L100.0100 #### [facility] [address] [place], [address] WBC (Bld) [#/Vol] 6.4 10*3/uL Normal 4.4-11.0 [facility] Comment on above: Performed By: #### L 500.4050, L100.0100 #### [facility] [address] [place], [address] Carbon dioxide, total [Moles /volume] in Central venous bloodOrdered By: Trina Camilo on 2024 CO2 [Moles/Vol] 23.3 mmol/L 21.0-32.0 [facility] Chloride assayOrdered By: Elio Camilo on 2024 Chloride [Moles/Vol] 102 mmol/L 98-108 [facility] Comprehensive Metabolic Prof ilon 2024 Albumin [Mass/Vol] 4.6 g/dL Normal 3.4-4.8 [facility] Comment on above: Performed By: #### L 500.4050, L100.0100 ####[facility] [address] [place], [address] Albumin/Globulin [Mass ratio] 2.0 {ratio} Normal 0.9-2.4 [facility] Comment on above: Performed By: #### L 500.4050, L100.0100 ####[facility] [address] [place], [address] ALK PHOS 45 U/L Normal 35-104 [facility] Comment on above: Performed By: #### L 500.4050, L100.0100 ####[facility] [address] [place], [address] ALT [Catalytic activity/Vol] 30 U/L Normal <=34 [facility] Comment on above: Performed By: #### L 500.4050, L100.0100 ####[facility] [address] [place], [address] AST [Catalytic activity/Vol] 24 U/L Normal <=31 [facility] Comment on above: Performed By: #### L 500.4050, L100.0100 ####[facility] [address] [place], [address] Bilirubin [Mass/Vol] 0.26 mg/dL Normal 0.00-1.30 [facility] Comment on above: Performed By: #### L 500.4050, L100.0100 ####[facility] [address] [place], [address] BUN/CRE 41.5 RATIO High 10-20 [facility] Comment on above: Performed By: #### L 500.4050, L100.0100 ####[facility] [address] [place], [address] Calcium [Mass/Vol] 9.3 mg/dL Normal 7.6-11.0 [facility] Comment on above: Performed By: #### L 500.4050, L100.0100 ####[facility] [address] [place], [address] Chloride [Moles/Vol] 102 mmol/L Normal 98-108 [facility] Comment on above: Performed By: #### L 500.4050, L100.0100 ####[facility] [address] [place], [address] CO2 [Moles/Vol] 23.3 mmol/L Normal 21.0-32.0 [facility] Comment on above: Performed By: #### L 500.4050, L100.0100 ####[facility] [address] [place], [address] Creatinine [Mass/Vol] 0.61 mg/dL Low 0.70-1.20 [facility] Comment on above: Performed By: #### L 500.4050, L100.0100 ####[facility] [address] [place], [address] GAP 12 Normal 5-15 [facility] Comment on above: Performed By: #### L 500.4050, L100.0100 ####[facility] [address] [place], [address] GFR/1.73 sq M.predicted among non-blacks MDRD (S/P/Bld) [Vol rate/Area] 100 mL/min/{1.73_m2} Normal >60 [facility] Comment on above: Result Comment: mL/m in/1.73m2 CKD-EPI Creatinine Equation (2020) Performed By: #### L 500.4050, L100.0100 ####[facility] [address] [place], [address] Globulin (S) [Mass/Vol] 2.3 g/dL Normal 2.2-4.2 [facility] Comment on above: Performed By: #### L 500.4050, L100.0100 ####[facility] [address] [place], [address] Glucose [Mass/Vol] 89 mg/dL Normal 70-99 [facility] Comment on above: Performed By: #### L 500.4050, L100.0100 ####[facility] [address] [place], [address] Potassium [Moles/Vol] 4.2 mmol/L Normal 3.3-5.1 [facility] Comment on above: Performed By: #### L 500.4050, L100.0100 ####[facility] [address] [place], [address] Sodium [Moles/Vol] 138 mmol/L Normal 133-145 [facility] Comment on above: Performed By: #### L 500.4050, L100.0100 ####[facility] [address] [place], [address] T PROT 6.9 g/dL Normal 5.9-8.4 [facility] Comment on above: Performed By: #### L 500.4050, L100.0100 ####[facility] [address] [place], [address] Urea nitrogen [Mass/Vol] 25 mg/dL High 4-19 [facility] Comment on above: Performed By: #### L 500.4050, L100.0100 ####[facility] [address] [place], [address] Eosinophil percentageOrdered By: Trina Camilo on 2024 Eosinophils/100 WBC (Bld) 5.8 % High 0-5 [facility] Erythrocyte distribution wid th ratioOrdered By: Trina Caimlo on 2024 Erythrocyte distribution width (RBC) [Ratio] 12.2 % 11.6-14.6 [facility] Erythrocyte distribution wid th standard deviationOrdered By: Trina Camilo on 2024 Erythrocyte distribution width (RBC) [Ratio] 41.4 fl 35.1-43.9 [facility] Glomerular filtration rate ( GFR) estimation/1.73 sq m using serum, plasma, or whole bOrdered By: Trina Camilo on 2024 GFR/1.73 sq M.predicted among non-blacks MDRD (S/P/Bld) [Vol rate/Area] 100 mL/min/{1.73_m2} >60 [facility] Comment on above: mL/min/1.73m2 CKD-EP I Creatinine Equation (2020) Hematocrit Auto (Bld) [Volum e fraction]Ordered By: Trina Camilo on 2024 Hematocrit (Bld) [Volume fraction] 36.8 % Low 37-47 [facility] Hemoglobin measurementOrdere d By: Trina Camilo on 2024 Hemoglobin (Bld) [Mass/Vol] 12.7 g/dL 12.0-15.0 [facility] Immature granulocytes/100 WB C Auto (Bld)Ordered By: Trina Camilo on 2024 Immature granulocytes/100 WBC (Bld) 0.200 % 0.0-0.9 [facility] Comment on above: IG% - Immature Granu locytes (promyelocytes, myelocytes and metamyelocytes) > 1% indicates that a LEFT SHIFT is Present. Laboratory - Chemistry and C hemistry - challengeOrdered By: Trina Camilo on 2024 AST [Catalytic activity/Vol] 24 U/L <32 [facility] MCV (mean corpuscular volume ) determinationOrdered By: Trina Camilo on 2024 MCV (RBC) [Entitic vol] 92.2 fL 81-99 [facility] Mean corpuscular hemoglobin (MCH) determinationOrdered By: Trina Camilo on 2024 MCH (RBC) [Entitic mass] 31.8 pg 27.0-32.0 [facility] Mean corpuscular hemoglobin concentration (MCHC) determinationOrdered By: Trina Camilo on 2024 MCHC (RBC) [Mass/Vol] 34.5 g/dL 32-36 [facility] Mean platelet volume determi nationOrdered By: Trina Camilo on 2024 Platelet mean volume (Bld) [Entitic vol] 8.6 fL 6.2-12.0 [facility] Monocyte percentageOrdered B y: Trina Camilo on 2024 Monocytes/100 WBC (Bld) 9.1 % 0-10 [facility] Neutrophil percentageOrdered By: Trina Camilo on 2024 Neutrophils/100 WBC (Bld) 44.2 % Low 47-70 [facility] Nucleated red blood cell per centageOrdered By: Trina Camilo on 2024 Nucleated RBC/100 WBC (Bld) [Ratio] 0 % 0-5 [facility] Platelet countOrdered By: Elio Camilo on 2024 Platelets (Bld) [#/Vol] 260 10*3/uL 150-450 [facility] Potassium measurement (mass/ volume)Ordered By: Trina Camilo on 2024 Potassium (Unsp spec) [Mass/Vol] 4.2 mmol/L 3.3-5.1 [facility] RBC Auto (Bld) [#/Vol]Ordere d By: Trina Camilo on 2024 RBC (Bld) [#/Vol] 3.99 10*6/uL Low 4.2-5.4 [facility] Serum creatinine measurement (mass/volume)Ordered By: Trina Camilo on 2024 Creatinine [Mass/Vol] 0.61 mg/dL Low 0.70-1.20 [facility] Serum globulin measurementOr dered By: Trina Camilo on 2024 Globulin (S) [Mass/Vol] 2.3 g/dL 2.2-4.2 [facility] Serum glucose measurement (m ass/volume)Ordered By: Trina Camilo on 2024 Glucose [Mass/Vol] 89 mg/dL 70-99 [facility] Serum or plasma alanine avila otransferase (ALT) measurementOrdered By: Trina Camilo on 2024 ALT [Catalytic activity/Vol] 30 U/L <35 [facility] Serum or plasma albumin david urement (mass/volume)Ordered By: Trina Camilo on 2024 Albumin [Mass/Vol] 4.6 g/dL 3.4-4.8 [facility] Serum or plasma albumin/glob ulin mass ratioOrdered By: Trina Camilo 2024 Albumin/Globulin [Mass ratio] 2.0 {ratio} 0.9-2.4 [facility] Serum or plasma alkaline dmitry sphatase measurementOrdered By: Trina Camilo 2024 ALP [Catalytic activity/Vol] 45 U/L 35-104 [facility] Serum or plasma calcium david urement (mass/volume)Ordered By: Trina Camilo on 2024 Calcium [Mass/Vol] 9.3 mg/dL 7.6-11.0 [facility] Serum or plasma urea nitroge n measurement (mass/volume)Ordered By: Trina Camilo on 2024 Urea nitrogen [Mass/Vol] 25 mg/dL High 4-19 [facility] Sodium levelOrdered By: Ayla Camilo on 2024 Sodium [Moles/Vol] 138 mmol/L 133-145 [facility] Total proteinOrdered By: Emily Camilo on 2024 Protein [Mass/Vol] 6.9 g/dL 5.9-8.4 [facility] White blood cell (WBC) count Ordered By: Trina Camilo on 2024 WBC (Bld) [#/Vol] 6.4 10*3/uL 4.4-11.0 [facility] Anion gap in Serum or Plasma Ordered By: Ilan Chung on 11-17-2024 Anion gap [Moles/Vol] 12 mmol/L 5-15 [facility] BUN/creatinine ratioOrdered By: Ilan Chung on 11-17-2024 Urea nitrogen/Creatinine [Mass ratio] 28.4 mg/mg High 10-20 [facility] Bilirubin, totalOrdered By: Ilan Chung on 11-17-2024 Bilirubin [Mass/Vol] 0.35 mg/dL 0.00-1.30 [facility] Calculated very low density lipoprotein (VLDL) cholesterol measurementOrdered By: Ilan Chung on 11-17-2024 Calculated very low density lipoprotein (VLDL) cholesterol measurement 13 mg/dL 5-40 [facility] Carbon dioxide, total [Moles /volume] in Central venous bloodOrdered By: Ilan Chung on 11-17-2024 CO2 [Moles/Vol] 24.4 mmol/L 21.0-32.0 [facility] Chloride assayOrdered By: Kassy Chung on 11-17-2024 Chloride [Moles/Vol] 103 mmol/L 98-108 [facility] Comprehensive Metabolic Prof ilon 11-17-2024 Albumin [Mass/Vol] 4.5 g/dL Normal 3.4-4.8 [facility] Comment on above: Order Comment: FAX R ESULTS TO [phone] Performed By: #### L 501.0469, L506.1001, L500.4100, L502.0250, L500.4050 #### [facility] [address] [place], [address] Albumin/Globulin [Mass ratio] 1.7 {ratio} Normal 0.9-2.4 [facility] Comment on above: Order Comment: FAX R ESULTS TO [phone] Performed By: #### L 501.9985, L506.1001, L500.4100, L502.0250, L500.4050 #### [facility] [address] [place], [address] ALK PHOS 47 U/L Normal 35-104 [facility] Comment on above: Order Comment: FAX R ESULTS TO [phone] Performed By: #### L 501.9985, L506.1001, L500.4100, L502.0250, L500.4050 #### [facility] [address] [place], [address] ALT [Catalytic activity/Vol] 38 U/L High <=34 [facility] Comment on above: Order Comment: FAX R ESULTS TO [phone] Performed By: #### L 501.9985, L506.1001, L500.4100, L502.0250, L500.4050 #### [facility] [address] [place], [address] AST [Catalytic activity/Vol] 27 U/L Normal <=31 [facility] Comment on above: Order Comment: FAX R ESULTS TO [phone] Performed By: #### L 501.9985, L506.1001, L500.4100, L502.0250, L500.4050 #### [facility] [address] [place], [address] Bilirubin [Mass/Vol] 0.35 mg/dL Normal 0.00-1.30 [facility] Comment on above: Order Comment: FAX R ESULTS TO [phone] Performed By: #### L 501.9985, L506.1001, L500.4100, L502.0250, L500.4050 #### [facility] [address] [place], [address] BUN/CRE 28.4 RATIO High 10-20 [facility] Comment on above: Order Comment: FAX R ESULTS TO [phone] Performed By: #### L 501.9985, L506.1001, L500.4100, L502.0250, L500.4050 #### [facility] [address] [place], [address] Calcium [Mass/Vol] 9.4 mg/dL Normal 7.6-11.0 [facility] Comment on above: Order Comment: FAX R ESULTS TO [phone] Performed By: #### L 501.9985, L506.1001, L500.4100, L502.0250, L500.4050 #### [facility] [address] [place], [address] Chloride [Moles/Vol] 103 mmol/L Normal 98-108 [facility] Comment on above: Order Comment: FAX R ESULTS TO [phone] Performed By: #### L 501.9985, L506.1001, L500.4100, L502.0250, L500.4050 #### [facility] [address] [place], [address] CO2 [Moles/Vol] 24.4 mmol/L Normal 21.0-32.0 [facility] Comment on above: Order Comment: FAX R ESULTS TO [phone] Performed By: #### L 501.9985, L506.1001, L500.4100, L502.0250, L500.4050 #### [facility] [address] [place], [address] Creatinine [Mass/Vol] 0.68 mg/dL Low 0.70-1.20 [facility] Comment on above: Order Comment: FAX R ESULTS TO [phone] Performed By: #### L 501.9985, L506.1001, L500.4100, L502.0250, L500.4050 #### [facility] [address] [place], [address] GAP 12 Normal 5-15 [facility] Comment on above: Order Comment: FAX R ESULTS TO [phone] Performed By: #### L 501.9985, L506.1001, L500.4100, L502.0250, L500.4050 #### [facility] [address] [place], [place], [id number] (156) GFR/1.73 sq M.predicted among non-blacks MDRD (S/P/Bld) [Vol rate/Area] 98 mL/min/{1.73_m2} Normal >60 [facility] Comment on above: Order Comment: FAX R ESULTS TO [phone] Result Comment: mL/m in/1.73m2 CKD-EPI Creatinine Equation (2020) Performed By: #### L 501.9985, L506.1001, L500.4100, L502.0250, L500.4050 #### [facility] [address] [place], [address] Globulin (S) [Mass/Vol] 2.6 g/dL Normal 2.2-4.2 [facility] Comment on above: Order Comment: FAX R ESULTS TO [phone] Performed By: #### L 501.9985, L506.1001, L500.4100, L502.0250, L500.4050 #### [facility] [address] [place], [address] Glucose [Mass/Vol] 85 mg/dL Normal 70-99 [facility] Comment on above: Order Comment: FAX R ESULTS TO [phone] Performed By: #### L 501.9985, L506.1001, L500.4100, L502.0250, L500.4050 #### [facility] [address] [place], [address] Potassium [Moles/Vol] 4.2 mmol/L Normal 3.3-5.1 [facility] Comment on above: Order Comment: FAX R ESULTS TO [phone] Performed By: #### L 501.9985, L506.1001, L500.4100, L502.0250, L500.4050 #### [facility] [address] [place], [address] Sodium [Moles/Vol] 139 mmol/L Normal 133-145 [facility] Comment on above: Order Comment: FAX R ESULTS TO [phone] Performed By: #### L 501.9985, L506.1001, L500.4100, L502.0250, L500.4050 #### [facility] [address] [place], [address] T PROT 7.1 g/dL Normal 5.9-8.4 [facility] Comment on above: Order Comment: FAX R ESULTS TO [phone] Performed By: #### L 501.9985, L506.1001, L500.4100, L502.0250, L500.4050 #### [facility] [address] [place], [address] Urea nitrogen [Mass/Vol] 19 mg/dL Normal 4-19 [facility] Comment on above: Order Comment: FAX R ESULTS TO [phone] Performed By: #### L 501.9985, L506.1001, L500.4100, L502.0250, L500.4050 #### [facility] [address] [place], [place], [address] Glomerular filtration rate ( GFR) estimation/1.73 sq m using serum, plasma, or whole bOrdered By: Ilan Chung on 11-17-2024 GFR/1.73 sq M.predicted among non-blacks MDRD (S/P/Bld) [Vol rate/Area] 98 mL/min/{1.73_m2} >60 [facility] Comment on above: mL/min/1.73m2 CKD-EP I Creatinine Equation (2020) Hemoglobin A1con 11-17-2024 HbA1c (Bld) [Mass fraction] 5.3 % Normal <=5.6 [facility] Comment on above: Result Comment: Norm al < 5.7 % Prediabetic 5.7 - 6.4 % Diabetic >or= 6.5 % Please note range changes. Performed By: #### L 501.9985, L506.1001, L500.4100, L502.0250, L500.4050 #### [facility] [address] [place], [place], [address] Hemoglobin A1c percentageOrd ered By: Ilan Chung on 11-17-2024 HbA1c (Bld) [Mass fraction] 5.3 % <5.7 [facility] Comment on above: Normal < 5.7 % Predi abetic 5.7 - 6.4 % Diabetic >or= 6.5 % Please note range changes. LDL calc ser/plasOrdered By: Ilan Chung on 11-17-2024 Cholesterol in LDL [Mass/Vol] 86 mg/dL [facility] Comment on above: Zbvkuwyulm=592-528 m g/dL & Higher Xmve=162 mg/dL or greater Laboratory - Chemistry and C hemistry - challengeOrdered By: Ilan Chung on 11-17-2024 AST [Catalytic activity/Vol] 27 U/L <32 [facility] Lipid Profileon 11-17-2024 CHOL:HDL 2.65 Normal [facility] Comment on above: Order Comment: FAX R ESULTS TO [phone] Performed By: #### L 501.9985, L506.1001, L500.4100, L502.0250, L500.4050 #### [facility] [address] [place], [address] Cholesterol [Mass/Vol] 159 mg/dL Normal <=200 [facility] Comment on above: Order Comment: FAX R ESULTS TO [phone] Result Comment: Chol esterol level, Desirable <200 mg/dL Borderline high cholesterol 200-239 mg/dL High cholesterol >=240 mg/dL Recommendations of the NCEP Adult Treatment Panel for the following risk-cutoff thresholds for the [place] population. Performed By: #### L 501.9985, L506.1001, L500.4100, L502.0250, L500.4050 #### [facility] [address] [place], [address] Cholesterol in HDL [Mass/Vol] 60 mg/dL Normal [facility] Comment on above: Order Comment: FAX R ESULTS TO [phone] Result Comment: Ani onal Cholesterol Education Program (NCEP) guidelines: <40 mg/dL: Low HDL-cholesterol (major risk factor for CHD) >= 60 mg/dL: High HDL-cholesterol (negative risk factor for CHD) HDL-cholesterol is affected by a number of factors, e.g. smoking, exercise, hormones, sex and age. Performed By: #### L 501.9985, L506.1001, L500.4100, L502.0250, L500.4050 #### [facility] [address] [place], [address] Cholesterol in LDL [Mass/Vol] 86 mg/dL Normal [facility] Comment on above: Order Comment: FAX R ESULTS TO [phone] Result Comment: Bord nfnjfw=467-993 mg/dL Higher Mdon=760 mg/dL or greater Performed By: #### L 501.9985, L506.1001, L500.4100, L502.0250, L500.4050 #### [facility] [address] [place], [place], [address] Cholesterol in VLDL [Mass/Vol] 13 mg/dL Normal 5-40 [facility] Comment on above: Order Comment: FAX R ESULTS TO [phone] Performed By: #### L 501.9985, L506.1001, L500.4100, L502.0250, L500.4050 #### [facility] [address] [place], [place], [address] Triglyceride [Mass/Vol] 65 mg/dL Normal [facility] Comment on above: Order Comment: FAX R ESULTS TO [phone] Result Comment: The drugs N-Acetylcysteine and Metamizole may falsely depress this assay. Normal range: <150 mg/dL Borderline High: 150-199 mg/dL High: 200-499 mg/dL Very High: >500 mg/dL Performed By: #### L 501.9985, L506.1001, L500.4100, L502.0250, L500.4050 #### [facility] [address] [place], [address] Microalb:Creat Ratio,Random URon 11-17-2024 Creatinine [Mass/Vol] 86.80 mg/dL Normal 28.00- 217.0 0 [facility] Comment on above: Performed By: #### L 501.9985, L506.1001, L500.4100, L502.0250, L500.4050 #### [facility] [address] [place], [place], [id number] MALB:CREAT UNABLE TO CALCULATE Normal <30 mg/g CRE [facility] Comment on above: Performed By: #### L 501.9985, L506.1001, L500.4100, L502.0250, L500.4050 #### [facility] [address] [place], [place], [id number] MICROALBUMIN,UR < 12.0 Normal <20 mg/L [facility] Comment on above: Performed By: #### L 501.9935, L506.1004, L500.4100, L502.0250, L500.4054 #### [facility] [address] [place], [address] Microalbumin/creat ratio urO rdered By: Ilan Chung on 11-17-2024 Urine microalbumin/creatinine ratio measurement UNABLE TO CALCULATE mg/g CRE <30 [facility] Potassium measurement (mass/ volume)Ordered By: Ilan Chung on 11-17-2024 Potassium (Unsp spec) [Mass/Vol] 4.2 mmol/L 3.3-5.1 [facility] Random urine creatinine david urement (mass/volume)Ordered By: Ilan Chung on 11-17-2024 Creatinine Unsp time (U) [Mass/Vol] 86.80 mg/dL 28.00-217.0 0 [facility] Screening total cholesterol/ high density lipoprotein (HDL) cholesterol ratioOrdered By: Ilan Chung on 11-17-2024 Cholesterol.total/Choleste rol in HDL [Mass ratio] 2.65 {ratio} [facility] Serum creatinine measurement (mass/volume)Ordered By: Ilan Chung on 11-17-2024 Creatinine [Mass/Vol] 0.68 mg/dL Low 0.70-1.20 [facility] Serum globulin measurementOr dered By: Ilan Chung on 11-17-2024 Globulin (S) [Mass/Vol] 2.6 g/dL 2.2-4.2 [facility] Serum glucose measurement (m ass/volume)Ordered By: Ilan Chung on 11-17-2024 Glucose [Mass/Vol] 85 mg/dL 70-99 [facility] Serum or plasma alanine avila otransferase (ALT) measurementOrdered By: Ilan Chung on 11-17-2024 ALT [Catalytic activity/Vol] 38 U/L High <35 [facility] Serum or plasma albumin david urement (mass/volume)Ordered By: Ilan Chung on 11-17-2024 Albumin [Mass/Vol] 4.5 g/dL 3.4-4.8 [facility] Serum or plasma albumin/glob ulin mass ratioOrdered By: Ilan Chung on 11-17-2024 Albumin/Globulin [Mass ratio] 1.7 {ratio} 0.9-2.4 [facility] Serum or plasma alkaline dmitry sphatase measurementOrdered By: Ilan Chung on 11-17-2024 ALP [Catalytic activity/Vol] 47 U/L 35-104 [facility] Serum or plasma calcium david urement (mass/volume)Ordered By: Ilan Chung on 11-17-2024 Calcium [Mass/Vol] 9.4 mg/dL 7.6-11.0 [facility] Serum or plasma cholesterol in HDL measurement (mass/volume)Ordered By: Ilan Chung on 11-17-2024 Cholesterol in HDL [Mass/Vol] 60 mg/dL >40 [facility] Comment on above: National Cholesterol Education Program (NCEP) guidelines:<40 mg/dL: Low HDL-cholesterol (major risk factor for CHD)>= 60 mg/dL: High HDL-cholesterol (negative risk factor for CHD)HDL-cholesterol is affected by a number of factors, e.g. smoking, exercise, hormones, sex and age. Serum or plasma cholesterol measurement (mass/volume)Ordered By: Ilan Chung on 11-17-2024 Cholesterol [Mass/Vol] 159 mg/dL <201 [facility] Comment on above: Cholesterol level, D esirable <200 mg/dLBorderline high cholesterol 200-239 mg/dLHigh cholesterol >=240 mg/dLRecommendations of the NCEP Adult Treatment Panel for the following risk-cutoff thresholds for the [place] population. Serum or plasma urea nitroge n measurement (mass/volume)Ordered By: Ilan Chung on 11-17-2024 Urea nitrogen [Mass/Vol] 19 mg/dL 4-19 [facility] Sodium levelOrdered By: Galileo Chung on 11-17-2024 Sodium [Moles/Vol] 139 mmol/L 133-145 [facility] Total proteinOrdered By: Madhu Chung on 11-17-2024 Protein [Mass/Vol] 7.1 g/dL 5.9-8.4 [facility] Triglycerides measurementOrd ered By: Ilan Chung on 11-17-2024 Triglyceride [Mass/Vol] 65 mg/dL <199 [facility] Comment on above: The drugs N-Acetylcy steine and Metamizole may falsely depress this assay. Normal range: <150 mg/dLBorderline High: 150-199 mg/dLHigh: 200-499 mg/dLVery High: >500 mg/dL Urine albumin measurement [facility] detection limit of 20 mg/L or less (mass/volume)Ordered By: Ilan Chung on 11-17-2024 Albumin DL <= 20 mg/L (U) [Mass/Vol] < 12.0 mg/L <20 mg/L [facility] Vitamin D,25 Hydroxyon 11-17 Vitamin D 25-OH 61.0 ng/mL Normal 30-100 [facility] Comment on above: Order Comment: FAX R AMEULTS TO [phone] Result Comment: [place] min D Status Deficiency: <20 ng/mL (50nmol/L) Insufficiency: 20-30 ng/mL (50-75 nmol/L) Sufficiency: 30-100 ng/mL (75-250 nmol/L) Toxicity: >100 ng/mL (>250 nmol/L) Performed By: #### L 501.9985, L506.1001, L500.4100, L502.0250, L500.4050 #### [facility] [address] [place], [place], [id number] Anion gap in Serum or Plasma Ordered By: Brittany Olson on 09-21-2024 Anion gap [Moles/Vol] 14 mmol/L - [facility] BUN/creatinine ratioOrdered By: Brittany Olson on 09-21-2024 Urea nitrogen/Creatinine [Mass ratio] 39.3 mg/mg High 02-12 [facility] Basic Metabolic Profile (BMP )on 09-21-2024 BUN/CRE 39.3 RATIO High 02-12 [facility] Comment on above: Performed By: #### L 500.2500 ####[facility] [address] [place], [place], [id number] Calcium [Mass/Vol] 9.3 mg/dL Normal 7.6-11.0 [facility] Comment on above: Performed By: #### L 500.2500 ####[facility] [address] [place], [address] Chloride [Moles/Vol] 101 mmol/L Normal 98-108 [facility] Comment on above: Performed By: #### L 500.2500 ####[facility] [address] [place], [address] CO2 [Moles/Vol] 22.4 mmol/L Normal 21.0-32.0 [facility] Comment on above: Performed By: #### L 500.2500 ####[facility] [address] [place], [address] Creatinine [Mass/Vol] 0.62 mg/dL Low 0.70-1.20 [facility] Comment on above: Performed By: #### L 500.2500 ####[facility] [address] [place], [address] GAP 14 Normal 5-15 [facility] Comment on above: Performed By: #### L 500.2500 ####[facility] [address] [place], [address] GFR/1.73 sq M.predicted among non-blacks MDRD (S/P/Bld) [Vol rate/Area] 100 mL/min/{1.73_m2} Normal >60 [facility] Comment on above: Result Comment: mL/m in/1.73m2 CKD-EPI Creatinine Equation (2020) Performed By: #### L 500.2500 ####[facility] [address] [place], [address] Glucose [Mass/Vol] 81 mg/dL Normal 70-99 [facility] Comment on above: Performed By: #### L 500.2500 ####[facility] [address] [place], [address] Potassium [Moles/Vol] 3.8 mmol/L Normal 3.3-5.1 [facility] Comment on above: Performed By: #### L 500.2500 ####[facility] [address] [place], [address] Sodium [Moles/Vol] 137 mmol/L Normal 133-145 [facility] Comment on above: Performed By: #### L 500.2500 ####[facility] [address] [place], [address] Urea nitrogen [Mass/Vol] 25 mg/dL High 4-19 [facility] Comment on above: Performed By: #### L 500.2500 ####[facility] [address] [place], [place], [id number] Carbon dioxide, total [Moles /volume] in Central venous bloodOrdered By: Brittany Olson on 09-21-2024 CO2 [Moles/Vol] 22.4 mmol/L 21.0-32.0 [facility] Chloride assayOrdered By: Johann Olson on 09-21-2024 Chloride [Moles/Vol] 101 mmol/L 98-108 [facility] Glomerular filtration rate ( GFR) estimation/1.73 sq m using serum, plasma, or whole bOrdered By: Brittany Olson on 09-21-2024 GFR/1.73 sq M.predicted among non-blacks MDRD (S/P/Bld) [Vol rate/Area] 100 mL/min/{1.73_m2} >60 [facility] Comment on above: mL/min/1.73m2 CKD-EP I Creatinine Equation (2020) Potassium measurement (mass/ volume)Ordered By: Brittany Olson on 09-21-2024 Potassium (Unsp spec) [Mass/Vol] 3.8 mmol/L 3.3-5.1 [facility] Serum creatinine measurement (mass/volume)Ordered By: Brittany Olson on 09-21-2024 Creatinine [Mass/Vol] 0.62 mg/dL Low 0.70-1.20 [facility] Serum glucose measurement (m ass/volume)Ordered By: Brittany Olson on 09-21-2024 Glucose [Mass/Vol] 81 mg/dL 70-99 [facility] Serum or plasma calcium david urement (mass/volume)Ordered By: Brittany Olson on 09-21-2024 Calcium [Mass/Vol] 9.3 mg/dL 7.6-11.0 [facility] Serum or plasma urea nitroge n measurement (mass/volume)Ordered By: Brittany Olson on 09-21-2024 Urea nitrogen [Mass/Vol] 25 mg/dL High 08-12 [facility] Sodium levelOrdered By: Benita Olson on 09-21-2024 Sodium [Moles/Vol] 137 mmol/L 133-145 [facility] Anion gap in Serum or Plasma Ordered By: Brittany Olson on 09-07-2024 Anion gap [Moles/Vol] 14 mmol/L 09-07 [facility] BUN/creatinine ratioOrdered By: Brittany Olson on 09-07-2024 Urea nitrogen/Creatinine [Mass ratio] 33.5 mg/mg High 02-12 [facility] Basic Metabolic Profile (BMP )on 09-07-2024 BUN/CRE 33.5 RATIO High 02-12 [facility] Comment on above: Performed By: #### L 500.2500 #### [facility] [address] [facility] [address] Calcium [Mass/Vol] 9.2 mg/dL Normal 7.6-11.0 [facility] Comment on above: Performed By: #### L 500.2500 #### [facility] [address] [place], [address] Chloride [Moles/Vol] 95 mmol/L Low 98-108 [facility] Comment on above: Performed By: #### L 500.2500 #### [facility] [address] [facility] [address] CO2 [Moles/Vol] 25.3 mmol/L Normal 21.0-32.0 [facility] Comment on above: Performed By: #### L 500.2500 #### [facility] [address] [place], [place], [address] Creatinine [Mass/Vol] 0.63 mg/dL Low 0.70-1.20 [facility] Comment on above: Performed By: #### L 500.2500 #### [facility] [address] [place], [address] GAP 14 Normal 5-15 [facility] Comment on above: Performed By: #### L 500.2500 #### [facility] [address] [place], [address] GFR/1.73 sq M.predicted among non-blacks MDRD (S/P/Bld) [Vol rate/Area] 100 mL/min/{1.73_m2} Normal >60 [facility] Comment on above: Result Comment: mL/m in/1.73m2 CKD-EPI Creatinine Equation (2020) Performed By: #### L 500.2500 #### [facility] [address] [place], [address] Glucose [Mass/Vol] 112 mg/dL High 70-99 [facility] Comment on above: Performed By: #### L 500.2500 #### [facility] [address] [place], [address] Potassium [Moles/Vol] 3.1 mmol/L Low 3.3-5.1 [facility] Comment on above: Performed By: #### L 500.2500 #### [facility] [address] [place], [address] Sodium [Moles/Vol] 135 mmol/L Normal 133-145 [facility] Comment on above: Performed By: #### L 500.2500 #### [facility] [address] [place], [address] Urea nitrogen [Mass/Vol] 21 mg/dL High 4-19 [facility] Comment on above: Performed By: #### L 500.2500 #### [facility] [address] [place], [address] Carbon dioxide, total [Moles /volume] in Central venous bloodOrdered By: Brittany Olson on 09-07-2024 CO2 [Moles/Vol] 25.3 mmol/L 21.0-32.0 [facility] Chloride assayOrdered By: Johann Olson on 09-07-2024 Chloride [Moles/Vol] 95 mmol/L Low 98-108 [facility] Glomerular filtration rate ( GFR) estimation/1.73 sq m using serum, plasma, or whole bOrdered By: Brittany Olson on 09-07-2024 GFR/1.73 sq M.predicted among non-blacks MDRD (S/P/Bld) [Vol rate/Area] 100 mL/min/{1.73_m2} >60 [facility] Comment on above: mL/min/1.73m2 CKD-EP I Creatinine Equation (2020) Potassium measurement (mass/ volume)Ordered By: Brittany Olson on 09-07-2024 Potassium (Unsp spec) [Mass/Vol] 3.1 mmol/L Low 3.3-5.1 [facility] Serum creatinine measurement (mass/volume)Ordered By: Brittany Olson on 09-07-2024 Creatinine [Mass/Vol] 0.63 mg/dL Low 0.70-1.20 [facility] Serum glucose measurement (m ass/volume)Ordered By: Brittany Olson on 09-07-2024 Glucose [Mass/Vol] 112 mg/dL High 70-99 [facility] Serum or plasma calcium david urement (mass/volume)Ordered By: Brittany Olson on 09-07-2024 Calcium [Mass/Vol] 9.2 mg/dL 7.6-11.0 [facility] Serum or plasma urea nitroge n measurement (mass/volume)Ordered By: Brittany Olson on 09-07-2024 Urea nitrogen [Mass/Vol] 21 mg/dL High 4-19 [facility] Sodium levelOrdered By: Benita Olson on 09-07-2024 Sodium [Moles/Vol] 135 mmol/L 133-145 [facility] Cardiology Visit Reporton Cardiology Visit Report [facility] [address] [place] [address] OFFICE VISIT Date of Service: 08/29/24 MR#: [id number] Acct: [id number] Name: ANALY MAYO Rep #: [id number] : 1960 Provider: FAMILIA vieira Age/Sex: 63/F Location: [facility] Status: Signed HPI HPI History of Present [...] 95 Intake Visit Reasons: 1 Y FU Gas Manager Required: No Is patient in pain?: No [...] SOB lying (more content not included)... Normal [facility] PT D/C Summary (1)on 025 PT D/C Summary (1) [facility] [address] [place] [address] [address] [place] [address] / REHABILITATION SERVICES DISCHARGE SUMMARY MR#: [id number] Acct: [id number] Name: ANALY MAYO Rep #: [id number] : 1960 63 From: Aron Reyes DPT, OCS, CSCS Referring Dr.: ELIO Mcdaniels Status: REG RCR Insurance: [facility] SELF PAY INSURANCE Discharge Summary D/C summary: It has been my pleasure to treat ANALY MAYO referred by ELIO Mcdaniels, with the diagnosis of cervical radiculopathy [...] 72 L rotation, 80 ext. 42# R card puncher strength and 60# L. UE strength otherwise 4/5 without pain. Goals Goal 1:: Full crvical AROM, 39# card puncher strength R and no arm symptoms Goal [...] please feel free to call me at [phone]. Thank you for the referral of this patient. Sincerely, Aron Reyes, DPT, OCS, CSCS Balance/Gait/Functi onal tests Balance/Special Test Scores Oswestry Neck Score: 4 Improvement % Improvement: 100 07/21/24 1350 CC: WARP KNITTER-Abelino Chung; ELIO Mcdaniels EBG Signed Normal [facility] Orthopedic Visit Reporton Orthopedic Visit Report [facility] [address] [place] [id number] OFFICE VISIT Date of Service: 06/29/24 MR#: [id number] Acct: [id number] Name: GAELANALY SWAIN Rep #: [id number] : 1960 Provider: ELIO Mcdaniels Age/Sex: 63/F Location: [facility] Status: Signed Intake Vital Signs 06/02/24 08:08 [...] provided and the decisions made by me, ELIO Mcdaniels 06/29/24 1521. Part of today???s visit [...] for 3 years. She was seen at [facility] for left shoulder pain where they [...] her symptoms began and feel like her card puncher s (more content not included)... Normal [facility] Spine Cervical (Routine)on 0 06-17-2024 Spine Cervical (Routine) [facility] [address] [place] [address] Spine Cervical (Routine) MR#: [id number] Acct: [id number] Name: ANALY MAYO Rep #: [id number] : 1960 F 63 From: Dheeraj Howard MD PCP: Ilan Chung, FANNIE-C Status: REG CLI Study: Spine Cervical (Routine) Date of Exam: Exam# [id number] Ordering Dr: Marian Mariee PROCEDURE: SPINE CERVICAL [...] the cervical spine. Reading Location: [facility] CC: WARP KNITTER-Abelino Chung; ELIO Mcdaniels Petrography Teacher: Signed Normal [facility] Inital Evaluation (1) - PTon 06-15-2024 Inital Evaluation (1) - PT [facility] [address] [place] [address] / REHABILITATION SERVICES INITIAL EVALUATION MR#: [id number] Acct: [id number] Name: ANALY MAYO Rep #: [id number] : 1960 63 From: Aron Reyes DPT, OCS, CSCS Referring Dr.: ELIO Mcdaniels Status: REG RCR Insurance: [facility] SELF PAY INSURANCE Patient's Visit Information Visit Information Visit Information: ANALY MAYO is a 63 year old F referred to Physical Therapy by ELIO Mcdaniels with a diagnosis of cervical radiculopathy. Date of Evaluation: 06/15/24 Physical Therapist: Aron Reyes DPT, ASHWIN, CSCS Visit Plan Frequency: 2x /Week Duration: 4-6 Weeks Plan: 2x/week for 4-6 for 1. check HEP c/s retraction ext and effects on card puncher strength(goal 39# R), cervical extension (to 80) [...] in two days and then back to [place]. Not scheduled yet with Dr. Ram. Overall [...] Objective Objective: 52# L and 30# R card puncher, weakness noted in hand intrinsics R. reflexes [...] numbness distal arm and pinky finger, weaker card puncher at 28# R repeated retraction: achiness in scap, B numbness, NE weakness, ROM slightly better. repeated ret ext : PDM centrally, Better numbness, 80 ext better ROM. Balance/Special Test Scores Oswestry Neck Score: 8 Goals Goal 1:: Full crvical AROM, 39# card puncher strength R and no arm symptoms Goal [...] cervical traction: (more content not included)... Normal [facility] Absolute lymphocyte countOrd ered By: Trinabasim Camilo on 06-02-2024 Lymphocytes Auto (Unsp spec) [#/Vol] 1.64 10*3/uL 0.83-4.51 [facility] Absolute neutrophil countOrd ered By: [facility] Leslee on 06-02-2024 Neutrophils (Bld) [#/Vol] 6.5 10*3/uL 2.0-7.7 [facility] Albumin to globulin ratioOrd ered By: Trina Camilo on 06-02-2024 Albumin/Globulin [Mass ratio] 1.4 {ratio} 0.9-2.4 [facility] Automated lymphocyte count a s percentage of total leukocytesOrdered By: Trina Camilo on 06-02-2024 Lymphocytes/100 WBC Auto (Unsp spec) 18.5 % Low 19-41 [facility] Basophil percentageOrdered B y: Trina Camilo on 06-02-2024 Basophils/100 WBC (Bld) 0.7 % 0-1 [facility] Bilirubin, totalOrdered By: Trina Camilo on 06-02-2024 Bilirubin [Mass/Vol] 0.30 mg/dL 0.20-1.00 [facility] Comment on above: For patients on eltr ombopag therapy, use of Dimension [place] TBIL is not recommended. Blood urea nitrogen (BUN)/cr eatinine ratioOrdered By: Trina Camilo on 06-02-2024 Urea nitrogen/Creatinine [Mass ratio] 29.1 mg/mg High 10-20 [facility] CBC W/Diff, Automatedon Absolute Lymph 1.64 X10 3/uL Normal 0.83-4.51 [facility] Comment on above: Performed By: #### L 100.0100, L500.4050 ####[facility] [address] [place], [address] Absolute Neut 6.5 X10 3/uL Normal 2.0-7.7 [facility] Comment on above: Performed By: #### L 100.0100, L500.4050 ####[facility] [address] [place], [address] Basophils/100 WBC (Bld) 0.7 % Normal 0-1 [facility] Comment on above: Performed By: #### L 100.0100, L500.4050 ####[facility] [address] [place], [address] Eosinophils/100 WBC (Bld) 0.8 % Normal 0-5 [facility] Comment on above: Performed By: #### L 100.0100, L500.4050 ####[facility] [address] [place], [address] Erythrocyte distribution width (RBC) [Ratio] 12.4 % Normal 11.6-14.6 [facility] Comment on above: Performed By: #### L 100.0100, L500.4050 ####[facility] [address] [place], [address] Hematocrit (Bld) [Volume fraction] 41.2 % Normal 37-47 [facility] Comment on above: Performed By: #### L 100.0100, L500.4050 ####[facility] [address] [place], [address] Hemoglobin (Bld) [Mass/Vol] 13.7 g/dL Normal 12.0-15.0 [facility] Comment on above: Performed By: #### L 100.0100, L500.4050 ####[facility] [address] [place], [address] IG% 0.300 Normal 0.0-0.9 [facility] Comment on above: Result Comment: IG% - Immature Granulocytes (promyelocytes, myelocytes and metamyelocytes) > 1% indicates that a LEFT SHIFT is Present. Performed By: #### L 100.0100, L500.4050 ####[facility] [address] [place], [address] Lymphocytes/100 WBC (Bld) 18.5 % Low 19-41 [facility] Comment on above: Performed By: #### L 100.0100, L500.4050 ####[facility] [address] [place], [address] MCH (RBC) [Entitic mass] 31.5 pg Normal 27.0-32.0 [facility] Comment on above: Performed By: #### L 100.0100, L500.4050 ####[facility] [address] [place], [address] MCHC (RBC) [Mass/Vol] 33.3 g/dL Normal 32-36 [facility] Comment on above: Performed By: #### L 100.0100, L500.4050 ####[facility] [address] [place], [address] MCV (RBC) [Entitic vol] 94.7 fL Normal 81-99 [facility] Comment on above: Performed By: #### L 100.0100, L500.4050 ####[facility] [address] [place], [address] Monocytes/100 WBC (Bld) 6.3 % Normal 0-10 [facility] Comment on above: Performed By: #### L 100.0100, L500.4050 ####[facility] [address] [place], [address] Neutrophils/100 WBC (Bld) 73.4 % High 47-70 [facility] Comment on above: Performed By: #### L 100.0100, L500.4050 ####[facility] [address] [place], [address] Nucleated RBC (Bld) [#/Vol] 0 10*3/uL Normal 0-5 [facility] Comment on above: Performed By: #### L 100.0100, L500.4050 ####[facility] [address] [place], [address] Platelet mean volume (Bld) [Entitic vol] 8.8 fL Normal 6.2-12.0 [facility] Comment on above: Performed By: #### L 100.0100, L500.4050 ####[facility] [address] [place], [address] Platelets (Bld) [#/Vol] 306 10*3/uL Normal 150-450 [facility] Comment on above: Performed By: #### L 100.0100, L500.4050 ####[facility] [address] [place], [address] RBC (Bld) [#/Vol] 4.35 10*6/uL Normal 4.2-5.4 [facility] Comment on above: Performed By: #### L 100.0100, L500.4050 ####[facility] [address] [place], [address] RDW SD 43.2 fl Normal 35.1-43.9 [facility] Comment on above: Performed By: #### L 100.0100, L500.4050 ####[facility] [address] [place], [address] WBC (Bld) [#/Vol] 8.9 10*3/uL Normal 4.4-11.0 [facility] Comment on above: Performed By: #### L 100.0100, L500.4050 ####[facility] [address] [place], [place], [address] Carbon dioxide measurementOr dered By: Trina Camilo on 06-02-2024 CO2 [Moles/Vol] 30.0 mmol/L 21.0-32.0 [facility] Cerv Spine 4 or 5 Viewson Cerv Spine 4 or 5 Views [facility] [address] [place] [address] Cerv Spine 4 or 5 Views MR#: [id number] Acct: [id number] Name: ANALY MAYO Rep #: [id number] : 1960 F 63 From: Kai Cedillo MD PCP: FAMILIA Walker Status: DEP AMB Study: Cerv Spine 4 or 5 Views Date of Exam: 06/02/24 Exam# [id number] Ordering Dr: Marian Mariee EXAM: XR Cervical [...] the cervical spine as described. Reading Location: [facility] CC: WARP KNITTER-C Ilan Chung; ELIO Mcdaniels Petrography Teacher: Signed Normal [facility] Chloride measurementOrdered By: Trina Camilo on 06-02-2024 Chloride [Moles/Vol] 104 mmol/L 98-107 [facility] Comprehensive Metabolic Prof ilon 06-02-2024 Albumin [Mass/Vol] 4.3 g/dL Normal 3.2-5.0 [facility] Comment on above: Performed By: #### L 100.0100, L500.4050 ####[facility] [address] [place], [address] Albumin/Globulin [Mass ratio] 1.4 {ratio} Normal 0.9-2.4 [facility] Comment on above: Performed By: #### L 100.0100, L500.4050 ####[facility] [address] [place], [address] ALK P 54 U/L Normal 45-117 [facility] Comment on above: Performed By: #### L 100.0100, L500.4050 ####[facility] [address] [place], [address] ALT [Catalytic activity/Vol] 41 U/L Normal 13-56 [facility] Comment on above: Performed By: #### L 100.0100, L500.4050 ####[facility] [address] [place], [address] AST [Catalytic activity/Vol] 20 U/L Normal 15-37 [facility] Comment on above: Performed By: #### L 100.0100, L500.4050 ####[facility] [address] [place], [address] Bilirubin [Mass/Vol] 0.30 mg/dL Normal 0.20-1.00 [facility] Comment on above: Result Comment: For patients on eltrombopag therapy, use of Dimension [place] TBIL is not recommended. Performed By: #### L 100.0100, L500.4050 ####[facility] [address] [place], [address] BUN/CRE 29.1 RATIO High 10-20 [facility] Comment on above: Performed By: #### L 100.0100, L500.4050 ####[facility] [address] [place], [address] CA,Total 9.2 mg/dL Normal 8.5-10.1 [facility] Comment on above: Performed By: #### L 100.0100, L500.4050 ####[facility] [address] [place], [address] Chloride [Moles/Vol] 104 mmol/L Normal 98-107 [facility] Comment on above: Performed By: #### L 100.0100, L500.4050 ####[facility] [address] [place], [address] CO2 [Moles/Vol] 30.0 mmol/L Normal 21.0-32.0 [facility] Comment on above: Performed By: #### L 100.0100, L500.4050 ####[facility] [address] [place], [address] Creatinine [Mass/Vol] 0.58 mg/dL Normal 0.55-1.02 [facility] Comment on above: Result Comment: The validity of the calculated GFR GFRAA in patients over 70 years has not been determined. Clinical correlation is essential. Performed By: #### L 100.0100, L500.4050 ####[facility] [address] [place], [address] EST GFR - AA 134 mL/min Normal >60 [facility] Comment on above: Result Comment: Afri can [place] GFR Calc Performed By: #### L 100.0100, L500.4050 ####[facility] [address] [place], [address] GAP 5 Normal 5-15 [facility] Comment on above: Performed By: #### L 100.0100, L500.4050 ####[facility] [address] [place], [address] GFR/1.73 sq M.predicted among non-blacks MDRD (S/P/Bld) [Vol rate/Area] 111 mL/min/{1.73_m2} Normal >60 [facility] Comment on above: Result Comment: Non- GFR Calc Performed By: #### L 100.0100, L500.4050 ####[facility] [address] [place], [address] Globulin (S) [Mass/Vol] 3.1 g/dL Normal 2.2-4.2 [facility] Comment on above: Performed By: #### L 100.0100, L500.4050 ####[facility] [address] [place], [address] Glucose [Mass/Vol] 100 mg/dL Normal 74-106 [facility] Comment on above: Result Comment: Fast ing Glucose result from 100 to 125 mg/dL suggests IMPAIRED HOMEOSTASIS per A.D.A. criteria. Performed By: #### L 100.0100, L500.4050 ####[facility] [address] [place], [address] Potassium [Moles/Vol] 4.1 mmol/L Normal 3.5-5.1 [facility] Comment on above: Performed By: #### L 100.0100, L500.4050 ####[facility] [address] [place], [address] Sodium [Moles/Vol] 139 mmol/L Normal 136-145 [facility] Comment on above: Performed By: #### L 100.0100, L500.4050 ####[facility] [address] [place], [address] T PROT 7.4 g/dL Normal 6.4-8.2 [facility] Comment on above: Performed By: #### L 100.0100, L500.4050 ####[facility] [address] [place], [address] Urea nitrogen [Mass/Vol] 17 mg/dL Normal 7-18 [facility] Comment on above: Performed By: #### L 100.0100, L500.4050 ####[facility] [address] [place], [address] Eosinophil percentageOrdered By: Trina Camilo on 06-02-2024 Eosinophils/100 WBC (Bld) 0.8 % 0-5 [facility] Erythrocyte distribution wid th ratioOrdered By: Trina Camilo on 06-02-2024 Erythrocyte distribution width (RBC) [Ratio] 12.4 % 11.6-14.6 [facility] Erythrocyte distribution wid th standard deviationOrdered By: Trina Camilo on 06-02-2024 Erythrocyte distribution width (RBC) [Entitic vol] 43.2 fL 35.1-43.9 [facility] Erythrocyte distribution width (RBC) [Ratio] 43.2 fl 35.1-43.9 [facility] Estimated glomerular filtrat ion rate (GFR) AmericanOrdered By: Trina Camilo on 06-02-2024 Estimated GFR (MDRD) Amer 134 mL/min >60 [facility] Comment on above: GFR Calc Glomerular filtration rate ( GFR) estimationOrdered By: Trina Camilo on 06-02-2024 Estimated GFR (MDRD) Non-Af Amer 111 mL/min >60 [facility] Comment on above: Non- GFR Calc GFR/1.73 sq M.predicted among non-blacks MDRD (S/P/Bld) [Vol rate/Area] 111 mL/min/{1.73_m2} >60 [facility] Comment on above: Non- GFR Calc Glucose measurementOrdered B y: Trina Camilo on 06-02-2024 Glucose [Mass/Vol] 100 mg/dL 74-106 [facility] Comment on above: Fasting Glucose resu lt from 100 to 125 mg/dL suggests IMPAIRED HOMEOSTASIS per A.D.A. criteria. Hematocrit Auto (Bld) [Volum e fraction]Ordered By: Trina Camilo on 06-02-2024 Hematocrit (Bld) [Volume fraction] 41.2 % 37-47 [facility] Hemoglobin measurementOrdere d By: Trina Camilo on 06-02-2024 Hemoglobin (Bld) [Mass/Vol] 13.7 g/dL 12.0-15.0 [facility] Immature granulocytes/100 WB C Auto (Bld)Ordered By: Trina Camilo on 06-02-2024 Immature granulocytes/100 WBC (Bld) 0.300 % 0.0-0.9 [facility] Comment on above: IG% - Immature Granu locytes (promyelocytes, myelocytes and metamyelocytes) > 1% indicates that a LEFT SHIFT is Present. Laboratory - Chemistry and C hemistry - challengeOrdered By: Trina Camilo on 06-02-2024 AST [Catalytic activity/Vol] 20 U/L 15-37 [facility] Lymphocytes Auto (Unsp spec) [#/Vol]Ordered By: Trina Camilo on 06-02-2024 Lymphocytes (Bld) [#/Vol] 1.64 10*3/uL 0.83-4.5 1 [facility] Lymphocytes/100 WBC Auto (Un sp spec)Ordered By: Trina Camilo on 06-02-2024 Lymphocytes/100 WBC (Bld) 18.5 % Low 19-41 [facility] MCV (mean corpuscular volume ) determinationOrdered By: Trina Camilo on 06-02-2024 MCV (RBC) [Entitic vol] 94.7 fL 81-99 [facility] Mean corpuscular hemoglobin (MCH) determinationOrdered By: Trina Camilo on 06-02-2024 MCH (RBC) [Entitic mass] 31.5 pg 27.0-32.0 [facility] Mean corpuscular hemoglobin concentration (MCHC) determinationOrdered By: Trina Camilo on 06-02-2024 MCHC (RBC) [Mass/Vol] 33.3 g/dL 32-36 [facility] Mean platelet volume determi nationOrdered By: Trina Camilo on 06-02-2024 Platelet mean volume (Bld) [Entitic vol] 8.8 fL 6.2-12.0 [facility] Monocyte percentageOrdered B y: Trina Camilo on 06-02-2024 Monocytes/100 WBC (Bld) 6.3 % 0-10 [facility] Neutrophil percentageOrdered By: Trina Camilo on 06-02-2024 Neutrophils/100 WBC (Bld) 73.4 % High 47-70 [facility] Nucleated red blood cell per centageOrdered By: Trina Camilo on 06-02-2024 Nucleated RBC/100 WBC (Bld) [Ratio] 0 % 0-5 [facility] Orthopedic Visit Reporton Orthopedic Visit Report [facility] [address] [place] [address] [address] [place] [address] OFFICE VISIT Date of Service: 06/02/24 MR#: [id number] Acct: [id number] Name: ANALY MAYO Rep #: [id number] : 1960 Provider: ELIO Mcdaniels Age/Sex: 63/F Location: [facility] Status: Signed Intake Vital Signs 07/29/23 15:54 [...] 1 drp ophthalmic (eye) QPM 2 1 06/02/24 History loratadine 10 mg tablet [...] provided and the decisions made by me, ELIO Mcdaniels 06/02/24 0808. Part of today???s visit was documented by [ ], acting as scribe. ANALY MAYO is a 63 year old F here today for cervical spine issues. She advises she has been experiencing constant neck stiffness for 3 years. She was seen at [facility] for left shoulder pain where they [...] her symptoms began and feel like her card puncher strength is weaker in her hand. She [...] extremities sh (more content not included)... Normal [facility] Platelet countOrdered By: Elio Camilo on 06-02-2024 Platelets (Bld) [#/Vol] 306 10*3/uL 150-450 [facility] Potassium measurementOrdered By: Trina Camilo on 06-02-2024 Potassium [Moles/Vol] 4.1 mmol/L 3.5-5.1 [facility] RBC Auto (Bld) [#/Vol]Ordere d By: Trina Camilo on 06-02-2024 RBC (Bld) [#/Vol] 4.35 10*6/uL 4.2-5.4 [facility] Serum anion gap measurementO rdered By: Trina Camilo on 06-02-2024 Anion gap [Moles/Vol] 5 mmol/L 5-15 [facility] Serum globulin measurementOr dered By: Trina Camilo on 06-02-2024 Globulin (S) [Mass/Vol] 3.1 g/dL 2.2-4.2 [facility] Serum or plasma alanine avila otransferase (ALT) measurementOrdered By: Trina Camilo on 06-02-2024 ALT [Catalytic activity/Vol] 41 U/L 13-56 [facility] Serum or plasma albumin david urement (mass/volume)Ordered By: Trina Camilo on 06-02-2024 Albumin [Mass/Vol] 4.3 g/dL 3.2-5.0 [facility] Serum or plasma alkaline dmitry sphatase measurementOrdered By: Trina Camilo on 06-02-2024 ALP [Catalytic activity/Vol] 54 U/L 45-117 [facility] Serum or plasma calcium david urement (mass/volume)Ordered By: Trina Camilo on 06-02-2024 Calcium [Mass/Vol] 9.2 mg/dL 8.5-10.1 [facility] Serum or plasma creatinine m easurement (mass/volume)Ordered By: Trina Camilo on 06-02-2024 Creatinine [Mass/Vol] 0.58 mg/dL 0.55-1.02 [facility] Comment on above: The validity of the calculated GFR & GFRAA in patients over 70 years has not been determined. Clinical correlation is essential. Serum or plasma urea nitroge n measurement (mass/volume)Ordered By: Trina Camilo on 06-02-2024 Urea nitrogen [Mass/Vol] 17 mg/dL 7-18 [facility] Sodium levelOrdered By: Ayla Camilo on 06-02-2024 Sodium [Moles/Vol] 139 mmol/L 136-145 [facility] Total proteinOrdered By: Emily Camilo on 06-02-2024 Protein [Mass/Vol] 7.4 g/dL 6.4-8.2 [facility] White blood cell (WBC) count Ordered By: Trina Camilo on 06-02-2024 WBC (Bld) [#/Vol] 8.9 10*3/uL 4.4-11.0 [facility] Hemoglobin A1con 05-29-2024 HbA1c (Bld) [Mass fraction] 4.1 % Normal 3.8-5.6 [facility] Comment on above: Result Comment: Norm al < 5.7 % Prediabetic 5.7 - 6.4 % Diabetic >or= 6.5 % Please note range changes. Performed By: #### L 500.4050, L501.9985, L502.0250, L500.4100, L506.1000 ####[facility] [address] [place], [address] 70-PT-Ejjfvea DOrdered By: Lauren Chung on 05-27-2024 Vitamin D 25-Hydroxy 67.3 ng/mL [facility] Comment on above: Vitamin D 25(OH) Sta tus Range Deficiency <20 ng/mL (50nmol/L) Insufficiency 20 - 30 ng/mL (50 - 75 nmol/L) Sufficiency 30 - 100 ng/mL (75 - 250 nmol/L) Toxicity >100 ng/mL (>250 nmol/L) Albumin to globulin ratioOrd ered By: Ilan Chung on 05-27-2024 Albumin/Globulin [Mass ratio] 1.2 {ratio} 0.9-2.4 [facility] Bilirubin, totalOrdered By: Ilan Chung on 05-27-2024 Bilirubin [Mass/Vol] 0.20 mg/dL 0.20-1.00 [facility] Comment on above: For patients on eltr ombopag therapy, use of Dimension [place] TBIL is not recommended. Blood urea nitrogen (BUN)/cr eatinine ratioOrdered By: Ilan Chung on 05-27-2024 Urea nitrogen/Creatinine [Mass ratio] 33.4 mg/mg High 10-20 [facility] Carbon dioxide measurementOr dered By: Ilan Chung on 05-27-2024 CO2 [Moles/Vol] 27.0 mmol/L 21.0-32.0 [facility] Chloride measurementOrdered By: Ilan Chung on 05-27-2024 Chloride [Moles/Vol] 107 mmol/L 98-107 [facility] Comprehensive Metabolic Prof ilon 05-27-2024 Albumin [Mass/Vol] 3.8 g/dL Normal 3.2-5.0 [facility] Comment on above: Performed By: #### L 500.4050, L501.9985, L502.0250, L500.4100, [id number] ####[facility] [address] [place], [address] Albumin/Globulin [Mass ratio] 1.2 {ratio} Normal 0.9-2.4 [facility] Comment on above: Performed By: #### L 500.4050, L501.9985, L502.0250, L500.4100, L506.1000 ####[facility] [address] [place], [address] ALK P 50 U/L Normal 45-117 [facility] Comment on above: Performed By: #### L 500.4050, L501.9985, L502.0250, L500.4100, L506.1000 ####[facility] [address] [place], [address] ALT [Catalytic activity/Vol] 51 U/L Normal 13-56 [facility] Comment on above: Performed By: #### L 500.4050, L501.9985, L502.0250, L500.4100, [id number] ####[facility] [address] [place], [address] AST [Catalytic activity/Vol] 22 U/L Normal 15-37 [facility] Comment on above: Performed By: #### L 500.4050, L501.9985, L502.0250, L500.4100, L506.1000 ####[facility] [address] [place], [address] Bilirubin [Mass/Vol] 0.20 mg/dL Normal 0.20-1.00 [facility] Comment on above: Result Comment: For patients on eltrombopag therapy, use of Dimension [place] TBIL is not recommended. Performed By: #### L 500.4050, L501.9985, L502.0250, L500.4100, L506.1000 ####[facility] [address] [place], [address] BUN/CRE 33.4 RATIO High 10-20 [facility] Comment on above: Performed By: #### L 500.4050, L501.9985, L502.0250, L500.4100, L506.1000 ####[facility] [address] [place], [address] CA,Total 8.4 mg/dL Low 8.5-10.1 [facility] Comment on above: Performed By: #### L 500.4050, L501.9985, L502.0250, L500.4100, L506.1000 ####[facility] [address] [place], [address] Chloride [Moles/Vol] 107 mmol/L Normal 98-107 [facility] Comment on above: Performed By: #### L 500.4050, L501.9985, L502.0250, L500.4100, L506.1000 ####[facility] [address] [place], [address] CO2 [Moles/Vol] 27.0 mmol/L Normal 21.0-32.0 [facility] Comment on above: Performed By: #### L 500.4050, L501.9985, L502.0250, L500.4100, L506.1000 ####[facility] [address] [place], [address] Creatinine [Mass/Vol] 0.57 mg/dL Normal 0.55-1.02 [facility] Comment on above: Result Comment: The validity of the calculated GFR GFRAA in patients over 70 years has not been determined. Clinical correlation is essential. Performed By: #### L 500.4050, L501.9985, L502.0250, L500.4100, L506.1000 ####[facility] [address] [place], [address] EST GFR - AA 138 mL/min Normal >60 [facility] Comment on above: Result Comment: Afri can [place] GFR Calc Performed By: #### L 500.4050, L501.9985, L502.0250, L500.4100, L506.1000 ####[facility] [address] [place], [address] GAP 5 Normal 5-15 [facility] Comment on above: Performed By: #### L 500.4050, L501.9985, L502.0250, L500.4100, L506.1000 ####[facility] [address] [place], [address] GFR/1.73 sq M.predicted among non-blacks MDRD (S/P/Bld) [Vol rate/Area] 114 mL/min/{1.73_m2} Normal >60 [facility] Comment on above: Result Comment: Non- GFR Calc Performed By: #### L 500.4050, L501.9985, L502.0250, L500.4100, L506.1000 ####[facility] [address] [place], [address] Globulin (S) [Mass/Vol] 3.2 g/dL Normal 2.2-4.2 [facility] Comment on above: Performed By: #### L 500.4050, L501.9985, L502.0250, L500.4100, L506.1000 ####[facility] [address] [place], [address] Glucose [Mass/Vol] 109 mg/dL High 74-106 [facility] Comment on above: Result Comment: Fast ing Glucose result from 100 to 125 mg/dL suggests IMPAIRED HOMEOSTASIS per A.D.A. criteria. Performed By: #### L 500.4050, L501.9985, L502.0250, L500.4100, L506.1000 ####[facility] [address] [place], [address] Potassium [Moles/Vol] 3.8 mmol/L Normal 3.5-5.1 [facility] Comment on above: Performed By: #### L 500.4050, L501.9985, L502.0250, L500.4100, L506.1000 ####[facility] [address] [place], [address] Sodium [Moles/Vol] 139 mmol/L Normal 136-145 [facility] Comment on above: Performed By: #### L 500.4050, L501.9985, L502.0250, L500.4100, L506.1000 ####[facility] [address] [place], [address] T PROT 7.0 g/dL Normal 6.4-8.2 [facility] Comment on above: Performed By: #### L 500.4050, L501.9985, L502.0250, L500.4100, L506.1000 ####[facility] [address] [place], [address] Urea nitrogen [Mass/Vol] 19 mg/dL High 7-18 [facility] Comment on above: Performed By: #### L 500.4050, L501.9985, L502.0250, L500.4100, L506.1000 ####[facility] [address] [place], [address] Estimated glomerular filtrat ion rate (GFR) AmericanOrdered By: Ilan Chung on 05-27-2024 Estimated GFR (MDRD) Amer 138 mL/min >60 [facility] Comment on above: GFR Calc Glomerular filtration rate ( GFR) estimationOrdered By: Ilan Chung on 05-27-2024 Estimated GFR (MDRD) Non-Af Amer 114 mL/min >60 [facility] Comment on above: Non- GFR Calc GFR/1.73 sq M.predicted among non-blacks MDRD (S/P/Bld) [Vol rate/Area] 114 mL/min/{1.73_m2} >60 [facility] Comment on above: Non- GFR Calc Glucose measurementOrdered B y: Ilan Sheldon on 05-27-2024 Glucose [Mass/Vol] 109 mg/dL High 74-106 [facility] Comment on above: Fasting Glucose resu lt from 100 to 125 mg/dL suggests IMPAIRED HOMEOSTASIS per A.D.A. criteria. Hemoglobin A1c percentageOrd ered By: Ilan Chung on 05-27-2024 HbA1c (Bld) [Mass fraction] 4.1 % 3.8-5.6 [facility] Comment on above: Normal < 5.7 % Predi abetic 5.7 - 6.4 % Diabetic >or= 6.5 % Please note range changes. High density lipoprotein (HD L) measurementOrdered By: Ilan Chung on 05-27-2024 Cholesterol in HDL [Mass/Vol] 64 mg/dL >40 [facility] Comment on above: The drugs N-Acetylcy steine and Metamizole may falsely depress this assay. Reference Range HDL <40 mg/dL Low HDL Cholesterol HDL >or= 60 mg/dL High HDL Cholesterol Laboratory - Chemistry and C hemistry - challengeOrdered By: Ilan Chung on 05-27-2024 AST [Catalytic activity/Vol] 22 U/L 15-37 [facility] Lipid Profileon 05-27-2024 Cholesterol [Mass/Vol] 137 mg/dL Normal 200 [facility] Comment on above: Result Comment: <200 mg/dL Desirable 200-240 mg/dL Borderline >240 mg/dL High Risk Performed By: #### L 500.4050, L501.9985, L502.0250, L500.4100, L506.1000 ####[facility] [address] [place], [place], [address] Cholesterol in HDL [Mass/Vol] 64 mg/dL Normal [facility] Comment on above: Result Comment: The drugs N-Acetylcysteine and Metamizole may falsely depress this assay. Reference Range HDL <40 mg/dL Low HDL Cholesterol HDL >or= 60 mg/dL High HDL Cholesterol Performed By: #### L 500.4050, L501.9985, L502.0250, L500.4100, L506.1000 ####[facility] [address] [place], [address] Cholesterol in LDL [Mass/Vol] 59 mg/dL Normal 0-130 [facility] Comment on above: Performed By: #### L 500.4050, L501.9985, L502.0250, L500.4100, L506.1000 ####[facility] [address] [place], [address] Cholesterol in VLDL [Mass/Vol] 14 mg/dL Normal 5-40 [facility] Comment on above: Performed By: #### L 500.4050, L501.9985, L502.0250, L500.4100, L506.1000 ####[facility] [address] [place], [address] Triglyceride [Mass/Vol] 71 mg/dL Normal [facility] Comment on above: Result Comment: The drugs N-Acetylcysteine and Metamizole may falsely depress this assay. Serum Triglycerides Reference Interval Normal <150 mg/dL Borderline high 150 - 199 mg/dL High 200 - 499 mg/dL Very High > or = 500 mg/dL Performed By: #### L 500.4050, L501.9985, L502.0250, L500.4100, L506.1000 ####[facility] [address] [place], [address] Low density lipoprotein (LDL ) cholesterol measurementOrdered By: Ilan Chung on 05-27-2024 Cholesterol in LDL [Mass/Vol] 59 mg/dL 0-130 [facility] Microalb:Creat Ratio,Random URon 05-27-2024 Creatinine [Mass/Vol] 86.00 mg/dL Normal NO RAN GE EST. [facility] Comment on above: Performed By: #### L 500.4050, L501.9985, L502.0250, L500.4100, L506.1000 ####[facility] [address] [place], [place], [address](230) MALB:CRE 10.7 mg/g CRE Normal <30 mg/g CRE [facility] Comment on above: Performed By: #### L 500.4050, L501.9985, L502.0250, L500.4100, L506.1000 ####[facility] [address] [place], [address] MICROALBUMIN,UR 9.2 mg/L Normal NO RANGE EST. [facility] Comment on above: Performed By: #### L 500.4050, L501.9985, L502.0250, L500.4100, L506.1000 ####[facility] [address] [place], [address] Potassium measurementOrdered By: Ilan Chung on 05-27-2024 Potassium [Moles/Vol] 3.8 mmol/L 3.5-5.1 [facility] Random urine microalbumin me asurementOrdered By: Ilan Chung on 05-27-2024 Urine Random Microalbumin 9.2 mg/L NO RANGE EST. [facility] Serum anion gap measurementO rdered By: Ilan Chung on 05-27-2024 Anion gap [Moles/Vol] 5 mmol/L 5-15 [facility] Serum globulin measurementOr dered By: Ilan Chung on 05-27-2024 Globulin (S) [Mass/Vol] 3.2 g/dL 2.2-4.2 [facility] Serum or plasma alanine avila otransferase (ALT) measurementOrdered By: Ilan Chung on 05-27-2024 ALT [Catalytic activity/Vol] 51 U/L 13-56 [facility] Serum or plasma albumin david urement (mass/volume)Ordered By: Ilan Chung on 05-27-2024 Albumin [Mass/Vol] 3.8 g/dL 3.2-5.0 [facility] Serum or plasma alkaline dmitry sphatase measurementOrdered By: Ilan Chung on 05-27-2024 ALP [Catalytic activity/Vol] 50 U/L 45-117 [facility] Serum or plasma calcium david urement (mass/volume)Ordered By: Ilan Chung on 05-27-2024 Calcium [Mass/Vol] 8.4 mg/dL Low 8.5-10.1 [facility] Serum or plasma cholesterol measurement (mass/volume)Ordered By: Ilan Chung on 05-27-2024 Cholesterol [Mass/Vol] 137 mg/dL <200 [facility] Comment on above: <200 mg/dL Desirable 200-240 mg/dL Borderline >240 mg/dL High Risk Serum or plasma creatinine m easurement (mass/volume)Ordered By: Ilan Chung on 05-27-2024 Creatinine [Mass/Vol] 0.57 mg/dL 0.55-1.02 [facility] Comment on above: The validity of the calculated GFR & GFRAA in patients over 70 years has not been determined. Clinical correlation is essential. Serum or plasma urea nitroge n measurement (mass/volume)Ordered By: Ilan Chung on 05-27-2024 Urea nitrogen [Mass/Vol] 19 mg/dL High 7-18 [facility] Sodium levelOrdered By: Galileo Chung on 05-27-2024 Sodium [Moles/Vol] 139 mmol/L 136-145 [facility] Total proteinOrdered By: Madhu Chung on 05-27-2024 Protein [Mass/Vol] 7.0 g/dL 6.4-8.2 [facility] Triglycerides measurementOrd ered By: Ilan Chung on 05-27-2024 Triglyceride [Mass/Vol] 71 mg/dL <199 [facility] Comment on above: The drugs N-Acetylcy steine and Metamizole may falsely depress this assay.Serum Triglycerides Reference Interval Normal <150 mg/dL Borderline high 150 - 199 mg/dL High 200 - 499 mg/dL Very High > or = 500 mg/dL Urine albumin/creatinine rat io for detection of microalbuminuriaOrdered By: Ilan Chung on 05-27-2024 Urine Microalbumin/Creatinine Ratio 10.7 mg/g CRE <30 [facility] Urine creatinine measurement (mass/volume)Ordered By: Ilan Chung on 05-27-2024 Creatinine (U) [Mass/Vol] 86.00 mg/dL NO RANGE EST. [facility] Very low density lipoprotein (VLDL) cholesterol measurementOrdered By: Ilan Chung on 05-27-2024 Very low density lipoprotein (VLDL) cholesterol measurement 14 mg/dL 5-40 [facility] VLDL Cholesterol 14 mg/dL 5-40 [facility] Vitamin D,25 Hydroxyon 05-27 Vitamin D 25-OH 67.3 ng/mL Normal [facility] Comment on above: Result Comment: [place] min D 25(OH) Status Range Deficiency <20 ng/mL (50nmol/L) Insufficiency 20 - 30 ng/mL (50 - 75 nmol/L) Sufficiency 30 - 100 ng/mL (75 - 250 nmol/L) Toxicity >100 ng/mL (>250 nmol/L) Performed By: #### L 500.4050, L501.9985, L502.0250, L500.4100, L506.1000 ####[facility] [address] [place], [address] Absolute lymphocyte countOrd ered By: Trina Camilo on 06-18-2023 Lymphocytes Auto (Unsp spec) [#/Vol] 2.42 10*3/uL 0.83-4.51 [facility] Automated lymphocyte count a s percentage of total leukocytesOrdered By: Trina Camilo on 06-18-2023 Lymphocytes/100 WBC Auto (Unsp spec) 44.2 % 19-41 [facility] Basophil percentageOrdered B y: Trina Camilo on 06-18-2023 Basophils/100 WBC (Bld) 0.9 % 0-1 [facility] Bilirubin [Mass/Vol] 0.40 mg/dL 0.20-1.00 [facility] Comment on above: For patients on eltr ombopag therapy, use of Dimension [place] TBIL is not recommended. Chloride [Moles/Vol] 106 mmol/L 98-107 [facility] Eosinophils/100 WBC (Bld) 2.6 % 0-5 [facility] Glucose [Mass/Vol] 81 mg/dL 74-106 [facility] Hemoglobin (Bld) [Mass/Vol] 12.3 g/dL 12.0-15.0 [facility] Monocytes/100 WBC (Bld) 10.2 % 0-10 [facility] Neutrophils (Bld) [#/Vol] 2.3 10*3/uL 2.0-7.7 [facility] Neutrophils/100 WBC (Bld) 41.9 % 47-70 [facility] Potassium [Moles/Vol] 3.6 mmol/L 3.5-5.1 [facility] Protein [Mass/Vol] 6.9 g/dL 6.4-8.2 [facility] Sodium [Moles/Vol] 138 mmol/L 136-145 [facility] WBC (Bld) [#/Vol] 5.5 10*3/uL 4.4-11.0 [facility] Determination of erythrocyte mean corpuscular volume (MCV)Ordered By: Trina Camilo on 06-18-2023 MCV (RBC) [Entitic vol] 92.6 fL 81-99 [facility] Erythrocyte distribution wid th ratioOrdered By: Trina Leslee on 06-18-2023 Erythrocyte distribution width (RBC) [Ratio] 12.5 % 11.6-14.6 [facility] Erythrocyte distribution wid th standard deviationOrdered By: Trina Camilo on 06-18-2023 Erythrocyte distribution width (RBC) [Entitic vol] 42.7 fL 35.1-43.9 [facility] Hematocrit Auto (Bld) [Volum e fraction]Ordered By: Trina Camilo on 06-18-2023 Hematocrit (Bld) [Volume fraction] 37.4 % 37-47 [facility] Immature granulocytes/100 WB C Auto (Bld)Ordered By: Trina Camilo on 06-18-2023 Immature granulocytes/100 WBC (Bld) 0.200 % 0.0-0.9 [facility] Comment on above: IG% - Immature Granu locytes (promyelocytes, myelocytes and metamyelocytes) > 1% indicates that a LEFT SHIFT is Present. Laboratory - Chemistry and C hemistry - challengeOrdered By: Trina Camilo on 06-18-2023 Albumin/Globulin [Mass ratio] 1.3 {ratio} 0.9-2.4 [facility] ALP [Catalytic activity/Vol] 47 U/L 45-117 [facility] ALT [Catalytic activity/Vol] 43 U/L 13-56 [facility] CO2 [Moles/Vol] 27.0 mmol/L 21.0-32.0 [facility] Globulin (S) [Mass/Vol] 3.0 g/dL 2.2-4.2 [facility] Urea nitrogen/Creatinine [Mass ratio] 33.7 mg/mg 10-20 [facility] Laboratory - Hematology and Cell countsOrdered By: Trina Camilo on 06-18-2023 MCH (RBC) [Entitic mass] 30.4 pg 27.0-32.0 [facility] MCHC (RBC) [Mass/Vol] 32.9 g/dL 32-36 [facility] Nucleated RBC/100 WBC (Bld) [Ratio] 0 % 0-5 [facility] Platelet mean volume (Bld) [Entitic vol] 8.9 fL 6.2-12.0 [facility] Platelets (Bld) [#/Vol] 274 10*3/uL 150-450 [facility] No Panel InformationOrdered By: Trina Camilo on 06-18-2023 Estimated GFR (MDRD) Amer 125 mL/min >60 [facility] Comment on above: GFR Calc Estimated GFR (MDRD) Non-Af Amer 103 mL/min >60 [facility] Comment on above: Non- GFR Calc RBC Auto (Bld) [#/Vol]Ordere d By: Trina Camilo on 06-18-2023 RBC (Bld) [#/Vol] 4.04 10*6/uL 4.2-5.4 [facility] Serum or plasma calcium david urement (mass/volume)Ordered By: Trina Camilo on 06-18-2023 Calcium [Mass/Vol] 8.7 mg/dL 8.5-10.1 [facility] Serum or plasma creatinine m easurement (mass/volume)Ordered By: Trina Camilo on 06-18-2023 Creatinine [Mass/Vol] 0.62 mg/dL 0.55-1.02 [facility] Comment on above: The validity of the calculated GFR & GFRAA in patients over 70 years has not been determined. Clinical correlation is essential. Serum or plasma urea nitroge n measurement (mass/volume)Ordered By: Trina Camilo on 06-18-2023 Urea nitrogen [Mass/Vol] 21 mg/dL 7-18 [facility] Thin prep Papanicolaou smear with manual screeningOrdered By: Trina Camilo on 06-18-2023 Thin prep Papanicolaou smear with manual screening 3.9 g/dL 3.2-5.0 [facility] Thin prep Papanicolaou smear with manual screening 21 U/L 15-37 [facility] Thin prep Papanicolaou smear with manual screening 5 5-15 [facility] Basophil percentageOrdered B y: Ilan Chung on 05-01-2023 Bilirubin [Mass/Vol] 0.50 mg/dL 0.20-1.00 [facility] Comment on above: For patients on eltr ombopag therapy, use of Dimension [place] TBIL is not recommended. Chloride [Moles/Vol] 105 mmol/L 98-107 [facility] Cholesterol [Mass/Vol] 166 mg/dL <200 [facility] Comment on above: <200 mg/dL Desirable 200-240 mg/dL Borderline >240 mg/dL High Risk Glucose [Mass/Vol] 84 mg/dL 74-106 [facility] Potassium [Moles/Vol] 3.6 mmol/L 3.5-5.1 [facility] Protein [Mass/Vol] 7.0 g/dL 6.4-8.2 [facility] Sodium [Moles/Vol] 139 mmol/L 136-145 [facility] Triglyceride [Mass/Vol] 55 mg/dL <199 [facility] Comment on above: The drugs N-Acetylcy steine and Metamizole may falsely depress this assay.Serum Triglycerides Reference Interval Normal <150 mg/dL Borderline high 150 - 199 mg/dL High 200 - 499 mg/dL Very High > or = 500 mg/dL Laboratory - Chemistry and C hemistry - challengeOrdered By: Ilan Chung on 05-01-2023 ALP [Catalytic activity/Vol] 49 U/L 45-117 [facility] ALT [Catalytic activity/Vol] 39 U/L 13-56 [facility] CO2 [Moles/Vol] 28.0 mmol/L 21.0-32.0 [facility] Globulin (S) [Mass/Vol] 3.1 g/dL 2.2-4.2 [facility] Urea nitrogen/Creatinine [Mass ratio] 24.6 mg/mg 10-20 [facility] No Panel InformationOrdered By: Ilan Chung on 05-01-2023 Estimated GFR (MDRD) Amer 111 mL/min >60 [facility] Comment on above: GFR Calc Estimated GFR (MDRD) Non-Af Amer 92 mL/min >60 [facility] Comment on above: Non- GFR Calc Urine Microalbumin/Creatinine Ratio 7.4 mg/g CRE <30 [facility] Vitamin D 25-Hydroxy 95.8 ng/mL [facility] Comment on above: Vitamin D 25(OH) Sta tus Range Deficiency <20 ng/mL (50nmol/L) Insufficiency 20 - 30 ng/mL (50 - 75 nmol/L) Sufficiency 30 - 100 ng/mL (75 - 250 nmol/L) Toxicity >100 ng/mL (>250 nmol/L) Serum or plasma albumin david urement (mass/volume)Ordered By: Ilan Chung on 05-01-2023 Albumin [Mass/Vol] 3.9 g/dL 3.2-5.0 [facility] Serum or plasma albumin/glob ulin mass ratioOrdered By: Ilan Chung on 05-01-2023 Albumin/Globulin [Mass ratio] 1.3 {ratio} 0.9-2.4 [facility] Serum or plasma calcium david urement (mass/volume)Ordered By: Ilan Chung on 05-01-2023 Calcium [Mass/Vol] 9.1 mg/dL 8.5-10.1 [facility] Serum or plasma cholesterol in HDL measurement (mass/volume)Ordered By: Ilan Chung on 05-01-2023 Cholesterol in HDL [Mass/Vol] 66 mg/dL >40 [facility] Comment on above: The drugs N-Acetylcy steine and Metamizole may falsely depress this assay. Reference Range HDL <40 mg/dL Low HDL Cholesterol HDL >or= 60 mg/dL High HDL Cholesterol Serum or plasma cholesterol in VLDL measurement (mass/volume)Ordered By: Ilan Chung on 05-01-2023 Cholesterol in VLDL [Mass/Vol] 11 mg/dL 5-40 [facility] Serum or plasma creatinine m easurement (mass/volume)Ordered By: Ilan Chung on 05-01-2023 Creatinine [Mass/Vol] 0.69 mg/dL 0.55-1.02 [facility] Comment on above: The validity of the calculated GFR & GFRAA in patients over 70 years has not been determined. Clinical correlation is essential. Serum or plasma low density lipoprotein (LDL) cholesterol measurement (mass/volume)Ordered By: Ilan Chung on 05-01-2023 Cholesterol in LDL [Mass/Vol] 89 mg/dL 0-130 [facility] Serum or plasma urea nitroge n measurement (mass/volume)Ordered By: Ilan Chung on 05-01-2023 Urea nitrogen [Mass/Vol] 17 mg/dL 7-18 [facility] Thin prep Papanicolaou smear with manual screeningOrdered By: Ilan Chung on 05-01-2023 Thin prep Papanicolaou smear with manual screening 22 U/L 15-37 [facility] Thin prep Papanicolaou smear with manual screening 6 5-15 [facility] Thin prep Papanicolaou smear with manual screening 6.8 mg/L NO RANGE EST. [facility] Urine creatinine measurement (mass/volume)Ordered By: Ilan Chung on 05-01-2023 Creatinine (U) [Mass/Vol] 92.00 mg/dL NO RANGE EST. [facility] Whole blood hemoglobin A1c/t otal hemoglobin ratio (mass fraction)Ordered By: Ilan Chung on 05-01-2023 HbA1c (Bld) [Mass fraction] 5.1 % 3.8-5.6 [facility] Comment on above: Normal < 5.7 % Predi abetic 5.7 - 6.4 % Diabetic >or= 6.5 % Please note range changes. Absolute lymphocyte countOrd ered By: Trina Camilo on 12-22-2022 Lymphocytes Auto (Unsp spec) [#/Vol] 2.18 10*3/uL 0.83-4.51 [facility] Basophil percentageOrdered B y: Trina Camilo on 12-22-2022 Basophils/100 WBC (Bld) 1.0 % 0-1 [facility] Bilirubin [Mass/Vol] 0.40 mg/dL 0.20-1.00 [facility] Comment on above: For patients on eltr ombopag therapy, use of Dimension [place] TBIL is not recommended. Chloride [Moles/Vol] 102 mmol/L 98-107 [facility] Eosinophils/100 WBC (Bld) 2.1 % 0-5 [facility] Glucose [Mass/Vol] 95 mg/dL 74-106 [facility] Neutrophils (Bld) [#/Vol] 3.1 10*3/uL 2.0-7.7 [facility] Neutrophils/100 WBC (Bld) 51.2 % 47-70 [facility] Potassium [Moles/Vol] 3.5 mmol/L 3.5-5.1 [facility] Protein [Mass/Vol] 6.8 g/dL 6.4-8.2 [facility] Sodium [Moles/Vol] 136 mmol/L 136-145 [facility] WBC (Bld) [#/Vol] 6.1 10*3/uL 4.4-11.0 [facility] Blood erythrocytes count (nu mber/volume)Ordered By: Trina Camilo on 12-22-2022 RBC (Bld) [#/Vol] 4.01 10*6/uL 4.2-5.4 [facility] Blood hemoglobin measurement (mass/volume)Ordered By: Trina Camilo on 12-22-2022 Hemoglobin (Bld) [Mass/Vol] 12.4 g/dL 12.0-15.0 [facility] Blood lymphocytes/100 leukoc ytesOrdered By: Trina Camiol on 12-22-2022 Lymphocytes/100 WBC (Bld) 35.8 % 19-41 [facility] Blood monocytes/100 leukocyt esOrdered By: Trina Camilo on 12-22-2022 Monocytes/100 WBC (Bld) 9.7 % 0-10 [facility] Blood platelet mean volumeOr dered By: Trina Camilo on 12-22-2022 Platelet mean volume (Bld) [Entitic vol] 9.0 fL 6.2-12.0 [facility] Determination of erythrocyte mean corpuscular volume (MCV)Ordered By: Trina Camilo on 12-22-2022 MCV (RBC) [Entitic vol] 90.5 fL 81-99 [facility] Hematocrit Auto (Bld) [Volum e fraction]Ordered By: Trina Camilo on 12-22-2022 Hematocrit (Bld) [Volume fraction] 36.3 % 37-47 [facility] - Chemistry and C hemistry - challengeOrdered By: Trinabasim Camilo on 12-22-2022 ALP [Catalytic activity/Vol] 45 U/L 45-117 [facility] ALT [Catalytic activity/Vol] 54 U/L 13-56 [facility] CO2 [Moles/Vol] 28.0 mmol/L 21.0-32.0 [facility] Globulin (S) [Mass/Vol] 2.9 g/dL 2.2-4.2 [facility] Urea nitrogen/Creatinine [Mass ratio] 33.0 mg/mg 10-20 [facility] - Hematology and Cell countsOrdered By: Trina Camilo on 12-22-2022 Erythrocyte distribution width (RBC) [Entitic vol] 40.4 fL 35.1-43.9 [facility] Erythrocyte distribution width (RBC) [Ratio] 12.2 % 11.6-14.6 [facility] Immature granulocytes/100 WBC (Bld) 0.200 % 0.0-0.9 [facility] Comment on above: IG% - Immature Granu locytes (promyelocytes, myelocytes and metamyelocytes) > 1% indicates that a LEFT SHIFT is Present. MCH (RBC) [Entitic mass] 30.9 pg 27.0-32.0 [facility] Nucleated RBC/100 WBC (Bld) [Ratio] 0 % 0-5 [facility] MCHC Auto (RBC) [Mass/Vol]Or dered By: Trina Camilo on 12-22-2022 MCHC (RBC) [Mass/Vol] 34.2 g/dL 32-36 [facility] No Panel InformationOrdered By: Trina Camilo on 12-22-2022 Estimated GFR (MDRD) Amer 116 mL/min >60 [facility] Comment on above: GFR Calc Estimated GFR (MDRD) Non-Af Amer 96 mL/min >60 [facility] Comment on above: Non- GFR Calc Platelets bldOrdered By: Emily Camilo on 12-22-2022 Platelets (Bld) [#/Vol] 274 10*3/uL 150-450 [facility] Serum or plasma albumin david urement (mass/volume)Ordered By: Trina Camilo on 12-22-2022 Albumin [Mass/Vol] 3.9 g/dL 3.2-5.0 [facility] Serum or plasma albumin/glob ulin mass ratioOrdered By: Trina Camilo on 12-22-2022 Albumin/Globulin [Mass ratio] 1.3 {ratio} 0.9-2.4 [facility] Serum or plasma calcium david urement (mass/volume)Ordered By: Trina Camilo on 12-22-2022 Calcium [Mass/Vol] 8.8 mg/dL 8.5-10.1 [facility] Serum or plasma creatinine m easurement (mass/volume)Ordered By: Trina Camilo on 12-22-2022 Creatinine [Mass/Vol] 0.67 mg/dL 0.55-1.02 [facility] Comment on above: The validity of the calculated GFR & GFRAA in patients over 70 years has not been determined. Clinical correlation is essential. Serum or plasma urea nitroge n measurement (mass/volume)Ordered By: Trina Camilo on 12-22-2022 Urea nitrogen [Mass/Vol] 22 mg/dL 7-18 [facility] Thin prep Papanicolaou smear with manual screeningOrdered By: Trina Camilo on 12-22-2022 Thin prep Papanicolaou smear with manual screening 23 U/L 15-37 [facility] Thin prep Papanicolaou smear with manual screening 6 5-15 [facility] Basophil percentageOrdered B y: Ilan Chung on 10-24-2022 Bilirubin [Mass/Vol] 0.40 mg/dL 0.20-1.00 [facility] Comment on above: For patients on eltr ombopag therapy, use of Dimension [place] TBIL is not recommended. Chloride [Moles/Vol] 102 mmol/L 98-107 [facility] Cholesterol [Mass/Vol] 126 mg/dL <200 [facility] Comment on above: <200 mg/dL Desirable 200-240 mg/dL Borderline >240 mg/dL High Risk Glucose [Mass/Vol] 97 mg/dL 74-106 [facility] Potassium [Moles/Vol] 3.8 mmol/L 3.5-5.1 [facility] Protein [Mass/Vol] 7.7 g/dL 6.4-8.2 [facility] Sodium [Moles/Vol] 135 mmol/L 136-145 [facility] Triglyceride [Mass/Vol] 76 mg/dL <199 [facility] Comment on above: The drugs N-Acetylcy steine and Metamizole may falsely depress this assay.Serum Triglycerides Reference Interval Normal <150 mg/dL Borderline high 150 - 199 mg/dL High 200 - 499 mg/dL Very High > or = 500 mg/dL WBC (Bld) [#/Vol] 5.5 10*3/uL 4.4-11.0 [facility] Blood erythrocytes count (nu mber/volume)Ordered By: Ilan Chung on 10-24-2022 RBC (Bld) [#/Vol] 4.32 10*6/uL 4.2-5.4 [facility] Blood hemoglobin measurement (mass/volume)Ordered By: Ilan Chung on 10-24-2022 Hemoglobin (Bld) [Mass/Vol] 13.6 g/dL 12.0-15.0 [facility] Blood platelet mean volumeOr dered By: Ilan Chung on 10-24-2022 Platelet mean volume (Bld) [Entitic vol] 8.9 fL 6.2-12.0 [facility] Determination of erythrocyte mean corpuscular volume (MCV)Ordered By: Ilan Chung on 10-24-2022 MCV (RBC) [Entitic vol] 90.3 fL 81-99 [facility] Hematocrit Auto (Bld) [Volum e fraction]Ordered By: Ilan Chung on 10-24-2022 Hematocrit (Bld) [Volume fraction] 39.0 % 37-47 [facility] - Chemistry and C hemistry - challengeOrdered By: Ilan Chung on 10-24-2022 ALP [Catalytic activity/Vol] 49 U/L 45-117 [facility] ALT [Catalytic activity/Vol] 66 U/L 13-56 [facility] CO2 [Moles/Vol] 27.0 mmol/L 21.0-32.0 [facility] Globulin (S) [Mass/Vol] 3.5 g/dL 2.2-4.2 [facility] Urea nitrogen/Creatinine [Mass ratio] 24.7 mg/mg 10-20 [facility] - Hematology and Cell countsOrdered By: Ilan Chung on 10-24-2022 Erythrocyte distribution width (RBC) [Entitic vol] 39.7 fL 35.1-43.9 [facility] Erythrocyte distribution width (RBC) [Ratio] 12.1 % 11.6-14.6 [facility] MCH (RBC) [Entitic mass] 31.5 pg 27.0-32.0 [facility] MCHC Auto (RBC) [Mass/Vol]Or dered By: Ilan Chung on 10-24-2022 MCHC (RBC) [Mass/Vol] 34.9 g/dL 32-36 [facility] No Panel InformationOrdered By: Ilan Chung on 10-24-2022 Estimated GFR (MDRD) Amer 93 mL/min >60 [facility] Comment on above: GFR Calc Estimated GFR (MDRD) Non-Af Amer 76 mL/min >60 [facility] Comment on above: Non- GFR Calc Vitamin D 25-Hydroxy 113.1 ng/mL [facility] Comment on above: Vitamin D 25(OH) [...] 10-24-2022 Platelets (Bld) [#/Vol] 281 10*3/uL 150-450 [facility] Serum or plasma albumin david urement (mass/volume)Ordered By: Ilan Chung on 10-24-2022 Albumin [Mass/Vol] 4.2 g/dL 3.2-5.0 [facility] Serum or plasma albumin/glob ulin mass ratioOrdered By: Ilan Chung on 10-24-2022 Albumin/Globulin [Mass ratio] 1.2 {ratio} 0.9-2.4 [facility] Serum or plasma calcium david urement (mass/volume)Ordered By: Ilan Chung on 10-24-2022 Calcium [Mass/Vol] 9.2 mg/dL 8.5-10.1 [facility] Serum or plasma cholesterol in HDL measurement (mass/volume)Ordered By: Ilan Chung on 10-24-2022 Cholesterol in HDL [Mass/Vol] 56 mg/dL >40 [facility] Comment on above: The drugs N-Acetylcy steine and Metamizole may falsely depress this assay. Reference Range HDL <40 mg/dL Low HDL Cholesterol HDL >or= 60 mg/dL High HDL Cholesterol Serum or plasma cholesterol in VLDL measurement (mass/volume)Ordered By: Ilan Chung on 10-24-2022 Cholesterol in VLDL [Mass/Vol] 15 mg/dL 5-40 [facility] Serum or plasma creatinine m easurement (mass/volume)Ordered By: Ilan Chung on 10-24-2022 Creatinine [Mass/Vol] 0.81 mg/dL 0.55-1.02 [facility] Comment on above: The validity of the calculated GFR & GFRAA in patients over 70 years has not been determined. Clinical correlation is essential. Serum or plasma low density lipoprotein (LDL) cholesterol measurement (mass/volume)Ordered By: Ilan Chung on 10-24-2022 Cholesterol in LDL [Mass/Vol] 55 mg/dL 0-130 [facility] Serum or plasma urea nitroge n measurement (mass/volume)Ordered By: Ilan Chung on 10-24-2022 Urea nitrogen [Mass/Vol] 20 mg/dL 7-18 [facility] Thin prep Papanicolaou smear with manual screeningOrdered By: Ilan Chung on 10-24-2022 Thin prep Papanicolaou smear with manual screening 30 U/L 15-37 [facility] Thin prep Papanicolaou smear with manual screening 6 5-15 [facility] Absolute lymphocyte countOrd ered By: Dr. Camilo on 09-17-2022 Lymphocytes Auto (Unsp spec) [#/Vol] 2.20 10*3/uL 0.83-4.51 [facility] Basophil percentageOrdered B y: Dr. Camilo on 09-17-2022 Basophils/100 WBC (Bld) 0.8 % 0-1 [facility] Bilirubin [Mass/Vol] 0.40 mg/dL 0.20-1.00 [facility] Comment on above: For patients on eltr ombopag therapy, use of Dimension [place] TBIL is not recommended. Chloride [Moles/Vol] 98 mmol/L 98-107 [facility] Eosinophils/100 WBC (Bld) 2.2 % 0-5 [facility] Glucose [Mass/Vol] 90 mg/dL 74-106 [facility] Neutrophils (Bld) [#/Vol] 3.0 10*3/uL 2.0-7.7 [facility] Neutrophils/100 WBC (Bld) 49.0 % 47-70 [facility] Potassium [Moles/Vol] 3.6 mmol/L 3.5-5.1 [facility] Protein [Mass/Vol] 7.2 g/dL 6.4-8.2 [facility] Sodium [Moles/Vol] 133 mmol/L 136-145 [facility] WBC (Bld) [#/Vol] 6.0 10*3/uL 4.4-11.0 [facility] Blood erythrocytes count (nu mber/volume)Ordered By: Dr. Camilo on 09-17-2022 RBC (Bld) [#/Vol] 4.03 10*6/uL 4.2-5.4 [facility] Blood hemoglobin measurement (mass/volume)Ordered By: Dr. Camilo on 09-17-2022 Hemoglobin (Bld) [Mass/Vol] 12.6 g/dL 12.0-15.0 [facility] Blood lymphocytes/100 leukoc ytesOrdered By: Dr. Camilo on 09-17-2022 Lymphocytes/100 WBC (Bld) 36.5 % 19-41 [facility] Blood monocytes/100 leukocyt esOrdered By: Dr. Camilo on 09-17-2022 Monocytes/100 WBC (Bld) 11.3 % 0-10 [facility] Blood platelet mean volumeOr dered By: Dr. Camilo on 09-17-2022 Platelet mean volume (Bld) [Entitic vol] 9.1 fL 6.2-12.0 [facility] Determination of erythrocyte mean corpuscular volume (MCV)Ordered By: Dr. Camilo on 09-17-2022 MCV (RBC) [Entitic vol] 88.8 fL 81-99 [facility] Hematocrit Auto (Bld) [Volum e fraction]Ordered By: Dr. Camilo on 09-17-2022 Hematocrit (Bld) [Volume fraction] 35.8 % 37-47 [facility] - Chemistry and C hemistry - challengeOrdered By: Dr. Camilo on 09-17-2022 ALP [Catalytic activity/Vol] 42 U/L 45-117 [facility] ALT [Catalytic activity/Vol] 65 U/L 13-56 [facility] CO2 [Moles/Vol] 28.0 mmol/L 21.0-32.0 [facility] Globulin (S) [Mass/Vol] 3.2 g/dL 2.2-4.2 [facility] Urea nitrogen/Creatinine [Mass ratio] 27.4 mg/mg 10-20 [facility] - Hematology and Cell countsOrdered By: Dr. Camilo on 09-17-2022 Erythrocyte distribution width (RBC) [Entitic vol] 38.6 fL 35.1-43.9 [facility] Erythrocyte distribution width (RBC) [Ratio] 12.0 % 11.6-14.6 [facility] Immature granulocytes/100 WBC (Bld) 0.200 % 0.0-0.9 [facility] Comment on above: IG% - Immature Granu locytes (promyelocytes, myelocytes and metamyelocytes) > 1% indicates that a LEFT SHIFT is Present. MCH (RBC) [Entitic mass] 31.3 pg 27.0-32.0 [facility] Nucleated RBC/100 WBC (Bld) [Ratio] 0 % 0-5 [facility] MCHC Auto (RBC) [Mass/Vol]Or dered By: Dr. Camilo on 09-17-2022 MCHC (RBC) [Mass/Vol] 35.2 g/dL 32-36 [facility] No Panel InformationOrdered By: Dr. Camilo on 09-17-2022 Estimated GFR (MDRD) Amer 104 mL/min >60 [facility] Comment on above: GFR Calc Estimated GFR (MDRD) Non-Af Amer 86 mL/min >60 [facility] Comment on above: Non- GFR Calc Platelets bldOrdered By: Dr. Camilo on 09-17-2022 Platelets (Bld) [#/Vol] 286 10*3/uL 150-450 [facility] Serum or plasma albumin david urement (mass/volume)Ordered By: Dr. Camilo on 09-17-2022 Albumin [Mass/Vol] 4.0 g/dL 3.2-5.0 [facility] Serum or plasma albumin/glob ulin mass ratioOrdered By: Dr. Camilo on 09-17-2022 Albumin/Globulin [Mass ratio] 1.2 {ratio} 0.9-2.4 [facility] Serum or plasma calcium david urement (mass/volume)Ordered By: Dr. Camilo on 09-17-2022 Calcium [Mass/Vol] 8.9 mg/dL 8.5-10.1 [facility] Serum or plasma creatinine m easurement (mass/volume)Ordered By: Dr. Camilo on 09-17-2022 Creatinine [Mass/Vol] 0.73 mg/dL 0.55-1.02 [facility] Comment on above: The validity of the calculated GFR & GFRAA in patients over 70 years has not been determined. Clinical correlation is essential. Serum or plasma urea nitroge n measurement (mass/volume)Ordered By: Dr. Camilo on 09-17-2022 Urea nitrogen [Mass/Vol] 20 mg/dL 7-18 [facility] Thin prep Papanicolaou smear with manual screeningOrdered By: Dr. Camilo on 09-17-2022 Thin prep Papanicolaou smear with manual screening 30 U/L 15-37 [facility] Thin prep Papanicolaou smear with manual screening 7 5-15 [facility] Order Department Supervisor Cytology Reporton 2022 Order Department Supervisor Cytology Report . Pathology Reports Accession: Collected Date/Time: Received Date/Time: Pathologist: [id number] 05/15/2022 09: EST 05/15/2022 18:00 EST Order Department Supervisor Cytology Report SPECIMEN: Specimen Description: Liquid Prep w/ HPV Specimen: Cervical Screening or Diagnostic: Screening RELEVANT HISTORY: LMP: age 39 [id number] SPECIMEN ADEQUACY: SATISFACTORY FOR EVALUATION Endocervical/Transf ormational [...] and evaluated with the assistance of the GlarityPrep Test Imaging System. Pathology Reports Accession: Collected Date/Time: Received Date/Time: Pathologist: [id number] 05/15/2022 09:23 EST 05/15/2022 18:00 EST Electronically Signed by Pathology report verified by [facility] Screened by: DW Electronically signed by Rosario Ackerman Sign-Out Date: 05/26/2022 13:15 Performing Lab: [facility], [address] [place] [address] Pathology Dept Disclaimer The Pap test is a screening test for cervical cancer. As evidenced by published data, it is subject to both inherent false negative and false positive results. Your patient's results should be interpreted in context with pertinent clinical history including gynecological examination. Normal [facility] ([place]) HPVon 05-26-2022 HPV Interp Normal See Interp HPVN [facility] ([place] Comment on above: Order Comment: Order placed by AP_HPV_ORDER rule from [id number] Result Comment: High Risk HPV Typing: NEGATIVE [...] and sufficient DNA to be detected. See Interp HPVN Performed By: #### G FR, VIDH, LIPID, CMP #### [address] [address] HPV Source Cervix Normal [facility] ([place]) Comment on above: Order Comment: Order placed by AP_HPV_ORDER rule from [id number] Performed By: #### G FR, VIDH, LIPID, CMP #### [id number] [place], [place] [address] .Auto Diffon 04-24-2022 Basophil, Absolute 0.1 10 3/mcL Normal 0.0-0.2 [facility] [place] Comment on above: Performed By: #### G FR, CMP, VIDH, LIPID #### [address] [address] Basophils/100 WBC (Bld) 1.5 % Normal 0.0-2.5 [facility] ([place]) Comment on above: Performed By: #### G FR, CMP, VIDH, LIPID #### [address] [address] Eosinophil, Absolute 0.2 10 3/mcL Normal 0.0-0.4 [facility] ([place] Comment on above: Performed By: #### G FR, CMP, VIDH, LIPID #### [address] [address] Eosinophils/100 WBC (Bld) 5.2 % Normal 0.0-7.0 [facility] ([place] Comment on above: Performed By: #### G FR, CMP, VIDH, LIPID #### [address] [address] Lymphocyte, Absolute 1.8 10 3/mcL Normal 0.8-3.9 [facility] ([place] Comment on above: Performed By: #### G FR, CMP, VIDH, LIPID #### [address] [address] Lymphocytes/100 WBC (Bld) 37.5 % Normal 10.0-50.0 [facility] ([place] Comment on above: Performed By: #### G FR, CMP, VIDH, LIPID #### [address] [address] Monocyte, Absolute 0.5 10 3/mcL Normal 0.2-1.0 [facility] [place] Comment on above: Performed By: #### G FR, CMP, VIDH, LIPID #### [address] [address] Monocytes/100 WBC (Bld) 10.2 % Normal 1.7-13.0 [facility] ([place] Comment on above: Performed By: #### G FR, CMP, VIDH, LIPID #### [address] [address] Neutrophils/100 WBC (Bld) 45.6 % Normal 37.0-80.0 [facility] ([place] Comment on above: Performed By: #### G FR, CMP, VIDH, LIPID #### [address] [address] .GFRon 04-24-2022 GFR 102 ml/min/1.73sqm Normal [facility] ([place] Comment on above: Result Comment: GFR Population [...] #### G FR, VIDH, LIPID, CMP #### [address] [address] GFR Non- 84 ml/min/1.73sqm Normal [facility] ([place] Comment on above: Result Comment: GFR Population [...] #### G FR, VIDH, LIPID, CMP #### [place] [id number] .NEUABSon 04-24-2022 Neutrophil, Absolute 2.2 10 3/mcL Low 2.9-6.2 [facility] ([place] Comment on above: Performed By: #### G FR, VIDH, LIPID, CMP #### [place] [address] CBCon 04-24-2022 Erythrocyte distribution width (RBC) [Ratio] 13.0 % Normal 11.5-14.5 [facility] ([place] Comment on above: Performed By: #### G FR, CMP, VIDH, LIPID #### [place] [address] Hematocrit (Bld) [Volume fraction] 37.4 % Normal 37.0-47.0 [facility] ([place] Comment on above: Performed By: #### G FR, CMP, VIDH, LIPID #### [place] [address] Hgb 12.9 G/dL Normal 12.0-16.0 [facility] ([place] Comment on above: Performed By: #### G FR, CMP, VIDH, LIPID #### [place] [address] MCH (RBC) [Entitic mass] 30.8 pg Normal 27.0-31.2 [facility] ([place] Comment on above: Performed By: #### G FR, CMP, VIDH, LIPID #### [place] [address] MCHC 34.6 G/dL Normal 33.0-37.0 [facility] ([place] Comment on above: Performed By: #### G FR, CMP, VIDH, LIPID #### [place] [address] MCV (RBC) [Entitic vol] 88.9 fL Normal 80.0-94.0 [facility] ([place] Comment on above: Performed By: #### G FR, CMP, VIDH, LIPID #### [address] [address] Platelet 286 10 3/mcL Normal 130-400 [facility] ([place] Comment on above: Performed By: #### G FR, CMP, VIDH, LIPID #### [address] [address] Platelet mean volume (Bld) [Entitic vol] 6.5 fL Low 7.4-10.4 [facility] ([place] Comment on above: Performed By: #### G FR, CMP, VIDH, LIPID #### [address] [address] RBC 4.20 10 6/mcL Normal 4.20-5.40 [facility] ([place] Comment on above: Performed By: #### G FR, CMP, VIDH, LIPID #### [address] [address] WBC 4.7 10 3/mcL Normal 4.6-10.8 [facility] ([place] Comment on above: Performed By: #### G FR, CMP, VIDH, LIPID #### [address] [address] CMPon 04-24-2022 Albumin Level 4.0 G/dL Normal 3.4-4.8 [facility] ([place] Comment on above: Performed By: #### G FR, VIDH, LIPID, CMP #### [address] [address] Albumin/Globulin [Mass ratio] 1.4 {ratio} Normal 1.1-2.5 [facility] ([place] Comment on above: Performed By: #### G FR, VIDH, LIPID, CMP #### [address] [address] ALP [Catalytic activity/Vol] 54 U/L Normal 40-135 [facility] ([place] Comment on above: Performed By: #### G FR, VIDH, LIPID, CMP #### [address] [address] ALT [Catalytic activity/Vol] 60 U/L High 14-59 [facility] ([place] Comment on above: Performed By: #### G FR, VIDH, LIPID, CMP #### [address] [address] AST [Catalytic activity/Vol] 23 U/L Normal 10-40 [facility] ([place] Comment on above: Performed By: #### G FR, VIDH, LIPID, CMP #### [address] [address] Bili Total 0.4 mg/dL Normal 0.2-1.0 [facility] ([place] Comment on above: Result Comment: Use of this assay is not recommended for patients undergoing treatment with eltrombopag due to the potential for falsely elevated results. Performed By: #### G FR, VIDH, LIPID, CMP #### [address] [address] BUN/Creatinine Ratio 20 ratio Normal 7-27 [facility] [place] Comment on above: Performed By: #### G FR, VIDH, LIPID, CMP #### [address] [address] Calcium [Mass/Vol] 9.0 mg/dL Normal 8.4-10.2 [facility] ([place] Comment on above: Performed By: #### G FR, VIDH, LIPID, CMP #### [address] [address] Chloride [Moles/Vol] 103 mmol/L Normal 98-107 [facility] [place] Comment on above: Performed By: #### G FR, VIDH, LIPID, CMP #### [address] [address] CO2 [Moles/Vol] 31 mmol/L Normal 23-31 [facility] ([place] Comment on above: Performed By: #### G FR, VIDH, LIPID, CMP #### [address] [address] Creatinine [Mass/Vol] 0.71 mg/dL Normal 0.55-1.02 [facility] ([place]) Comment on above: Performed By: #### G FR, VIDH, LIPID, CMP #### [address] [address] Electrolyte Balance 9.0 mEq/L Normal 4.0-15.0 [facility] ([place] Comment on above: Performed By: #### G FR, VIDH, LIPID, CMP #### [address] [address] Globulin 2.9 G/dL Normal [facility] ([place] Comment on above: Performed By: #### G FR, VIDH, LIPID, CMP #### [address] [address] Glucose [Mass/Vol] 100 mg/dL Normal 80-115 [facility] ([place] Comment on above: Performed By: #### G FR, VIDH, LIPID, CMP #### [address] [address] Potassium [Moles/Vol] 3.8 mmol/L Normal 3.5-5.1 [facility] ([place] Comment on above: Performed By: #### G FR, VIDH, LIPID, CMP #### [address] [address] Sodium [Moles/Vol] 143 mmol/L Normal 136-145 [facility] ([place] Comment on above: Performed By: #### G FR, VIDH, LIPID, CMP #### [address] [address] Total Protein 6.9 G/dL Normal 6.4-8.2 [facility] ([place] Comment on above: Performed By: #### G FR, VIDH, LIPID, CMP #### [address] [address] Urea nitrogen [Mass/Vol] 14 mg/dL Normal 7-18 [facility] ([place] Comment on above: Performed By: #### G FR, VIDH, LIPID, CMP #### [address] [address] LABORATORYOrdered By: SYSTEM SYSTEM on 04-24-2022 Albumin [...] 04-24-2022 Cholesterol [Mass/Vol] 151 mg/dL Normal 0-200 [facility] [place] Comment on above: Result Comment: Chol esterol Reference Interval: Less than 200 Desirable 200-239 Borderline high risk 240 and above High risk Performed By: #### G FR, VIDH, LIPID, CMP #### [address] [address] Cholesterol in HDL [Mass/Vol] 62 mg/dL High 40-60 [facility] ([place] Comment on above: Performed By: #### G FR, VIDH, LIPID, CMP #### [address] [address] Cholesterol in LDL [Mass/Vol] 76 mg/dL Normal 0-130 [facility] ([place] Comment on above: Performed By: #### G FR, VIDH, LIPID, CMP #### [address] [address] Triglyceride [Mass/Vol] 64 mg/dL Normal 0-150 [facility] ([place]) Comment on above: Result Comment: Trig lyceride Reference Interval: Less than 150 Normal 150-199 Borderline high risk 200-499 High risk 500 or higher Very high risk Performed By: #### G FR, VIDH, LIPID, CMP #### [id number] [place], [place] [address] VIDHon 04-24-2022 Vit. D 25-Hydroxy 42.3 ng/mL Normal [facility] ([place] Comment on above: Result Comment: Inte rpretive Values Based on Total 25(OH) Vitamin D: Deficient <20 ng/mL Insufficient 20 - <30 ng/mL Sufficient 30-100 ng/mL Performed By: #### G FR, VI, LIPID, CMP #### [id number] [place], [place] [address] Absolute lymphocyte counton 03-23-2022 Lymphocytes Auto (Unsp spec) [#/Vol] 3.02 10*3/uL 0.83-4.51 [facility] Work Phone: Basophil percentageon 2021 Basophils/100 WBC (Bld) 0.4 % 0-1 [facility] Work Phone: Bilirubin [Mass/Vol] 0.30 mg/dL 0.20-1.00 [facility] Work Phone: Comment on above: For patients on eltr ombopag therapy, use of Dimension [place] TBIL is not recommended. Chloride [Moles/Vol] 103 mmol/L 98-107 [facility] Work Phone: Eosinophils/100 WBC (Bld) 3.4 % 0-5 [facility] Work Phone: Glucose [Mass/Vol] 88 mg/dL 74-106 [facility] Work Phone: Neutrophils (Bld) [#/Vol] 5.0 10*3/uL 2.0-7.7 [facility] Work Phone: Neutrophils/100 WBC (Bld) 54.6 % 47-70 [facility] Work Phone: Potassium [Moles/Vol] 3.5 mmol/L 3.5-5.1 [facility] Work Phone: Protein [Mass/Vol] 6.8 g/dL 6.4-8.2 [facility] Work Phone: Sodium [Moles/Vol] 139 mmol/L 136-145 [facility] Work Phone: WBC (Bld) [#/Vol] 9.2 10*3/uL 4.4-11.0 [facility] Work Phone: Blood erythrocytes count (nu mber/volume)on 03-23-2022 RBC (Bld) [#/Vol] 4.28 10*6/uL 4.2-5.4 [facility] Work Phone: Blood hemoglobin measurement (mass/volume)on 03-23-2022 Hemoglobin (Bld) [Mass/Vol] 13.3 g/dL 12.0-15.0 [facility] Work Phone: Blood lymphocytes/100 leukoc yteson 03-23-2022 Lymphocytes/100 WBC (Bld) 32.9 % 19-41 [facility] Work Phone: [phone] Blood monocytes/100 leukocyt eson 03-23-2022 Monocytes/100 WBC (Bld) 8.5 % 0-10 [facility] Work Phone: Blood platelet mean volumeon 03-23-2022 Platelet mean volume (Bld) [Entitic vol] 8.9 fL 6.2-12.0 [facility] Work Phone: Determination of erythrocyte mean corpuscular volume (MCV)on 03-23-2022 MCV (RBC) [Entitic vol] 89.7 fL 81-99 [facility] Work Phone: Hematocrit Auto (Bld) [Volum e fraction]on 03-23-2022 Hematocrit (Bld) [Volume fraction] 38.4 % 37-47 [facility] Work Phone: Laboratory - Chemistry and C hemistry - challengeon 03-23-2022 ALP [Catalytic activity/Vol] 50 U/L 45-117 [facility] Work Phone: ALT [Catalytic activity/Vol] 52 U/L 13-56 [facility] Work Phone: CO2 [Moles/Vol] 28.0 mmol/L 21.0-32.0 [facility] Work Phone: [phone] Globulin (S) [Mass/Vol] 2.8 g/dL 2.2-4.2 [facility] Work Phone: [phone] Urea nitrogen/Creatinine [Mass ratio] 29.2 mg/mg 10-20 [facility] Work Phone: [phone] Laboratory - Hematology and Cell countson 03-23-2022 Erythrocyte distribution width (RBC) [Entitic vol] 40.2 fL 35.1-43.9 [facility] Work Phone: [phone] Erythrocyte distribution width (RBC) [Ratio] 12.3 % 11.6-14.6 [facility] Work Phone: [phone] Immature granulocytes/100 WBC (Bld) 0.200 % 0.0-0.9 [facility] Work Phone: [phone] Comment on above: IG% - Immature Granu locytes (promyelocytes, myelocytes and metamyelocytes) > 1% indicates that a LEFT SHIFT is Present. MCH (RBC) [Entitic mass] 31.1 pg 27.0-32.0 [facility] Work Phone: Nucleated RBC/100 WBC (Bld) [Ratio] 0 % 0-5 [facility] Work Phone: [phone] MCHC Auto (RBC) [Mass/Vol]on 03-23-2022 MCHC (RBC) [Mass/Vol] 34.6 g/dL 32-36 [facility] Work Phone: No Panel Informationon 03-23 Estimated GFR (MDRD) Amer 101 mL/min >60 [facility] Work Phone: [phone] Comment on above: GFR Calc Estimated GFR (MDRD) Non-Af Amer 83 mL/min >60 [facility] Work Phone: [phone] Comment on above: Non- GFR Calc Platelets bldon 03-23-2022 Platelets (Bld) [#/Vol] 280 10*3/uL 150-450 [facility] Work Phone: Serum or plasma albumin david urement (mass/volume)on 03-23-2022 Albumin [Mass/Vol] 4.0 g/dL 3.2-5.0 [facility] Work Phone: [phone] Serum or plasma albumin/glob ulin mass ratioon 03-23-2022 Albumin/Globulin [Mass ratio] 1.4 {ratio} 0.9-2.4 [facility] Work Phone: Serum or plasma calcium david urement (mass/volume)on 03-23-2022 Calcium [Mass/Vol] 9.1 mg/dL 8.5-10.1 [facility] Work Phone: Serum or plasma creatinine m easurement (mass/volume)on 03-23-2022 Creatinine [Mass/Vol] 0.75 mg/dL 0.55-1.02 [facility] Work Phone: Comment on above: The validity of the calculated GFR & GFRAA in patients over 70 years has not been determined. Clinical correlation is essential. Serum or plasma urea nitroge n measurement (mass/volume)on 03-23-2022 Urea nitrogen [Mass/Vol] 22 mg/dL 7-18 [facility] Work Phone: Thin prep Papanicolaou smear with manual screeningon 03-23-2022 Thin prep Papanicolaou smear with manual screening 27 U/L 15-37 [facility] Work Phone: [phone] Thin prep Papanicolaou smear with manual screening 8 5-15 [facility] Work Phone: .Auto Diffon 10-11-2021 Basophil, Absolute 0.0 10 3/mcL Normal 0.0-0.2 [facility] [place] Comment on above: Performed By: #### G FR, VIDH, LIPID, CMP #### [id number] [place], [place] [address] Basophils/100 WBC (Bld) 1.0 % Normal 0.0-2.5 [facility] ([place]) Comment on above: Performed By: #### G FR, VIDH, LIPID, CMP #### [address] [address] Eosinophil, Absolute 0.2 10 3/mcL Normal 0.0-0.4 [facility] ([place] Comment on above: Performed By: #### G FR, VIDH, LIPID, CMP #### [address] [address] Eosinophils/100 WBC (Bld) 3.5 % Normal 0.0-7.0 [facility] ([place]) Comment on above: Performed By: #### G FR, VIDH, LIPID, CMP #### [address] [address] Lymphocyte, Absolute 1.6 10 3/mcL Normal 0.8-3.9 [facility] ([place] Comment on above: Performed By: #### G FR, VIDH, LIPID, CMP #### [address] [address] Lymphocytes/100 WBC (Bld) 34.2 % Normal 10.0-50.0 [facility] ([place] Comment on above: Performed By: #### G FR, VIDH, LIPID, CMP #### [address] [address] Monocyte, Absolute 0.5 10 3/mcL Normal 0.2-1.0 [facility] [place] Comment on above: Performed By: #### G FR, VIDH, LIPID, CMP #### [address] [address] Monocytes/100 WBC (Bld) 10.4 % Normal 1.7-13.0 [facility] ([place]) Comment on above: Performed By: #### G FR, VIDH, LIPID, CMP #### [address] [address] Neutrophils/100 WBC (Bld) 50.9 % Normal 37.0-80.0 [facility] ([place] Comment on above: Performed By: #### G FR, VIDH, LIPID, CMP #### [address] [address] .GFRon 10-11-2021 GFR 89 ml/min/1.73sqm Normal [facility] ([place]) Comment on above: Result Comment: GFR Population [...] #### G FR, VIDH, LIPID, CMP #### [address] [address] GFR Non- 73 ml/min/1.73sqm Normal [facility] ([place]) Comment on above: Result Comment: GFR Population [...] #### G FR, VIDH, LIPID, CMP #### [address] [address] .MDWon 10-11-2021 Monocyte Distribution Width Not performed Normal 0.00-20.00 [facility] ([place]) Comment on above: Result Comment: MDW testing performed only on adult ER patients between the ages of 18-89 years. Performed By: #### G FR, VIDH, LIPID, CMP #### [address] [address] .NEUABSon 10-11-2021 Neutrophil, Absolute 2.4 10 3/mcL Low 2.9-6.2 [facility] ([place] Comment on above: Performed By: #### G FR, VIDH, LIPID, CMP #### [id number] CBCon 10-11-2021 Erythrocyte distribution width (RBC) [Ratio] 13.0 % Normal 11.5-14.5 [facility] ([place] Comment on above: Performed By: #### G FR, VIDH, LIPID, CMP #### [address] [address] Hematocrit (Bld) [Volume fraction] 36.4 % Low 37.0-47.0 [facility] ([place] Comment on above: Performed By: #### G FR, VIDH, LIPID, CMP #### [id number] Hgb 12.7 G/dL Normal 12.0-16.0 [facility] ([place] Comment on above: Performed By: #### G FR, VIDH, LIPID, CMP #### [address] [address] MCH (RBC) [Entitic mass] 31.0 pg Normal 27.0-31.2 [facility] ([place] Comment on above: Performed By: #### G FR, VIDH, LIPID, CMP #### [phone] MCHC 35.0 G/dL Normal 33.0-37.0 [facility] ([place] Comment on above: Performed By: #### G FR, VIDH, LIPID, CMP #### [place] [id number] MCV (RBC) [Entitic vol] 88.8 fL Normal 80.0-94.0 [facility] ([place] Comment on above: Performed By: #### G FR, VIDH, LIPID, CMP #### [address] [address] Platelet 268 10 3/mcL Normal 130-400 [facility] ([place]) Comment on above: Performed By: #### G FR, VIDH, LIPID, CMP #### [address] [address] Platelet mean volume (Bld) [Entitic vol] 6.7 fL Low 7.4-10.4 [facility] ([place] Comment on above: Performed By: #### G FR, VIDH, LIPID, CMP #### [address] [address] RBC 4.10 10 6/mcL Low 4.20-5.40 [facility] ([place]) Comment on above: Performed By: #### Verito FR, VIDH, LIPID, CMP #### [address] [address] WBC 4.7 10 3/mcL Normal 4.6-10.8 [facility] ([place] Comment on above: Performed By: #### Verito FR, VIDH, LIPID, CMP #### [address] [address] CMPon 10-11-2021 Albumin Level 4.2 G/dL Normal 3.5-5.0 [facility] ([place]) Comment on above: Performed By: #### G FR, VIDH, LIPID, CMP #### [address] [address] Albumin/Globulin [Mass ratio] 1.6 {ratio} Normal 1.1-2.5 [facility] ([place]) Comment on above: Performed By: #### G FR, VIDH, LIPID, CMP #### [address] [address] ALP [Catalytic activity/Vol] 46 U/L Normal 40-135 [facility] ([place]) Comment on above: Performed By: #### G FR, VIDH, LIPID, CMP #### [address] [address] ALT [Catalytic activity/Vol] 54 U/L Normal 14-59 [facility] ([place]) Comment on above: Performed By: #### G FR, VIDH, LIPID, CMP #### [address] [address] AST [Catalytic activity/Vol] 25 U/L Normal 10-40 [facility] ([place]) Comment on above: Performed By: #### G FR, VIDH, LIPID, CMP #### [address] [address] Bili Total 0.3 mg/dL Normal 0.2-1.0 [facility] ([place]) Comment on above: Result Comment: Use of this assay is not recommended for patients undergoing treatment with eltrombopag due to the potential for falsely elevated results. Performed By: #### G FR, VIDH, LIPID, CMP #### [address] [address] BUN/Creatinine Ratio 15 ratio Normal 7-27 [facility] [place] Comment on above: Performed By: #### G FR, VIDH, LIPID, CMP #### [address] [address] Calcium [Mass/Vol] 8.8 mg/dL Normal 8.4-10.2 [facility] ([place]) Comment on above: Performed By: #### G FR, VIDH, LIPID, CMP #### [address] [address] Chloride [Moles/Vol] 105 mmol/L Normal 98-107 [facility] [place] Comment on above: Performed By: #### G FR, VIDH, LIPID, CMP #### [address] [address] CO2 [Moles/Vol] 30 mmol/L High 22-29 [facility] ([place] Comment on above: Performed By: #### G FR, VIDH, LIPID, CMP #### [address] [address] Creatinine [Mass/Vol] 0.80 mg/dL Normal 0.55-1.02 [facility] ([place]) Comment on above: Performed By: #### Verito FR, VIDH, LIPID, CMP #### [address] [address] Electrolyte Balance 9.0 mEq/L Normal 4.0-15.0 [facility] ([place]) Comment on above: Performed By: #### G FR, VIDH, LIPID, CMP #### Joey [address] [address] Globulin 2.6 G/dL Normal [facility] ([place]) Comment on above: Performed By: #### Verito FR, VIDH, LIPID, CMP #### Joey [address] [address] Glucose [Mass/Vol] 107 mg/dL High 70-105 [facility] ([place] Comment on above: Performed By: #### Verito FR, VIDH, LIPID, CMP #### [address] [address] Potassium [Moles/Vol] 3.7 mmol/L Normal 3.5-5.1 [facility] ([place]) Comment on above: Performed By: #### Verito FR, VIDH, LIPID, CMP #### [address] [address] Sodium [Moles/Vol] 144 mmol/L Normal 136-145 [facility] ([place] Comment on above: Performed By: #### G FR, VIDH, LIPID, CMP #### [address] [address] Total Protein 6.8 G/dL Normal 6.4-8.2 [facility] ([place]) Comment on above: Performed By: #### G FR, VIDH, LIPID, CMP #### [address] [address] Urea nitrogen [Mass/Vol] 12 mg/dL Normal 7-18 [facility] ([place] Comment on above: Performed By: #### G FR, VIDH, LIPID, CMP #### [address] [place], [place] [address] LABORATORYOrdered By: Timmy Yu on 10-11-2021 Albumin [...] 10-11-2021 Cholesterol [Mass/Vol] 147 mg/dL Normal 0-200 [facility] ([place] Comment on above: Result Comment: Chol esterol Reference Interval: Less than 200 Desirable 200-239 Borderline high risk 240 and above High risk Performed By: #### G FR, VIDH, LIPID, CMP #### [address] [address] Cholesterol in HDL [Mass/Vol] 55 mg/dL Normal 40-60 [facility] ([place] Comment on above: Performed By: #### G FR, VIDH, LIPID, CMP #### [address] [address] Cholesterol in LDL [Mass/Vol] 76 mg/dL Normal 0-130 [facility] ([place]) Comment on above: Performed By: #### G FR, VIDH, LIPID, CMP #### [address] [address] Triglyceride [Mass/Vol] 81 mg/dL Normal 0-150 [facility] ([place]) Comment on above: Result Comment: Trig lyceride Reference Interval: Less than 150 Normal 150-199 Borderline high risk 200-499 High risk 500 or higher Very high risk Performed By: #### G FR, VI, LIPID, CMP #### [id number] [place], [place] [address] VIDHon 10-11-2021 Vit. D 25-Hydroxy 42.3 ng/mL Normal [facility] ([place]) Comment on above: Result Comment: Inte rpretive Values Based on Total 25(OH) Vitamin D: Deficient <20 ng/mL Insufficient 20 - <30 ng/mL Sufficient 30-100 ng/mL Performed By: #### G FR, VIDH, LIPID, CMP #### [facility] [address] [place], [place] [address] Absolute lymphocyte counton 09-30-2021 Lymphocytes Auto (Unsp spec) [#/Vol] 2.83 10*3/uL 0.83-4.51 [facility] Work Phone: Basophil percentageon 2021 Basophils/100 WBC (Bld) 1.2 % 0-1 [facility] Work Phone: Bilirubin [Mass/Vol] 0.30 mg/dL 0.20-1.00 [facility] Work Phone: Comment on above: For patients on eltr ombopag therapy, use of Dimension [place] TBIL is not recommended. Chloride [Moles/Vol] 102 mmol/L 98-107 [facility] Work Phone: Eosinophils/100 WBC (Bld) 2.5 % 0-5 [facility] Work Phone: Glucose [Mass/Vol] 92 mg/dL 74-106 [facility] Work Phone: Neutrophils (Bld) [#/Vol] 3.2 10*3/uL 2.0-7.7 [facility] Work Phone: Neutrophils/100 WBC (Bld) 46.1 % 47-70 [facility] Work Phone: Potassium [Moles/Vol] 3.3 mmol/L 3.5-5.1 [facility] Work Phone: Protein [Mass/Vol] 7.3 g/dL 6.4-8.2 [facility] Work Phone: Sodium [Moles/Vol] 137 mmol/L 136-145 [facility] Work [phone] WBC (Bld) [#/Vol] 6.9 10*3/uL 4.4-11.0 [facility] Work Phone: Blood erythrocytes count (nu mber/volume)on 09-30-2021 RBC (Bld) [#/Vol] 3.99 10*6/uL 4.2-5.4 [facility] Work Phone: Blood hemoglobin measurement (mass/volume)on 09-30-2021 Hemoglobin (Bld) [Mass/Vol] 12.4 g/dL 12.0-15.0 [facility] Work Phone: Blood lymphocytes/100 leukoc yteson 09-30-2021 Lymphocytes/100 WBC (Bld) 41.1 % 19-41 [facility] Work Phone: Blood manual differential co mment interpretation (narrative result)on 09-30-2021 Manual differential comment Salo (Bld) [Interp] SCANNED [facility] Work Phone: Blood monocytes/100 leukocyt eson 09-30-2021 Monocytes/100 WBC (Bld) 9.0 % 0-10 [facility] Work Phone: Blood platelet mean volumeon 09-30-2021 Platelet mean volume (Bld) [Entitic vol] 8.9 fL 6.2-12.0 [facility] Work Phone: Determination of erythrocyte mean corpuscular volume (MCV)on 09-30-2021 MCV (RBC) [Entitic vol] 88.7 fL 81-99 [facility] Work Phone: [phone] Hematocrit Auto (Bld) [Volum e fraction]on 09-30-2021 Hematocrit (Bld) [Volume fraction] 35.4 % 37-47 [facility] Work Phone: [phone] Laboratory - Chemistry and C hemistry - challengeon 09-30-2021 ALP [Catalytic activity/Vol] 45 U/L 45-117 [facility] Work Phone: [phone] ALT [Catalytic activity/Vol] 48 U/L 13-56 [facility] Work Phone: [phone] CO2 [Moles/Vol] 26.0 mmol/L 21.0-32.0 [facility] Work Phone: [phone] Globulin (S) [Mass/Vol] 3.3 g/dL 2.2-4.2 [facility] Work Phone: [phone] Urea nitrogen/Creatinine [Mass ratio] 22.6 mg/mg 10-20 [facility] Work Phone: [phone] Laboratory - Hematology and Cell countson 09-30-2021 Erythrocyte distribution width (RBC) [Entitic vol] 39.3 fL 35.1-43.9 [facility] Work Phone: [phone] Erythrocyte distribution width (RBC) [Ratio] 12.0 % 11.6-14.6 [facility] Work Phone: [phone] Immature granulocytes/100 WBC (Bld) 0.100 % 0.0-0.9 [facility] Work Phone: [phone] Comment on above: IG% - Immature Granu locytes (promyelocytes, myelocytes and metamyelocytes) > 1% indicates that a LEFT SHIFT is Present. MCH (RBC) [Entitic mass] 31.1 pg 27.0-32.0 [facility] Work Phone: [phone] Nucleated RBC/100 WBC (Bld) [Ratio] 0 % 0-5 [facility] Work Phone: [phone] MCHC Auto (RBC) [Mass/Vol]on 09-30-2021 MCHC (RBC) [Mass/Vol] 35.0 g/dL 32-36 [facility] Work Phone: No Panel Informationon 09-30 Estimated GFR (MDRD) Amer 101 mL/min >60 [facility] Work Phone: Comment on above: GFR Calc Estimated GFR (MDRD) Non-Af Amer 83 mL/min >60 [facility] Work Phone: Comment on above: Non- GFR Calc Platelets bldon 09-30-2021 Platelets (Bld) [#/Vol] 300 10*3/uL 150-450 [facility] Work Phone: Serum or plasma albumin david urement (mass/volume)on 09-30-2021 Albumin [Mass/Vol] 4.0 g/dL 3.2-5.0 [facility] Work Phone: Serum or plasma albumin/glob ulin mass ratioon 09-30-2021 Albumin/Globulin [Mass ratio] 1.2 {ratio} 0.9-2.4 [facility] Work Phone: Serum or plasma calcium david urement (mass/volume)on 09-30-2021 Calcium [Mass/Vol] 9.4 mg/dL 8.5-10.1 [facility] Work Phone: Serum or plasma creatinine m easurement (mass/volume)on 09-30-2021 Creatinine [Mass/Vol] 0.75 mg/dL 0.55-1.02 [facility] Work Phone: Comment on above: The validity of the calculated GFR & GFRAA in patients over 70 years has not been determined. Clinical correlation is essential. Serum or plasma urea nitroge n measurement (mass/volume)on 09-30-2021 Urea nitrogen [Mass/Vol] 17 mg/dL 7-18 [facility] Work Phone: Thin prep Papanicolaou smear with manual screeningon 09-30-2021 Thin prep Papanicolaou smear with manual screening 22 U/L 15-37 [facility] Work Phone: Thin prep Papanicolaou smear with manual screening 9 5-15 [facility] Work Phone: LABORATORYOrdered By: Pamela Valencia on [...] Date Time Vital Sign Value Performing Clinician Faci lity 08-29-2024 11:32-0400 Body height 153.67 cm Ilan Chung [employer] Work Phone: [facility] 08-29-2024 11:32-0400 Body mass index (BMI) [Ratio] 24 kg/m2 lIan Chung [employer] Work Phone: [facility] 08-29-2024 11:32-0400 Body weight 56.69 kg Ilan Chung [employer] Work Phone: [facility] 08-29-2024 11:32-0400 Diastolic blood pressure 83 mm[Hg] Ilan Chung [employer] Work Phone: [facility] 08-29-2024 11:32-0400 Heart rate 74 /min Ilan Chung [employer] Work Phone: [facility] 08-29-2024 11:32-0400 Respiratory rate 18 /min Ilan Chung [employer] Work Phone: [facility] 08-29-2024 11:32-0400 SaO2% (BldA) [Mass fraction] 95 % Ilan Sheldon [employer] Work Phone: [facility] 08-29-2024 11:32-0400 Systolic blood pressure 151 mm[Hg] Ilan Denver [employer] Work Phone: [facility] 06-02-2024 08:08-0500 Body height 153.67 cm Ilan Denver [employer] Work Phone: [facility] 06-02-2024 08:08-0500 Body mass index (BMI) [Ratio] 24.7 kg/m2 Ilan Chung [employer] Work Phone: [facility] 06-02-2024 08:08-0500 Body weight 58.51 kg Ilan Chung [employer] Work Phone: [facility] 07-29-2023 15:54-0400 Body height 153.67 cm [employer] Ilan Sheldon [employer] Work Phone: [facility] 07-29-2023 15:54-0400 Body mass index (BMI) [Ratio] 23.6 kg/m2 [employer] Ilan Sheldon [employer] Work Phone: [facility] 07-29-2023 15:54-0400 Body weight 55.79 kg [employer] Ilan Sheldon [employer] Work Phone: [facility] 07-29-2023 15:54-0400 Diastolic blood pressure 77 mm[Hg] [employer] Ilan Sheldon [employer] Work Phone: [facility] 07-29-2023 15:54-0400 Heart rate 65 /min [employer] Ilan Chung [employer] Work Phone: [facility] 07-29-2023 15:54-0400 Respiratory rate 16 /min [employer] Ilan Chung [employer] Work Phone: [facility] 07-29-2023 15:54-0400 Systolic blood pressure 122 mm[Hg] [employer] Ilan Nortonpkins [employer] Work Phone: [facility] 07-02-2022 15:53-0500 Body height 153.67 cm [employer] Ilan Nortonpkins [employer] Work Phone: [facility] 07-02-2022 15:53-0500 Body mass index (BMI) [Ratio] 32.8 kg/m2 [employer] Ilan Nortonpkins [employer] Work Phone: [facility] 07-02-2022 15:53-0500 Body weight 77.56 kg [employer] Ilan Sheldon [employer] Work Phone: [facility] 07-02-2022 15:53-0500 Diastolic blood pressure 84 mm[Hg] [employer] Ilan Denver [employer] Work Phone: [facility] 07-02-2022 15:53-0500 Heart rate 70 /min [employer] Ilan Sheldon [employer] Work Phone: [facility] 07-02-2022 15:53-0500 Respiratory rate 18 /min [employer] Ilan Nortonpkins [employer] Work Phone: [facility] 07-02-2022 15:53-0500 SaO2% (BldA) [Mass fraction] 98 % [employer] Ilan Nortonpkins [employer] Work Phone: [facility] 07-02-2022 15:53-0500 Systolic blood pressure 129 mm[Hg] [employer] Ilan Nortonpkins [employer] Work Phone: [facility] 07-01-2021 11:43-0500 Body height 153.67 cm [employer] Ilan Sheldon [employer] Work Phone: [facility] Work Phone: 07-01-2021 11:43-0500 Body weight 78.92 kg [employer] Ilan Denver [employer] Work Phone: [facility] Work Phone: 07-01-2021 11:43-0500 Diastolic blood pressure 75 mm[Hg] [employer] Ilan Chung [employer] Work Phone: [facility] Work Phone: 07-01-2021 11:43-0500 Heart rate 68 /min [employer] Ilan Chung [employer] Work Phone: [facility] Work Phone: 07-01-2021 11:43-0500 Respiratory rate 16 /min [employer] Ilan Chung [employer] Work Phone: [facility] Work Phone: 07-01-2021 11:43-0500 SaO2% (BldA) [Mass fraction] 96 % [employer] Ilan Chung [employer] Work Phone: [facility] Work Phone: 07-01-2021 11:43-0500 Systolic blood pressure 128 mm[Hg] [employer] Ilan Chung [employer] Work Phone: [facility] Work Phone: 06-26-2020 15:10-0500 Body mass index (BMI) [Ratio] 33.4 kg/m2 [employer] Ilan Denver [employer] Work Phone: [facility] Work Phone: Encounters Encounter Date Encounter Type Care Provider Facility Start: 12-21-2024 ambulatory Ilan Chung [employer] Facility:[facility] Start: 2024 End: 2024 ambulatory Ilan Chung [employer] Work Phone: -[facility] Start: 2024 End: [address] Trina Camilo MD -[facility] [place] Work Phone: Start: 2024 End: 2024 ambulatory Ilan Chung [employer] Facility:[facility] Start: 11-17-2024 End: 11-17-2024 ambulatory Ilan Chung [employer] Work Phone: -[facility] [place] Start: 11-17-2024 End: 11-17-2024 Patient encounter procedure Ilan Chung [employer] -[facility] [place] Work Phone: Start: 11-17-2024 End: 11-17-2024 ambulatory Ilan Chung [employer] Facility:[facility] Start: 09-21-2024 End: 09-21-2024 ambulatory Ilan Chung [employer] Work Phone: [facility] Work Phone: Start: 09-21-2024 End: 09-21-2024 Patient encounter procedure Brittany Olson [employer] -[facility] [place] Work Phone: Start: 09-21-2024 End: 09-21-2024 ambulatory Brittany Olson NP Facility:[facility] Start: 09-07-2024 End: 09-07-2024 ambulatory Ilan Chung [employer] Work Phone: [facility] Work Phone: Start: 09-07-2024 End: 09-07-2024 Patient encounter procedure Brittany Olson [employer] -[facility] [place] Work Phone: Start: 09-07-2024 End: 09-07-2024 ambulatory Brittany Oslon NP Facility:[facility] Start: 08-29-2024 End: 08-29-2024 Patient encounter procedure Brittany Olson [employer] -[facility] Work Phone: Start: 08-29-2024 End: 08-29-2024 ambulatory Brittany Olson [employer] Facility:[facility] Start: 07-21-2024 End: 07-21-2024 ambulatory Ilan Chung [employer] Work Phone: [facility] Work Phone: Start: 07-21-2024 End: 07-21-2024 Discharged Recurring Marian NUNO -Physical Therapy Work Phone: Start: 06-29-2024 End: 06-29-2024 Patient encounter procedure Marian NUNO -[facility] Work Phone: Start: 06-29-2024 End: 06-29-2024 ambulatory Ilan Chung [employer] Facility:[facility] Start: 06-17-2024 End: 06-17-2024 Patient encounter procedure Marian NUNO -[facility] Work Phone: Start: 06-17-2024 End: 06-17-2024 ambulatory Ilan Chung [employer] Facility:[facility] Start: 06-02-2024 End: 06-02-[address] Trina Camilo MD -Laboratory, [place] Work Phone: Start: 06-02-2024 End: 06-02-2024 Patient encounter procedure Marian NUNO -[facility] Work Phone: Start: 06-02-2024 End: 06-02-2024 ambulatory Ilan Chung [employer] Facility:[facility] Start: 06-02-2024 End: 06-02-2024 ambulatory Ilan Chung [employer] Facility:[facility] Start: 05-27-2024 End: 05-27-2024 Patient encounter procedure Ilan Chung [employer] -Laboratory Work Phone: Start: 05-27-2024 End: 05-27-2024 ambulatory Ilan Chung [employer] Facility:[facility] Start: 08-30-2023 Non-patient / Non-visit WARP KNITTER-C Lauren Chung WARP KNITTER Work Phone: [facility] Start: 08-30-2023 End: 08-30-2023 ambulatory WARP KNITTER-C Ilan Chung WARP KNITTER Work Phone: [facility] Work Phone: Start: 08-30-2023 End: 08-30-2023 Patient encounter procedure WARP KNITTER-C Ilan Chung WARP KNITTER Work Phone: [facility] Work Phone: Start: 07-29-2023 End: 07-29-2023 Patient encounter procedure WARP KNITTER-C Ilan Chung WARP KNITTER Work Phone: [facility] Work Phone: Start: 06-18-2023 End: 06-18-2023 ambulatory [facility] Work Phone: Start: 06-18-2023 End: 06-18-2023 Patient encounter procedure [facility] Work Phone: Start: 05-01-2023 End: 05-01-2023 ambulatory [facility] Work Phone: Start: 05-01-2023 End: 05-01-2023 [facility] Start: 12-22-2022 End: 12-22-2022 ambulatory [facility] Work Phone: Start: 12-22-2022 End: 12-22-2022 Patient encounter procedure [facility] Work Phone: Start: 12-10-2022 End: 12-10-2022 ambulatory [facility] Work Phone: Start: 12-10-2022 End: 12-10-2022 Patient encounter procedure [facility] Work Phone: Start: 10-24-2022 End: 10-24-2022 [facility] Start: 10-12-2022 End: 10-12-2022 ambulatory WARP KNITTER-C Ilan Chung WARP KNITTER Work Phone: [facility] Work Phone: Start: 10-12-2022 End: 10-12-2022 Patient encounter procedure WARP KNITTER-Abelino Chung WARP KNITTER Work Phone: [facility] Start: 09-17-2022 End: 09-17-2022 Patient encounter procedure WARP KNITTER-C Ilan Chung WARP KNITTER Work Phone: [facility] Start: 07-30-2022 Non-patient / Non-visit WARP KNITTER-C Lauren Chung WARP KNITTER Work Phone: [facility] Start: 07-30-2022 Non-patient / Non-visit WARP KNITTER-C Lauren Chung WARP KNITTER Work Phone: [facility] Start: 07-30-2022 End: 07-30-2022 ambulatory WARP KNITTER-C Ilan Chung WARP KNITTER Work Phone: [facility] Work Phone: Start: 07-30-2022 End: 07-30-2022 Patient encounter procedure WARP KNITTER-C Ilan Chung WARP KNITTER [facility] Start: 07-02-2022 End: 07-02-2022 Patient encounter procedure WARP KNITTER-C Ilan Chung WARP KNITTER Work Phone: [facility] Start: 05-15-2022 End: 05-20-2022 ambulatory MEAGAN SOTO [employer] MAINTENANCE SUPERVISOR Facility:B Start: 05-15-2022 End: 05-19-2022 Outreach Lab MEAGAN [employer]ILL[employer] MAINTENANCE SUPERVISOR [facility] Start: 04-24-2022 End: 04-25-2022 ambulatory ILAN CHUNG [employer] - [employer] MAINTENANCE SUPERVISOR Facility:B Start: 04-24-2022 End: 04-24-2022 Patient encounter procedure ILAN CHUNG [employer] - [employer]ILL[employer] MAINTENANCE SUPERVISOR [facility] Start: 03-23-2022 End: 03-23-2022 ambulatory [facility] Work Phone: Start: 03-23-2022 End: 03-23-2022 Patient encounter procedure [facility] Start: 11-04-2021 End: 11-04-2021 Patient encounter procedure [facility] Start: 10-11-2021 End: 10-12-2021 ambulatory ILAN CHUNG [employer] - [employer] MAINTENANCE SUPERVISOR Facility:[facility] Start: 10-11-2021 End: 10-11-2021 Patient encounter procedure ILAN CHUNG [employer] - [employer] MAINTENANCE SUPERVISOR [facility] Start: 09-30-2021 End: 09-30-2021 Patient encounter procedure WARP KNITTER-C Ilan Chung WARP KNITTER Work Phone: [facility] Start: 07-01-2021 End: 07-01-2021 Patient encounter procedure WARP KNITTER-C Ilan Chung WARP KNITTER Work Phone: [facility] Start: 04-12-2021 End: 04-12-2021 Patient encounter procedure ILAN CHUNG [employer] - [employer] MAINTENANCE SUPERVISOR [facility] Start: 02-03-2021 End: 02-03-2021 Patient encounter procedure ILAN CHUNG [employer] - [employer] MAINTENANCE SUPERVISOR [facility] Procedures Date Procedure Procedure Detail Performing Clinician Start: 11-17-2024 Vitamin D, 25-hydrox y measurement Ilan Chung WARP KNITTER-C Work Phone: Comment on above: Vitamin D StatusDefi ciency: <20 ng/mL (50nmol/L)Insufficiency: 20-30 ng/mL (50-75 nmol/L)Sufficiency: 30-100 ng/mL (75-250 nmol/L)Toxicity: >100 ng/mL (>250 nmol/L) Start: 06-17-2024 MRI of cervical spine Lauren Chung WARP KNITTER-C Work Phone: Start: 06-02-2024 Measurement of renal function Ilan Chung WARP KNITTER-C Work Phone: Comment on above: GFR Calc Start: 06-02-2024 X-ray of cervical spine Ilan Chung WARP KNITTER-C Work Phone: Start: 05-27-2024 Measurement of renal function Ilan Chung WARP KNITTER-C Work Phone: Comment on above: GFR Calc Start: 05-27-2024 Microalbuminuria measurement Ilan Chung WARP KNITTER-C Work Phone: Start: 05-27-2024 Urine microalbumin/creatinine ratio measurement Ilan Chung WARP KNITTER-C Work Phone: Start: 05-27-2024 Vitamin D, 25-hydrox y measurement Ilan Chung WARP KNITTER-C Work Phone: Comment on above: Vitamin D 25(OH) Sta tus Range Deficiency <20 ng/mL (50nmol/L) Insufficiency 20 - 30 ng/mL (50 - 75 nmol/L) Sufficiency 30 - 100 ng/mL (75 - 250 nmol/L) Toxicity >100 ng/mL (>250 nmol/L) Start: 12-10-2022 Screening mammography Start: 10-12-2022 Ultrasonography of abdomen WARP KNITTER-C Ilan Chung WARP KNITTER Work Phone: Start: 07-30-2022 Dual energy X-ray absorptiometry WARP KNITTER-C Ilan Chung WARP KNITTER Work Phone: Start: 11-04-2021 Screening mammography Jaw region structure (body structure) ILAN CHUNG [employer] MAINTENANCE SUPERVISOR Plan of Treatment Date Care Activity Detail Author Start: 06-02-2024 Patient referral [facility] Work Phone: Patient referral [facility] Work Phone: Payers Date Payer Category Payer Unknown [id number] 2024 Self-pay [id number] 2021 Unknown [id number] 1960 Unknown [id number] 2.16.8 [id number] 1960 Unknown [id number] 2.16.8 [id number] 1960 Unknown [id number] 2.16.8 [id number] Unknown [id number] 2.16.8 [id number] Unknown [id number] 2.16.8 [id number] Unknown [id number] 2.16.8 [id number] Unknown [id number] 2.16.8 [id number] Unknown [id number] 2.16.8 [id number] Unknown [id number] 2.16.8 [id number] Unknown [id number] 2.16.8 [id number] Unknown [id number] 2.16.8 [id number] Unknown [id number] 2.16.8 [id number] Unknown [id number] 2.16.8 [id number] Unknown [id number] 2.16.8 [id number] Unknown [id number] 2.16.8 [id number] Unknown [id number] 2.16.8 [id number] Social History Date Type Detail Facility Tobacco Tobacco Use: E c ig. Type: Electronic Cigarettes. [facility] Start: 1960 Sex Assigned At Female [facility] Start: 06-26-2020 End: 07-29-2023 Tobacco smoking status NHIS Unknown if ever smoked [facility] Tobacco smoking status No Smokin g Status Entered [facility] Start: 07-29-2023 Tobacco smoking stat us NHIS Ex-smoker (finding) [facility] Start: 07-21-2024 Sex Female (finding) [facility] Clinical Notes 06-02-2024 to 08-29-2024 Note Date & Type Note Facility 08-29-2024 Evaluation note Diagnosis Onset Date Resolution Essential (primary) hypertension chronic August 29, 2024 3: 18pm POTS (postural orthostatic tachycardia syndrome) chronic August 29, 2024 3: 18pm [facility] Work Phone: 1(724) 580-884203-28-2025 Discharge summary [facility] Physical [facility] [place] [address] / REHABILITATION SERVICES DISCHARGE SUMMARY MR#: [id number] Acct: [id number] Name: ANALY MAYO Rep #: [id number] : 1960 63 From: Aron Reyes DPT, OCS, CSCS Referring Dr.: ELIO Mcdaniels Status: REG RCR Insurance: [facility] SELF PAY INSURANCE Discharge Summary D/C summary: It has been my pleasure to treat ANALY MAYO referred by LEIO Mcdaniels, with the diagnosis of cervical radiculopathy for a total of 8 visit(s). Discharge Date: 07/21/24 Please see the following information for a summary of their discharge status. Subjective Subjective: No numbness or tingling in over a week. Been doing exercises faithfully at home. No pain. doctor wanted to do surgery after seeing MRI but not now since she is improved. Movement is good.Life is pretty normal. Sleeping well. Injections possible in mid July. Work is close to normal. and feeling better working with small parts. Pain R arm: Pain Intensity (Out of 10): 0 FONTENOT: Pain Intensity (Out of 10): 4 Overall Improvement % Improvement: 100 Objective Objective/Function: 75 R rotation adn 72 L rotation, 80 ext. 42# R card puncher strength and 60# L. UE strength otherwise 4/5 without pain. Goals Goal 1:: Full crvical AROM, 39# card puncher strength R and no arm symptoms Goal [...] please feel free to call me at [phone]. Thank you for the referral of thispatient. Sincerely, Aron Reyes, DPT, OCS, CSCS Balance/Gait/Functional tests Balance/Special Test Scores Oswestry Neck Score: 4 Improvement % Improvement: 100 07/21/24 1350 CC: WARP KNITTER-C Ilan Chung; ELIO Mcdaniels ~ EBG Signed [facility]02-07-2025 Evaluation note* Diagnosis Onset Date Resolution Status Admit Date Cervical myelopathy with cervical radiculopathy acute June 02, 2024 7:54am Degenerative disc disease, cervical acute June 02 7:54am Spondylolisthesis of cervica l region noneactive June 02 7:54am Degenerative disc disease, cervical acute June 29, 2024 3:20pm Cervical stenosis of spinal canal noneactive June 29, 2024 3:20pm [facility] Work Phone: 1(400) 660-756702-07-2025 Evaluation note* Diagnosis Onset Date Resolution Status [...] (postural orthostatic tachycardia syndrome) chronic August 29, 025 3:18pm [facility] Work Phone: Discharge summary Author Aron Reyes [facility] Note Date/Time July 21, 2024 2:1 4pm [facility] [address] [place] [address] / REHABILITATION SERVICES DISCHARGE SUMMARY MR#: [id number] Acct: [id number] Name: ANALY MAYO Rep #: [id number] : 1960 63 From: Aron Reyes DPT, OCS, CSCS Referring Dr.: ELIO Mcdaniels Status: REG R Insurance: [facility] SELF PAY INSURANCE Discharge Summary D/C summary: It has been my pleasure to treat ANALY MAYO referred by ELIO Mcdaniels, with the diagnosis of cervical radiculopathy [...] 72 L rotation, 80 ext. 42# R card puncher strength and 60# L. UE strength otherwise 4/5 without pain. Goals Goal 1:: Full crvical AROM, 39# card puncher strength R and no arm symptoms Goal [...] please feel free to call me at [phone]. Thank you for the referral of thispatient. Sincerely, Aron Reyes, DPT, OCS, CSCS Balance/Gait/Functional tests Balance/Special Test Scores Oswestry Neck Score: 4 Improvement % Improvement: 100 <Electronically signed by Aron Reyes DPT, OCS, CSCS> 07/21/24 1350 CC: WARP KNITTER-C Ilan Chung; ELIO Mcdaniels ~ EBG Signed [facility] Work Phone: Evaluation + Plan note Future Appointments Appointment Date:04/21/2021 04:00:00 PM Scheduled Provider:ILAN CHUNG APRN, CNP Location:[facility] Appointment Type:PC OV Follow Up Future Scheduled Tests Laboratory* Complete Blood Count 11/28/20 * Lipid Profile 11/28/20 * Vitamin D Level 11/28/20 * Complete Metabolic Panel 11/28/20 Radiology* XR Shoulder Minimum 2 Views Left 01/31/21 [facility] Evaluation + Plan note Future Appointments Appointment Date:10/20/2021 04:00:00 PM Scheduled Provider:ILAN CHUNG APRN, CNP Location:[facility] Appointment Type:PC OV Follow Up Future Scheduled Tests Laboratory* Thyroid Stimulating Hormone 10/20/21 * A1C Hemoglobin 10/20/21 * Complete Blood Count 10/20/21 * Lipid Profile 10/20/21 * Vitamin D Level 10/20/21 * Complete Metabolic Panel 10/20/21 Radiology* XR Shoulder Minimum 2 Views Left 01/31/21 [facility] Evaluation + Plan note Future Appointments Appointment Date:03/17/2021 04:00:00 PM Scheduled Provider:ILAN CHUNG APRN, CNP Location:[facility] Appointment Type:PC OV Follow Up Future Scheduled Tests Laboratory* Complete Blood Count 11/28/20 * Complete Blood Count 03/16/21 * Lipid Profile 11/28/20 * Lipid Profile 03/16/21 * Vitamin D Level 11/28/20 * Vitamin D Level 03/16/21 * Complete Metabolic Panel 11/28/20 * Complete Metabolic Panel 03/16/21 Radiology* XR Shoulder Minimum 2 Views Left 01/31/21 [facility] Evaluation + Plan note Future Appointments Appointment Date:04/28/2022 04:00:00 PM Scheduled Provider:ILAN CHUNG APRN, CNP Location:[facility] Appointment Type: OV Follow Up Future Scheduled Tests Laboratory* Thyroid Stimulating Hormone 10/20/21 * A1C Hemoglobin 10/20/21 * Complete Blood Count 10/20/21 * Lipid Profile 10/20/21 * Microalbumin Level Urine 04/21/22 * Vitamin D Level 10/20/21 * Complete Metabolic Panel 10/20/21 [facility] Evaluation + Plan note Future Appointments Appointment Date:11/02/2022 04:00:00 PM Scheduled Provider:ILAN CHUNG APRN, CNP Location:[facility] Appointment Type:PC OV Follow Up Future Scheduled Tests Laboratory* Pathology Order Department Supervisor Request 05/15/22 * Thyroid Stimulating Hormone 10/20/21 [...] BD Bone Density DEXA Axial Skeleton 05/15/22 [facility] Evaluation note* Diagnosis Onset Date Resolution Status Essential (primary) hypertension chronic POTS (postural orthostatic tachycardia syndrome) chronic [facility] Work Phone: Evaluation noteNo assessment information available [facility] Work Phone: Evaluation note* Diagnosis Onset Date Resolution Status Lightheadedness acute Essential (primary) hypertension chronic POTS (postural orthostatic tachycardia syndrome) chronic [facility] Work Phone: Hospital course Narrative No data available for this section [facility] Hospital Discharge instructions No data available for this section [facility] Progress note No data available for this section [facility] Reason for referral (narrative)No reason for referral information [facility] Work Phone: Chief Complaint and Reason for Visit Chief [...] m E-ORDER September 21, 2024 4:26p m Chief Complaint Admit Date 1 Y FU August 29, 2024 3:18pm E-ORDER September 07, 2024 3:50p m E-ORDER September 21, 2024 4:26p m FASTING November 17, 2024 7:01 am Reason for Visit Admit Date Essential (primary) hypertension August 3:18pm POTS (postural orthostatic tachycardia s yndrome) August 29, 2024 3:18pm Chief Complaint Admit Date 1 Y FU August 29, 2024 3:18pm E-ORDER September 07, 2024 3:50p m E-ORDER September 21, 2024 4:26p m FASTING November 17, 2024 7:01 am PAIN- COPY PCP 2024 3:4 8pm Family History No Family History Records Found [...] Team Status: Active Member Role Status Dates Ilan Chung WARP KNITTER, WARP KNITTER-C Family Provider Activ e Ilan Chung WARP KNITTER, WARP KNITTER-C Primary Care Provider Active Team Status: Inactive Member Role Status Dates Ilan Chung WARP KNITTER, WARP KNITTER-C Primary Care Provider, Referring Provider Active Chris Morales WARP KNITTER, WARP KNITTER-C Attending Provider Active Team Status: Active Member Role Status Dates Ilan Chung WARP KNITTER, WARP KNITTER-C Primary Care Provider Active Dr. Aron Burr MD Attending Provider Active Team Status: Active Member Role Status Dates Ilan Chung WARP KNITTER, WARP KNITTER-C Primary Care Provider Active Chris Morales WARP KNITTER, WARP KNITTER-C Attending Provider Active Team Status: Inactive Member Role Status Dates Ilan Chung WARP KNITTER, WARP KNITTER-C Primary Care Provider Active Meagan Soto NP, WARP KNITTER-C Attending Provider, Referring Provider Active Chris Morales WARP KNITTER, WARP KNITTER-C Other Provider Active Team Status: Active Member Role Status Dates Ilan Chung NP, WARP KNITTER-C Primary Care Provider Active Dr. Aron Burr MD Attending Provider Active Meagan Soto NP, WARP KNITTER-C Referring Provider Active Team Status: Active Member Role Status Dates Ilan Chung NP, WARP KNITTER-C Primary Care Provider Active Dr. Trina Camilo MD Attending Provider, Referring Provider Active Team Status: Inactive Member Role Status Dates Ilan Chung WARP KNITTER, WARP KNITTER-C Primary Care Provider Active Dr. Trina Camilo MD Attending Provider, Referring Provider Active Team Status: Inactive Member Role Status Dates Ilan Chung WARP KNITTER, WARP KNITTER-C Primary Care Provider, Attending Provider, Referring Provider Active Team Status: Active Member Role Status Dates Ilan Nitish Chung WARP KNITTER, WARP KNITTER-C Primary Care Provider Active Dr. Kenneth Ayala MD Attending Provider Active Team Status: Inactive Member Role Status Dates Ilan Chung WARP KNITTER, WARP KNITTER-C Primary Care Provider Active Chris Morales WARP KNITTER, WARP KNITTER-C Attending Provider, Referring Pro vider Active Team Status: Active Member Role Status Dates Ilan Nitish Chung WARP KNITTER, WARP KNITTER-C Primary Care Provider Active Team Status: Inactive Member Role Status Dates Ilan Nitish Sheldon WARP KNITTER, WARP KNITTER-C Primary Care Provider Active Start: May End: May 27, 2024 Ilan Nitish Chung WARP KNITTER, WARP KNITTER-C Attending Provider Active Start: May 27, 2024 End: May 27, 2024 Ilan Nitish Chung WARP KNITTER, WARP KNITTER-C Referring Provider Active Start: May 27, 2024 End: May 27, 2024 Team Status: Inactive Member Role Status Dates Ilan Nitish Chung WARP KNITTER, WARP KNITTER-C Primary Care Provider Active Start: May End: June 02, 2024 Ilan Nitish Sheldon WARP KNITTER, WARP KNITTER-C Referring Provider Active Start: June 02, 2024 End: June 02, 2024 ELIO Mcdaniles Attending Provider Active Star t: June 02, 2024 End: June 02, 2024 Team Status: Inactive Member Role Status Dates Ilan Nitish Chung WARP KNITTER, WARP KNITTER-C Primary Care Provider Active Start: May End: June 02, 2024 Dr. Kenneth Ayala MD Attending Provider Active S tart: June 02, 2024 End: June 02, 2024 Team Status: Inactive Member Role Status Dates Ilan Chung WARP KNITTER, WARP KNITTER-C Primary Care Provider Active Start: May End: June 02, 2024 Dr. Trina Camilo MD Attending Provider Active Start: June 02, 2024 End: June 02, 2024 Dr. Trina Camilo MD Referring Provider Active Start: June 02, 2024 End: June 02, 2024 Team Status: Inactive Member Role Status Dates Ilan Chung WARP KNITTER, WARP KNITTER-C Primary Care Provider Active Start: June 172024 End: June 17, 2024 ELIO Mcdaniels Attending Provider Active Star t: June 17, 2024 End: June 17, 2024 ELIO Mcdaniels Referring Provider Active Star t: June 17, 2024 End: June 17, 2024 Team Status: Inactive Member Role Status Dates Ilan Chung WARP KNITTER, WARP KNITTER-C Primary Care Provider Active Start: June 29, 2024 End: June 29, 2024 Ilan Chung WARP KNITTER, WARP KNITTER-C Referring Provider Ac tive Start: June 29, 2024 End: June 29, 2024 ELIO Mcdaniels Attending Provider Active Star t: June 29, 2024 End: June 29, 2024 Team Status: Inactive Member Role Status Dates Ilan Chung WARP KNITTER, WARP KNITTER-C Primary Care Provider Active Start: July 21, 2024 End: July 21, 2024 ELIO Mcdaniels Attending Provider Active Star t: July 21, 2024 End: July 21, 2024 ELIO Mcdaniels Referring Provider Active Star t: July 21, 2024 End: July 21, 2024 Team Status: Inactive Member Role Status Dates Ilan Chung WARP KNITTER, WARP KNITTER-C Primary Care Provider Active Start: August 29, 2024 End: August 29, 2024 Ilan Chung WARP KNITTER, WARP KNITTER-C Referring Provider Ac tive Start: August 29, 2024 End: August 29, 2024 Brittany Olson WARP KNITTER, WARP KNITTER-C Attending Provider Active Start: August 29, 2024 End: August 29, 2024 Team Status: Inactive Member Role Status Dates Ilan Chung WARP KNITTER, WARP KNITTER-C Primary Care Provider Active Start: September 07, 2024 End: September 07, 2024 Brittany Olson WARP KNITTER, WARP KNITTER-C Attending Provider Active Start: September 07, 2024 End: September 07, 2024 Brittany Olson WARP KNITTER, WARP KNITTER-C Referring Provider Active Start: September 07, 2024 End: September 07, 2024 Team Status: Inactive Member Role Status Dates Ilan hCung WARP KNITTER, WARP KNITTER-C Primary Care Provider Active Start: September 21, 2024 End: September 21, 2024 Brittany Olson WARP KNITTER, WARP KNITTER-C Attending Provider Active Start: September 21, 2024 End: September 21, 2024 Brittany Olson WARP KNITTER, WARP KNITTER-C Referring Provider Active Start: September 21, 2024 End: September 21, 2024 Team Status: Active Member Role/Relationship Status Dates Ilan Chung WARP KNITTER, WARP KNITTER-C Primary Care Provider Active Team Status: Inactive Member Role/Relationship Status Dates Ilan Chung WARP KNITTER, WARP KNITTER-C Primary Care Provider Active Start: August 29, 2024 End: August 29, 2024 Ilan Chung WARP KNITTER, WARP KNITTER-C Referring Provider Ac tive Start: August 29, 2024 End: August 29, 2024 Brittany Olson WARP KNITTER, WARP KNITTER-C Attending Provider Active Start: August 29, 2024 End: August 29, 2024 Team Status: Inactive Member Role/Relationship Status Dates Ilan Chung WARP KNITTER, WARP KNITTER-C Primary Care Provider Active Start: September 07, 2024 End: September 07, 2024 Brittany Olson WARP KNITTER, WARP KNITTER-C Attending Provider Active Start: September 07, 2024 End: September 07, 2024 Brittany Olson WARP KNITTER, WARP KNITTER-C Referring Provider Active Start: September 07, 2024 End: September 07, 2024 Team Status: Inactive Member Role/Relationship Status Dates Ilan Chung WARP KNITTER, WARP KNITTER-C Primary Care Provider Active Start: September 21, 2024 End: September 21, 2024 Brittany Olson WARP KNITTER, WARP KNITTER-C Attending Provider Active Start: September 21, 2024 End: September 21, 2024 Brittany Olson WARP KNITTER, WARP KNITTER-C Referring Provider Active Start: September 21, 2024 End: September 21, 2024 Team Status: Inactive Member Role/Relationship Status Dates Ilan Chung WARP KNITTER, WARP KNITTER-C Primary Care Provider Active Start: November 17, 2024 End: November 17, 2024 Ilan Chung WARP KNITTER, WARP KNITTER-C Attending Provider Ac tive Start: November 17, 2024 End: November 17, 2024 Ilan Chung WARP KNITTER, WARP KNITTER-C Referring Provider Ac tive Start: November 17, 2024 End: November 17, 2024 Team Status: Inactive Member Role/Relationship Status Dates Ilan Chung WARP KNITTER, WARP KNITTER-C Primary Care Provider Active Start: 2024 End: 2024 Dr. Trina Camilo MD Attending Provider Active Start: 2024 End: 2024 Dr. Trina Camilo MD Referring Provider Active Start: 2024 End: 2024 Care Team (unrecognized sect ion and content) Care Team Personnel Name: ILAN CHUNG [employer] MAINTENANCE SUPERVISOR Position: P4 Advanced Practice Nurse Member Role: Primary Care Physician Address: Address: [address] [place] [address] Care Team Related Persons Name: TEDDY ANDERSEN Care Team Personnel Name: ILAN CHUNG [employer] - [employer] MAINTENANCE SUPERVISOR Position: P4 Advanced Practice Nurse Member Role: Primary Care Physician Address: Address: [address] [place] [address] Care Team Related Persons Name: TEDDY ANDERSEN INFORMATION SOURCE (unrecogn ized section and content) DATE CREATED AUTHOR 06/22/2022 [facility] ([place]) DATE CREATED AUTHOR AUTHOR'S ORGANIZ ATION 12/17/2024 [facility] FOR RECORDS PERTAINING TO PATIENTS WHO ARE [...] BE BASED ON THE PRIMARY CLINICAL RECORDS. [facility] [employer] [phone] no warranty [phone] [id number] the accuracy [phone] completeness [phone] in [id number] [id number]
== END | disposition home or self-care (01) ==
LOC: OPBI 06:58
PROVIDERS: PCP Nurse Practitioner Family; Referring Provider Nurse Practitioner Family; Visit Provider Nurse Practitioner Family
DX: Z12.31 Encounter for screening mammogram for malignant neoplasm of breast (principal)
CPT/HCPCS: 77063; 77067